=== PATIENT | male | born 1940 | race Caucasian/White ===

== ENCOUNTER 2017-05-14 09:07 | Observation (INO) | payer OTHER ==
--- NOTE | 2017-05-14 09:20 | CPEKG ---
Heart Rate: 54 RR Interval: 1111 P-R Interval: 204 QRSD Interval: 152 QT Interval: 464 QTC Interval: 440 P [place]: 21 QRS [place]: 30 T Wave [place]: -21 EKG Severity - ABNORMAL ECG - EKG Impression: SINUS RHYTHM EKG Impression: RIGHT BUNDLE BRANCH BLOCK EKG Impression: INFERIOR INFARCT, AGE INDETERMINATE Electronically Signed By: David Schulte 14-May-2017 16:11:00
[2017-05-14] MEDS ORDERED: MECLIZINE HCL 25 MG TAB PO ONE (09:34)
[2017-05-14] MEDS ORDERED: NS 500 ML IV ONE (09:34)
[2017-05-14 09:40] LABS: % IMMATURE GRANULYOCYTES 0.2 % (0.0-1.1); ABSOLUTE IMMATURE GRANULOCYTES 0.01 10^3/uL (0.00-0.10); ADD DIFF? NO; ADD MORPH? NO; ADD SCAN? NO; ATYPICAL LYMPHOCYTE FLAG 0 (0-99); FRAGMENT RBC FLAG 0 (0-99); HEMATOCRIT 42.1 % (40.0-51.0); HEMOGLOBIN 14.2 g/dL (13.7-17.5); LEFT SHIFT FLG 0 (0-99); LIPEMIA HEMOLYSIS FLAG 80 (0-99); MEAN CELL HEMOGLOBIN 31.7 pg (27.9-34.1); MEAN CELL HEMOGLOBIN CONCENTR. 33.7 g/dL (32.4-36.7); MEAN PLATELET VOLUME 9.4 fL (8.7-11.7); PLATELET CLUMPS FLAG 0 (0-99); PLATELET COUNT 206 10^3/uL (150-400); RED BLOOD CELL COUNT 4.48 10^6/uL (4.40-6.38); RED CELL DISTRIBUTION WIDTH 12.7 % (11.5-15.2)
[2017-05-14 09:47] LABS: ALANINE AMINOTRANSFERASE 27 IU/L (21-72); ALBUMIN 3.9 g/dL (3.5-5.0); ALKALINE PHOSPHATASE 59 IU/L (38-126); ANION GAP 12 mEq/L (8-16); ASPARTATE AMINOTRANSFERASE 25 IU/L (17-59); BILIRUBIN,TOTAL 0.9 mg/dL (0.1-1.4); BILIRUBIN-CONJUGATED 0.3 mg/dL (0.0-0.5); BILIRUBIN-UNCONJUGATED 0.6 mg/dL (0.0-1.1); CALCIUM 9.5 mg/dL (8.5-10.4); CARBON DIOXIDE 22 mEq/l (22-31); CHLORIDE 106 mEq/L (97-110); CREATININE 1.2 mg/dL (0.7-1.3); GLOMERULAR FILTRATION RATE 58; GLUCOSE 101 mg/dL (70-100); POTASSIUM 4.7 mEq/L (3.5-5.2); SODIUM 140 mEq/L (134-144); TOTAL PROTEIN 7.5 g/dL (6.3-8.2)
[2017-05-14 09:51] LABS: INR 1.13 (0.83-1.16); PROTIME(PATIENT) 14.4 SEC (12.0-15.0)
[2017-05-14 09:52] LABS: APTT 29.4 SEC (23.0-38.0)
[2017-05-14 09:58] LABS: TROPONIN I < 0.012 ng/mL (0.000-0.034)
--- NOTE | 2017-05-14 10:33 | EDPHY ---
H & P Stated Complaint: Dizzines since waking up this morning. Source: Patient, Family Exam Limitations: No limitations - Personal History Current Tetanus Diphtheria and Acellular Pertussis (TDAP): No - Medical/Surgical History Hx Asthma: No Hx Chronic Respiratory Disease: No Hx Diabetes: No Hx Cardiac Disease: Yes Hx Renal Disease: No Hx Cirrhosis: No Hx Alcoholism: No Hx HIV/AIDS: No Hx Splenectomy or Spleen Trauma: No Other PMH: Heart bypass - 2006. HTN. High cholestrol. - Social History Smoking Status: Never smoked HPI/ROS: CHIEF COMPLAINT: Dizziness, lightheaded HISTORY OF PRESENT ILLNESS: Patient complains of dizziness. This started last night and has been constant. There is spinning associated with. He also feels his heart rate dropping and feel symptomatic with this. No chest pain. No shortness of breath. No recent illness. No unilateral complaints. No slurred speech or facial droop per spouse. No headache. No other associated complaints or modifying factors. REVIEW OF SYSTEMS: Ten systems reviewed and are negative unless otherwise noted in the HPI PAST MEDICAL HISTORY: Reviewed with patient and family SOCIAL HISTORY: Nonsmoker. Lives independently with his spouse FAMILY HISTORY: Noncontributory EXAMINATION General Appearance: Alert, no distress Head: normocephalic, atraumatic Eyes: Pupils equal and round, no conjunctival pallor or injection. Horizontal nystagmus. No vertical nystagmus. EOMs intact. ENT, Mouth: Mucous membranes moist Neck: Normal inspection, supple, non-tender Respiratory: Lungs are clear to auscultation. No wheeze, rhonchi or crackles Cardiovascular: Bradycardic rate. Regular rhythm. No murmur. Gastrointestinal: Abdomen is soft and nontender Back: non-tender, no bony abnormalities Neurological: GCS 15. A&O, nonfocal, no pronator drift. Strength is symmetric in all 4 limbs. No dysmetria. NIH stroke scale 0. Skin: Warm and dry, no rash Extremities: Nontender, no pedal edema Psychiatric: Mood and affect normal DIFFERENTIAL DIAGNOSES: Including but not limited to bradycardia, near-syncope, syncope, vertigo, vertebrobasilar syndrome, CVA MDM: 9:35 p.m. Lightheadedness and dizziness consistent with vertigo. No chest pain. No syncope but he does describe a near syncopal episode. Vital signs are stable. Laboratory studies, meclizine and IV fluid have been ordered. Also will obtain orthostatic vital signs. He is in no acute distress. 10:00 a.m. I have re-evaluated the patient. He is in no acute distress. Vital signs stable. CT scan pending. Laboratory studies pending. 10:05 a.m. Contacted by radiologist Dr. De La Rosa. CT scan of the head reveals no acute findings. Chronic changes as noted. 10:50 a.m. I have re-evaluated the patient. He is resting comfortably in no acute distress. Dizziness has minimally improved. Laboratory studies are unremarkable. Chest x-ray reveals borderline CHF. No other acute findings. 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 The lowest rate I witnessed was 49 beats per minute. He does feel more symptomatic with this. Thus I will admit him to the hospital and obtain Cardiology consult he is awake and alert. His pressure has been normotensive. No encephalopathy. No instability. 11:17 a.m. I discussed the case with hospitalist Valerie Mcbride. Patient will be admitted to Dr. Darby. He is admitted in stable condition. No cardiology consult requested at this time. SUPERVISION: Patient was evaluated in conjunction with the supervising physician. Please see their note for details. (Richie De Los Santos) Constitutional: Initial Vital Signs Temperature (C) 36.5 C 05/14/17 09:16 Heart Rate 62 05/14/17 09:16 Respiratory Rate 19 05/14/17 09:16 Blood Pressure 152/95 H 05/14/17 09:16 O2 Sat (%) 92 05/14/17 09:16 O2 Delivery Mode Room Air Allergies/Adverse Reactions: NKDA Allergy (Uncoded 09/25/09 01:12) Home Medications: Medication Instructions Recorded Aspirin [Aspirin 81mg (*)] 162 mg PO DAILY 09/24/09 Atorvastatin Calcium [Lipitor 40 40 mg PO HS 09/24/09 mg (*)] Glucosamine/Chondroitin 1 each PO DAILY 09/24/09 [Glucosamine/Chondroitin (*)] Omeprazole [Prilosec 20 mg] 20 mg PO Q2D 09/24/09 Travoprost Z 0.004% [Travatan Z 1 drops EACHEYE HS 09/24/09 0.004% (*)] Ferrous Sulfate [Ferrous Sulf 325 325 mg PO DAILY 05/14/17 MG (*)] Multivitamins [Multivitamin (*)] 1 each PO DAILY 05/14/17 amLODIPine BESYLATE [Norvasc 5 mg 5 mg PO DAILY 05/14/17 (*)] Medical Decision Making ED Course/Re-evaluation: I did not see this patient while he was in the emergency department. However his care was discussed with the PA while the patient was in the department. I agree with treatment plan and management (David Schulte) - Data Points Laboratory Results: Laboratory Results 05/14/17 09:04 05/14/17 09:04 Medications Given: Atorvastatin Calcium (Lipitor) 40 mg PO [facility] Stop: 11/10/17 20:59 Last Admin: 05/14/17 20:44 Dose: 40 mg Travoprost (Travatan Z 0.004%) 1 drops EACHEYE [facility] Stop: 11/10/17 20:59 Last Admin: 05/14/17 20:44 Dose: 1 drop Discontinued Medications Sodium Chloride (Ns) 500 mls @ 0 mls/hr IV EDNOW ONE; Wide Open PRN Reason: Protocol Stop: 05/14/17 09:35 Last Admin: 05/14/17 09:47 Dose: 500 mls Meclizine HCl (Meclizine Hcl) 25 mg PO EDNOW ONE Stop: 05/14/17 09:35 Last Admin: 05/14/17 09:48 Dose: 25 mg Departure - Departure Disposition: [facility] Inpatient Acute Clinical Impression: Symptomatic bradycardia, Dizziness, Near syncope Condition: Good
[2017-05-14] MEDS ORDERED: ONDANSETRON DISINTEGRATING 4 MG TAB PO PRN (13:57)
[2017-05-14] MEDS ORDERED: oxyCODONE IR 5 MG TAB PO PRN (13:57)
[2017-05-14] MEDS ORDERED: ONDANSETRON 4 MG/2 ML VIAL IVP PRN (13:57)
[2017-05-14] MEDS ORDERED: ACETAMINOPHEN 325 MG TAB PO PRN (13:57)
[2017-05-14] MEDS ORDERED: MECLIZINE HCL 25 MG TAB PO PRN (14:22)
--- NOTE | 2017-05-14 14:25 | PDGENHP ---
History and Physical - Chief Complaint dizzyness - History of Present Illness 77 yo M with PMH of CAD, systolic CHF presenting with dizziness and lightheadedness since last night. He notes it is often triggered by turning his head or changing position. He has had issues with spinning sensation as well associated with this. He has not had any chest pain, sob, or actual syncope. He has not felt sick recently and particularly no sinus or URI sxs. He has never had similar sxs in the past. He noted while in the ER that his HR was ranging from as low as 49 to his usual rate in the 70s and noted that when his HR was lower he felt more lightheaded. History Information - Allergies/Home Medication List Allergies/Adverse Reactions: NKDA Allergy (Uncoded 09/25/09 01:12) Home Medications: Aspirin [Aspirin 81mg (*)] 162 mg PO DAILY 09/24/09 [Last Taken 05/14/17 650mg] Atorvastatin Calcium [Lipitor 40 mg (*)] 40 mg PO HS 09/24/09 [Last Taken ] Glucosamine/Chondroitin [Glucosamine/Chondroitin (*)] 1 each PO DAILY 09/24/09 [ Last Taken 05/13/17] Omeprazole [Prilosec 20 mg] 20 mg PO Q2D 09/24/09 [Last Taken 05/12/17] Travoprost Z 0.004% [Travatan Z 0.004% (*)] 1 drops EACHEYE HS 09/24/09 [Last Taken 05/13/17] Ferrous Sulfate [Ferrous Sulf 325 MG (*)] 325 mg PO DAILY 05/14/17 [Last Taken 05/13/17] Multivitamins [Multivitamin (*)] 1 each PO DAILY 05/14/17 [Last Taken 05/13/17] amLODIPine BESYLATE [Norvasc 5 mg (*)] 5 mg PO DAILY 05/14/17 [Last Taken ] I have personally reviewed and updated: family history, medical history, social history, surgical history - Past Medical History arthritis, coronary artery disease, CHF, GERD, glaucoma, hypertension, hyperlipidemia - Surgical History Reports: coronary bypass surgery, coronary stent Additional surgical history: knee arthroscopy - Family History Positive for: non-pertinent - Social History Smoking Status: Former smoker (quit approximatly 12 years ago) Alcohol Use: Occasionally Drug Use: None Additional social history: , lives independently, 2 sons Review of Systems ROS: 10pt was reviewed & negative except for what was stated in HPI & below Physical Exam Temp Pulse Resp BP Pulse Ox 36.4 C 65 20 143/72 H 93 05/14/17 13:50 05/14/17 13:50 05/14/17 13:50 05/14/17 13:50 05/14/17 13:50 Constitutional: no apparent distress, appears nourished Eyes: PERRL, anicteric sclera, EOMI Ears, Nose, Mouth, Throat: moist mucous membranes, hearing normal Cardiovascular: regular rate and rhythym, no murmur, rub, or gallop, No edema Respiratory: no respiratory distress, no rales or rhonchi, clear to auscultation Gastrointestinal: normoactive bowel sounds, soft, non-tender abdomen Genitourinary: no bladder tenderness Skin: warm, normal color Musculoskeletal: full muscle strength, no muscle tenderness, No asymmetric calves Neurologic: AAOx3, No weakness, No numbness Psychiatric: interacting appropriately, not anxious, not encephalopathic Lab Data & Imaging Review 05/14/17 09:04 05/14/17 09:04 WBC 5.93 10^3/uL (3.80-9.50) 05/14/17 09:04 RBC 4.48 10^6/uL (4.40-6.38) 05/14/17 09:04 Hgb 14.2 g/dL (13.7-17.5) 05/14/17 09:04 Hct 42.1 % (40.0-51.0) 05/14/17 09:04 MCV 94.0 fL (81.5-99.8) 05/14/17 09:04 MCH 31.7 pg (27.9-34.1) 05/14/17 09:04 MCHC 33.7 g/dL (32.4-36.7) 05/14/17 09:04 RDW 12.7 % (11.5-15.2) 05/14/17 09:04 Plt Count 206 10^3/uL (150-400) 05/14/17 09:04 MPV 9.4 fL (8.7-11.7) 05/14/17 09:04 Neut % (Auto) 47.1 % (39.3-74.2) 05/14/17 09:04 Lymph % (Auto) 35.2 % (15.0-45.0) 05/14/17 09:04 [place] % (Auto) 13.3 % (4.5-13.0) H 05/14/17 09:04 Eos % (Auto) 3.0 % (0.6-7.6) 05/14/17 09:04 Baso % (Auto) 1.2 % (0.3-1.7) 05/14/17 09:04 Nucleat RBC Rel Count 0.0 % (0.0-0.2) 05/14/17 09:04 Absolute Neuts (auto) 2.79 10^3/uL (1.70-6.50) 05/14/17 09:04 Absolute Lymphs (auto) 2.09 10^3/uL (1.00-3.00) 05/14/17 09:04 Absolute Monos (auto) 0.79 10^3/uL (0.30-0.80) 05/14/17 09:04 Absolute Eos (auto) 0.18 10^3/uL (0.03-0.40) 05/14/17 09:04 Absolute Basos (auto) 0.07 10^3/uL (0.02-0.10) 05/14/17 09:04 Absolute Nucleated RBC 0.00 10^3/uL (0-0.01) 05/14/17 09:04 Immature Gran % 0.2 % (0.0-1.1) 05/14/17 09:04 Immature Gran # 0.01 10^3/uL (0.00-0.10) 05/14/17 09:04 PT 14.4 SEC (12.0-15.0) 05/14/17 09:04 INR 1.13 (0.83-1.16) 05/14/17 09:04 APTT 29.4 SEC (23.0-38.0) 05/14/17 09:04 Sodium 140 mEq/L (134-144) 05/14/17 09:04 Potassium 4.7 mEq/L (3.5-5.2) 05/14/17 09:04 Chloride 106 mEq/L (97-110) 05/14/17 09:04 Carbon Dioxide 22 mEq/l (22-31) 05/14/17 09:04 Anion Gap 12 mEq/L (8-16) 05/14/17 09:04 BUN 19 mg/dL (7-23) 05/14/17 09:04 Creatinine 1.2 mg/dL (0.7-1.3) 05/14/17 09:04 Estimated GFR 58 05/14/17 09:04 Glucose 101 mg/dL (70-100) H 05/14/17 09:04 Calcium 9.5 mg/dL (8.5-10.4) 05/14/17 09:04 Total Bilirubin 0.9 mg/dL (0.1-1.4) 05/14/17 09:04 Conjugated Bilirubin 0.3 mg/dL (0.0-0.5) 05/14/17 09:04 Unconjugated Bilirubin 0.6 mg/dL (0.0-1.1) 05/14/17 09:04 AST 25 IU/L (17-59) 05/14/17 09:04 ALT 27 IU/L (21-72) 05/14/17 09:04 Alkaline Phosphatase 59 IU/L (38-126) 05/14/17 09:04 Troponin I < 0.012 ng/mL (0.000-0.034) 05/14/17 09:04 NT-Pro-B Natriuret Pep 501 pg/mL (0-450) H 05/14/17 09:04 Total Protein 7.5 g/dL (6.3-8.2) 05/14/17 09:04 Albumin 3.9 g/dL (3.5-5.0) 05/14/17 09:04 Lipase 156 IU/L (23-300) 05/14/17 09:04 Visualized and Interpreted Chest x-ray results: Yes Chest X-Ray results: other (e/o CHF with pulm vasc congestion/e/o cabg) Visualized and Interpreted imaging results: Yes Interpretation: head CT normal Visualized and Interpreted EKG results: Yes EKG Interpretation: Positive for: normal sinsus rhythm, other (no old to compare ), right bundle branch block Assessment & Plan Assessment: 77 yo M with PMH of CAD, systolic heart failure presenting with vertigo and bradycardia # vertigo: with differential including BPV especially given positional component versus symptomatic bradycardia. Will ask PT/OT to evaluate and if possible perform Antonio Maneuver. Continue prn meclizine. Monitoring on tele as next. # symptomatic bradycardia: patient noted in ER to be bradycardic to the 40s and having worsening lightheadness during that period. Cardiology consulted, monitoring on tele, serial troponin, echocardiogram, serial ECGs. Does have RBBB and no prior ECG found thus far for comparison. # chronic systolic heart failure: presumably ischemic, has had EF as low as 33% but typically has been 50%. Will repeat echo given above. # CAD: continue op medications including asa, statin. No BB on board for unclear reasons but given bradycardia as above will not begin now. # HTN: continue amlodipine # HLD: continue atorvastatin # GERD: continue ppi # dispo: observation status, will likely need < 48 hours stay for eval/mgmt of above. Patient new to my care. Old records reviewed and summarized as above. Care plan reviewed with ER doctor including plans for cardiology consult.
--- NOTE | 2017-05-14 15:48 | ECHO ---
[id number] + + [address] : : [place] [address] : : [phone] + + Adult Echocardiographic Report + -------+ :Name: LUISITO ORDONEZ CStudy Date: 05/14/2017 02:57 PM BP: 143/72 mmH g : : Hospital Admission Number: [id number] Locati on: 371: :: 1940 Gender: Male Height: 68 in : :Age: 77 yrs Race: WH Weight: 190 lb : :Reason For Study: near syncope : : BSA: 2.0 meter s2 : :History: cabg, mi , stent, cad : + -------+ MMode/2D Measurements \T\ Calculations IVSd: 1.1 cm LVIDd: 5.1 cm FS: 19.7 % Ao root diam: 3.5 cm LVPWd: 1.0 cm LVIDs: 4.1 cm EDV(Teich): 125.2 ml ESV(Teich): 74.8 ml EF(Teich): 40.3 % Normal Measurement Values: + + :LVIDd (3.5-5.7cm) IVSd (0.6-1.1cm) LVPWd (0.6-1.1cm) Aortic Root (2.0-3.7cm)Left Atrium (1.5-4.0cm): :LV Vol(d) (76-115ml) LV Vol(s) (29-48ml) Ejec Fraction (50-65%)PV Nikita (0.6- 1.2m/s) TV Nikita (0.4-1.0m/s) : :MV E Nikita (0.8-1.0m/s)MV A Nikita (0.3-1.0m/s)LVOT Nikita (0.7-1.2m/s) Asc Ao Nikita ( 0.9-1.8m/s) : + + Doppler Measurements \T\ Calculations MV E max nikita: Ao V2 max: LV V1 max: PA V2 max: 63.7 cm/sec 135.7 cm/sec 74.5 cm/sec 136.7 cm/sec MV A max nikita: Ao max PG: LV V1 max PG: PA max P.7 cm/sec 7.4 mmHg 2.2 mmHg 7.5 mmHg MV E/A: 0.64 MV dec time: 0.18 sec TR max nikita: 266.0 cm/sec TR max P.3 mmHg RAP systole: 5.0 mmHg RVSP(TR): 33.3 mmHg Left Ventricle The left ventricle is normal in size. There is mild concentric left ventricular hypertrophy. Left ventricular systolic function is low normal. Ejection Fraction = 45-50%. Basal inferior and basal inferolateral hypokinesis. Right Ventricle The right ventricle is normal in size and function. Atria The left atrium is moderately dilated. The Left Atrial Volume is 45 ml/m2. The right atrium is moderately dilated. Mitral Valve The mitral valve leaflets appear thickened, but open well. There is mild mitral annular calcification. There is no mitral valve stenosis. There is mild to moderate mitral regurgitation. Tricuspid Valve The tricuspid valve is normal in structure and function. There is no tricuspid stenosis. There is mild to moderate tricuspid regurgitation. Right ventricular systolic pressure is 33mmHg. Aortic Valve The aortic valve is trileaflet. There is no aortic stenosis. Mild aortic regurgitation. Pulmonic Valve The pulmonic valve is not well visualized. Great Vessels The aortic root is normal size. Pericardium/Pleural There is no pericardial effusion. Conclusion A two-dimensional transthoracic echocardiogram with M-mode and Doppler was performed. The study was technically difficult. There is mild concentric left ventricular hypertrophy. Left ventricular systolic function is low normal. Ejection Fraction = 45-50%. Basal inferior and basal inferolateral hypokinesis. The left atrium is moderately dilated. The right atrium is moderately dilated. Mild aortic regurgitation. There is mild to moderate mitral regurgitation. There is mild to moderate tricuspid regurgitation. Right ventricular systolic pressure is 33mmHg. Final Reading Physician: Mitch Martines signed on 05/14/2017 03:46 PM Ordering Physician: Jayce Darby Performed By: Stephanie Wolf
[2017-05-14 16:33] LABS: COLOR YELLOW; LEUKOCYTE ESTERASE,URINE NEGATIVE (NEGATIVE); NITRITE,URINE NEGATIVE (NEGATIVE)
[2017-05-14] MEDS ORDERED: ATORVASTATIN CALCIUM 40 MG TAB PO SCH (21:00)
[2017-05-14] MEDS ORDERED: TRAVOPROST Z 0.004% 2.5 ML OPHT.BTL EACHEYE SCH ×2 (21:00)
[2017-05-15] MEDS ORDERED: FERROUS SULFATE 325 MG TAB PO SCH (09:00)
[2017-05-15] MEDS ORDERED: ASPIRIN 81 MG CHEWABLE TAB PO SCH (09:00)
[2017-05-15] MEDS ORDERED: GLUCOSAMINE/CHONDROITIN CAP PO SCH (09:00)
[2017-05-15] MEDS ORDERED: ENOXAPARIN 40 MG/0.4 ML SYR SC SCH (09:00)
[2017-05-15] MEDS ORDERED: amLODIPine BESYLATE 5 MG TAB PO SCH (09:00)
[2017-05-15] MEDS ORDERED: MULTIVITAMINS 1 EACH TAB PO SCH (09:00)
[2017-05-15 12:48] VITALS: PULSE 60; RESP 18; TEMP 97.5; O2SAT 94
[2017-05-15 14:17] VITALS: BP 140/78
--- NOTE | 2017-05-15 15:27 | HOSPPROG ---
Hospitalist Progress Note Assessment/Plan: 77 yo M w john home today see dc summary Subjective: no event tele. case d/w dr hoover Objective: Vital Signs Temp Pulse Resp BP Pulse Ox 36.4 C 60 18 130/77 H 94 05/15/17 12:00 05/15/17 12:00 05/15/17 12:00 05/15/17 12:00 05/15/17 12:00 05/14/17 05/15/17 05/16/17 05:59 05:59 05:59 Intake Total 900 Output Total 400 Balance 500 PT 14.4 SEC (12.0-15.0) 05/14/17 09:04 INR 1.13 (0.83-1.16) 05/14/17 09:04 - Physical Exam Constitutional: no apparent distress, appears nourished Eyes: PERRL, anicteric sclera Ears, Nose, Mouth, Throat: moist mucous membranes, hearing normal Cardiovascular: regular rate and rhythym, no murmur, rub, or gallop Respiratory: no respiratory distress, no rales or rhonchi Gastrointestinal: normoactive bowel sounds, soft, non-tender abdomen, no palpable masses Genitourinary: no bladder fullness Skin: warm Musculoskeletal: full muscle strength, no muscle tenderness Neurologic: AAOx3 ICD10 Worksheet Patient Problems: Problems Problem Status Onset Dizziness Acute Near syncope Acute Symptomatic bradycardia Acute
--- NOTE | 2017-05-15 15:28 | GCON ---
[f rep st] CONSULTATION CARDIOLOGY CONSULT DATE OF CONSULTATION: 05/15/2017 PRIMARY SOCCER REFEREE: Dr. Jose Berry. CHIEF COMPLAINT: Presyncope. HISTORY OF PRESENT ILLNESS: We were asked by Dr. Darby to visit with the patient. The patient is a pleasant 77-year-old male with a history of myocardial infarction, followed by 4-vessel CABG in 2002. He has an ischemic cardiomyopathy with an ejection fraction of 45% to 50%, hypertension, and known right bundle branch block. He was in his usual state of good health until yesterday morning. He rolled over in bed and felt li ke he was spinning and he was going to fall out of bed. He fell back asleep but then woke up and st ill felt vertiginous. He tried to sit up and felt like he was spinning. He did not have syncope. He has not had problems with angina, dyspnea, or palpitations. He checks his blood pressure and pul se regularly, and they have been within normal limits. He has not had symptoms suggestive of heart failure. 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 His was concerned and called 911. In the ER, he had initially stable vital signs, but by repor t did have some heart rates that dipped into the high 40s. I do not have the strips of these. He w as not orthostatic by blood pressure this morning. He was admitted for observation. Today he reports that he feels much better. He has not had any recurrent vertigo. He was also, as a separate symptom, having a little bit of lightheadedness when he sat up, but he states that this i s resolved. Again, no chest pain. REVIEW OF SYSTEMS: He has had a chronic globus sensation and irritation of his larynx, for which Dr Aster Urbina stopped the losartan and started amlodipine. This change has helped his throat symptoms slightly. He has not had any recent viral symptoms. No fever. He was a little bit nauseated with the vertigo, but no vomiting. No diarrhea. He has been eating normally. Otherwise, a full 10-poin t review of systems is performed and is negative, except that which is outlined in History of Presen t Illness. ALLERGIES: No known drug allergies. PAST MEDICAL HISTORY: 1. Coronary artery disease with history of 4-vessel bypass in 2002. POSADAS to the LAD, SVG to the RC A, first diagonal, and first obtuse marginal. 2. Ischemic cardiomyopathy with an ejection fraction of 45% to 50%. 3. Hypertension. 4. Dyslipidemia. 5. Right bundle branch block. 6. Valvular heart disease with mild to moderate mitral and tricuspid regurgitation. 7. History of knee arthroscopy. 8. GERD. OUTPATIENT MEDICATIONS: Norvasc 5 mg daily, aspirin 81 mg daily, Prilosec 20 mg daily, atorvastatin 40 mg daily, iron, glucosamine, multivitamin, and travoprost eye drops. SOCIAL HISTORY: The patient is , and his is at bedside. He does not smoke cigarettes. He drinks 1-2 beers nightly and denies marijuana. FAMILY HISTORY: Not applicable to the current case. PHYSICAL EXAM: VITAL SIGNS: Blood pressure 130/70, heart rate 60, oxygen saturation 94% on room ai r. He is afebrile. Respiratory rate is 18. Telemetry: Normal sinus rhythm, with occasional PVCs. GENERAL: Well-appearing older male, in no distress. HEENT: Sclerae are clear and free of jaundi ce. Mucous members are moist. Normocephalic, atraumatic. CARDIOVASCULAR: JVP is less than 10. C arotids equal and 2+, without bruit. Regular rate and rhythm, with a 2/6 holosystolic murmur at the left lower sternal border. No rub or gallop. LUNGS: Clear to auscultation bilaterally, without w heezes, rhonchi, or rales. ABDOMEN: Soft, nontender, nondistended, without bruits, masses, or hepa tosplenomegaly. EXTREMITIES: Warm and well perfused, without cyanosis, clubbing, or edema. NEURO: Alert and oriented x3, without gross focal neurologic deficits. EKG reviewed by me and compared to an EKG from 2009. Right bundle branch block. Borderline KS inte rval. Old inferior AL. Echocardiogram reviewed by me shows LV systolic function is mildly decreased at 45% to 50% with infe rior and inferolateral hypokinesis. Tfon-pl-[id number] mitral regurgitation and vnkq-ma-idthvoyu tric uspid regurgitation with normal estimated pulmonary pressure. Chest x-ray, reviewed by me: Sternotomy wires are seen. Reticular abnormality bibasilarly. Head C T: No acute intracranial abnormality. LABORATORY DATA: CBC is essentially normal. INR 1.13. Comprehensive metabolic panel is normal, ex cept for a glucose of 101, troponin negative x3. BNP 501. Urinalysis shows trace ketones. Last coronary angiogram was in 2009, that showed patent bypass grafts. Last nuclear stress test at [facility] was in 2012, showing his known inferior myocardial infarct ion without ischemia. Ejection fraction 54%. ASSESSMENT AND PLAN: A 77-year-old male with known coronary disease, mild cardiomyopathy, mild valv ular heart disease and hypertension. He has a baseline right bundle branch block. He is admitted w ith symptoms most consistent with a benign positional vertigo. Symptoms have essentially resolved. He has not had angina. He does not appear to be in heart failure. 1. Vertigo with some lightheadedness as well. As mentioned, this seems to be primarily vertigo. I have ordered a carotid ultrasounds to assess carotid and vertebral flow in this patient with known vascular disease. He does have a right bundle branch block and by report had some heart rate in the high 40s in the ER. His telemetry here has not demonstrated any significant bradyarrhythmia or magali ses. No indication for pacemaker at this time. I would like him to have a Holter monitor in the ou tpatient setting and then follow up with Dr. Berry. He may use meclizine p.r.n. 2. Coronary disease: This appears stable. No evidence of ischemia. 3. Cardiomyopathy: He is euvolemic. He is currently off losartan, which seems to have improved hi s throat symptoms a little bit. This could be readdressed in the outpatient setting, as an MORALES inhi bitor or angiotensin receptor paulette are good medications for cardio protection, especially in the setting of a mildly reduced ejection fraction. He is also not on a beta-paulette, but I would hold t hat for now given the question of bradycardia and his conduction system disease at baseline. Again, this should be readdressed in the outpatient setting. 4. Hypertension: Currently well controlled. 5. Dyslipidemia: He is on atorvastatin. 6. Valvular heart disease: This is mild and could be followed with serial echoes. Thank you for allowing us to participate in the patient's care. If his carotid ultrasound is normal , he may be discharged later today. /[id number]
--- NOTE | 2017-05-15 16:33 | GDS ---
[f rep st] DISCHARGE SUMMARY DISCHARGE DIAGNOSES: 1. Vertigo. 2. Bradycardia, transient. HOSPITAL COURSE: Please see admission history and physical by Dr. Jayce Darby. The patient pre sented with vertiginous symptoms such as the room spinning, difficulty with ambulation, and generali zed weakness. He had some bradycardia that resolved. He had no events on telemetry overnight. He was seen by Cardiology who felt outpatient Holter monitor was possibly indicated but did not feel th at this was a cardiac process. He had a carotid Doppler, which showed mild vascular disease and no flow-limiting stenosis. He had negative troponins. He is not in clinical heart failure. He is discharged home with p.r.nAster locklipaulino. He was seen by PT/OT and cleared. /[id number]/MODL
[2017-05-16] MEDS ORDERED: PANTOPRAZOLE SODIUM 40 MG TAB PO SCH (09:00)
[2017-05-16] MEDS ORDERED: NON-FORMULARY NEW DRUG (Omeprazole [Prilosec 20 Mg] 20 MG) PO SCH (09:00)
== END 2017-05-15 16:04 | disposition home or self-care (01) ==
LOC: EDUNIT# → INTOOBSV 11:16 → F3E 13:28
PROVIDERS: ADMIT Internal Medicine; ATTEND Internal Medicine
DX: R42 Dizziness and giddiness (principal); R00.1 Bradycardia, unspecified; I25.5 Ischemic cardiomyopathy; I10 Essential (primary) hypertension; E78.5 Hyperlipidemia, unspecified; I25.10 Atherosclerotic heart disease of native coronary artery without angina pectoris; I25.2 Old myocardial infarction; K21.9 Gastro-esophageal reflux disease without esophagitis; Z95.1 Presence of aortocoronary bypass graft; Z95.5 Presence of coronary angioplasty implant and graft
CPT/HCPCS: 70450; 71010; 93005; 93306; 93880; 96360; 97161; 97166; 99285; G0378; G8978; G8979; G8980; G8987; G8988; J1650

== ENCOUNTER 2017-05-27 11:25 | Emergency (ER) | payer OTHER ==
[2017-05-27 11:43] VITALS: TEMP 97.5
--- NOTE | 2017-05-27 11:58 | EDPHY ---
H & P Stated Complaint: RECTAL LUMP/BLACK STOOL/BLOOD Time Seen by Provider: 05/27/17 11:55 - Personal History Current Tetanus/Diphtheria Vaccine: No - Medical/Surgical History Hx Asthma: No Hx Chronic Respiratory Disease: No Hx Diabetes: No Hx Cardiac Disease: Yes Hx Renal Disease: No Hx Cirrhosis: No Hx Alcoholism: No Hx HIV/AIDS: No Hx Splenectomy or Spleen Trauma: No Other PMH: Heart bypass - 2006. HTN. High cholestrol. - Social History Smoking Status: Never smoked Constitutional: Initial Vital Signs Temperature (C) 36.4 C 05/27/17 11:40 Heart Rate 62 05/27/17 11:40 Respiratory Rate 20 05/27/17 11:40 Blood Pressure 143/94 H 05/27/17 11:40 O2 Sat (%) 94 05/27/17 11:40 O2 Delivery Mode Room Air Allergies/Adverse Reactions: NKDA Allergy (Uncoded 05/27/17 11:39) Home Medications: Medication Instructions Recorded Aspirin [Aspirin 81mg (*)] 162 mg PO DAILY 09/24/09 Atorvastatin Calcium [Lipitor 40 40 mg PO HS 09/24/09 mg (*)] Glucosamine/Chondroitin 1 each PO DAILY 09/24/09 [Glucosamine/Chondroitin (*)] Omeprazole [Prilosec 20 mg] 20 mg PO Q2D 09/24/09 Travoprost Z 0.004% [Travatan Z 1 drops EACHEYE HS 09/24/09 0.004% (*)] Ferrous Sulfate [Ferrous Sulf 325 325 mg PO DAILY 05/14/17 MG (*)] Multivitamins [Multivitamin (*)] 1 each PO DAILY 05/14/17 amLODIPine BESYLATE [Norvasc 5 mg 5 mg PO DAILY 05/14/17 (*)] Meclizine HCl [Meclizine HCl 25 mg 25 mg PO BID PRN #10 tab 05/15/17 (RX,OTC)] Medical Decision Making ED Course/Re-evaluation: CHIEF COMPLAINT: HISTORY OF PRESENT ILLNESS: must have 4 elements: Location, Quality, Severity , Duration, Timing, Context, Modifying Factors, Associated Signs and Symptoms REVIEW OF SYSTEMS: A 10 point review of systems was performed and is negative with the exception of the elements mentioned in the history of present illness. PHYSICAL EXAM: HR, BP, O2 Sat, RR. Temp noted General Appearance: Alert, well hydrated, appropriate, and non-toxic appearing. Head: Atraumatic without scalp tenderness or obvious injury Eyes: Pupils equal, round, reactive to light and accommodation, EOMI, no trauma , no injection. Ears: Clear bilaterally, no perforation, normal landmarks Nose: Atraumatic, no rhinorrhea, clear. Throat: There is no erythema or exudates, no lesions, normal tonsils, mucus membranes moist. Neck: Supple, 2+ carotid upstroke, nontender, no lymphadenopathy. Respiratory: No retractions, no distress, no wheezes, and no accessory muscle use. Lungs are clear to auscultation bilaterally. Cardiovascular: Regular rate and rhythm, no murmurs, rubs, or gallops. Bilateral carotid, radial, dorsalis pedis, and posterior tibial pulses intact. Good capillary refill all extremities. Gastrointestinal: Abdomen is soft, nontender, non-distended, no masses, no rebound, no guarding, no peritoneal signs. Musculoskeletal: Normal active ROM of all extremities, atraumatic. Neurological: Alert, appropriate, and interactive. The patient has normal DTRs and non-focal cranial nerves, motor, sensory, and cerebellar exam. Skin: No rashes, good turgor, no nodules on palpation. Past medical history: Past surgical history: Family history: Social history: DIAGNOSTICS/PROCEDURES/CRITICAL CARE TIME: DIFFERENTIAL DIAGNOSIS: MEDICAL DECISION MAKING: Departure - Departure Referrals: Chon Urbina MD [Primary Care Provider] - As per Instructions
--- NOTE | 2017-05-27 12:11 | EDPHY ---
H & P Stated Complaint: RECTAL LUMP/BLACK STOOL/BLOOD Time Seen by Provider: 05/27/17 11:55 - Personal History Current Tetanus/Diphtheria Vaccine: No - Medical/Surgical History Hx Asthma: No Hx Chronic Respiratory Disease: No Hx Diabetes: No Hx Cardiac Disease: Yes Hx Renal Disease: No Hx Cirrhosis: No Hx Alcoholism: No Hx HIV/AIDS: No Hx Splenectomy or Spleen Trauma: No Other PMH: Heart bypass - 2006. HTN. High cholestrol. - Social History Smoking Status: Never smoked Constitutional: Initial Vital Signs Temperature (C) 36.4 C 05/27/17 11:40 Heart Rate 62 05/27/17 11:40 Respiratory Rate 20 05/27/17 11:40 Blood Pressure 143/94 H 05/27/17 11:40 O2 Sat (%) 94 05/27/17 11:40 O2 Delivery Mode Room Air Allergies/Adverse Reactions: NKDA Allergy (Uncoded 05/27/17 11:39) Home Medications: Medication Instructions Recorded Aspirin [Aspirin 81mg (*)] 162 mg PO DAILY 09/24/09 Atorvastatin Calcium [Lipitor 40 40 mg PO HS 09/24/09 mg (*)] Glucosamine/Chondroitin 1 each PO DAILY 09/24/09 [Glucosamine/Chondroitin (*)] Omeprazole [Prilosec 20 mg] 20 mg PO Q2D 09/24/09 Travoprost Z 0.004% [Travatan Z 1 drops EACHEYE HS 09/24/09 0.004% (*)] Ferrous Sulfate [Ferrous Sulf 325 325 mg PO DAILY 05/14/17 MG (*)] Multivitamins [Multivitamin (*)] 1 each PO DAILY 05/14/17 amLODIPine BESYLATE [Norvasc 5 mg 5 mg PO DAILY 05/14/17 (*)] Meclizine HCl [Meclizine HCl 25 mg 25 mg PO BID PRN #10 tab 05/15/17 (RX,OTC)] Medical Decision Making ED Course/Re-evaluation: CHIEF COMPLAINT: Black stools. Rectal pain. HISTORY OF PRESENT ILLNESS: The patient is a 77 y/o male complaining of left- sided rectal pain and black stools with blood in his stool for the past few weeks. He first noticed that his stool became discolored when he began a course of iron supplements a few weeks ago. Shortly after, he noticed a lump on the side of his anus that he describes as pea sized, but has recently become larger. He noticed blood in his stool when he wiped his anus this morning. He is currently experiencing mild left sided rectal pain. Outside of color he says stool consistency has varied between formed stool and diarrhea. He denies lightheadedness, syncope, weakness, chest pain, shortness of breath. Takes a daily aspirin but not anticoagulants. REVIEW OF SYSTEMS: A 10 point review of systems was performed and is negative with the exception of the elements mentioned in the history of present illness. PHYSICAL EXAM: General Appearance: Alert, well hydrated, appropriate, and non-toxic appearing. Head: Atraumatic without scalp tenderness or obvious injury Eyes: Pupils equal, round, reactive to light and accommodation, EOMI, no trauma , no injection. Nose: Atraumatic, no rhinorrhea, clear. Throat: Mucus membranes moist. Neck: Supple, non-tender. Respiratory: No retractions, no distress, no wheezes, and no accessory muscle use. Cardiovascular: Regular rate and rhythm, no murmurs, rubs, or gallops. Good capillary refill all extremities. Gastrointestinal: Abdomen is soft, non-tender, non-distended, no masses, no rebound, no guarding, no peritoneal signs. Rectal: Small sebaceous cyst with some purulence expressed. Evidence of hemorrhoidal tissue. No lidia blood. Musculoskeletal: Normal active ROM of all extremities, atraumatic. Neurological: Alert, appropriate, and interactive. Nonfocal neuro exam. Skin: No rashes, good turgor, no nodules on palpation. PAST MEDICAL HISTORY: Coronary disease with bypass surgery and stents, vertigo, chronic systolic heart failure, GERD, osteoarthritis, glaucoma, knee arthroscopy. PAST SURGICAL HISTORY: Bypass surgery and stents. SOCIAL HISTORY: at bedside. PCP: Dr. Urbina. Lives in [place]. Former smoker, quit approximately 12 years ago. FAMILY HISTORY: CAD and heart attacks. Prior medical records reviewed including admission on 05/14/17 for dizziness. DIFFERENTIAL DIAGNOSIS: The differential diagnosis for the patient's lower GI bleeding included but was not limited to diverticulosis, tumor, AVM, hemorrhoid, and upper GI Bleed. MEDICAL DECISION MAKING: This is a 77 y/o male presenting with left-sided rectal pain and black stools for the past few weeks. He began taking iron supplements a few weeks ago when he noticed his stools became black. His rectal exam shows a small sebaceous cyst with purulence expressed and hemorrhoidal tissue, but no black stool or lidia blood. Abdominal exam is benign. Plan for IV, labs, and stool sample. Labs show no occult blood in stool sample. Reassessed patient and discussed negative findings. Discussed hemorrhoid treatment with patient and discharge instructions. He understands and accepts this plan. - Data Points Laboratory Results: Laboratory Results 05/27/17 12:25 05/27/17 12:25 05/27/17 05/27/17 05/27/17 12:25 12:25 12:25 WBC 7.12 10^3/uL 10^3/uL (3.80-9.50) RBC 4.32 10^6/uL L 10^6/uL (4.40-6.38) Hgb 13.8 g/dL g/dL (13.7-17.5) Hct 40.3 % % (40.0-51.0) MCV 93.3 fL fL (81.5-99.8) MCH 31.9 pg pg (27.9-34.1) MCHC 34.2 g/dL g/dL (32.4-36.7) RDW 12.6 % % (11.5-15.2) Plt Count 203 10^3/uL 10^3/uL (150-400) MPV 9.1 fL fL (8.7-11.7) Neut % (Auto) 57.4 % % (39.3-74.2) Lymph % (Auto) 25.3 % % (15.0-45.0) [place] % (Auto) 14.2 % H % (4.5-13.0) Eos % (Auto) 2.0 % % (0.6-7.6) Baso % (Auto) 1.0 % % (0.3-1.7) Nucleat RBC Rel Count 0.0 % % (0.0-0.2) Absolute Neuts (auto) 4.09 10^3/uL 10^3/uL (1.70-6.50) Absolute Lymphs (auto) 1.80 10^3/uL 10^3/uL (1.00-3.00) Absolute Monos (auto) 1.01 10^3/uL H 10^3/uL (0.30-0.80) Absolute Eos (auto) 0.14 10^3/uL 10^3/uL (0.03-0.40) Absolute Basos (auto) 0.07 10^3/uL 10^3/uL (0.02-0.10) Absolute Nucleated RBC 0.00 10^3/uL 10^3/uL (0-0.01) Immature Gran % 0.1 % % (0.0-1.1) Immature Gran # 0.01 10^3/uL 10^3/uL (0.00-0.10) PT 14.1 SEC SEC (12.0-15.0) INR 1.10 (0.83-1.16) APTT 27.8 SEC SEC (23.0-38.0) Sodium 141 mEq/L mEq/L (134-144) Potassium 4.4 mEq/L mEq/L (3.5-5.2) Chloride 106 mEq/L mEq/L (97-110) Carbon Dioxide 23 mEq/l mEq/l (22-31) Anion Gap 12 mEq/L mEq/L (8-16) BUN 19 mg/dL mg/dL (7-23) Creatinine 1.4 mg/dL H mg/dL (0.7-1.3) Estimated GFR 49 Glucose 75 mg/dL mg/dL (70-100) Calcium 9.2 mg/dL mg/dL (8.5-10.4) Stool Occult Bld Scrn 05/27/17 12:05 WBC RBC Hgb Hct MCV MCH MCHC RDW Plt Count MPV Neut % (Auto) Lymph % (Auto) [place] % (Auto) Eos % (Auto) Baso % (Auto) Nucleat RBC Rel Count Absolute Neuts (auto) Absolute Lymphs (auto) Absolute Monos (auto) Absolute Eos (auto) Absolute Basos (auto) Absolute Nucleated RBC Immature Gran % Immature Gran # PT INR APTT Sodium Potassium Chloride Carbon Dioxide Anion Gap BUN Creatinine Estimated GFR Glucose Calcium Stool Occult Bld Scrn NEGATIVE (NEGATIVE) Departure - Departure Disposition: Home, Routine, Self-Care Clinical Impression: Hemorrhoid Qualifiers: Hemorrhoid type: unspecified Qualified Code(s): K64.9 - Unspecified hemorrhoids Condition: Good Instructions: Constipation (ED), Hemorrhoids (ED) Additional Instructions: 1. Sit in a warm shallow bath with Epsom salts and allow water to flow around genital areas for 10-20 minutes at a time. Repeat a few time daily as needed for hemorrhoid relief. 2. Apply steroid cream to hemorrhoid for the next few days. 3. Follow up with Dr. Zamora, gastroenterology, in the next week for unimproved symptoms. 4. Increase fluid and fiber intake over the next few days to relieve constipation. 5. Return to the emergency department for any uncontrolled bleeding, weakness, fainting, uncontrollable vomiting, fever, incontinence, or other worsening of symptoms. Referrals: Chon Urbina MD [Primary Care Provider] - As per Instructions Kendra Zamora MD [Medical Doctor] - As per Instructions Report Scribed for: Carlitos Tello Report Scribed by: Sofia Miller Date of Report: 05/27/17 Time of Report: 13:26
[2017-05-27 12:35] LABS: % IMMATURE GRANULYOCYTES 0.1 % (0.0-1.1); ABSOLUTE IMMATURE GRANULOCYTES 0.01 10^3/uL (0.00-0.10); ADD DIFF? NO; ADD MORPH? NO; ADD SCAN? NO; ATYPICAL LYMPHOCYTE FLAG 20 (0-99); FRAGMENT RBC FLAG 0 (0-99); HEMATOCRIT 40.3 % (40.0-51.0); HEMOGLOBIN 13.8 g/dL (13.7-17.5); LEFT SHIFT FLG 0 (0-99); LIPEMIA HEMOLYSIS FLAG 90 (0-99); MEAN CELL HEMOGLOBIN 31.9 pg (27.9-34.1); MEAN CELL HEMOGLOBIN CONCENTR. 34.2 g/dL (32.4-36.7); MEAN CELL VOLUME 93.3 fL (81.5-99.8); MEAN PLATELET VOLUME 9.1 fL (8.7-11.7); PLATELET CLUMPS FLAG 10 (0-99); PLATELET COUNT 203 10^3/uL (150-400); RED BLOOD CELL COUNT 4.32 10^6/uL (4.40-6.38); RED CELL DISTRIBUTION WIDTH 12.6 % (11.5-15.2)
[2017-05-27 12:45] LABS: INR 1.1 (0.83-1.16); PROTIME(PATIENT) 14.1 SEC (12.0-15.0)
[2017-05-27 12:46] LABS: APTT 27.8 SEC (23.0-38.0)
[2017-05-27 12:51] LABS: ANION GAP 12 mEq/L (8-16); CALCIUM 9.2 mg/dL (8.5-10.4); CARBON DIOXIDE 23 mEq/l (22-31); CHLORIDE 106 mEq/L (97-110); CREATININE 1.4 mg/dL (0.7-1.3); GLOMERULAR FILTRATION RATE 49; GLUCOSE 75 mg/dL (70-100); POTASSIUM 4.4 mEq/L (3.5-5.2); SODIUM 141 mEq/L (134-144)
[2017-05-27 13:29] VITALS: BP 138/84; PULSE 65; RESP 16; O2SAT 97
== END 2017-05-27 13:26 | disposition home or self-care (01) ==
DX: K64.9 Unspecified hemorrhoids (principal); I10 Essential (primary) hypertension; I25.810 Atherosclerosis of coronary artery bypass graft(s) without angina pectoris; Z79.82 Long term (current) use of aspirin; Z87.891 Personal history of nicotine dependence; Z95.5 Presence of coronary angioplasty implant and graft

== ENCOUNTER 2017-08-12 14:48 | Inpatient (IN) | payer OTHER ==
--- NOTE | 2017-08-12 15:04 | CPEKG ---
Heart Rate: 122 RR Interval: 492 QRSD Interval: 136 QT Interval: 368 QTC Interval: 525 QRS [place]: 72 T Wave [place]: -22 EKG Severity - ABNORMAL ECG - EKG Impression: ATRIAL FIBRILLATION EKG Impression: RBBB AND LPFB Electronically Signed By: Siddhartha Harper 12-Aug-2017 15:36:10
[2017-08-12] MEDS ORDERED: NS 1,000 ML IV ONE (15:12)
[2017-08-12 15:22] LABS: % IMMATURE GRANULYOCYTES 0.3 % (0.0-1.1); ABSOLUTE IMMATURE GRANULOCYTES 0.03 10^3/uL (0.00-0.10); ADD DIFF? NO; ADD MORPH? NO; ADD SCAN? NO; ATYPICAL LYMPHOCYTE FLAG 0 (0-99); FRAGMENT RBC FLAG 0 (0-99); HEMATOCRIT 37.5 % (40.0-51.0); HEMOGLOBIN 12.8 g/dL (13.7-17.5); LEFT SHIFT FLG 0 (0-99); LIPEMIA HEMOLYSIS FLAG 90 (0-99); MEAN CELL HEMOGLOBIN 32.2 pg (27.9-34.1); MEAN CELL HEMOGLOBIN CONCENTR. 34.1 g/dL (32.4-36.7); MEAN CELL VOLUME 94.5 fL (81.5-99.8); PLATELET CLUMPS FLAG 0 (0-99); PLATELET COUNT 212 10^3/uL (150-400); RED BLOOD CELL COUNT 3.97 10^6/uL (4.40-6.38); RED CELL DISTRIBUTION WIDTH 13.4 % (11.5-15.2)
--- NOTE | 2017-08-12 15:28 | EDPHY ---
H & P Stated Complaint: cough/?pna per pcp/irregular he Time Seen by Provider: 08/12/17 15:07 HPI/ROS: CHIEF COMPLAINT: Cough, questionable arrhythmia noted at primary care provider' s office HISTORY OF PRESENT ILLNESS: The patient is referred to the emergency department from his primary care provider's office. He has had a cough since Friday. The patient does report some fatigue and congestion. He denies fever. The patient did not receive a flu shot this year. The patient reportedly had an EKG at his PCPs office which demonstrated atrial fibrillation. The patient denies pleuritic chest pain. The patient denies asymmetric calf pain or swelling. The patient denies prior history of PE/DVT. The patient does have a history of CABG. He did have some atrial fibrillation in the immediate postoperative. following his CABG in 2002. Patient does have a history of ischemic cardiomyopathy. He was hospitalized in April of this year with presyncope. REVIEW OF SYSTEMS: A comprehensive 10 point review of systems is otherwise negative aside from elements mentioned in the history of present illness. Source: Patient, EMS - Personal History Current Tetanus/Diphtheria Vaccine: No - Medical/Surgical History Hx Asthma: No Hx Chronic Respiratory Disease: No Hx Diabetes: No Hx Cardiac Disease: Yes Hx Renal Disease: No Hx Cirrhosis: No Hx Alcoholism: No Hx HIV/AIDS: No Hx Splenectomy or Spleen Trauma: No Other PMH: Heart bypass - 2006. HTN. High cholestrol. - Social History Smoking Status: Never smoked - Physical Exam Exam: General Appearance: Alert, no distress Eyes: Pupils equal and round no pallor or injection ENT, Mouth: Mucous membranes moist Respiratory: Scant expiratory wheezing, good air movement Cardiovascular: Irregular rate, 2/6 systolic ejection murmur Gastrointestinal: Abdomen is soft and nontender, no masses, bowel sounds normal Neurological: A&O, normal motor function, normal sensory exam, normal cranial nerves Skin: Warm and dry, no rashes Musculoskeletal: Neck is supple nontender Extremities: symmetrical, full range of motion Constitutional: Initial Vital Signs Temperature (C) 36.4 C 08/12/17 14:55 Heart Rate 112 H 08/12/17 14:55 Respiratory Rate 20 08/12/17 14:55 Blood Pressure 154/91 H 08/12/17 14:55 O2 Sat (%) 90 L 08/12/17 14:55 O2 Delivery Mode Room Air Allergies/Adverse Reactions: NKDA Allergy (Uncoded 08/12/17 14:54) Home Medications: Medication Instructions Recorded Aspirin [Aspirin 81mg (*)] 162 mg PO DAILY 09/24/09 Atorvastatin Calcium [Lipitor 40 40 mg PO HS 09/24/09 mg (*)] Glucosamine/Chondroitin 1 each PO DAILY 09/24/09 [Glucosamine/Chondroitin (*)] Omeprazole [Prilosec 20 mg] 20 mg PO Q2D 09/24/09 Travoprost Z 0.004% [Travatan Z 1 drops EACHEYE HS 09/24/09 0.004% (*)] Ferrous Sulfate [Ferrous Sulf 325 325 mg PO DAILY 05/14/17 MG (*)] Multivitamins [Multivitamin (*)] 1 each PO DAILY 05/14/17 amLODIPine BESYLATE [Norvasc 5 mg 5 mg PO DAILY 05/14/17 (*)] Meclizine HCl [Meclizine HCl 25 mg 25 mg PO BID PRN #10 tab 05/15/17 (RX,OTC)] Medical Decision Making - Diagnostics EKG Interpretation: EKG: Complete interpretation has been separately recorded in the [facility] archive. Summary impression: Atrial fibrillation, right bundle branch block, left posterior fascicular block, nonspecific ST T wave changes Imaging Results: Imaging Impressions Chest X-Ray 08/12/17 15:12 Impression: [id number] CHF. ED Course/Re-evaluation: The patient presents to the emergency department with a several day history of cough, fatigue and shortness of breath. The patient is noted to have new onset atrial fibrillation. The patient's chest x-ray does demonstrate changes consistent congestive heart failure. The patient is noted to be mildly hypoxemic. He does have rales on exam. The patient received 40 mg of IV Lasix. He is currently rate controlled with a right bundle branch block and underlying atrial fibrillation rhythm. Given the patient's history of ischemic cardiomyopathy, hypoxemia, new onset AFib with congestive heart failure I feel he should be admitted to the hospital. Consultation was made with Dr. Angeles from the hospitalist service at 6:30 p.m.. The patient underwent serial examinations by myself. He continues to be hemodynamically stable without significant hypertension. Differential Diagnosis: Differential diagnosis considered includes congestive heart failure, arrhythmia , pneumonia, anemia, metabolic abnormality, myocardial infarction - Data Points Laboratory Results: Laboratory Results 08/12/17 15:08 08/12/17 15:08 08/12/17 08/12/17 08/12/17 16:22 15:08 15:08 WBC RBC Hgb Hct MCV MCH MCHC RDW Plt Count MPV Neut % (Auto) Lymph % (Auto) [place] % (Auto) Eos % (Auto) Baso % (Auto) Nucleat RBC Rel Count Absolute Neuts (auto) Absolute Lymphs (auto) Absolute Monos (auto) Absolute Eos (auto) Absolute Basos (auto) Absolute Nucleated RBC Immature Gran % Immature Gran # PT 16.2 SEC H SEC (12.0-15.0) INR 1.30 H (0.83-1.16) Sodium Potassium Chloride Carbon Dioxide Anion Gap BUN Creatinine Estimated GFR Glucose Calcium Troponin I Cancelled NT-Pro-B Natriuret Pep 1320 pg/mL H pg/mL (0-450) Nasal Influenza A PCR NEGATIVE FOR FLU A (NEGATIVE) Nasal Influenza B PCR NEGATIVE FOR FLU B (NEGATIVE) 08/12/17 08/12/17 15:08 15:08 WBC 9.47 10^3/uL 10^3/uL (3.80-9.50) RBC 3.97 10^6/uL L 10^6/uL (4.40-6.38) Hgb 12.8 g/dL L g/dL (13.7-17.5) Hct 37.5 % L % (40.0-51.0) MCV 94.5 fL fL (81.5-99.8) MCH 32.2 pg pg (27.9-34.1) MCHC 34.1 g/dL g/dL (32.4-36.7) RDW 13.4 % % (11.5-15.2) Plt Count 212 10^3/uL 10^3/uL (150-400) MPV 9.0 fL fL (8.7-11.7) Neut % (Auto) 66.2 % % (39.3-74.2) Lymph % (Auto) 16.6 % % (15.0-45.0) [place] % (Auto) 14.4 % H % (4.5-13.0) Eos % (Auto) 1.9 % % (0.6-7.6) Baso % (Auto) 0.6 % % (0.3-1.7) Nucleat RBC Rel Count 0.0 % % (0.0-0.2) Absolute Neuts (auto) 6.27 10^3/uL 10^3/uL (1.70-6.50) Absolute Lymphs (auto) 1.57 10^3/uL 10^3/uL (1.00-3.00) Absolute Monos (auto) 1.36 10^3/uL H 10^3/uL (0.30-0.80) Absolute Eos (auto) 0.18 10^3/uL 10^3/uL (0.03-0.40) Absolute Basos (auto) 0.06 10^3/uL 10^3/uL (0.02-0.10) Absolute Nucleated RBC 0.00 10^3/uL 10^3/uL (0-0.01) Immature Gran % 0.3 % % (0.0-1.1) Immature Gran # 0.03 10^3/uL 10^3/uL (0.00-0.10) PT INR Sodium 143 mEq/L mEq/L (134-144) Potassium 3.9 mEq/L mEq/L (3.5-5.2) Chloride 106 mEq/L mEq/L (97-110) Carbon Dioxide 24 mEq/l mEq/l (22-31) Anion Gap 13 mEq/L mEq/L (8-16) BUN 18 mg/dL mg/dL (7-23) Creatinine 1.1 mg/dL mg/dL (0.7-1.3) Estimated GFR > 60 Glucose 94 mg/dL mg/dL (70-100) Calcium 8.9 mg/dL mg/dL (8.5-10.4) Troponin I < 0.012 ng/mL ng/mL (0.000-0.034) NT-Pro-B Natriuret Pep Nasal Influenza A PCR Nasal Influenza B PCR Medications Given: Discontinued Medications Furosemide (Lasix Injection) 40 mg IVP EDNOW ONE Stop: 08/12/17 16:36 Last Admin: 08/12/17 17:19 Dose: 40 mg Sodium Chloride (Ns) 1,000 mls @ 0 mls/hr IV EDNOW ONE; Wide Open PRN Reason: Protocol Stop: 08/12/17 15:13 Last Admin: 08/12/17 16:22 Dose: 1,000 mls Departure - Departure Disposition: [place] Inpatient Acute Clinical Impression: Atrial fibrillation, Ischemic cardiomyopathy, Congestive heart failure, Hypoxemia Condition: Fair Referrals: Chon Urbina MD [Primary Care Provider] - As per Instructions
[2017-08-12 15:30] LABS: ANION GAP 13 mEq/L (8-16); CALCIUM 8.9 mg/dL (8.5-10.4); CARBON DIOXIDE 24 mEq/l (22-31); CHLORIDE 106 mEq/L (97-110); CREATININE 1.1 mg/dL (0.7-1.3); GLOMERULAR FILTRATION RATE > 60; GLUCOSE 94 mg/dL (70-100); POTASSIUM 3.9 mEq/L (3.5-5.2); SODIUM 143 mEq/L (134-144)
[2017-08-12 15:42] LABS: TROPONIN I < 0.012 ng/mL (0.000-0.034)
[2017-08-12] MEDS ORDERED: FUROSEMIDE 40 MG/4 ML VIAL IVP ONE (16:35)
[2017-08-12 16:51] LABS: INR 1.3 (0.83-1.16); PROTIME(PATIENT) 16.2 SEC (12.0-15.0)
[2017-08-12] MEDS ORDERED: PROTOCOL MAGNESIUM 1 DOSE IV PRN (22:38)
[2017-08-12] MEDS ORDERED: PROTOCOL POTASSIUM 1 DOSE MISC PRN (22:38)
[2017-08-12] MEDS ORDERED: ONDANSETRON 4 MG/2 ML VIAL IVP PRN (22:41)
[2017-08-12] MEDS ORDERED: ACETAMINOPHEN 325 MG TAB PO PRN (22:41)
[2017-08-12] MEDS ORDERED: ONDANSETRON DISINTEGRATING 4 MG TAB PO PRN (22:41)
--- NOTE | 2017-08-12 22:50 | PDGENHP ---
History and Physical History and Physical: CC: Shortness of breath and fatigue HISTORY: This patient who has a known history of some heart disease comes into the hospital today from Dr. Urbina's office. He has been having noted ankle swelling, abdominal bloating, and exertional dyspnea gradually increasing over what sounds like probably 2 weeks or thereabouts. He denies any kind of angina- like symptoms, palpitations, fevers, pleuritic pain in the chest or pain in the legs. There has been no fever. Notably there was a change in medication around 3 months ago because of a cough. I cannot tell what medication was stopped as the patient does not recall but was a medicine that he says was for blood pressure and or heart issues. I am unable to get into the outpatient clinic records tonight to determine what it was. There were no other changes in his medicines in any recent time. He does not weigh himself so it is unclear if he has been gaining weight but he certainly sounds like from what he described above. The patient does have a history of myocardial infarction with stent placed followed by bypass surgery a few years ago. He was seen here at this hospital 3 months ago and had an echocardiogram at that point which showed ejection fraction 45-50% and vfnc-io-bqgkxbfk mitral regurgitation with biatrial enlargement, as well as inferior basilar hypokinesis. Also the patient had briefly some AFib during his hospitalization for his bypass surgery but has had no known atrial fibrillation since then and no symptoms to suggest that. Also notable is that he was here a little over year ago with an episode for which the differential diagnosis included TIA. ROS: A comprehensive 10 system review revealed no other significant findings PAST MEDICAL HISTORY: Coronary artery disease with myocardial infarction, stent, coronary bypass surgery Hvia-zg-uiopnyuz mitral regurgitation, biatrial enlargement by echocardiogram Possible TIA Hypertension Osteoarthritis Glaucoma FAMILY MEDICAL HISTORY: No heart disease SOCIAL HISTORY: lives with his . 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 I have reviewed the list and ordered appropriate medicines. PHYSICAL EXAMINATION: Vital Signs: Pulse is been running in the 115 range, mild systolic HTN vitals otherwise stable without fever Tailer Out: Atrial fibrillation with mildly elevated heart rate Examination: My examination is done after he has had a fairly good diuresis from his 1st dose of Lasix given in the ER General: alert, oriented, good mentation, relaxed Skin: warm, dry, good color, no rash HEENT: normal Neck: Minimal jvd is noted Resps: relaxed Lungs: Bibasilar rales are still present Heart: irregular, a soft systolic murmur is noted at the apex Abdomen: soft, mildly distended, nontender, +BS, no mass Upper Extremities: normal Lower Extremities: Pitting edema still present at both ankles No Bleeding or bruising Neurologic: normal speech/language, 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, no focal weakness IV site: looks normal LABORATORY DATA: BNP is elevated but troponin is normal and chemistry and CBC otherwise unremarkable RADIOLOGY STUDIES: Chest x-ray with obvious engorgement of pulmonary vessels some interstitial edema at, no effusions or infiltrates 12 LEAD EKG: Atrial fibrillation with mildly elevated heart rate, left posterior fascicular block and right bundle branch block present, nothing that looks overtly ischemic Reviewed echocardiogram report from his visit here in April of this year, ejection fraction was read as 45-50%, ukbf-qm-qztgwhwu mitral regurgitation with biatrial enlargement and some inferior basilar hypokinesis ASSESSMENT: -acute systolic congestive heart failure -responding well to diuresis and will continue that -1 we can get into his clinic records hopefully in the morning, we should look at what medicine was discontinued around 3 months ago; I suspect this was an Ilir inhibitor or ARB and at this point per particularly since he still has some cough it would be indicated to resume that medicine due to his cardiomyopathy and acute heart failure -at this time my suspicion for ischemic disease is quite low though he does have a history of bypass surgery so should watch for any changes or other indication to investigate that any further -new onset of atrial fibrillation in this patient his only previous episode was postop during his hospital stay for bypass surgery -his rate is mildly elevated, we can start with some oral rate control medicine at this time unless speeds up -he has no symptoms of palpitations so it is entirely unclear when his atrial fibrillation started but presumably a couple weeks ago -given his age, history of hypertension, and valvular heart disease, as well as a possible TIA, anticoagulation is clearly indicated; have reviewed this in detail with the patient including the risk benefit and have recommended anticoagulation which he is agreeing to -TSH will be checked -decisions about consideration of cardioversion can be made over the next couple of days or in the future depending on his progress here. Fact that he has been with heart failure and probably in AFib for a couple of weeks or more would suggest the possibility of thrombus and since he is diuresing quite easily and already feeling better we can probably treat him with rate control anticoagulation for the time being and consider possible confirm cardioversion after he has been on anticoagulation for a bit I will request Cardiology to consult in the morning I have reviewed the patient's case in detail with Dr. Siddhartha Harper I have reviewed the patient's past medical records as part of this assessment, including previous hospital admission records and outpatient laboratory data
[2017-08-12] MEDS: METOPROLOL TARTRATE 25 MG TAB PO SCH (23:03)
[2017-08-12] MEDS: APIXABAN 5 MG TAB PO SCH (23:03)
[2017-08-13 06:03] LABS: ANION GAP 12 mEq/L (8-16); CALCIUM 8.6 mg/dL (8.5-10.4); CARBON DIOXIDE 25 mEq/l (22-31); CHLORIDE 107 mEq/L (97-110); CREATININE 1.3 mg/dL (0.7-1.3); GLOMERULAR FILTRATION RATE 53; GLUCOSE 76 mg/dL (70-100); MAGNESIUM 1.8 mg/dL (1.6-2.3); POTASSIUM 4.2 mEq/L (3.5-5.2); SODIUM 144 mEq/L (134-144)
[2017-08-13] MEDS: METOPROLOL TARTRATE 25 MG TAB PO SCH ×2 (07:41→20:44)
[2017-08-13] MEDS: APIXABAN 5 MG TAB PO SCH ×2 (07:42→20:44)
[2017-08-13] MEDS: ASPIRIN 81 MG CHEWABLE TAB PO SCH (07:42)
[2017-08-13] MEDS: GLUCOSAMINE/CHONDROITIN CAP PO SCH (07:43)
[2017-08-13] MEDS: amLODIPine BESYLATE 5 MG TAB PO SCH (07:43)
[2017-08-13] MEDS: FERROUS SULFATE 325 MG TAB PO SCH (07:44)
[2017-08-13] MEDS: MULTIVITAMINS 1 EACH TAB PO SCH (07:47)
[2017-08-13] MEDS ORDERED: MAGNESIUM SULF 1 GM/DEXTROSE 100 ML IV ONE (07:48)
[2017-08-13] MEDS ORDERED: FLU VACC QS 2017-18 (3YR+)/PF 0.5 ML SYR (FLUARIX QUAD) IM ONE ×2 (08:15→10:30)
--- NOTE | 2017-08-13 08:36 | HOSPPROG ---
Hospitalist Progress Note Assessment/Plan: #Acutely decompensated systolic HF/cardiomyopathy: query if triggered by PE after road trip? Check dimer, cannot do CTA with BERNADETTE. -pulm edema on CXR (personally reviewed) -last TTE showed EF 45-50%. IV Lasix. TTE today showed akinesis inferior posterior-lateral bee. Lexiscan pending. Cath and cardioversion tomorrow -Cozaar stopped February due to cough #BERNADETTE: baseline Cr 1.1, up to 1.3. Will have to decrease Lasix dose #Rapid a fib: currently on Metoprolol 25mg BID, started Eliquis with CHADSvasc 4. TSH normal #CAD: s/p CABG-4v: ASA, statin #HLD: statin #HTN: Norvasc, BB. Previously on ARB that was stopped due to cough #Diet: NPO at [facility] #Disp: warrants inpt admission with concern for ischemia Subjective: He reports symptoms started after a roadtrip to [place]. No CP, dizziness or lightheadedness Objective: Vital Signs Temp Pulse Resp BP Pulse Ox 36.5 C 112 H 24 H 137/82 H 91 L 08/13/17 07:50 08/13/17 07:50 08/13/17 07:50 08/13/17 07:50 08/13/17 07:50 Laboratory Results 08/13/17 04:14 08/12/17 08/13/17 08/14/17 05:59 05:59 05:59 Intake Total 850 Output Total 700 Balance 150 PT 16.2 SEC (12.0-15.0) H 08/12/17 15:08 INR 1.30 (0.83-1.16) H 08/12/17 15:08 - Physical Exam Constitutional: no apparent distress Eyes: PERRL Ears, Nose, Mouth, Throat: moist mucous membranes Cardiovascular: irregularly irregular, JVD (elevated to ear), tachycardia, edema (+2 leg edema to knees) Respiratory: other (crackles at bases) Gastrointestinal: normoactive bowel sounds Skin: warm Musculoskeletal: full muscle strength Neurologic: AAOx3, CN II-XII Intact Psychiatric: interacting appropriately ICD10 Worksheet Patient Problems: Problems Problem Status Onset Atrial fibrillation Acute Congestive heart failure Acute Hypoxemia Acute Ischemic cardiomyopathy Acute Dizziness Acute Near syncope Acute Symptomatic bradycardia Acute
--- NOTE | 2017-08-13 08:57 | CPEKG ---
Heart Rate: 95 RR Interval: 632 QRSD Interval: 144 QT Interval: 396 QTC Interval: 498 QRS [place]: 49 T Wave [place]: -23 EKG Severity - ABNORMAL ECG - EKG Impression: ATRIAL FIBRILLATION EKG Impression: VENTRICULAR PREMATURE COMPLEX EKG Impression: RIGHT BUNDLE BRANCH BLOCK EKG Impression: INFERIOR INFARCT, AGE INDETERMINATE Electronically Signed By: Kike Palma 14-Aug-2017 18:35:21
[2017-08-13] MEDS ORDERED: FUROSEMIDE 40 MG/4 ML VIAL IVP SCH (09:00)
[2017-08-13] MEDS ORDERED: PANTOPRAZOLE SODIUM 40 MG TAB PO SCH (09:00)
--- NOTE | 2017-08-13 10:30 | ECHO ---
[email or web address] [address] [address] Main: [phone] Fax: Transthoracic Echocardiogram Name: LUISITO ORDONEZ MR#: [id number] Study Date: 08/13/2017 Study Time: 08:23 AM Date of : 1940 Age: 77 year(s) Height: 172.7 cm (68 in.) Weight: 90.27 kg (199 lb.) BSA: 2.04 m2 Gender: Male Examination: Echo Indication: New onset A-fib, Hx of CABG Image Quality: Contrast: Requested by: Carlos Angeles BP: 137 mmHg/82 mmHg Heart Rate: Rhythm: Atrial fibrillation Indication: New onset A-fib, Hx of CABG Procedure Staff Coiled Tubing Supervisor: Haroon Enciso Reading Physician: Medhat Luo Requesting Provider: Conclusions: Normal size left ventricle. Low normal left ventricular systolic function. EF is 52 %. Akinesis of the basal and mid inferior and posterior lateral bee. The left atrium is mildly dilated. The right atrium is mildly dilated. Mild mitral valve leaflet calcification is present. Mild mitral valve regurgitation is present. Trivial aortic valve regurgitation. Moderate tricuspid regurgitation is present. Measurements: Chambers Valvular Assessment AV/MV Valvular Assessment TV/PV Normal Normal Normal Name Value Range Name Value Range Name Value Range Ao Debby (MM): 3.6 cm (2.2 cm-3.7 AV Vmax: 1.30 m/s (1 m/s-1.7 TR Vmax: 2.39 mm/s ( - ) cm) m/s) TR PGmax: 23 mmHg ( - ) IVSd (2D): 0.9 cm (0.6 cm-1.1 AV maxP mmHg ( - ) syst. PAP: 28 mmHg ( - ) cm) LVOT Vmax: 0.89 m/s (0.7 m/s-1.1 PV Vmax: 0.91 m/s (0.6 m/s-0.9 LVDd (2D): 5.1 cm (4.2 cm-5.9 m/s) m/s) cm) MV E Vmax: 1.12 m/s ( - ) PV PGmax: 3 mmHg ( - ) LVDs (2D): 3.8 cm (2.1 cm-4 cm) LVPWd (2D): 1.0 cm (0.6 cm-1 cm) LVEF (2D): 52 (>=54 %) Continued Measurements: Chambers Valvular Assessment AV/MV Valvular Assessment TV/PV Patient: LUISITO ORDONEZ Study Date: 08/13/2017 Page 1 of 2 08:23 AM Name Value Name Value Name Value LADs Lon.3 cm MV E/E' Septal: 24.50 CVP (est.): 5 mmHg LA Area: 21.6 cm2 MV E/E' Lateral: 11.00 Findings: Left Ventricle: Normal size left ventricle. Low normal left ventricular systolic function. EF is 52 %. Regional wall motion abnormality noted. Akinesis of the basal and mid inferior and posterior lateral bee. Right Ventricle: Normal size right ventricle. Normal RV function. Left Atrium: The left atrium is mildly dilated. Right Atrium: The right atrium is mildly dilated. Mitral Valve: Mild mitral valve leaflet calcification is present. Mild mitral valve regurgitation is present. Aortic Valve: The aortic valve is tri-leaflet. Minimal aortic cusp calcification is noted. Trivial aortic valve regurgitation. Tricuspid Valve: The tricuspid valve appears normal. The pulmonary artery pressure is normal. Moderate tricuspid regurgitation is present. Pulmonic Valve: The pulmonic valve is normal in appearance and function. Aorta: The aorta is normal. Pericardium: No pericardial effusion. (No Signature Object) Patient: LUISITO ORDONEZ Study Date: 08/13/2017 Page 2 of 2 08:23 AM [id number]
[2017-08-13] MEDS: FUROSEMIDE 20 MG/2 ML VIAL IVP SCH (14:59)
--- NOTE | 2017-08-13 15:57 | GCON ---
[f rep st] CONSULTATION CARDIOLOGY CONSULTATION DATE OF CONSULTATION: 08/13/2017 REASON FOR CONSULTATION: We were asked by Dr. Sandra Weaver of [facility] to evaluate this p atient for his new-onset atrial fibrillation and symptoms of CHF. HISTORY OF PRESENT ILLNESS: The patient is a 77-year-old male with a history of CAD. He had bypass surgery in 2002. He also had an antecedent heart catheterization with percutaneous intervention in a pproximately 2000. This was in the setting of an inferior AK. In 2002, he noted lightheadedness and dizziness and proceeded to cardiac catheterization and ultimately had bypass surgery. He has known dyslipidemia that is treated and hypertension that is treated and known to have valvular heart diseas e with hauq-oo-kjvtvpce MR and TR. He went on a road trip with his to [place]. They left on and returned August 07. He reports long stretches of driving up to 12 hours. He felt well throughout the whole trip. On , which is the day they returned, he had awakened in his usual state of health, they had eaten breakfast, and then set off on the road. When they stopped fo r lunch he felt short of breath and felt abdominal distention. He noted poor p.o. intake with that m eal. He drove home, and over the next few days he noted belching, feeling short of breath, and abdom inal distention. He also noted mostly dyspnea on exertion, but prior to a visit with his PCP was act ually starting to feel short of breath at rest. He denies any PND or orthopnea. He sleeps on 2 pill ows, which is chronic for him. He has not been noting any chest pains. He does not feel he has had any recent illness. He describes a cough that is intermittent and productive, and this is unchanged for years. He did have a recent hospital stay for vertigo, which spontaneously resolved without recu rrence. He has not been noting any presyncope, syncope, lightheadedness, or palpitations. REVIEW OF SYSTEMS: As per HPI. A complete 10-point review of systems was obtained and is negative e xcept for what is dictated in HPI. PAST MEDICAL/SURGICAL HISTORY: 1. CAD with previous stenting and A 2-vessel bypass. 2. Previous inferior AK. 3. Cgki-ib-guwgqoyu MR and TR. 4. Possible TIA a few years back. 5. Hypertension. 6. Osteoarthritis with right knee replacement. 7. Glaucoma. 8. Ischemic cardiomyopathy with EF as low as 30% in the past, with more recent echo showing EF low n ormal at 50%. FAMILY HISTORY: No heart disease listed. SOCIAL HISTORY: He is and his is present in the room. He reports he is retired but is active with his ADLs. He is a previous smoker, having quit several years ago. He reports occasional alcohol intake. MEDICATIONS: Home medications are listed as calcium carbonate, aspirin, glucosamine/chondroitin, annie poppy sulfate, atorvastatin, amlodipine, Travatan, Prilosec, multivitamin. ALLERGIES: No known drug allergies. PHYSICAL EXAMINATION: VITAL SIGNS: BP of 137/82, heart rate of 112, respirations 24, O2 saturation 91% on 2 L/minute, temp of 97.7 degrees Fahrenheit. GENERAL: He is a very pleasant male in no appare nt distress. HEENT: Head is normocephalic, atraumatic. Eyes are without scleral icterus. Hearing is normal. Mucous membranes are moist. HEART: Irregularly irregular with no rubs, gallops, or murm urs. LUNGS: Clear on the left. Right side with minimal basilar crackles. ABDOMEN: Soft with norm oactive bowel sounds. Mildly obese. He has klhh-lkzhqab-zslc-right leg edema with trace to 1+ pitti ng edema. PSYCH: Normal mood and affect. NEURO: No focal deficits detected. DATABASE: CBC with WBC 9.47, hemoglobin 12.8, hematocrit 37.5, platelet count of 212. INR 1.3. BMP with sodium 144, potassium 4.2, chloride 107, CO2 25, BUN 21, creatinine 1.3, glucose of 76. NT pro BNP of 1320. TSH of 2.54. Nasal influenza A and B are both negative. Last MPI is listed as 2012 th inferior infarct and no ischemia. EF was 54. Left heart catheterization in 2009 showed patent gr afts. On 08/13/2017, a 12-lead EKG personally interpreted demonstrates atrial fibrillation with a V- rate of 95 beats per minute; right bundle branch block and inferior Q-waves are present. Telemetry r eviewed shows AFib with occasional PVCs. Echocardiogram from this admission shows low normal LV systolic function at 52%, akinesis of the basa l and mid inferior and posterolateral bee. Left atrium is mildly dilated. Right atrium is mildly dilated. There is mild mitral valve regurgitation. There is trivial aortic valve regurgitation and moderate tricuspid regurgitation. I spoke with Dr. Sandra Weaver. ASSESSMENT AND PLAN: The patient is a 77-year-old male, admitted with worsening dyspnea, abdominal d istention, and elevated NT proBNP. Chest x-ray shows pulmonary opacities, peribronchial thickening, lobar septal thickening, and njen-vi-ufnpxfdo congestive heart failure. 1. Acute systolic congestive heart failure. This is in the setting of atrial fibrillation with some what elevated heart rates. He has been started on metoprolol. Heart rate is acceptably controlled a t this point. Options were reviewed, and patient is advised to consider ISABELLA-guided cardioversion. W ill also plan a nuclear stress test to rule out ischemia as etiology of his congestive heart failure. 2. Tsby-vzdynyq-gnpo-right leg edema. D-dimer has been sent and is not resulted at this time. Give n his recent travel, would be reasonable to have a workup to rule out thromboembolic event. 3. Coronary artery disease with previous myocardial infarction and coronary artery bypass graft. Ec ho looks stable. His troponin has been negative. He is appropriately medically managed with atorvas tatin and aspirin. He apparently had a bloated sensation with losartan, which was changed to amlodip ine. In his previous admission, beta-paulette was avoided as he had some bradycardia. Once he has co nverted to sinus rhythm, will have to evaluate if his heart rate would tolerate continuing metoprolol . /[id number]/MODL
--- NOTE | 2017-08-13 16:06 | ASMTCMCOM ---
CM Note CM Note Notes: 08/13/2017 Case Management Note Reviewed chart. There are no PT or OT evals ordered. No case management d/c needs identified at this time d/t pt age, marital status and activity levels prior to admission. Case Management d/c poc: anticipating independent d/c when medically stable with follow up as directed. Case management available if needs change. Date Signed: 08/13/2017 04:05 PM Electronically Signed By:Sandee Cabrera RN
--- NOTE | 2017-08-13 16:19 | PDMN ---
Medical Necessity Medical necessity: M190 heart failure- acute decompensated systolic HF/ cardiomyopathy, with pulm edema, with concerns for ischemia, BERNADETTE rising Cr. , Rapid afib, Leg edema, dyspnea, abd. distention, and elevated NT proBNP- HX CABG,WI, further eval and tx needed > 2 midnights
[2017-08-13 20:27] LABS: POTASSIUM 3.7 mEq/L (3.5-5.2)
[2017-08-13] MEDS ORDERED: POTASSIUM CL 10 MEQ TAB PO ONE (20:35)
[2017-08-13] MEDS ORDERED: ATORVASTATIN CALCIUM 40 MG TAB PO SCH (21:00)
[2017-08-13] MEDS ORDERED: TRAVOPROST Z 0.004% 2.5 ML OPHT.BTL EACHEYE SCH (21:00)
[2017-08-14 05:31] LABS: HEMATOCRIT 34.2 % (40.0-51.0); HEMOGLOBIN 11.4 g/dL (13.7-17.5); MEAN CELL HEMOGLOBIN 31.8 pg (27.9-34.1); MEAN CELL HEMOGLOBIN CONCENTR. 33.3 g/dL (32.4-36.7); MEAN CELL VOLUME 95.5 fL (81.5-99.8); RED BLOOD CELL COUNT 3.58 10^6/uL (4.40-6.38); RED CELL DISTRIBUTION WIDTH 13.2 % (11.5-15.2)
[2017-08-14 05:46] LABS: ANION GAP 12 mEq/L (8-16); CALCIUM 8.7 mg/dL (8.5-10.4); CARBON DIOXIDE 26 mEq/l (22-31); CHLORIDE 105 mEq/L (97-110); CREATININE 1.3 mg/dL (0.7-1.3); GLOMERULAR FILTRATION RATE 53; GLUCOSE 87 mg/dL (70-100); POTASSIUM 3.9 mEq/L (3.5-5.2); SODIUM 143 mEq/L (134-144)
[2017-08-14 05:47] LABS: APTT 34.9 SEC (23.0-38.0); INR 1.68 (0.83-1.16); PROTIME(PATIENT) 19.8 SEC (12.0-15.0)
[2017-08-14] MEDS ORDERED: ATROPINE SULFATE 1 MG/10 ML SYR IVP ONE (06:00)
[2017-08-14] MEDS ORDERED: NS 1,000 ML IV ONE (06:00)
[2017-08-14] MEDS: METOPROLOL TARTRATE 25 MG TAB PO SCH (08:15)
[2017-08-14] MEDS: APIXABAN 5 MG TAB PO SCH (08:15)
[2017-08-14] MEDS ORDERED: POTASSIUM CL 10 MEQ TAB PO ONE ×2 (08:33→11:45)
[2017-08-14] MEDS ORDERED: ATROPINE SULFATE 1 MG/10 ML SYR ONE (08:34)
[2017-08-14] MEDS ORDERED: PROPOFOL 200 MG/20 ML VIAL ONE ×2 (08:41→08:42)
[2017-08-14] MEDS ORDERED: LIDOCAINE 1% 5 ML SDV ONE (08:42)
--- NOTE | 2017-08-14 08:46 | PDHPUP ---
History & Physical Update H&P update statement: This history and physical update is based on an assessment of the patient which was completed after admission or registration (within 24 hours), but prior to the surgery/procedure. H&P update: H&P reviewed & patient examined, no change in patient's condition since H&P completed
--- NOTE | 2017-08-14 08:50 | PDANEPAE ---
ANE History of Present Illness Aifib for ISABELLA/CV ANE Past Medical History - Pulmonary History Hx Oxygen in Use at Home: No Hx Sleep Apnea: No - Endocrine History Hx Diabetes: No - Chronic Pain History Chronic Pain: No ANE Review of Systems Review of Systems: - Systems Cardiac: Reports: irregular heart rate (History of CAD with stent and CABG) ANE Patient History - Allergies Allergies/Adverse Reactions: NKDA Allergy (Uncoded 08/12/17 14:54) - Home Medications Home Medications: Atorvastatin Calcium [Lipitor 40 mg (*)] 40 mg PO HS 09/24/09 [Last Taken ] Glucosamine/Chondroitin [Glucosamine/Chondroitin (*)] 1 each PO DAILY 09/24/09 [ Last Taken 08/12/17] Omeprazole [Prilosec 20 mg] 20 mg PO Q2D 09/24/09 [Last Taken 08/11/17] Travoprost Z 0.004% [Travatan Z 0.004% (*)] 1 drops EACHEYE HS 09/24/09 [Last Taken 05/13/17] Ferrous Sulfate [Ferrous Sulf 325 MG (*)] 325 mg PO DAILY 05/14/17 [Last Taken 05/13/17] Multivitamins [Multivitamin (*)] 1 each PO DAILY 05/14/17 [Last Taken 08/12/17] amLODIPine BESYLATE [Norvasc 5 mg (*)] 5 mg PO DAILY 05/14/17 [Last Taken ] Aspirin [Aspirin 81mg (*)] 162 mg PO DAILY 08/12/17 [Last Taken 08/12/17] Calcium Carbonate [Tums 500MG (*)] 1,000 mg PO Q2D 08/12/17 [Last Taken 08/12/17 ] Herbals/Supplements -Info Only 1 ea PO DAILY 08/12/17 [Last Taken 08/12/17] - Anes Hx Anes Hx: no prior problems - Smoking Hx Smoking Status: Never smoked ANE Labs/Vital Signs - Labs Result Diagrams: 08/14/17 04:30 08/14/17 04:30 - Vital Signs Blood Pressure: 122/76 Heart Rate: 110 Respiratory Rate: 17 O2 Sat (%): 96 Height: 173.99 cm Weight: 88 kg ANE Physical Exam - Airway Neck exam: FROM Mallampati Score: Class 2 - Pulmonary Pulmonary: no respiratory distress - Cardiovascular Cardiovascular: irregularly irregular - ASA Status ASA Status: II ANE Anesthesia Plan Anesthesia Plan: MAC
[2017-08-14] MEDS ORDERED: CALCIUM CARBONATE 500 MG CHEWABLE TAB PO SCH (09:00)
--- NOTE | 2017-08-14 09:08 | PDTEE1 ---
ISABELLA Cardioversion Procedure Procedure: electrical cardioversion Indications: atrial fibrillation Consent: signed and in chart Anticoagulation: eliquis Procedural Details: Pads were placed in anterior-posterior position. ISABELLA probe was advanced and standard images obtained. There is no evidence of left atrial or left atrial appendage thrombus. Synchronized cardioversion attempt #1: 200J Results: normal sinus rhythm Conclusions: successful ISABELLA cardioversion Patient Problems: Problems Problem Status Onset Atrial fibrillation Acute Congestive heart failure Acute Hypoxemia Acute Ischemic cardiomyopathy Acute Dizziness Acute Near syncope Acute Symptomatic bradycardia Acute
--- NOTE | 2017-08-14 09:17 | CPEKG ---
Heart Rate: 75 RR Interval: 800 P-R Interval: 212 QRSD Interval: 144 QT Interval: 444 QTC Interval: 496 P [place]: 33 QRS [place]: 35 T Wave [place]: -18 EKG Severity - ABNORMAL ECG - EKG Impression: SINUS RHYTHM EKG Impression: RIGHT BUNDLE BRANCH BLOCK EKG Impression: INFERIOR INFARCT, AGE INDETERMINATE EKG Impression: VENTRICULAR PREMATURE COMPLEXES Electronically Signed By: Kike Palma 14-Aug-2017 18:35:07
[2017-08-14] MEDS ORDERED: METOPROLOL TARTRATE 25 MG TAB PO SCH (09:18)
--- NOTE | 2017-08-14 09:18 | SOAPPROG ---
BLADE Progress Note Assessment/Plan: Assessment: 77-year-old male with known coronary artery disease, previous inferior infarct and ultimately multivessel bypass surgery performed about 10 years ago. Admitted with new onset atrial fibrillation, effort intolerance and dyspnea on exertion. Evidence of mild congestive heart failure by laboratory assessment and physical examination. Now status post ISABELLA cardioversion with scientology of sinus rhythm. By exam today he appears to be well compensated and euvolemic. There has been no indication of an acute coronary syndrome. Plan: 1. At this point I think he can be discharged home. 2. I would like him to remain on systemic anticoagulation with Eliquis. 3. We will plan to up titrate his beta-paulette prior to discharge. 4. He can follow up with me in the outpatient setting. 5. Would like him to have an outpatient stress myocardial perfusion imaging study before seeing me in follow-up. 08/14/17 09:16 Subjective: The patient underwent a ISABELLA/cardioversion today with scientology of sinus rhythm. He is currently anticoagulated with apixaban. Overall he appears to be doing well today. His ISABELLA indicated moderate mitral regurgitation with a low normal ejection fraction. He has not been experiencing any chest discomfort. Objective: Vital Signs Temp Pulse Resp BP Pulse Ox 36.6 C 110 H 17 122/76 H 96 08/14/17 07:16 08/14/17 08:50 08/14/17 08:50 08/14/17 08:50 08/14/17 08:50 Laboratory Results 08/14/17 04:30 08/14/17 04:30 08/13/17 08/14/17 08/15/17 05:59 05:59 05:59 Intake Total 300 Output Total 600 Balance -300 PT 19.8 SEC (12.0-15.0) H 08/14/17 04:30 INR 1.68 (0.83-1.16) H 08/14/17 04:30 Physical Exam - Physical Exam General Appearance: WD/WN, no apparent distress Neck: non-tender Respiratory: normal breath sounds, crackles (Noted in the anterior examination) Cardiac/Chest: irregularly irregular, No edema, No gallop, No JVD Peripheral Pulses: 2+: carotid (R), carotid (L) Abdomen: non-tender, soft Male Genitalia: deferred Rectal: deferred ICD10 Worksheet Patient Problems: Problems Problem Status Onset Atrial fibrillation Acute Congestive heart failure Acute Hypoxemia Acute Ischemic cardiomyopathy Acute Dizziness Acute Near syncope Acute Symptomatic bradycardia Acute
--- NOTE | 2017-08-14 09:20 | POSTANESTH ---
Post Anesthetic Evaluation Cardiovascular Status: Similar to Pre-Op Cond Respiratory Status: Similar to Pre-op Cond. Level of Consciousness/Mental Status: Alert and Oriented Pain Control: Adequate, Prn Tx Ordered Nausea/Vomiting Control: Adequate, Prn Tx Ordered Complications Possibly Related to Anesthesia: None Noted
[2017-08-14] MEDS ORDERED: METOPROLOL TARTRATE 25 MG TAB PO ONE (09:30)
[2017-08-14] MEDS: GLUCOSAMINE/CHONDROITIN CAP PO SCH (10:41)
[2017-08-14] MEDS: amLODIPine BESYLATE 5 MG TAB PO SCH (10:41)
[2017-08-14] MEDS: FERROUS SULFATE 325 MG TAB PO SCH (10:41)
[2017-08-14] MEDS: ASPIRIN 81 MG CHEWABLE TAB PO SCH (10:41)
[2017-08-14] MEDS: MULTIVITAMINS 1 EACH TAB PO SCH (10:42)
[2017-08-14] MEDS: FUROSEMIDE 20 MG/2 ML VIAL IVP SCH (11:03)
[2017-08-14 11:40] VITALS: BP 128/78; PULSE 78; RESP 13; TEMP 98.1
[2017-08-14 12:14] VITALS: O2SAT 83
--- NOTE | 2017-08-14 12:33 | PDHOMEO2F ---
Home Oxygen Face to Face Home Orders: I certify that a physician or a nurse practitioner or physician's learning support assistant has had a [id number] encounter with this patient on the date of this order due to the diagnosis listed, which relates to the primary reason the patient requires home oxygen. Alternative treatments have been tried, or considered, and deemed ineffective. It is anticipated that supplemental oxygen will result in improvement with treatment. Home oxygen qualifying diagnosis: Acutely decompensated heart failure Home oxygen secondary diagnosis: hypoxia SpO2 on room air (%): 83 Frequency of home oxygen needed: continuous Home oxygen liters per minute: 2 Home oxygen delivery device: nasal cannula Concentrator: Yes E-tanks for mobility and back up: Yes If ordering portable O2, is the patient mobile in the home?: Yes I certify that, based on these findings, the home oxygen is medically necessary for this patient for the following length of time. Length of time home oxygen needed: 1 month
[2017-08-14] MEDS ORDERED: FUROSEMIDE 20 MG TAB PO ONE (15:12)
--- NOTE | 2017-08-14 19:29 | GDS ---
[f rep st] DISCHARGE SUMMARY DISCHARGE DIAGNOSES: 1. Atrial fibrillation with rapid ventricular response. 2. Known coronary disease with multivessel bypass surgery 10 years ago. 3. Acutely decompensated systolic heart failure. 4. Acute kidney injury. 5. Hyperlipidemia. 6. Hypertension. HISTORY OF PRESENT ILLNESS: A pleasant 77-year-old male with a history of coronary artery disease st atus post 4-vessel CABG, hypertension, and hyperlipidemia who was sent to the hospital today from Dr. Urbina's office with ankle swelling, abdominal bloating, and exertional dyspnea over the past 2 we eks. He had just finished a road trip to [place] right before these symptoms occurred. Denying any chest pain, palpitation, fevers, or pleuritic pain. No cough. He had previously been on Cozaar, but this was stopped by his primary care doctor due to cough. HOSPITAL COURSE BY PROBLEM: 1. Acute atrial fibrillation: The patient was admitted and placed in the PCU on a diltiazem drip. He underwent cardioversion without issue. He was started on metoprolol 50 mg twice daily, as well as Eliquis. He will follow up with Dr. Luo as an outpatient. He is currently in normal sinus rhythm . 2. Mildly decompensated systolic heart failure: Likely secondary to rapid atrial fibrillation. He was diuresed here and will discharge on Lasix 20 mg daily. Continue beta paulette. 3. Hypertension: Resume home medications. 4. Hyperlipidemia: Statin. 5. Acute hypoxic respiratory failure: Secondary to mild volume overload as evidenced on edema, on c hest x-ray, and exam. D-dimer was minimally elevated and lower extremity Dopplers were negative. He will be discharged on oxygen. DISPOSITION: The patient is stable for discharge home with his . He will be discharged on 2 L o f oxygen. FOLLOWUP: 1. Dr. Luo, cardiology. 2. Primary care physician. NEW MEDICATIONS: 1. Metoprolol 50 mg twice daily. 2. Lasix 20 mg daily. 3. Eliquis 50 mg daily. PHYSICAL EXAMINATION: VITAL SIGNS: Today, temperature 36.7, blood pressure 128/78, heart rate 90, n ormal sinus rhythm. +2 lower extremity edema. LUNGS: No crackles or wheezing. ABDOMEN: Soft, non tender, nondistended. Positive bowel sounds. : No Choi. MUSCULOSKELETAL: 5/5 upper and lower extremity strength. NEUROLOGIC: Cranial nerves 2 through 12 intact. PSYCH: Alert and oriented x3. /[id number]/MODL
[2017-08-14] MEDS ORDERED: METOPROLOL TARTRATE 50 MG TAB PO SCH (21:00)
--- NOTE | 2017-08-15 09:54 | ASDISCHSUM ---
Discharge Information Plan Status:Home with No Needs Medically Cleared to Leave:08/13/2017 Discharge Date:08/14/2017 05:07 PM CM D/C Disposition:Home, Routine, Self-Care ADT D/C Disposition:Home, Routine, Self-Care Projected Discharge Date:08/14/2017 12:00 AM Transportation at D/C:Family Discharge Delay Reason: Follow-Up Date:08/14/2017 12:00 AM Discharge Slot: Final Diagnosis: Placement Information Patient Contact Information Contact Name:DALE Relationship: Address:[address] City:[facility] Phone: [facility]/Zip Code:[place] [address] Email: Financial Information Financial Class:Medicare Advantage Plans Primary Plan Desc:[facility] Primary Plan Number:[id number] Secondary Plan Desc: Secondary Plan Number: Assessment Information [facility] CM Progress Note CM Note CM Note Notes: 08/13/2017 Case Management Note Reviewed chart. There are no PT or OT evals ordered. No case management d/c needs identified at this time d/t pt age, marital status and activity levels prior to admission. Case Management d/c poc: anticipating independent d/c when medically stable with follow up as directed. Case management available if needs change. Date Signed: 08/13/2017 04:05 PM Electronically Signed By:Sandee Cabrera RN Intervention Information Intervention Type:*GRULLON-Signed Date of Service:08/13/2017 09:38 AM Patient Type:Observation Staff Member:Tawnya Doyle Hours: Discipline: Severity: Comment:
== END 2017-08-14 17:07 | disposition home or self-care (01) | DRG 308 ==
LOC: F2W 19:39 → OBSVTOIN 08-13 15:10
PROVIDERS: ADMIT Internal Medicine; ATTEND Internal Medicine
DX: I48.91 Unspecified atrial fibrillation (principal); I50.21 Acute systolic (congestive) heart failure; N17.9 Acute kidney failure, unspecified; I25.2 Old myocardial infarction; I25.10 Atherosclerotic heart disease of native coronary artery without angina pectoris; I11.0 Hypertensive heart disease with heart failure; E78.5 Hyperlipidemia, unspecified; I25.5 Ischemic cardiomyopathy; Z95.1 Presence of aortocoronary bypass graft; Z95.5 Presence of coronary angioplasty implant and graft; Z96.651 Presence of right artificial knee joint; Z23 Encounter for immunization
CPT/HCPCS: 96374; G0008; G0378; J0461; J1940; J2704; J3475

== ENCOUNTER → 2017-09-16 | Outpatient (CLI) | payer OTHER | LOC: FIMAGING 11:01 | PROVIDERS: ATTEND Internal Medicine Cardiovascular Disease | DX: I48.91 Unspecified atrial fibrillation (principal); R06.00 Dyspnea, unspecified; Z86.79 Personal history of other diseases of the circulatory system ==

== ENCOUNTER → 2017-09-26 | Outpatient (CLI) | payer OTHER | LOC: FIMAGING 14:54 | PROVIDERS: ATTEND Internal Medicine Cardiovascular Disease | DX: R91.8 Other nonspecific abnormal finding of lung field (principal); K44.9 Diaphragmatic hernia without obstruction or gangrene; I70.0 Atherosclerosis of aorta; K76.89 Other specified diseases of liver; I25.10 Atherosclerotic heart disease of native coronary artery without angina pectoris; F17.200 Nicotine dependence, unspecified, uncomplicated ==

== ENCOUNTER → 2017-10-31 | Outpatient (CLI) | payer OTHER | LOC: FIMAGING 15:20 | PROVIDERS: ATTEND Internal Medicine Cardiovascular Disease | DX: I51.7 Cardiomegaly (principal); J84.10 Pulmonary fibrosis, unspecified ==

== ENCOUNTER 2017-11-16 17:56 | Inpatient (IN) | payer OTHER ==
--- NOTE | 2017-11-16 18:11 | EDPHY ---
H & P Stated Complaint: pt in afib/sob cardioversion is sscheduled for friday/ Time Seen by Provider: 11/16/17 18:11 - Personal History Current Tetanus/Diphtheria Vaccine: Yes - Medical/Surgical History Hx Asthma: No Hx Chronic Respiratory Disease: No Hx Diabetes: No Hx Cardiac Disease: Yes Hx Renal Disease: No Hx Cirrhosis: No Hx Alcoholism: No Hx HIV/AIDS: No Hx Splenectomy or Spleen Trauma: No Other PMH: Heart bypass - 2006. HTN. High cholestrol.glaucoma, reflux, skin cancer, cataract surg, right knee replacement - Social History Smoking Status: Former smoker Constitutional: Initial Vital Signs Temperature (C) 36.7 C 11/16/17 18:04 Heart Rate 98 11/16/17 18:04 Respiratory Rate 26 H 11/16/17 18:04 Blood Pressure 127/68 H 11/16/17 18:04 O2 Sat (%) 77 L 11/16/17 18:04 O2 Delivery Mode Nasal Cannula O2 (L/minute) 6 Allergies/Adverse Reactions: NKDA Allergy (Uncoded 11/16/17 18:03) Home Medications: Medication Instructions Recorded Atorvastatin Calcium [Lipitor 40 40 mg PO HS 09/24/09 mg (*)] Glucosamine/Chondroitin 1 each PO DAILY 09/24/09 [Glucosamine/Chondroitin (*)] Omeprazole [Prilosec 20 mg] 20 mg PO Q2D 09/24/09 Travoprost Z 0.004% [Travatan Z 1 drops EACHEYE HS 09/24/09 0.004% (*)] Ferrous Sulfate [Ferrous Sulf 325 325 mg PO DAILY 05/14/17 MG (*)] Multivitamins [Multivitamin (*)] 1 each PO DAILY 05/14/17 amLODIPine BESYLATE [Norvasc 5 mg 5 mg PO DAILY 05/14/17 (*)] Aspirin [Aspirin 81mg (*)] 162 mg PO DAILY 08/12/17 Calcium Carbonate [Tums 500MG (*)] 1,000 mg PO Q2D 08/12/17 Herbals/Supplements -Info Only 1 ea PO DAILY 08/12/17 Apixaban [Eliquis] 5 mg PO BID #60 tab 08/14/17 Metoprolol Tartrate [Lopressor 50 50 mg PO BID #60 tab 08/14/17 mg (*)] Amiodarone HCl [Pacerone (*)] 200 mg PO BID 11/16/17 Furosemide [Lasix 20 MG (*)] 40 mg PO DAILY 11/16/17 Medical Decision Making - Diagnostics Imaging: I viewed and interpreted images myself ED Course/Re-evaluation: CHIEF COMPLAINT: Shortness of breath HISTORY OF PRESENT ILLNESS: The patient is a 77 y/o male with a history of atrial fibrillation requiring a cardioversion and a CABG, complaining of shortness of breath for several days. On Friday, 4 days ago, he saw his electronic equipment installer who scheduled a chest CT for Friday, 3 days fro now. However, his dyspnea worsened an he developed chills. Today he started coughing up blood. He is scheduled for a cardioversion in 3 days. No fever, chest pain, abdominal pain, urinary or bowel complaints, numbness, paresthesias. Followed by Dr.Dan Luo, beverage host. REVIEW OF SYSTEMS: A 10 point review of systems was performed and is negative with the exception of the elements mentioned in the history of present illness. PHYSICAL EXAM: HR, BP, O2 Sat, RR. Temp noted General Appearance: Pale and cyanotic looking prior to room oxygen. Alert, well hydrated, appropriate, and non-toxic appearing. Head: Atraumatic without scalp tenderness or obvious injury Eyes: Pupils equal, round, reactive to light and accommodation, EOMI, no trauma , no injection. Ears: Clear bilaterally, no perforation, normal landmarks Nose: Atraumatic, no rhinorrhea, clear. Throat: Mucus membranes moist. Neck: Supple, nontender, no lymphadenopathy. Respiratory: No retractions, no distress, no wheezes, and no accessory muscle use. Lungs are clear to auscultation bilaterally. Cardiovascular: Regular rate and rhythm, no murmurs, rubs, or gallops. Bilateral carotid, radial, dorsalis pedis, and posterior tibial pulses intact. Good capillary refill all extremities. Gastrointestinal: Abdomen is soft, nontender, non-distended, no masses, no rebound, no guarding, no peritoneal signs. Musculoskeletal: Normal active ROM of all extremities, atraumatic. Neurological: Alert, appropriate, and interactive. Non-focal neuro. Skin: No rashes, good turgor, no nodules on palpation. Past medical history: Atrial fibrillation, hypertension, hypercholesteremia, glaucoma, skin cancer Past surgical history: CABG (2006), cataract surgery, right knee replacement Family history: Denies Social history: at bedside DIAGNOSTICS/PROCEDURES/CRITICAL CARE TIME: The 12 lead EKG was interpreted by myself as atrial fibrillation with a rate of 94. See hard copy and/or "tracemaster" electronic copy for interpretation. Chest CT: Results pending as patient was transferred to the floor. Dr. Lemus will receive patient's CT results. DIFFERENTIAL DIAGNOSIS: The differential diagnosis for the patient's shortness of breath and hypoxemia included but was not limited to pneumonia, myocardial infarction, acute mountain sickness, high altitude pulmonary edema, congestive heart failure, and pulmonary embolus. MEDICAL DECISION MAKING: The patient is a 77 y/o male with a history of atrial fibrillation requiring a cardioversion and a CABG, presenting with dyspnea and hypoxia for several days. At triage his O2Sats were in the 70's. Upon arriving to his room, the patient was pale and cyanotic. However, once room air was administered, the patient became less pale and cyanotic. On exam he has coarse rhonchi and a prolonged expiratory phase. Labs, EKG, and chest CT ordered. DuoNeb administered. 1814: Patient's EKG reveals atrial fibrillation with a rate of 94. 1830: Patient's elevated lactate (2.8) is due to his hypoxemia and hypoperfusion. This patient does not meet sepsis criteria, he is in chronic slow atrial fibrillation which is not tachycardia. He also does not have a fever. 185: Consulted with hospitalist service, Dr. Lemus accepts admission of this patient. She will receive the report from the chest CT. The patient is currently having O2Sats in the 90's while on room air. - Data Points Laboratory Results: Laboratory Results 11/16/17 18:15 11/16/17 18:15 18 18 11/16/17 18:43 18:15 18:15 WBC 10.76 10^3/uL H 10^3/uL (3.80-9.50) RBC 4.20 10^6/uL L 10^6/uL (4.40-6.38) Hgb 12.8 g/dL L g/dL (13.7-17.5) Hct 39.4 % L % (40.0-51.0) MCV 93.8 fL fL (81.5-99.8) MCH 30.5 pg pg (27.9-34.1) MCHC 32.5 g/dL g/dL (32.4-36.7) RDW 13.4 % % (11.5-15.2) Plt Count 234 10^3/uL 10^3/uL (150-400) MPV 8.7 fL fL (8.7-11.7) Neut % (Auto) 69.4 % % (39.3-74.2) Lymph % (Auto) 13.0 % L % (15.0-45.0) [place] % (Auto) 14.3 % H % (4.5-13.0) Eos % (Auto) 2.1 % % (0.6-7.6) Baso % (Auto) 0.8 % % (0.3-1.7) Nucleat RBC Rel Count 0.0 % % (0.0-0.2) Absolute Neuts (auto) 7.46 10^3/uL H 10^3/uL (1.70-6.50) Absolute Lymphs (auto) 1.40 10^3/uL 10^3/uL (1.00-3.00) Absolute Monos (auto) 1.54 10^3/uL H 10^3/uL (0.30-0.80) Absolute Eos (auto) 0.23 10^3/uL 10^3/uL (0.03-0.40) Absolute Basos (auto) 0.09 10^3/uL 10^3/uL (0.02-0.10) Absolute Nucleated RBC 0.00 10^3/uL 10^3/uL (0-0.01) Immature Gran % 0.4 % % (0.0-1.1) Immature Gran # 0.04 10^3/uL 10^3/uL (0.00-0.10) PT 20.2 SEC H SEC (12.0-15.0) INR 1.71 H (0.83-1.16) APTT 32.0 SEC SEC (23.0-38.0) VBG Lactic Acid Sodium Potassium Chloride Carbon Dioxide Anion Gap BUN Creatinine Estimated GFR Glucose Calcium Total Bilirubin Troponin I NT-Pro-B Natriuret Pep Nasal Influenza A PCR NEGATIVE FOR FLU A (NEGATIVE) Nasal Influenza B PCR NEGATIVE FOR FLU B (NEGATIVE) 11/16/17 02 18:15 18:15 WBC RBC Hgb Hct MCV MCH MCHC RDW Plt Count MPV Neut % (Auto) Lymph % (Auto) [place] % (Auto) Eos % (Auto) Baso % (Auto) Nucleat RBC Rel Count Absolute Neuts (auto) Absolute Lymphs (auto) Absolute Monos (auto) Absolute Eos (auto) Absolute Basos (auto) Absolute Nucleated RBC Immature Gran % Immature Gran # PT INR APTT VBG Lactic Acid 2.8 mmol/L H mmol/L (0.7-2.1) Sodium 139 mEq/L mEq/L (135-145) Potassium 4.0 mEq/L mEq/L (3.5-5.2) Chloride 103 mEq/L mEq/L (97-110) Carbon Dioxide 21 mEq/l L mEq/l (22-31) Anion Gap 15 mEq/L mEq/L (8-16) BUN 22 mg/dL mg/dL (7-23) Creatinine 1.4 mg/dL H mg/dL (0.7-1.3) Estimated GFR 49 Glucose 128 mg/dL H mg/dL (70-100) Calcium 9.1 mg/dL mg/dL (8.5-10.4) Total Bilirubin 1.3 mg/dL mg/dL (0.1-1.4) Troponin I < 0.012 ng/mL ng/mL (0.000-0.034) NT-Pro-B Natriuret Pep 2600 pg/mL H pg/mL (0-450) Nasal Influenza A PCR Nasal Influenza B PCR Medications Given: Discontinued Medications Albuterol/Ipratropium (Duoneb) 3 ml IH EDNOW ONE Stop: 11/16/17 18:19 Last Admin: 11/16/17 18:25 Dose: 3 ml Departure - Departure Disposition: [facility] Inpatient Acute Clinical Impression: Hypoxemia Atrial fibrillation Qualifiers: Atrial fibrillation type: chronic Qualified Code(s): I48.2 - Chronic atrial fibrillation CHF (congestive heart failure) Qualifiers: Heart failure type: unspecified Heart failure chronicity: unspecified Qualified Code(s): I50.9 - Heart failure, unspecified Condition: Fair Referrals: Chon Urbina MD [Primary Care Provider] - As per Instructions Report Scribed for: Carlitos Tello Report Scribed by: Tamika Miles Date of Report: 11/16/17 Time of Report: 18:12
--- NOTE | 2017-11-16 18:16 | CPEKG ---
Heart Rate: 94 RR Interval: 638 QRSD Interval: 154 QT Interval: 396 QTC Interval: 496 QRS Stanley: 62 T Wave Stanley: -31 EKG Severity - ABNORMAL ECG - EKG Impression: ATRIAL FIBRILLATION EKG Impression: RBBB AND LPFB EKG Impression: INFERIOR INFARCT, AGE INDETERMINATE Electronically Signed By: Carlitos Tello 16-Nov-2017 20:31:59
[2017-11-16] MEDS ORDERED: IPRATROPIUM/ALBUTEROL 3 ML DEYVIAL IH ONE (18:18)
[2017-11-16 18:29] LABS: PLATELET COUNT 234 10^3/uL (150-400)
[2017-11-16 18:40] LABS: INR 1.71 (0.83-1.16); PROTIME(PATIENT) 20.2 SEC (12.0-15.0)
[2017-11-16] MEDS ORDERED: IOPAMIDOL (ISOVUE 370) 100 ML BTL IV ONE (18:44)
[2017-11-16] MEDS ORDERED: ONDANSETRON 4 MG/2 ML VIAL IVP PRN (20:23)
[2017-11-16] MEDS ORDERED: ONDANSETRON DISINTEGRATING 4 MG TAB PO PRN (20:23)
[2017-11-16] MEDS ORDERED: ALBUTEROL 3 ML DEYVIAL IH PRN (20:23)
[2017-11-16] MEDS ORDERED: ACETAMINOPHEN 325 MG TAB PO PRN (20:23)
[2017-11-16] MEDS ORDERED: cefTRIAXone 1 GM in STERILE WATER INJ 10 ML IV SCH (20:30)
[2017-11-16] MEDS ORDERED: AZITHROMYCIN IV 500 MG in NS 250 ML IV SCH (20:30)
[2017-11-16] MEDS: IPRATROPIUM/ALBUTEROL 3 ML DEYVIAL IH SCH (20:56)
[2017-11-16] MEDS: FLUTICASONE/SALMETER 250/50MCG DISKUS IH SCH (21:10)
--- NOTE | 2017-11-16 21:28 | GHP ---
[f rep st] HISTORY AND PHYSICAL DATE OF ADMISSION: 11/16/2017 CHIEF COMPLAINT: Shortness of breath. HISTORY OF PRESENT ILLNESS: The patient is a 77-year-old male with a history of atrial fibrillation, coronary artery disease with prior CABG, chronic systolic heart failure, hypertension, hyperlipidemia, as well as possible COPD, who presents to the emergency department with shortness of breath. He was admitted to the hospital in July 2017 with new onset atrial fibrillation with rapid ventricular rate and associated heart failure. He was started on metoprolol for rate control, as well as Eliquis and Lasix at discharge. He was initially using oxygen 24 hours a day, though more recently has just been using it at night. He states over the past 3 days he has had increased cough and shortness of breath. He began having episodes of hemoptysis associated with a productive cough for the past 2 days. He denies fevers, though endorses chills. He occasionally feels some burning or fullness in his chest, but he otherwise denies chest pain or pressure. He also denies orthopnea, paroxysmal nocturnal dyspnea, or peripheral edema, or weight gain. His weight is actually down to 2.5 kg from hospital discharge. He was seen for outpatient evaluation by Pulmonology just this week and an PAXTON, rheumatoid factor, and ANCA panel were sent. His prior CT scan with suspicious for underlying COPD. In addition , he has a 60+ pack-year tobacco history. He was started on Advair and ProAir and some consideration was given to bronchoscopy, given a recent CT scan suggestive of nonspecific interstitial pneumonia. He is also planning for an outpatient swallow study to evaluate for GERD as a contributory factor to his pulmonary symptoms and abnormal imaging. Upon presentation to the emergency department, his oxygen saturations were in the 70s on room air. He was given a DuoNeb. Laboratory workup revealed an elevated BNP. He is admitted to the hospital with concern for possible heart failure exacerbation. PAST MEDICAL HISTORY: 1. Coronary artery disease status post CABG 10 years ago. He had a recent stable nuclear stress test. 2. Atrial fibrillation. 3. Chronic anticoagulation on Eliquis. 4. Chronic systolic heart failure with an ejection fraction of 52% on a July 2017 echo. 5. Hypertension. 6. Hyperlipidemia. 7. Chronic kidney disease with a baseline creatinine of 1.2-1.4. 8. Possible COPD with abnormal pulmonary imaging studies. 9. Osteoarthritis. 10. Glaucoma. MEDICATIONS: Please see [facility] for completed outpatient medication list. ALLERGIES: No known drug allergies. FAMILY HISTORY: Reviewed and not pertinent. SOCIAL HISTORY: The patient is . He lives with his independently and she is at the bedside. He is retired. He reports a 10-20 year tobacco history, during which time he smoked 2-3 packs of tobacco a day. He drinks 1-2 beers of low alcohol content per day. REVIEW OF SYSTEMS: A 10-point review of systems was performed and was negative , except as per HPI. OBJECTIVE: CURRENT VITAL SIGNS: Temperature is 37.2, blood pressure 127/77, heart rate 101, respiratory rate 20, he is 90% on 3 L. GENERAL: The patient is awake, alert, oriented, in no acute distress. HEENT: Head is atraumatic, normocephalic. Pupils equal, round, reactive to light. Extraocular movements intact. Oropharynx clear. Mucous members are moist. NECK: Supple. There is no new JVD. HEART: Regular rate and rhythm without murmur. LUNGS: Reveal faint crackles throughout the right lung field with minimal expiratory wheezes. ABDOMEN: Soft, nondistended, nontender with normoactive bowel sounds. EXTREMITIES: Without cyanosis, clubbing, or edema. NEUROLOGIC: Grossly nonfocal. LABORATORY DATA: CBC reveals a white blood cell count of 10.7, hemoglobin 12.8 , platelets are 234. INR is 1.71. Lactic acid 2.8. Basic metabolic panel is remarkable for a creatinine of 1.4. Electrolytes are normal, although his CO2 is slightly low at 21. Glucose is 128. Troponin is negative. NT proBNP is 2600 (up from 1590). Procalcitonin is pending. Influenza A, influenza B PCR are negative. CT pulmonary angiogram is personally reviewed with radiologist. There is no evidence of pulmonary embolism. There is diffuse airspace consolidation throughout the right lung field suspicious for pneumonia, as well as moderate mediastinal lymphadenopathy and a hiatal hernia. EKG shows atrial fibrillation with a right bundle branch block. He is rate controlled in the 90s and this appears relatively unchanged from his prior EKG. ASSESSMENT AND PLAN: The patient is a 77-year-old male with history of coronary artery disease, heart failure, atrial fibrillation, and possible chronic obstructive pulmonary disease, who presents to the emergency department with shortness of breath. He was found to be hypoxemic. # Acute on chronic hypoxemic respiratory failure with progressive interstitial process on CT and probable underlying COPD. On 2 L nocturnal O2 at home. He is requiring 6 L of oxygen in the ED. CTA neg for PE, but concerning for an infectious process. Prior CT suggestive of possible non-specific interstitial pneumonia. Blood cultures were drawn and will treat with ceftriaxone, azithromycin for now. PCT ordered, if negative could consider discontinuing antibiotics. Also send a respiratory viral pathogen panel, as well as a sputum culture. I reviewed the recent outpatient Pulmonary notes which reveal suspicion for chronic obstructive pulmonary disease, though his pulmonary function tests were equivocal. He has not yet started his Advair, as he is waiting for insurance approval. 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 I will hold his amiodarone and start prednisone. Pulmonary is consulted and will see tomorrow for consideration of bronchoscopy. An PAXTON, RF, and ANCA panel are pending (sent by pulm as outpt) to evaluate for underlying vasculitis or autoimmune disorders. I do not think this is acute heart failure. # Chronic systolic heart failure. He has an ejection fraction of 52% by his July 2017 echo. He overall appears compensated / euvolemic. His weight is actually down 2 kg from hospital discharge in July. I will continue his outpatient Lasix dose. # Coronary artery disease status post coronary artery bypass graft 10 years ago. He recently had an outpatient nuclear medicine stress test which was stable. We will continue his beta paulette and statin. I will hold his aspirin in the setting of hemoptysis. # Atrial fibrillation. He is rate controlled on the metoprolol. I will continue Eliquis for stroke prevention, though if his hemoptysis worsens or he drops his hemoglobin, I would hold this as well. He is scheduled for elective cardioversion on Friday. We probably need to sort out his acute pulmonary issues first, as he is currently stable and rate controlled in atrial fibrillation. # Hypertension. He is normotensive. Continue his amlodipine and metoprolol. # Hyperlipidemia. Continue statin. # Elevated lactate. I suspect this is related to hypoperfusion in the setting of hypoxemia on presentation. He does not appear septic. Repeat lactate ordered, pending. CODE STATUS: Patient is full code. DISPOSITION: Patient admitted to inpatient status. I anticipate greater than 48 hours hospitalization for ongoing management of the hypoxemia and underlying lung disease. /[id number]/MODL MTDD
[2017-11-16] MEDS: ATORVASTATIN CALCIUM 40 MG TAB PO SCH (21:37)
[2017-11-16] MEDS: APIXABAN 5 MG TAB PO SCH (21:37)
[2017-11-16] MEDS: METOPROLOL TARTRATE 50 MG TAB PO SCH (21:37)
[2017-11-16] MEDS: PANTOPRAZOLE SODIUM 40 MG TAB PO SCH (21:45)
[2017-11-16] MEDS: predniSONE 20 MG TAB PO SCH (21:45)
[2017-11-16] MEDS: TRAVOPROST Z 0.004% 2.5 ML OPHT.BTL EACHEYE SCH (21:58)
[2017-11-17 03:58] LABS: PLATELET COUNT 191 10^3/uL (150-400)
[2017-11-17] MEDS: IPRATROPIUM/ALBUTEROL 3 ML DEYVIAL IH SCH ×4 (05:32→20:06)
[2017-11-17] MEDS ORDERED: AZITHROMYCIN IV 500 MG in D5W 250 ML IV SCH (09:00)
[2017-11-17] MEDS ORDERED: ASPIRIN 81 MG CHEWABLE TAB PO SCH (09:00)
[2017-11-17] MEDS: METOPROLOL TARTRATE 50 MG TAB PO SCH ×2 (09:21→20:55)
[2017-11-17] MEDS: FUROSEMIDE 20 MG TAB PO SCH (09:22)
[2017-11-17] MEDS: predniSONE 20 MG TAB PO SCH (09:22)
[2017-11-17] MEDS: amLODIPine BESYLATE 5 MG TAB PO SCH (09:22)
[2017-11-17] MEDS: APIXABAN 5 MG TAB PO SCH ×2 (09:22→20:55)
[2017-11-17] MEDS: FERROUS SULFATE 325 MG TAB PO SCH (09:22)
[2017-11-17] MEDS: PANTOPRAZOLE SODIUM 40 MG TAB PO SCH (09:22)
--- NOTE | 2017-11-17 09:37 | ASMTCMCOM ---
CM Note CM Note Notes: Patient admitted for hypoxemic respiratory failure, likely d/t underlying COPD. He is being treated with antibiotics for a possible infectious procress. Patient lives with and is normally independent. No therapies have been ordered, so I do not anticipate any discharge needs. Case Management available if any arise. Date Signed: 11/17/2017 09:36 AM Electronically Signed By:Amy Doss RN
--- NOTE | 2017-11-17 10:25 | PDMN ---
Medical Necessity Medical necessity: Patient meets inpatient criteria per physician note and [facility] [place] (acute on chronic hypoxemic respiratory failure with progressive interstitial process on CT: presents with shortness of breath/sat 77 % on RA, tachypneic to 26; leukocytosis/WBC > 10,000; baseline 2 LPM O2, now requiring 6 LPM; lactic acidosis/lactate 2.8; history of atrial fib, CAD with prior CABG, chronic systolic heart failure, HTN, poss COPD; anticipated LOS > 2 midnights for IV antibiotics, steroids, management of hypoxemia and underlying lung disease.)
[2017-11-17] MEDS: FLUTICASONE/SALMETER 250/50MCG DISKUS IH SCH ×2 (10:40→20:06)
[2017-11-17] MEDS ORDERED: guaiFENesin/CODEINE PHOS 10 ML UDCUP PO PRN (11:09)
[2017-11-17] MEDS ORDERED: BENZONATATE 100 MG CAP PO PRN (11:10)
[2017-11-17] MEDS: guaiFENesin 600 MG TAB.ER PO SCH ×2 (12:42→20:55)
--- NOTE | 2017-11-17 14:57 | GCON ---
[f rep st] CONSULTATION PULMONARY CONSULTATION DATE OF CONSULTATION: 11/17/2017 HISTORY OF PRESENT ILLNESS: This patient is a 77-year-old male whom I met on 11/12/2017 when he was referred to me for evaluation of COPD by Cardiology. He was diagnosed with new onset atrial fibrilla tion around July 2017, requiring hospitalization at [facility] 08/13/2017 through 10/14/2016 when he was found to be in rapid ventricular response. He was treated with diltiazem, Lasi x, and cardioversion and had a CT scan as part of his workup. The CT scan was done after his hospita lization on 09/26/2017, which showed bibasilar honeycombing, mild traction bronchiectasis, and patchy ground-glass opacities consistent with NSIP or reflux disease. Pulmonary function testing on 2017 showed a mild restrictive process with a low diffusion capacity that corrected to normal with al veolar volume. He was seen in Cardiology Clinic on 10/28/2017 and was found to be back in atrial fib rillation. Amiodarone was started at that time, and an additional cardioversion was planned for the very near future. In terms of COPD, he does have a smoking history, but had no benefit from albuterol several years adwoa or. He denied any swallowing issues, arthritis, or previous amiodarone, but did complain of a cough with mucus production since the atrial fibrillation diagnosis, which is primarily yellow, but had no hemoptysis at that time. My plan from clinic was a trial of Advair, retesting of his pulmonary physi ology, and to recheck a CT scan. In addition, we were going to look at a barium swallow for silent a spiration, look at an PAXTON screen, rheumatoid factor, and ANCA panel, and see how he did with the repe at CT. However, though he did feel fine at the time of my visit, 2 days later he started feeling poo r, had an increase in his cough, and noticed small flecks of blood interspersed. He went to the hosp ital and was found to have an oxygen saturation of 70% on room air. This improved to 90% on 3 L. He did report some chills at the time. He also told me today that he had numerous family members who h ad recent upper respiratory infections. He was treated with ceftriaxone and Zithromax on arrival and also given prednisone 40 a day and had a new CT scan of his chest done now. That CT reveals distinc tly new and fairly severe infiltrates on the right greater than left, and his lactate was 2.8 on admi ssion, dropped to 1.6 with some fluid. Of note, his procalcitonin was 0.04. Today, he feels that he has improved somewhat, but was frightened by the hemoptysis. His oxygen satu ration and vital signs have remained stable. REVIEW OF SYSTEMS: Otherwise negative. PAST MEDICAL HISTORY: Includes atrial fibrillation, coronary artery disease, hiatal hernia, hyperten [place], hyperlipidemia, pneumonia at least in 2013 and maybe more before that, and remote history of [facility]. PAST SURGICAL HISTORY: Includes coronary artery bypass grafting as well as cardiac stents. FAMILY HISTORY: Includes coronary disease, cholesterol, hypertension, and stroke. SOCIAL HISTORY: He is a former smoker of about 60 pack years, though he did quit in about 1997. Dri nks some alcohol but no alcohol-related illnesses. MEDICATIONS: Currently include Tylenol, DuoNeb q.i.d., Norvasc, Eliquis, Lipitor, azithromycin, ceft riaxone, iron, Lasix 40 daily, metoprolol, Zofran, Protonix, prednisone 40 a day, Advair, and travopr ost. PHYSICAL EXAMINATION: VITAL SIGNS: He was afebrile throughout his admission. His blood pressure is 110/68, heart rate of 86, in atrial fibrillation, respiratory rate 18, oxygen saturation 92% on 5 L nasal cannula. GENERAL: He is awake and alert, in no apparent distress, and able to speak in full s entences without using accessory muscles for breathing. HEENT: Pupils equally round and reactive to light. Nonicteric and noninjected. Mucous membranes are moist without erythema or exudate. NECK: Supple without adenopathy or jugular vein distention. Breath sounds reveal diffuse crackles, worse on the right than the left, and some wheezing bilaterally. HEART: Appears to be irregular without o bvious murmur. ABDOMEN: Soft, nontender, nondistended, without hepatosplenomegaly. EXTREMITIES: N o clubbing, cyanosis, or edema. NEUROLOGIC: Nonfocal, including cranial nerves, deep tendon reflexe s. SKIN: Warm and dry without evidence of rash. OBJECTIVE DATA: Includes his CT scan as described above with fairly significant infiltrates througho ut the right lung with some mediastinal adenopathy and a hiatal hernia that was known. His white cou nt on admission was 10.7; it is now 9.14. Hematocrit 34.6, platelets of 191. INR was 1.7 when he ar rived. Basic metabolic panel was fairly unremarkable including a normal creatinine. Troponin was ne gative. BNP was 2600. Procalcitonin 0.04. Nasal swab for influenza A and B were both negative, but sputum cultures did show enterovirus. ASSESSMENT AND PLAN: 1. Acute on chronic respiratory failure with hypoxemia. I think the changes on his CT scan represen t an acute illness, probably from the enterovirus since he did have recent sick contacts and a fairly sudden change that would be atypical for an interstitial lung disease. I do not think he has eviden ce to support a bacterial pneumonia with the low procalcitonin, and I do not think that bronchoalveol ar lavage would be particularly useful at this time. He may eventually need that, but I suspect that will be 6-[address] Another likely contributor here is underlying chronic obstructive pulmonary disease. His pulmonary function tests to date have been a little bit equivocal, but the Ad vair that I prescribed had only just been started since he got in the hospital, as well as the system ic steroids for exacerbation purposes, so I would continue those medications. I think with the low p rocalcitonin that we could safely stop his antibiotics and observe. We should certainly continue to titrate his oxygen. 2. Abnormal CT scan. In terms of the CT findings prior to this acute exacerbation, I am concerned a bout silent aspiration as well as possible connective tissue disease, so I think that a barium swallo w as well as serologies would be quite useful at this time. Assuming he recovers quickly from this c urrent illness, I would probably repeat a CT scan in about 3 months, as well as repeating his pulmona ry function tests at that time. 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 /[id number]/MODL
--- NOTE | 2017-11-17 16:52 | HOSPPROG ---
Hospitalist Progress Note Assessment/Plan: Assessment: 77-year-old male presents with acute on chronic hypoxic respiratory failure in the setting of interstitial lung disease, enterovirus Plan: 1. Acute on chronic hypoxic respiratory failure. Evidenced by SpO2 in the 70s percent with objective tachypnea, requiring 4 L nasal cannula oxygen, symptomatic shortness of breath with speaking and any level of exertion, most likely secondary to enterovirus -reviewed outside records including 09/26/[address] Dr[address] 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 Urban, he reports he has consulted with the patient, review of his note indicates that it is less likely to be a bacterial process, more likely to be viral precipitant, will discontinue antibiotics at this time, monitor 2. Enterovirus viral syndrome. Recent sick contacts, positive respiratory viral panel, most likely resulting in viral induced pneumonitis, as present on chest CT, personally interpreted -supportive care with antitussives, mucolytic 3. COPD. Currently receiving prednisone, duo nebdarren, will defer to Dr. Urban when these can be weaned and/or discontinued -pulmonary function tests have recently been equivocal -patient to resume outpatient Advair once appropriate 4. Persistent atrial fibrillation. Patient with plan for DC cardioversion this Friday, I discussed with Dr. Medhat Luo, he reports to me that this will be handled and most likely postponed given his acute illness -continue systemic anticoagulation, simon blocking agent -will discuss with Dr. Urban whether he recommends we initiating amiodarone, if there is a low risk that this is amiodarone toxicity 5. Chronic kidney disease stage 3. Baseline creatinine 1.2-1.4, currently at upper range of normal, continue to monitor closely 6. Chronic systolic congestive heart failure. No evidence of acute exacerbation , most recent ejection fraction 52% -continue home dosage of oral Lasix 7. Coronary artery disease. Chronic, continue home medications, EKG demonstrating old infarct 8. Metabolic acidosis. Acute, secondary to lactic acid, with 2.8 on presentation, no evidence of sepsis, resolved Diet. Cardiac Prophylaxis. High risk patient, currently on Eliquis Code. Full Disposition. Anticipated discharge uncertain this time, remains clinically on resolved High risk patient for worsening morbidity and mortality, high-level of medical complexity, secondary to the issues as outlined above. Subjective: ongoing blood tinged cough Objective: Vital Signs Temp Pulse Resp BP Pulse Ox 36.7 C 98 20 102/61 94 11/17/17 15:43 11/17/17 15:43 11/17/17 15:43 11/17/17 15:43 11/17/17 15:43 Microbiology 11/17/17 10:43 Respiratory Panel (PCR) - Final Nasal, Sinus - Swab Human Rhinovirus/Enterovirus 11/16/17 22:43 - Final Sputum, Expectorated Laboratory Results 11/17/17 10:15 11/17/17 10:15 11/16/17 11/17/17 11/18/17 05:59 05:59 05:59 Intake Total 380 175 Output Total 500 200 Balance -120 -25 PT 20.2 SEC (12.0-15.0) H 11/16/17 18:15 INR 1.71 (0.83-1.16) H 11/16/17 18:15 - Physical Exam Constitutional: no apparent distress, not in pain, chronically ill appearing, uncomfortable Cardiovascular: systolic murmur (I/ at sternum), irregularly irregular, No tachycardia, No edema Respiratory: reduced air movement (R base), rhonchi (bilat, R>L), No expiratory wheeze, No bronchial breath sounds Gastrointestinal: normoactive bowel sounds, soft, non-tender abdomen, no palpable masses, No distension Neurologic: AAOx3, sensation intact bilaterally, No weakness Psychiatric: interacting appropriately, not anxious, not encephalopathic, thought process linear ICD10 Worksheet Patient Problems: Problems Problem Status Onset Symptomatic bradycardia Acute Dizziness Acute Near syncope Acute Atrial fibrillation Acute Ischemic cardiomyopathy Acute Congestive heart failure Acute Hypoxemia Acute
[2017-11-17] MEDS: ATORVASTATIN CALCIUM 40 MG TAB PO SCH (20:55)
[2017-11-17] MEDS: TRAVOPROST Z 0.004% 2.5 ML OPHT.BTL EACHEYE SCH (21:00)
[2017-11-17] MEDS ORDERED: CANN-EASE 2 GM TUBE TP PRN (22:00)
[2017-11-18] MEDS: IPRATROPIUM/ALBUTEROL 3 ML DEYVIAL IH SCH ×4 (05:02→23:03)
[2017-11-18] MEDS ORDERED: AZITHROMYCIN IV 500 MG in NS 250 ML IV SCH (09:00)
[2017-11-18] MEDS: amLODIPine BESYLATE 5 MG TAB PO SCH (09:28)
[2017-11-18] MEDS: FLUTICASONE/SALMETER 250/50MCG DISKUS IH SCH ×2 (09:35→21:11)
[2017-11-18] MEDS: guaiFENesin 600 MG TAB.ER PO SCH ×2 (09:37→20:44)
[2017-11-18] MEDS: FUROSEMIDE 20 MG TAB PO SCH (09:37)
[2017-11-18] MEDS: predniSONE 20 MG TAB PO SCH (09:37)
[2017-11-18] MEDS: CALCIUM CARBONATE 500 MG CHEWABLE TAB PO SCH (09:37)
[2017-11-18] MEDS: PANTOPRAZOLE SODIUM 40 MG TAB PO SCH (09:38)
[2017-11-18] MEDS: APIXABAN 5 MG TAB PO SCH ×2 (09:38→20:44)
[2017-11-18] MEDS: FERROUS SULFATE 325 MG TAB PO SCH (09:38)
[2017-11-18] MEDS: METOPROLOL TARTRATE 50 MG TAB PO SCH ×2 (09:38→20:44)
[2017-11-18] MEDS ORDERED: AMIODARONE HCL 200 MG TAB PO SCH (11:30)
--- NOTE | 2017-11-18 11:34 | PDINTPN ---
Audio Video Technician Progress Note Assessment/Plan: Assessment/plan: 77 M admitted with acute on chronic hypoxemia after meeting me in clinic . He had new onset afib around 07/2017 treated with diltiazem, lasix and cardioversion. A CT 09/26/17 showed patchy ground glass infiltrates, but basilar honeycombing and mild traction bronchiectasis suggestive of NSIP. He also has a smoking history and PFTs that were not clearly COPD but was to start Advair after our clinic visit. 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 A repeat CT showed right>> left new significant infiltrates, and cultures grew enterovirus with a low procalcitonin. * Acute hypoxic respiratory failure- I suspect his infiltrates represent an acute process such as viral PNA rather than a sudden acceleration of the chronic process (uncommon) and treatment is largely supportive. Dont think a BAL would be helpful just yet, but perhaps in future. Today's increase in O2 requirement may be mucous plugs so attempting mucomyst/albuterol nebs. Hemoptysis is waning based on color change and has been scant from the beginning , consistent with bronchitis. * Chronic ILD- I am suspicious for silent aspiration given moderate hiatal hernia on CT and possible fleeting infiltrates. MBS ordered for today as well as CTD serologies. Doubt pulmonary renal syndrome but will check UA. He has not been exposed to amiodarone in the past, so very unlikely to be acute toxicity. He i, however, at increased risk for pulmonary toxicity given his underlying lung disease. Would avoid amiodarone unless no better alternative exists (eg Multaq?) * COPD- just started Advair, albuterol and mucomyst as above. Eventual repeat PFTs * Subjective: c/o difficulty clearing secretions, which now consist of old blood/mucous. Objective: Vital Signs Temp Pulse Resp BP Pulse Ox 36.7 C 104 H 20 108/71 92 11/18/17 08:00 11/18/17 09:46 11/18/17 09:46 11/18/17 08:00 11/18/17 11:13 Microbiology 11/16/17 22:43 - Final Sputum, Expectorated 02/19/18 10:43 Respiratory Panel (PCR) - Final Nasal, Sinus - Swab Human Rhinovirus/Enterovirus Laboratory Results 11/17/17 10:15 11/17/17 10:15 11/17/17 11/18/17 11/19/17 05:59 05:59 05:59 Intake Total 380 1440 270 Output Total 500 1550 600 Balance -120 -110 -330 PT 20.2 SEC (12.0-15.0) H 11/16/17 18:15 INR 1.71 (0.83-1.16) H 11/16/17 18:15 Physical Exam - Physical Exam General Appearance: WD/WN, alert, no apparent distress, other (some purse lip respiration (not new)) EENT: PERRL/EOMI Neck: supple Respiratory: crackles, rales, No respiratory distress, No accessory muscle use, No wheezing Cardiac/Chest: regular rate, rhythm, No edema Abdomen: non-tender, soft, No distended Skin: normal color, warm/dry, No cyanosis Lymphatic: no adenopathy Extremities: No pedal edema Neuro/Psych: alert, normal mood/affect, oriented x 3 ICD10 Worksheet Patient Problems: Problems Problem Status Onset Atrial fibrillation Acute Congestive heart failure Acute Hypoxemia Acute Dizziness Acute Ischemic cardiomyopathy Acute Near syncope Acute Symptomatic bradycardia Acute
[2017-11-18] MEDS: ACETYLCYSTEINE 10% IH/PO 4 ML VIAL IH SCH ×3 (12:17→23:03)
[2017-11-18] MEDS ORDERED: FUROSEMIDE 40 MG/4 ML VIAL IVP ONE (13:00)
--- NOTE | 2017-11-18 14:12 | ASMTCMCOM ---
CM Note CM Note Notes: 11/18/2017 Case Management Note Met pt during rounds today. Pt is to [facility] [phone]. PT and OT evals have been ordered. Pt has increased O2 needs today. Case Management d/c poc: to be determined. Case Management to follow. Date Signed: 11/18/2017 02:11 PM Electronically Signed By:Sandee aCbrera RN
[2017-11-18] MEDS ORDERED: cefTRIAXone 1 GM in STERILE WATER INJ 10 ML IV SCH (16:30)
--- NOTE | 2017-11-18 16:30 | HOSPPROG ---
Hospitalist Progress Note Assessment/Plan: Assessment: 77-year-old male presents with acute on chronic hypoxic respiratory failure in the setting of interstitial lung disease, enterovirus Plan: 1. Acute on chronic hypoxic respiratory failure. Worsening today, requiring up to 10LPM to maintain sats > 90%, visibly tachypneic w/ minimal exertion, ongoing cough, most likely secondary to enterovirus in setting of NSIP -CXR w/ worsening interstitial prominence/air space disease R (personally interpreted) -d/w Dr. Urban, given patient's worsening, we agreed to restart Abx empirically , diurese, start acetylcystine, gauge effect 2. Enterovirus viral syndrome. Recent sick contacts, positive respiratory viral panel, most likely resulting in viral induced pneumonitis, as present on chest CT, personally interpreted -supportive care with antitussives, mucolytic, pulm hygiene 3. COPD. Currently receiving prednisone, duo nebs, will defer to Dr. Urban when these can be weaned and/or discontinued -pulmonary function tests have recently been equivocal -patient to resume outpatient Advair once appropriate 4. Persistent atrial fibrillation. Patient with plan for DC cardioversion this Friday, although amio is not the likely cause of his acute pulm issues, we do not recommend that he continue it for his Afib -d/w Cards, asked if other anti-arrhythmics available for patient -cont bblocker and amio in interim to prevent CHF from rate 5. Chronic kidney disease stage 3. Baseline creatinine 1.2-1.4, currently at upper range of normal, continue to monitor closely 6. Chronic systolic congestive heart failure. No evidence of acute exacerbation , most recent ejection fraction 52% -increase to IV lasix today and gauge effect -monitor lytes 7. Coronary artery disease. Chronic, continue home medications, EKG demonstrating old infarct 8. Metabolic acidosis. Acute, secondary to lactic acid, with 2.8 on presentation, no evidence of sepsis, resolved Diet. Cardiac Prophylaxis. High risk patient, currently on Eliquis Code. Full Disposition. Anticipated discharge uncertain this time, remains clinically on resolved High risk patient for worsening morbidity and mortality, high-level of medical complexity, secondary to the issues as outlined above. Subjective: worsening SOB this AM, ongoing cough, black blood in cough Objective: Vital Signs Temp Pulse Resp BP Pulse Ox 36.8 C 94 18 121/72 H 90 L 11/18/17 12:51 11/18/17 12:51 11/18/17 12:51 11/18/17 12:51 11/18/17 12:51 Microbiology 11/16/17 22:43 - Final Sputum, Expectorated Sputum Culture - Final 11/17/17 10:43 Respiratory Panel (PCR) - Final Nasal, Sinus - Swab Human Rhinovirus/Enterovirus Laboratory Results 11/17/17 10:15 11/17/17 10:15 11/17/17 11/18/17 11/19/17 05:59 05:59 05:59 Intake Total 380 1440 270 Output Total 500 1550 600 Balance -120 -110 -330 PT 20.2 SEC (12.0-15.0) H 11/16/17 18:15 INR 1.71 (0.83-1.16) H 11/16/17 18:15 - Physical Exam Constitutional: no apparent distress, not in pain, chronically ill appearing, uncomfortable Cardiovascular: irregularly irregular, tachycardia, No systolic murmur, No edema Respiratory: reduced air movement (cough trigger w/ deep insp), respiratory distress (visible tachypnea on 6LPM), rhonchi (on insp R and left base), No expiratory wheeze, No bronchial breath sounds Gastrointestinal: normoactive bowel sounds, soft, non-tender abdomen, no palpable masses, No distension Neurologic: AAOx3 Psychiatric: interacting appropriately, not anxious, not encephalopathic, thought process linear ICD10 Worksheet Patient Problems: Problems Problem Status Onset Symptomatic bradycardia Acute Dizziness Acute Near syncope Acute Atrial fibrillation Acute Ischemic cardiomyopathy Acute Congestive heart failure Acute Hypoxemia Acute
[2017-11-18] MEDS: AZITHROMYCIN IV 500 MG in NS 250 ML IV SCH (17:52)
[2017-11-18] MEDS: DILTIAZEM CD 120 MG CAP PO SCH (18:12)
--- NOTE | 2017-11-18 18:51 | GCON ---
[f rep st] CONSULTATION CARDIOLOGY CONSULTATION CHIEF COMPLAINT: Shortness of breath, atrial fibrillation. HISTORY OF PRESENT ILLNESS: This is a 77-year-old male with history of atrial fibrillation, coronary disease, prior CABG, hypertension, hyperlipidemia, COPD, who presented to the emergency room with sh ortness of breath. The patient has been treated for COPD exacerbation/possible enterovirus infection . The patient has had atrial fibrillation over the last 3 months, and was being planned as an outpat ient for possible cardioversion. Currently, the patient is still somewhat tachypneic though he has i mproved over the last 24 hours with breathing treatments and antibiotic therapy. His heart rate is 1 10 with AFib, with no acute ST changes. Blood pressure is currently stable. He denies any chest naldo n, although he does indicate having moderate dyspnea with minimal exertion. PAST MEDICAL HISTORY: Significant for coronary artery disease status post CABG, atrial fibrillation, hypertension, hyperlipidemia, COPD, chronic renal insufficiency. HOME MEDICATIONS: Please see patient's home medication list. ALLERGIES: No known drug allergies. SOCIAL HISTORY: The patient is . Was a former smoker. Occasional alcohol use. FAMILY HISTORY: Noncontributory. REVIEW OF SYSTEMS: Patient denies any vision changes. No headache. No palpitations. No chest pain . No abdominal pain. Does indicate having moderate dyspnea with minimal exertion. No lower extremi ty pain. No lower extremity edema. No neurologic deficits. PHYSICAL EXAM: VITAL SIGNS: The patient is currently afebrile at 96, blood pressure is currently 13 0/70 with a heart rate of 110, respirations 12, sat 94% on 3 L nasal cannula. HEENT: Pupils equal, round, reactive to light and accommodation. CARDIOVASCULAR: Irregularly irregular, S1, S2. LUNGS: Slight wheezes with distant breath sounds at the bases. ABDOMEN: Soft, nontender. No guarding. E XTREMITIES: No clubbing, no cyanosis, no edema. NEUROLOGIC: The patient is alert and oriented x3. LABORATORY VALUES: Currently show white cells 9.1, hemoglobin 11.4, platelet count of 191. Creatini ne of 1.3, BUN 20. ASSESSMENT/PLAN: Shortness of breath/atrial fibrillation. At this time, we will continue the patien t's Eliquis as well as his metoprolol. We will stop his Norvasc and place him on Cardizem CD 120 mg p.o. daily. He is on amiodarone currently. Given his compromised respiratory status and hemodynamic stability, I am hesitant to have the patient undergo a transesophageal echocardiogram/cardioversion at this time. Rather, we will continue with rate control until the patient's respiratory status impr oves. We can then move forward with an elective cardioversion if needed at that time. Thank you for the consultation. /[id number]/MODL
[2017-11-18] MEDS: ATORVASTATIN CALCIUM 40 MG TAB PO SCH (20:44)
[2017-11-18] MEDS: TRAVOPROST Z 0.004% 2.5 ML OPHT.BTL EACHEYE SCH (20:50)
[2017-11-19] MEDS: ACETYLCYSTEINE 10% IH/PO 4 ML VIAL IH SCH ×4 (05:36→22:44)
[2017-11-19] MEDS: IPRATROPIUM/ALBUTEROL 3 ML DEYVIAL IH SCH ×5 (05:36→22:44)
[2017-11-19] MEDS: DILTIAZEM CD 120 MG CAP PO SCH (05:54)
[2017-11-19] MEDS: FUROSEMIDE 20 MG TAB PO SCH (05:55)
--- NOTE | 2017-11-19 07:03 | PDCARPN ---
Cardiology Progress Note Chief Complaint: SOB Assessment/Plan: Assessment: AF SOB URI Plan: 11/19/17 06:59 Patient had SOB early this AM--better at this time HR still AF, 100s--continue cardizem and lopressor Given tenuous respiratory status, would be hesitant to perform ISABELLA/ cardioversion at this time Continue with rate control and AC tx Can increase Cardizem if needed Renal function improving Subjective: SOB overnight Reviewed/Discussed With: multidisciplinary team Time Spent With Patient: 25 min Objective: Vital Signs (8 Hrs) Temp Pulse Resp BP Pulse Ox 11/19/17 06:15 45 H 11/19/17 05:54 114 H 104/68 11/19/17 05:36 120 H 13 90 L 11/19/17 05:25 135 H 40 H 87 L 11/19/17 04:00 36.4 C 117 H 19 104/68 91 L 11/19/17 01:30 125 H 40 H 84 L 11/18/17 23:37 37.0 C 98 19 108/75 93 11/18/17 23:04 92 18 91 L Intake/Output (24 Hrs) 11/18/17 11/19/17 11/20/17 05:59 05:59 05:59 Intake Total 1440 1620 Output Total 1550 1350 Balance -110 270 Intake: Oral (ml) 1115 1620 IV Intake (ml) 0 IV Infused (ml) 325 Azithromycin IV 500 mg In 275 D5w 250 ml @ 255 mls/hr IV DAILY JAYDEN Rx#: [id number] cefTRIAXone 1 GM/DEXTROSE 50 50 ml @ 100 mls/hr IV DAILY JAYDEN Rx#:[id number] Output: Urine (ml) 1550 1350 Urinal 1550 1350 Other: Number of Voids Urinal 2 Result Diagrams: 11/17/17 10:15 11/19/17 03:43 Cardiac Labs: Cardiac Lab Results (72 Hrs) 11/16/17 23:58 Troponin I < 0.012 - Physical Exam Constitutional: no apparent distress Eyes: PERRL Ears, Nose, Mouth, Throat: moist mucous membranes Cardiovascular: irregularly irregular Peripheral Pulses: 1+: femoral (R), femoral (L) Gastrointestinal: normoactive bowel sounds Genitourinary: no suprapubic tenderness Skin: no edema Musculoskeletal: no muscular tenderness Neurologic: AAOx3 Psychiatric: cooperative ICD10 Worksheet Patient Problems: Problems Problem Status Onset Atrial fibrillation Acute Congestive heart failure Acute Hypoxemia Acute Dizziness Acute Ischemic cardiomyopathy Acute Near syncope Acute Symptomatic bradycardia Acute
[2017-11-19] MEDS ORDERED: LACTULOSE 20 GM/30 ML UDCUP PO PRN (08:40)
[2017-11-19] MEDS ORDERED: MAGNESIUM HYDROXIDE 30 ML UDCUP PO PRN (08:40)
[2017-11-19] MEDS ORDERED: BISACODYL 10 MG SUPP PR PRN (08:40)
[2017-11-19] MEDS ORDERED: POLYETHYLENE GLYCOL 3350 17 GM PKT PO PRN (08:40)
[2017-11-19] MEDS: APIXABAN 5 MG TAB PO SCH ×2 (10:04→21:10)
[2017-11-19] MEDS: SENNOSIDES/DOCUSATE SODIUM TAB PO SCH ×2 (10:04→21:11)
[2017-11-19] MEDS: predniSONE 20 MG TAB PO SCH (10:04)
[2017-11-19] MEDS: FERROUS SULFATE 325 MG TAB PO SCH (10:05)
[2017-11-19] MEDS: PANTOPRAZOLE SODIUM 40 MG TAB PO SCH (10:05)
[2017-11-19] MEDS: guaiFENesin 600 MG TAB.ER PO SCH ×2 (10:05→21:10)
[2017-11-19] MEDS: METOPROLOL TARTRATE 50 MG TAB PO SCH ×2 (10:05→21:11)
[2017-11-19] MEDS: PIPERACILLIN/TAZO 4.5 GM/DEX 100 ML IV SCH ×3 (10:06→17:33)
[2017-11-19] MEDS: AZITHROMYCIN IV 500 MG in NS 250 ML IV SCH (10:11)
[2017-11-19 10:28] LABS: PLATELET COUNT 216 10^3/uL (150-400)
[2017-11-19] MEDS: FLUTICASONE/SALMETER 250/50MCG DISKUS IH SCH ×2 (10:41→21:10)
[2017-11-19] MEDS ORDERED: FUROSEMIDE 40 MG/4 ML VIAL IVP ONE (11:25)
--- NOTE | 2017-11-19 15:31 | ECHO ---
[email or web address] [address] [address] Main: [phone] Fax: Transthoracic Echocardiogram Name: LUISITO ORDONEZ MR#: [id number] Study Date: 11/19/2017 Study Time: 01:53 PM Date of : 1940 Age: 77 year(s) Height: 175.3 cm (69 in.) Weight: 87.09 kg (192 lb.) BSA: 2.03 m2 Gender: Male Examination: Echo Indication: Hypoxia/infiltrates, Atrial fib, CAD/CABG Image Quality: Contrast: Requested by: Siddhartha Urban BP: 110 mmHg/79 mmHg Heart Rate: Rhythm: Atrial fibrillation Indication: Hypoxia/infiltrates, Atrial fib, CAD/CABG Procedure Staff Batch Heat Treat Operator: Jeane Baird [facility] Reading Physician: Gracia Cotto Requesting Provider: Conclusions: Normal size left ventricle. Low normal left ventricular systolic function. The ejection fraction is estimated to be 50-55 %. LV base/nan inferior/inferolateral bee are hypokinetic . Normal size right ventricle. RV function is not clearly visualized.. The left atrium is mildly dilated. The right atrium is mildly to moderately dilated. Mild mitral valve regurgitation is present. Moderate to severe tricuspid valve regurgitation. The pulmonary artery pressure is normal. Technically difficult study. Compared with 07/2017 degree of TR is slightly worse. Other findings are similar. Measurements: Chambers Valvular Assessment AV/MV Valvular Assessment TV/PV Normal Normal Normal Name Value Range Name Value Range Name Value Range Ao Debby (2D): 3.7 cm (1.4 cm-2.6 AV meanP mmHg ( - ) TR Vmax: 2.32 mm/s ( - ) cm) MV E Vmax: 1.32 m/s ( - ) TR PGmax: 22 mmHg ( - ) IVSd (2D): 1.1 cm (0.6 cm-1.1 syst. PAP: 27 mmHg ( - ) cm) LVDd (2D): 5.2 cm (4.2 cm-5.9 cm) LVDs (2D): 3.6 cm (2.1 cm-4 cm) LVPWd (2D): 0.7 cm (0.6 cm-1 cm) LVEF (2D): 57 (>=54 %) EF Range: 50-55 % Patient: LUISITO ORDONEZ Study Date: 11/19/2017 Page 1 of 2 01:53 PM Continued Measurements: Chambers Valvular Assessment AV/MV Valvular Assessment TV/PV Name Value Name Value Name Value LADs: 5.0 cm MV E/E' Septal: 23.00 CVP (est.): 5 mmHg LADs Lon.0 cm MV E/E' Lateral: 18.50 LA Area: 23.7 cm2 Findings: Left Ventricle: Normal size left ventricle. Low normal left ventricular systolic function. The ejection fraction is estimated to be 50-55 %. Diastolic dysfunction is present. . LV base/nan inferior/inferolateral bee are hypokinetic . Right Ventricle: Normal size right ventricle. RV function is not clearly visualized.. Left Atrium: The left atrium is mildly dilated. Right Atrium: The right atrium is mildly to moderately dilated. Mitral Valve: Mild mitral annular calcification. Mild mitral valve regurgitation is present. Aortic Valve: The aortic valve is normal in appearance and function. Tricuspid Valve: The tricuspid valve is normal in appearance and function. Moderate to severe tricuspid valve regurgitation. The pulmonary artery pressure is normal. Pulmonic Valve: Pulmonary valve not well visualized. Aorta: The aorta is normal. Pericardium: No pericardial effusion. Exam Comments: Technically difficult study - No breathholding to improve image quality - too SOB.. (No Signature Object) Patient: LUISITO ORDONEZ Study Date: 11/19/2017 Page 2 of 2 01:53 PM [id number]
--- NOTE | 2017-11-19 16:48 | PDINTPN ---
Coremaking Machine Operator Progress Note Assessment/Plan: Assessment/plan: 77 M admitted with acute on chronic hypoxemia after meeting me in clinic . He had new onset afib around 07/2017 treated with diltiazem, lasix and cardioversion. A CT 09/26/17 showed patchy ground glass infiltrates, but basilar honeycombing and mild traction bronchiectasis suggestive of NSIP. He also has a smoking history and PFTs that were not clearly COPD but was to start Advair after our clinic visit. 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 A repeat CT showed right>> left new significant infiltrates, and cultures grew enterovirus with a low procalcitonin. * Acute hypoxic respiratory failure- I suspect his infiltrates represent an acute process such as viral PNA rather than a sudden acceleration of the chronic process (uncommon) and treatment is largely supportive. Dont think a BAL would be helpful just yet, but perhaps in future. Increasing O2 and worse CXR infiltrates, now boilateral. Trial of lasix, increase steroids, and re- cjheck echo. Check troponin * Chronic ILD- I am suspicious for silent aspiration given moderate hiatal hernia on CT and possible fleeting infiltrates. MBS does not show lidia aspiration, but antegrade reflux especially supine. May benefit from CURRICULUM DEVELOPMENT SPECIALIST eval. Doubt pulmonary renal syndrome but will check UA. He has not been exposed to amiodarone in the past, so very unlikely to be acute toxicity. He is, however, at increased risk for pulmonary toxicity given his underlying lung disease. Would avoid amiodarone unless no better alternative exists (eg Multaq?) * COPD- just started Advair, albuterol and mucomyst as above. Eventual repeat PFTs * 11/19/17 16:46 Subjective: increasing O2 requirements this AM with sob. Ongoing hemoptysis (on AC) Objective: Vital Signs Temp Pulse Resp BP Pulse Ox 37.0 C 114 H 21 H 126/75 H 91 L 11/19/17 16:00 11/19/17 16:00 11/19/17 16:00 11/19/17 16:00 11/19/17 16:00 Microbiology 11/16/17 22:43 - Final Sputum, Expectorated Sputum Culture - Final Laboratory Results 11/19/17 09:41 11/19/17 03:43 11/18/17 11/19/17 11/20/17 05:59 05:59 05:59 Intake Total 1440 1620 Output Total 1550 1350 Balance -110 270 PT 20.2 SEC (12.0-15.0) H 11/16/17 18:15 INR 1.71 (0.83-1.16) H 11/16/17 18:15 Physical Exam - Physical Exam General Appearance: alert, mild distress EENT: PERRL/EOMI Neck: supple Respiratory: crackles, No respiratory distress, No accessory muscle use, No stridor, No wheezing Cardiac/Chest: regular rate, rhythm, No edema Abdomen: non-tender, soft, No distended Skin: normal color, warm/dry, No cyanosis Lymphatic: no adenopathy Extremities: No pedal edema Neuro/Psych: alert, normal mood/affect, oriented x 3 ICD10 Worksheet Patient Problems: Problems Problem Status Onset Atrial fibrillation Acute Congestive heart failure Acute Hypoxemia Acute Dizziness Acute Ischemic cardiomyopathy Acute Near syncope Acute Symptomatic bradycardia Acute
[2017-11-19] MEDS: methylPREDNISolone SOD SUCC 125 MG/2 ML VIAL IVP SCH (17:34)
--- NOTE | 2017-11-19 18:38 | HOSPPROG ---
Hospitalist Progress Note Assessment/Plan: Assessment: 77-year-old male presents with acute on chronic hypoxic respiratory failure worsening today, in the setting of interstitial lung disease , enterovirus Plan: 1. Acute on chronic hypoxic respiratory failure. Worsening today s/p neb tx this AM w/ resultant coughing and hypoxia, requiring up to 15LPM NRB, most likely secondary to enterovirus in setting of NSIP -CXR w/ worsening interstitial prominence/air space disease R -d/w Dr. Urban, we both agreed that patient's status warranted transfer to SDU -upon arrival to SDU, patient's resp status worsened, and requiring intubation by Dr. Urban, possibly developing ARDs -given patient's esophagram indicating low/mid thoracic reflux, and worsening resp status, cover aspiration organisms/HCAP w/ Zosyn, as well as possible atypicals for diffuse radiographic appearance w/ Azithro, and get uStrep/uLeg/ mycoplasm -get ID consult tomorrow to assist w/ abx vs. supportive care -repeat CXR in AM -35 minutes of critical care time spent addressing this issue, coordinating his care, remains high risk of mortality on vent 2. Enterovirus viral syndrome. Recent sick contacts, positive respiratory viral panel, most likely resulting in viral induced pneumonitis, -supportive care with antitussives, mucolytic, pulm hygiene -interstitial worsening and on vent 3. COPD. Did not have e/o acute exacerbation this AM, but w/ worsening resp status on PO pred/duonebs, start IV steroids, gauge effect -pulmonary function tests have recently been equivocal -patient to resume outpatient Advair once appropriate 4. Persistent atrial fibrillation. Acute RVR last night, added PO dilt + home metoprolol, stopped amio given long-term risk of worsening NSIP -cont dilt/metop via OG -lovenox, hold if BAL 5. Chronic kidney disease stage 3. Baseline creatinine 1.2-1.4 6. Chronic systolic congestive heart failure. No evidence of acute exacerbation , most recent ejection fraction 52% -repeat echo w/o changes -trop marginally elevated, likely 2/2 resp failure and heart strain, cont to cycle -adjust to IV lasix given worsening resp failure 7. Coronary artery disease. Chronic, continue home medications, EKG demonstrating old infarct 8. Metabolic acidosis. Acute, secondary to lactic acid, with 2.8 on presentation, no evidence of sepsis, resolved Diet. Cardiac Prophylaxis. High risk patient, currently on lovenox Code. Full Disposition. Anticipated discharge uncertain this time, remains clinically on resolved Subjective: tachypnea w/ any movement this AM, no chest pain Objective: Vital Signs Temp Pulse Resp BP Pulse Ox 37.0 C 104 H 26 H 126/75 H 93 11/19/17 16:00 11/19/17 17:46 11/19/17 17:46 11/19/17 16:00 11/19/17 17:46 Microbiology 11/16/17 22:43 - Final Sputum, Expectorated Sputum Culture - Final Laboratory Results 11/19/17 09:41 11/19/17 03:43 11/18/17 11/19/17 11/20/17 05:59 05:59 05:59 Intake Total 1440 1620 Output Total 1550 1350 Balance -110 270 PT 20.2 SEC (12.0-15.0) H 11/16/17 18:15 INR 1.71 (0.83-1.16) H 11/16/17 18:15 - Physical Exam Constitutional: uncomfortable, No no apparent distress (moderate resp distress) Cardiovascular: irregularly irregular, tachycardia, No systolic murmur, No edema Respiratory: reduced air movement (bilat bases), respiratory distress (visible tachypnea), rhonchi (on insp bilat), No expiratory wheeze, No bronchial breath sounds Gastrointestinal: normoactive bowel sounds, soft, non-tender abdomen, no palpable masses Neurologic: AAOx3 Psychiatric: not encephalopathic, thought process linear ICD10 Worksheet Patient Problems: Problems Problem Status Onset Symptomatic bradycardia Acute Dizziness Acute Near syncope Acute Atrial fibrillation Acute Ischemic cardiomyopathy Acute Congestive heart failure Acute Hypoxemia Acute
[2017-11-19] MEDS: ATORVASTATIN CALCIUM 40 MG TAB PO SCH (21:10)
[2017-11-19] MEDS: TRAVOPROST Z 0.004% 2.5 ML OPHT.BTL EACHEYE SCH (21:11)
[2017-11-19] MEDS ORDERED: ALBUTEROL 3 ML DEYVIAL IH ONE (23:09)
[2017-11-20] MEDS: PIPERACILLIN/TAZO 4.5 GM/DEX 100 ML IV SCH ×2 (00:17→05:15)
[2017-11-20] MEDS: methylPREDNISolone SOD SUCC 125 MG/2 ML VIAL IVP SCH ×5 (00:17→23:27)
[2017-11-20] MEDS ORDERED: LORazepam 2 MG/ML INJ IVP ONE (00:52)
--- NOTE | 2017-11-20 02:58 | HOSPPROG ---
Hospitalist Progress Note Assessment/Plan: XC: Patient with very high O2 needs throughout the night. Exam notable for diffuse wheezing and poor air movement so tried continues nebulization for 1 hour. This helped modestly but work of breathing remained very high. Patient tolerated BIPAP for 2 hours but has difficulty with this due to claustrophobia. He is hypoxic while on high-flow so will have ED intubated. Discussed plan with patient and he is ok with this. Objective: Vital Signs Temp Pulse Resp BP Pulse Ox 36.7 C 110 H 26 H 113/71 98 11/19/17 19:00 11/20/17 02:00 11/20/17 02:00 11/20/17 02:00 11/20/17 02:00 Laboratory Results 11/19/17 09:41 11/19/17 03:43 11/18/17 11/19/17 11/20/17 05:59 05:59 05:59 Intake Total 1440 1620 550 Output Total 1550 1350 435 Balance -110 270 115 PT 20.2 SEC (12.0-15.0) H 11/16/17 18:15 INR 1.71 (0.83-1.16) H 11/16/17 18:15 ICD10 Worksheet Patient Problems: Problems Problem Status Onset Atrial fibrillation Acute Congestive heart failure Acute Hypoxemia Acute Dizziness Acute Ischemic cardiomyopathy Acute Near syncope Acute Symptomatic bradycardia Acute
[2017-11-20] MEDS ORDERED: fentanYL/NACL/100 ML BAG IV ONE (03:01)
[2017-11-20] MEDS ORDERED: PROPOFOL/EMULSION 1,000 MG/100 ML BOTTLE IV ONE (03:01)
[2017-11-20 03:19] LABS: PLATELET COUNT 218 10^3/uL (150-400)
[2017-11-20] MEDS ORDERED: KETAMINE 200 MG/20 ML VIAL IV ONE ×2 (03:45)
[2017-11-20] MEDS ORDERED: ROCURONIUM 100 MG/10 ML VIAL IV ONE ×2 (03:45)
--- NOTE | 2017-11-20 04:20 | EDPHY ---
Inpatient Procedure Narrative: I was called by the hospitalist Dr. Alaniz to evaluate the patient for intubation. The patient is currently hypoxic with sats in the 80s on BiPAP and high-flow nasal cannula. There is concern that he is tiring out. He has a history of interstitial lung disease and rhino virus. I evaluated the patient at the bedside. He is able to speak 1-2 word sentences while wearing high-flow nasal cannula and non-rebreather. Sats are 91%, he is quite tachypneic with retractions present. I discussed the procedure with the patient who would like to proceed. INTUBATION Procedure: Rapid sequence intubation. Indication for the procedure was respiratory failure with hypoxia. The patient was preoxygenated with 100% oxygen by face mask and high-flow nasal cannula. The patient was given the following IV medications: Ketamine and rocuronium. The patient was orally endotracheally intubated using the glide scope with a 8.0 ETT. Tracheal intubation was confirmed with misting on the tube; breath sounds were auscultated equally bilaterally; appropriate color change with [place] Tidal CO2 detector. Chest X-ray shows ETT in good position. The procedure was performed by myself.
[2017-11-20] MEDS ORDERED: PETROLAT,WHT/MIN OIL/SOD CHL 3.5 GM OPHT.OINT EACHEYE PRN (04:30)
[2017-11-20] MEDS: fentaNYL/NACL 100 ML IV SCH ×2 (05:16→17:41)
[2017-11-20] MEDS: PROPOFOL/EMULSION 100 ML IV SCH ×3 (05:16→19:37)
[2017-11-20] MEDS: IPRATROPIUM/ALBUTEROL 3 ML DEYVIAL IH SCH (05:53)
[2017-11-20] MEDS: ACETYLCYSTEINE 10% IH/PO 4 ML VIAL IH SCH (05:53)
[2017-11-20] MEDS ORDERED: KETAMINE 200 MG/20 ML VIAL ONE (06:09)
[2017-11-20] MEDS ORDERED: ROCURONIUM 100 MG/10 ML VIAL ONE (06:09)
--- NOTE | 2017-11-20 07:20 | PDCARPN ---
Cardiology Progress Note Chief Complaint: SOB Assessment/Plan: Assessment: AF SOB URI Plan: 11/19/17 06:59 Patient had SOB early this AM--better at this time HR still AF, 100s--continue cardizem and lopressor Given tenuous respiratory status, would be hesitant to perform ISABELLA/ cardioversion at this time Continue with rate control and AC tx Can increase Cardizem if needed Renal function improving 11/20/17 07:18 Patient intubated overnight for worsening respiratory status Echo- NL EF Trop elevating--most likely from demand ischemia given underlying resp issues Can utilize cardizem gtt if rate control needed Continue AC tx--if eliquis cannot be given via OG, can switch to heparin gtt Reviewed/Discussed With: multidisciplinary team Time Spent With Patient: 25 min Objective: Vital Signs (8 Hrs) Temp Pulse Resp BP Pulse Ox 11/20/17 06:00 36.7 C 105 H 22 H 136/61 H 94 11/20/17 05:54 106 H 22 H 93 11/20/17 05:00 36.8 C 110 H 22 H 115/67 93 11/20/17 04:40 109 H 22 H 93 11/20/17 04:00 108 H 16 131/75 H 97 11/20/17 03:30 119 H 16 162/78 H 93 11/20/17 03:23 105 H 16 98 11/20/17 02:00 110 H 26 H 113/71 98 11/20/17 00:55 105 H 28 H 95 11/20/17 00:00 106 H 31 H 118/67 95 11/19/17 23:45 103 H 26 H 94 Intake/Output (24 Hrs) 11/19/17 11/20/17 11/21/17 05:59 05:59 05:59 Intake Total 1620 1317.4 Output Total 1350 1235 Balance 270 82.4 Intake: Oral (ml) 1620 850 IV Intake (ml) 430 IV Infused (ml) 37.4 Propofol/Emulsion 100 ml 26.4 @ Per Protocol IV CONT JAYDEN Rx#:[id number] fentaNYL/NACL 100 ml @ 11 Per Protocol IV CONT JAYDEN Rx#:[id number] Output: Urine (ml) 1350 1235 Catheter 300 Urinal 1350 935 OG Tube Output (ml) 0 Large Bore (>12 Urdu) 0 16 Urdu Other: Weight 87.5 kg Result Diagrams: 11/20/17 03:00 11/20/17 03:00 Cardiac Labs: Cardiac Lab Results (72 Hrs) 11/20/17 11/19/17 11/19/17 03:00 19:30 14:50 Troponin I 0.174 H 0.100 H 0.052 H - Physical Exam Constitutional: no apparent distress Ears, Nose, Mouth, Throat: moist mucous membranes Cardiovascular: irregularly irregular Peripheral Pulses: 1+: femoral (R), femoral (L) Respiratory: other (reduced BS bilaterally) Gastrointestinal: normoactive bowel sounds Genitourinary: no suprapubic tenderness Skin: no rashes Musculoskeletal: no muscular tenderness Neurologic: other (sedated) Psychiatric: other (sedated) ICD10 Worksheet Patient Problems: Problems Problem Status Onset Atrial fibrillation Acute Congestive heart failure Acute Hypoxemia Acute Dizziness Acute Ischemic cardiomyopathy Acute Near syncope Acute Symptomatic bradycardia Acute
[2017-11-20] MEDS: FLUTICASONE/SALMETER 250/50MCG DISKUS IH SCH (08:34)
[2017-11-20] MEDS: CHLORHEXIDINE GLUCONATE 15 ML UDL PO SCH ×2 (09:00→19:37)
[2017-11-20] MEDS ORDERED: FAMOTIDINE 20 MG/NACL 50 ML IV SCH (09:00)
[2017-11-20] MEDS ORDERED: LACTULOSE 20 GM/30 ML UDCUP TUBE PRN (09:00)
--- NOTE | 2017-11-20 09:35 | HOSPPROG ---
Hospitalist Progress Note Assessment/Plan: # acute on chronic (2-3L)hypoxic resp failure requiring intubation - either d/t acute pneumonia (bacterial vs viral) or underlying ILD - continue mechanical ventilation - bronch today # enterovirus/rhinovirus - supportive care # possible pneumonia - cont zosyn, azith, steroids # possible underlying interstitial lung disease - possible NSIP per Dr Urban's note # underlying COPD - inhalers # persistent a-fib - cont eliquis, metop per tube - rate ok now, consider dilt gtt if difficult to control # CKD - stable, baseline 1.2-1.3 # CAD - mild trop elevation, recheck tomorrow am; likely d/t strain; WMAs on echo # chronic sCHF - EF 50% - cont lasix 40 mins of floor CC time; critically ill d/t severe resp failure Subjective: intubated overnight d/t worsening resp status Objective: Vital Signs Temp Pulse Resp BP Pulse Ox 37 C 103 H 33 H 101/63 98 11/20/17 08:00 11/20/17 08:20 11/20/17 08:20 11/20/17 08:00 11/20/17 08:20 Laboratory Results 11/20/17 03:00 11/20/17 03:00 11/19/17 11/20/17 11/21/17 05:59 05:59 05:59 Intake Total 1620 1317.4 Output Total 1350 1235 Balance 270 82.4 PT 20.2 SEC (12.0-15.0) H 11/16/17 18:15 INR 1.71 (0.83-1.16) H 11/16/17 18:15 - Physical Exam Constitutional: other (intubated, sedated) Cardiovascular: no murmur, rub, or gallop, irregularly irregular Respiratory: other (ET tube, coarse BS bilat) Gastrointestinal: soft, non-tender abdomen, no palpable masses ICD10 Worksheet Patient Problems: Problems Problem Status Onset Symptomatic bradycardia Acute Dizziness Acute Near syncope Acute Atrial fibrillation Acute Ischemic cardiomyopathy Acute Congestive heart failure Acute Hypoxemia Acute
[2017-11-20] MEDS: AZITHROMYCIN IV 500 MG in NS 250 ML IV SCH (10:00)
[2017-11-20] MEDS ORDERED: PROTOCOL POTASSIUM 1 DOSE MISC PRN (10:17)
[2017-11-20] MEDS: FUROSEMIDE 40 MG/4 ML VIAL IVP SCH ×2 (10:27→16:27)
[2017-11-20] MEDS ORDERED: LIDOCAINE 1% 300 MG/30 ML SDV MISC ONE (10:49)
[2017-11-20] MEDS ORDERED: LIDOCAINE 1% 300 MG/30 ML SDV ONE (10:51)
--- NOTE | 2017-11-20 11:31 | PDINTPN ---
Quality Control Head Progress Note Assessment/Plan: Assessment/plan: 77 M admitted with acute on chronic hypoxemia after meeting me in clinic . He had new onset afib around 07/2017 treated with diltiazem, lasix and cardioversion. A CT 09/26/17 showed patchy ground glass infiltrates, but basilar honeycombing and mild traction bronchiectasis suggestive of NSIP. He also has a smoking history and PFTs that were not clearly COPD but was to start Advair after our clinic visit. 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 A repeat CT showed right>> left new significant infiltrates, and cultures grew enterovirus with a low procalcitonin. * Acute hypoxic respiratory failure- I suspect his infiltrates represent an acute process such as viral PNA rather than a sudden acceleration of the chronic process (uncommon) and treatment is largely supportive. Given his recently placed ETT, bronchoscopy was performed (dictated separately) and revealed mild-moderate thick, sticky and clear secretions throughout the lungs without hemoptysis * Chronic ILD- I am suspicious for silent aspiration given moderate hiatal hernia on CT and possible fleeting infiltrates. MBS does not show lidia aspiration, but antegrade reflux especially supine. May benefit from BOARD SETTER eval. Doubt pulmonary renal syndrome but will check UA. He has not been exposed to amiodarone in the past, so very unlikely to be acute toxicity. He is, however, at increased risk for pulmonary toxicity given his underlying lung disease. Would avoid amiodarone unless no better alternative exists (eg Multaq?) * COPD- just started Advair, albuterol and mucomyst as above. Eventual repeat PFTs * 11/19/17 16:46 11/20/17 11:18 Subjective: INtubated overnight Objective: Vital Signs Temp Pulse Resp BP Pulse Ox 37.5 C 105 H 28 H 109/58 L 96 11/20/17 11:00 11/20/17 11:00 11/20/17 11:00 11/20/17 11:00 11/20/17 11:00 Laboratory Results 11/20/17 03:00 11/20/17 03:00 11/19/17 11/20/17 11/21/17 05:59 05:59 05:59 Intake Total 1620 1317.4 Output Total 1350 1235 Balance 270 82.4 PT 20.2 SEC (12.0-15.0) H 11/16/17 18:15 INR 1.71 (0.83-1.16) H 18 18:15 Physical Exam - Physical Exam General Appearance: no apparent distress, other (sedated) EENT: PERRL/EOMI Neck: supple Respiratory: decreased breath sounds, crackles, No respiratory distress, No accessory muscle use Cardiac/Chest: irregularly irregular, No edema Abdomen: non-tender, soft, No distended Skin: normal color, warm/dry, No cyanosis Lymphatic: no adenopathy Extremities: No pedal edema Neuro/Psych: cognition abnormalities, other (on vent) ICD10 Worksheet Patient Problems: Problems Problem Status Onset Atrial fibrillation Acute Congestive heart failure Acute Hypoxemia Acute Dizziness Acute Ischemic cardiomyopathy Acute Near syncope Acute Symptomatic bradycardia Acute
[2017-11-20] MEDS: PIPERACILLIN/TAZO 3.375 GM/DEX 50 ML IV SCH ×3 (11:38→23:27)
[2017-11-20] MEDS: ALBUTEROL 60 PUFFS/8 GM MDI IH SCH ×3 (11:40→20:33)
[2017-11-20] MEDS: PANTOPRAZOLE SODIUM 40 MG VIAL IVP SCH (11:46)
[2017-11-20] MEDS: METOPROLOL TARTRATE 50 MG TAB TUBE SCH ×2 (11:46→20:14)
[2017-11-20] MEDS: APIXABAN 5 MG TAB TUBE SCH ×2 (11:46→20:13)
[2017-11-20] MEDS: DILTIAZEM 30 MG TAB TUBE SCH ×3 (12:08→20:13)
--- NOTE | 2017-11-20 12:09 | GPN ---
[f rep st] PROCEDURE NOTE DATE OF PROCEDURE: 11/20/2017 PROCEDURE: Bronchoscopy with bronchial washings. INDICATION: Pneumonia and respiratory failure. CONSENT: Informed consent was obtained from the patient's prior to the administration of anesth esia. The risks and benefits of the procedure and conscious sedation were described in detail. All agreed to proceed. DESCRIPTION OF PROCEDURE: Sedation was achieved with an existing propofol and fentanyl drip, though a 25 mcg bolus of fentanyl was given and the drip was increased from 20 to 30. The patient tolerated these well without complication. Next, bronchoscope was introduced through the existing endotrachea l tube into what appeared to be a normal-appearing trachea. The main yfn was sharp without eviden ce of adenopathy. There were modest to mild thick, clear, tenacious mucus scattered throughout the a irways that were relatively easily suctioned. There were no major mucosal abnormalities. There were no endobronchial lesions. There was no evidence of significant hemorrhage, though there were areas of small amounts of blood scattered throughout. Full inspection of the right middle lobe, right lowe r lobe and right upper lobe bronchi were performed, as well as left upper lobe lingula and lower lobe segments. A bronchoalveolar lavage was attempted in the left upper lobe, 3 aliquots of 40 cc of damari ine were instilled, but there was no return on suction using a syringe. A significant amount of flui d, however, was retained via suctioning through the bronchoscope. Overall, the patient tolerated the procedure well. There were no complications. /[id number]/MODL
[2017-11-20] MEDS ORDERED: POTASSIUM Cl (KCl) 100 ML IV SCH (12:30)
[2017-11-20] MEDS: POTASSIUM Cl (KCl) 10 MEQ in NS 100 ML IV SCH ×2 (13:00→14:13)
--- NOTE | 2017-11-20 14:25 | GCON ---
[f rep st] CONSULTATION INFECTIOUS DISEASE CONSULTATION DATE OF CONSULTATION: 11/20/2017 REFERRING PHYSICIAN: Kike Llanos MD REASON FOR CONSULTATION: Respiratory failure/pneumonia. HISTORY OF PRESENT ILLNESS: 77-year-old male with a history of atrial fibrillation, coronary artery disease, prior CABG, CHF, and chronic lung disease, likely COPD, who presents to the emergency room w ith acute on chronic shortness of breath. Patient has had progressive shortness of breath over the p ast 6 months, which has limited his activities. He presented to the emergency room with increased co ugh and shortness of breath with episodes of hemoptysis. No fevers, but chills. The patient was adm itted to the hospital and found to have a positive PCR for enterovirus and initially started on ceftr iaxone and azithromycin. CT scan was performed which showed no embolic disease. It did show diffuse airspace consolidation of the right lung suspicious for pneumonia. Procalcitonin was 0.04. Despite empiric antibiotic therapy and supportive care, patient's shortness of breath progressed and subseque ntly patient was intubated today early in the morning. A subsequent chest x-ray showed diffuse multi focal consolidation and interstitial infiltrates. The patient's antibiotics were broadened to Zosyn and azithromycin was continued. ID is asked to comment on antibiotic management. The patient underw ent bronchoscopy today with no endobronchial lesions or purulence noted. PAST MEDICAL HISTORY: 1. Coronary artery disease status post CABG 10 years ago. 2. Atrial fibrillation with chronic anticoagulation on Eliquis. 3. Chronic CHF with an ejection fraction of 52% in 07/2017. 4. Hypertension. 5. Hyperlipidemia. 6. Chronic renal insufficiency with a max creatinine 1.4. 7. COPD. 8. Osteoarthritis. 9. Glaucoma. MEDICATIONS: Zosyn 4.5 g IV q.6, azithromycin 500 mg daily started 11/16/2017, he is on propofol for sedation, Lopressor 50 mg twice daily. Solu-Medrol 60 mg IV q.6 started 11/19, lactulose, Robitussi n, Mucinex, Lasix, fentanyl, Peridex, Lipitor, Eliquis. ALLERGIES: NKDA. SOCIAL HISTORY: The patient is . He is originally from [place] but has been in [place] for o richard 40 years. 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 He smoked 2 to 3 packs a day. No international travel for over a year. Last travel wa s in [place] in July. He does not use hot tubs or steam rooms. They do not have any pets. They do not live near livestock. REVIEW OF SYSTEMS: Discussed with family. No pertinent review of systems other than what is mention ed in the HPI. FAMILY HISTORY: Positive for heart disease, high cholesterol, hypertension, and stroke. PHYSICAL EXAMINATION: VITAL SIGNS: BP 104/58, heart rate 105, respiratory rate 27, saturation 99% o n a ventilator. FiO2 of 80%. A temperature is 37. T-max is 37.5. GENERAL: In general, this is a se dated male lying in the ICU in no acute distress. ET tube and NG tube in place. CARDIOVASCULAR: Tachy cardic with a regular rhythm. CHEST: Coarse breath sounds bilaterally. ABDOMEN: Soft, nontender. G ENITOURINARY: Choi was in place. Mild scrotal edema. EXTREMITIES: Mild to trace lower extremity ed jasiel. SKIN: No rashes. NEUROLOGICAL: The patient was sedated, so was not able to be assessed. LABORATORY: Creatinine 1.2. AST 45, ALT 45, alkaline phosphatase 108, total bilirubin 1.8. Troponi n is slightly elevated at 0.74. White count 18, hematocrit 33, platelets of 218, 91% neutrophils. Chest x-ray as per HPI. Echocardiogram was also performed during this hospitalization that showed an ejection fraction of 50% to 55% with diastolic dysfunction. Mild mitral valve regurgitation and annular calcification, eula l aortic and tricuspid valve, severe regurgitation. Blood cultures 11/16/2017 are no growth to date. Sputum culture was negative. Respiratory panel PCR was positive for enterovirus and BAL performed today 11/20/2017 showed 4+ PMNs, no organisms. ASSESSMENT AND PLAN: This is a 77-year-old male with underlying lung disease as well as coronary art wayne disease who presents with acute on chronic respiratory failure and subsequently requires intubati on with diffuse infiltrates on chest x-ray consistent with acute respiratory distress syndrome. One potential pathogen has been identified, i.e., enterovirus. Opportunistic infections are less likely as patient is not on chronic steroids nor has he received antibiotics in the recent past. Nonetheles s, patient is critically ill and reasonable to continue empiric antibiotics for bacterial pneumonia. The patient does not have significant risk factors for Pseudomonas, but does have risk factors for a spiration pneumonia. Therefore, Zosyn is a reasonable choice but would reduce the dose to 3.375 g IV q.8. Continue azithromycin for now as Legionella antigen is still pending. Respiratory panel showe d negative mycoplasma, chlamydia, as well as pertussis testing. Thank you for this consultation. We will continue to follow on a daily basis. /[id number]/MODL
--- NOTE | 2017-11-20 17:38 | ASMTCMCOM ---
CM Note CM Note Notes: Met with patient's and son today in a family meeting. (see family meeting in "notes") The family is grateful for the emotional support they have gotten while patient has been in the ICU. Reviewed possible d/c plans and will meet with the family when it is clear what the next level of care will be for the patient. CM will follow. Date Signed: 11/20/2017 05:37 PM Electronically Signed By:Angle Roland LCSW
[2017-11-20] MEDS: ATORVASTATIN CALCIUM 40 MG TAB TUBE SCH (20:13)
[2017-11-20] MEDS: TRAVOPROST Z 0.004% 2.5 ML OPHT.BTL EACHEYE SCH (20:14)
[2017-11-21] MEDS: ALBUTEROL 60 PUFFS/8 GM MDI IH SCH ×6 (00:10→20:00)
[2017-11-21] MEDS: PROPOFOL/EMULSION 100 ML IV SCH ×3 (04:11→19:29)
[2017-11-21 04:26] LABS: PLATELET COUNT 192 10^3/uL (150-400)
[2017-11-21] MEDS: PIPERACILLIN/TAZO 3.375 GM/DEX 50 ML IV SCH ×4 (05:09→23:09)
[2017-11-21] MEDS: DILTIAZEM 30 MG TAB TUBE SCH ×4 (05:09→19:55)
[2017-11-21] MEDS: methylPREDNISolone SOD SUCC 125 MG/2 ML VIAL IVP SCH (05:09)
--- NOTE | 2017-11-21 07:00 | PDCARPN ---
Cardiology Progress Note Chief Complaint: SOB Assessment/Plan: Assessment: AF SOB URI Plan: 11/19/17 06:59 Patient had SOB early this AM--better at this time HR still AF, 100s--continue cardizem and lopressor Given tenuous respiratory status, would be hesitant to perform ISABELLA/ cardioversion at this time Continue with rate control and AC tx Can increase Cardizem if needed Renal function improving 11/20/17 07:18 Patient intubated overnight for worsening respiratory status Echo- NL EF Trop elevating--most likely from demand ischemia given underlying resp issues Can utilize cardizem gtt if rate control needed Continue AC tx--if eliquis cannot be given via OG, can switch to heparin gtt 11/21/17 06:57 Vent CAF Elevated Cr today--may have to back off lasix CXR--bilateral infiltrates, ?ARDS Can add IV cardizem if needed for rate control, but pt appears well controlled currently Trop mildly elevated from yesterday, but ECG/tele stable. Appears to be result of demand ischemia from underlying pulmonic process Subjective: sedated Reviewed/Discussed With: multidisciplinary team Time Spent With Patient: 25 min Objective: Vital Signs (8 Hrs) Temp Pulse Resp BP Pulse Ox 11/21/17 06:00 36.6 C 91 29 H 96/50 L 100 11/21/17 04:30 89 28 H 96 11/21/17 04:00 36.8 C 89 28 H 97/57 L 99 11/21/17 02:00 36.9 C 92 28 H 99/59 L 99 11/21/17 00:10 94 28 H 98 11/21/17 00:00 37.0 C 93 28 H 97/56 L 98 11/20/17 23:00 82 28 H 88/48 L 99 Intake/Output (24 Hrs) 11/20/17 11/21/17 11/22/17 05:59 05:59 05:59 Intake Total 1317.4 1465.6 Output Total 1235 1235 Balance 82.4 230.6 Intake: Oral (ml) 850 IV Intake (ml) 430 1096 IV Infused (ml) 37.4 369.6 Propofol/Emulsion 100 ml 26.4 246 @ Per Protocol IV CONT JAYDEN Rx#:[id number] fentaNYL/NACL 100 ml @ 11 123.6 Per Protocol IV CONT JAYDEN Rx#:[id number] Output: Urine (ml) 1235 1235 Catheter 300 1235 Urinal 935 OG Tube Output (ml) 0 Large Bore (>12 Latvian) 0 16 Latvian Other: Weight 87.5 kg 86.1 kg Number of Stools Catheter 0 Result Diagrams: 11/21/17 04:15 11/21/17 04:15 Cardiac Labs: Cardiac Lab Results (72 Hrs) 11/21/17 11/20/17 11/19/17 04:15 03:00 19:30 Troponin I 0.202 H 0.174 H 0.100 H 11/19/17 14:50 Troponin I 0.052 H - Physical Exam Constitutional: no apparent distress Eyes: PERRL Ears, Nose, Mouth, Throat: dry mucous membranes Cardiovascular: irregularly irregular Peripheral Pulses: 1+: femoral (R), femoral (L) Respiratory: inspiratory crackles, other Gastrointestinal: no tenderness Genitourinary: no suprapubic tenderness Skin: no rashes Musculoskeletal: no muscular tenderness Neurologic: other (sedated) Psychiatric: other (sedated) ICD10 Worksheet Patient Problems: Problems Problem Status Onset Atrial fibrillation Acute Congestive heart failure Acute Hypoxemia Acute Dizziness Acute Ischemic cardiomyopathy Acute Near syncope Acute Symptomatic bradycardia Acute
[2017-11-21] MEDS ORDERED: ONDANSETRON DISINTEGRATING 4 MG TAB TUBE PRN (08:00)
[2017-11-21] MEDS: CHLORHEXIDINE GLUCONATE 15 ML UDL PO SCH ×2 (09:25→19:41)
[2017-11-21] MEDS: AZITHROMYCIN IV 500 MG in NS 250 ML IV SCH (09:26)
[2017-11-21] MEDS: APIXABAN 5 MG TAB TUBE SCH ×2 (09:26→19:56)
[2017-11-21] MEDS: METOPROLOL TARTRATE 50 MG TAB TUBE SCH ×2 (09:26→19:55)
[2017-11-21] MEDS: PANTOPRAZOLE SODIUM 40 MG VIAL IVP SCH (09:26)
--- NOTE | 2017-11-21 09:28 | PDINTPN ---
Aircraft Motor Mechanic Progress Note Assessment/Plan: Assessment/plan: 77 M admitted with acute on chronic hypoxemia after meeting me in clinic . He had new onset afib around 07/2017 treated with diltiazem, lasix and cardioversion. A CT 09/26/17 showed patchy ground glass infiltrates, but basilar honeycombing and mild traction bronchiectasis suggestive of NSIP. He also has a smoking history and PFTs that were not clearly COPD but was to start Advair after our clinic visit. 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 A repeat CT showed right>> left new significant infiltrates, and cultures grew enterovirus with a low procalcitonin. * Acute hypoxic respiratory failure- I suspect his infiltrates represent an acute process such as viral PNA rather than a sudden acceleration of the chronic process (uncommon) and treatment is largely supportive. Bronchoscopy revealed mild-moderate thick, sticky and clear secretions throughout the lungs without hemoptysis. Dropped FiO2 from 80% today; once 40 will decrease peep from 10. At time of decompensation, solumedrol was increased to 60 q6, but CTD serologies are negative, so will reduce back to daily. Echo showed no significant change from 07/2017. check am CXR. Acute infection? PCT was low, but kept zosyn/zithro given progressive failure. Consider dc abx particularly if PCT remains low * Chronic ILD- I am suspicious for silent aspiration given moderate hiatal hernia on CT and possible fleeting infiltrates. MBS does not show lidia aspiration, but antegrade reflux especially supine. May benefit from FIBERGLASS QUALITY TECHNICIAN eval once extubated. Doubt pulmonary renal syndrome but will check UA. He has not been exposed to amiodarone in the past, so very unlikely to be acute toxicity. He is, however, at increased risk for pulmonary toxicity given his underlying lung disease. Would avoid amiodarone unless no better alternative exists (eg Multaq?) * COPD- Now on advair (started this admission), azithromycin, and albuterol as well as steroids. Eventual repeat PFTs * Afib- currently controlled on diltiazem and tolerating well. * * critical care time 45 minutes 11/21/17 09:29 Subjective: Stable overnight, s/p bronch 11/20/17. Objective: Vital Signs Temp Pulse Resp BP Pulse Ox 36.3 C 97 28 H 115/68 94 11/21/17 08:00 11/21/17 08:43 11/21/17 08:43 11/21/17 08:00 11/21/17 08:43 Microbiology 11/20/17 11:16 Gram Stain - Final Lung Left Upper Lobe - Bronchial Washings Laboratory Results 11/21/17 04:15 11/21/17 04:15 11/20/17 11/21/17 11/22/17 05:59 05:59 05:59 Intake Total 1317.4 1465.6 Output Total 1235 1235 Balance 82.4 230.6 PT 20.2 SEC (12.0-15.0) H 11/16/17 18:15 INR 1.71 (0.83-1.16) H 11/16/17 18:15 Physical Exam - Physical Exam General Appearance: no apparent distress, other (sedated on vent) EENT: PERRL/EOMI, ET tube Neck: supple Respiratory: decreased breath sounds, No respiratory distress, No accessory muscle use, No rhonchi, No stridor, No wheezing Cardiac/Chest: regular rate, rhythm, No edema Abdomen: non-tender, soft, No distended Skin: normal color, warm/dry, No cyanosis Lymphatic: no adenopathy Extremities: No pedal edema Neuro/Psych: cognition abnormalities, other (sedation) ICD10 Worksheet Patient Problems: Problems Problem Status Onset Atrial fibrillation Acute Congestive heart failure Acute Hypoxemia Acute Dizziness Acute Ischemic cardiomyopathy Acute Near syncope Acute Symptomatic bradycardia Acute
[2017-11-21] MEDS ORDERED: NS 500 ML IV ONE (10:35)
--- NOTE | 2017-11-21 10:36 | HOSPPROG ---
Hospitalist Progress Note Assessment/Plan: # CKD - worse today, baseline 1.2-1.3 - hold lasix, avoid hypotension (small NS bolus, decrease dilt) # acute on chronic (2-3L)hypoxic resp failure requiring intubation - either d/t acute pneumonia (bacterial vs viral) or underlying ILD - continue mechanical ventilation - s/p bronch yesterday # enterovirus/rhinovirus - supportive care # possible pneumonia - cont zosyn, azith, steroids - checking pct today # possible underlying interstitial lung disease - possible NSIP # underlying COPD - inhalers # persistent a-fib - cont eliquis, metop and dilt (decreased) per tube # CAD - mild trop elevation, recheck tomorrow am; likely d/t strain; old WMAs on echo # chronic sCHF - EF 50% - hold lasix today 40 mins of floor CC time; critically ill d/t severe resp failure Subjective: FiO2 down today; awakes to voice Objective: Vital Signs Temp Pulse Resp BP Pulse Ox 36.3 C 98 28 H 107/66 94 11/21/17 08:00 11/21/17 09:26 11/21/17 08:43 11/21/17 09:26 11/21/17 08:43 Microbiology 11/20/17 11:16 Gram Stain - Final Lung Left Upper Lobe - Bronchial Washings Laboratory Results 11/21/17 04:15 11/21/17 04:15 11/20/17 11/21/17 11/22/17 05:59 05:59 05:59 Intake Total 1317.4 1465.6 Output Total 1235 1235 Balance 82.4 230.6 PT 20.2 SEC (12.0-15.0) H 11/16/17 18:15 INR 1.71 (0.83-1.16) H 11/16/17 18:15 - Physical Exam Constitutional: no apparent distress Cardiovascular: regular rate and rhythym, no murmur, rub, or gallop Respiratory: other (ET tubs; coarse BS) Gastrointestinal: soft, non-tender abdomen, no palpable masses, other (OG tube) Genitourinary: leslie in urethra ICD10 Worksheet Patient Problems: Problems Problem Status Onset Symptomatic bradycardia Acute Dizziness Acute Near syncope Acute Atrial fibrillation Acute Ischemic cardiomyopathy Acute Congestive heart failure Acute Hypoxemia Acute
--- NOTE | 2017-11-21 10:37 | PCMIDPN ---
Assessment/Plan: Assessment: pneumonia - bilateral. Procalcitonin levels normal. Legionella Ag negative. Will d/c azithromycin at this point. Probably could discontinue all antibiotics shortly in favor of classifying the diagnosis as a CHF exacerbation or aspiration pneumonitis. Plan: 1. Discontinue IV azithromycin. 2. Follow clinical course. Subjective: Patient remains intubated and sedated. No significant overnight events. Remains on empiric zosyn and azithromycin. Objective: Zosyn # 1 azithromycin # 2 Vital Signs Temp Pulse Resp BP Pulse Ox 36.3 C 98 28 H 107/66 94 11/21/17 08:00 11/21/17 09:26 11/21/17 08:43 11/21/17 09:26 11/21/17 08:43 Microbiology 11/20/17 11:16 Gram Stain - Final Lung Left Upper Lobe - Bronchial Washings Laboratory Results 11/21/17 04:15 11/21/17 04:15 11/20/17 11/21/17 11/22/17 05:59 05:59 05:59 Intake Total 1317.4 1465.6 Output Total 1235 1235 Balance 82.4 230.6 ESR 43 MM/HR (0-20) H 11/17/17 10:15 C-Reactive Protein 68.8 mg/L (<10.0) H 11/17/17 10:15 - Physical Exam General Appearance: WD/WN, no apparent distress, other (intubated and sedated ) Respiratory: coarse breath sounds, No lungs clear, No respiratory distress Cardiac/Chest: regular rate, rhythm, No tachycardia Extremities: normal inspection Skin: normal color, warm/dry, No rash ICD10 Worksheet Patient Problems: Problems Problem Status Onset Atrial fibrillation Acute Congestive heart failure Acute Hypoxemia Acute Dizziness Acute Ischemic cardiomyopathy Acute Near syncope Acute Symptomatic bradycardia Acute
--- NOTE | 2017-11-21 12:21 | ASMTCMCOM ---
CM Note CM Note Notes: Spoke with Chaplain Lemuel regarding the family meeting held yesterday. Patient's has been emotionally vulnerable due to several hospitalizations happening since April. Lemuel will touch base with patient's today for emotional support. Swapna is more comfortable when one of her sons is at the hospital with her. BRIAN will follow. Date Signed: 11/21/2017 12:20 PM Electronically Signed By:Angle Roland LCSW
[2017-11-21] MEDS: fentaNYL/NACL 100 ML IV SCH (12:43)
[2017-11-21] MEDS: TRAVOPROST Z 0.004% 2.5 ML OPHT.BTL EACHEYE SCH (19:56)
[2017-11-21] MEDS: ATORVASTATIN CALCIUM 40 MG TAB TUBE SCH (19:56)
[2017-11-22] MEDS: ALBUTEROL 60 PUFFS/8 GM MDI IH SCH ×7 (03:56→23:17)
[2017-11-22] MEDS: PROPOFOL/EMULSION 100 ML IV SCH ×3 (04:49→20:25)
[2017-11-22] MEDS: fentaNYL/NACL 100 ML IV SCH (04:49)
[2017-11-22 05:00] LABS: PLATELET COUNT 206 10^3/uL (150-400)
[2017-11-22] MEDS: PIPERACILLIN/TAZO 3.375 GM/DEX 50 ML IV SCH ×4 (05:24→23:21)
[2017-11-22] MEDS: DILTIAZEM 30 MG TAB TUBE SCH ×4 (05:24→20:23)
[2017-11-22] MEDS ORDERED: methylPREDNISolone SOD SUCC 125 MG/2 ML VIAL IVP SCH (09:00)
[2017-11-22] MEDS: CHLORHEXIDINE GLUCONATE 15 ML UDL PO SCH ×2 (09:12→20:25)
[2017-11-22] MEDS: METOPROLOL TARTRATE 50 MG TAB TUBE SCH ×2 (09:12→20:27)
[2017-11-22] MEDS: APIXABAN 5 MG TAB TUBE SCH ×2 (09:13→20:22)
[2017-11-22] MEDS: LANSOPRAZOLE SUSP 30MG/10ML UDSYR (Adult) TUBE SCH (09:13)
[2017-11-22] MEDS: methylPREDNISolone SOD SUCC 40 MG/ML VIAL IVP SCH (09:13)
--- NOTE | 2017-11-22 09:31 | SOAPPROG ---
SOAP Progress Note Assessment/Plan: Assessment/Plan: This is a 77 yr old male with respiratory failure with bilat infiltrates , likely ARDS. Had minimally increased troponin and increased BNP. Currently intubated. Needs 60% oxygen AF with RVR: rate controlled with cardizem and metoprolol. continue with AC. No role for CV in this acute situation since he will not maintain SR till hypoxia/ pneumonia resolved troponin elevation: strain related May continue to hold Lasix 11/22/17 09:28 Subjective: pt sedated intubated ventilated Objective: Vital Signs Temp Pulse Resp BP Pulse Ox 36.4 C 96 28 H 104/68 97 11/22/17 07:40 11/22/17 09:12 11/22/17 08:09 11/22/17 09:12 11/22/17 08:09 Microbiology 11/20/17 11:15 Mycobacterial Smear (GRECIA) - Final Lung - Bronchial Washings 11/20/17 11:16 Gram Stain - Final Lung Left Upper Lobe - Bronchial Washings Laboratory Results 11/22/17 04:30 11/22/17 04:30 11/21/17 11/22/17 11/23/17 05:59 05:59 05:59 Intake Total 1465.6 2376 Output Total 1235 1350 125 Balance 230.6 1026 -125 PT 20.2 SEC (12.0-15.0) H 11/16/17 18:15 INR 1.71 (0.83-1.16) H 11/16/17 18:15 Physical Exam - Physical Exam General Appearance: other Neck: non-tender, full range of motion Respiratory: decreased breath sounds, crackles, rales Cardiac/Chest: tachycardia, irregularly irregular Abdomen: non-tender, soft, No organomegaly ICD10 Worksheet Patient Problems: Problems Problem Status Onset Atrial fibrillation Acute Congestive heart failure Acute Hypoxemia Acute Dizziness Acute Ischemic cardiomyopathy Acute Near syncope Acute Symptomatic bradycardia Acute
--- NOTE | 2017-11-22 09:37 | PDINTPN ---
Energy Engineer Progress Note Assessment/Plan: Assessment: 77 M admitted with acute on chronic hypoxemia after meeting me in clinic . He had new onset afib around 07/2017 treated with diltiazem, lasix and cardioversion. A CT 09/26/17 showed patchy ground glass infiltrates, but basilar honeycombing and mild traction bronchiectasis suggestive of NSIP. He also has a smoking history and PFTs that were not clearly COPD but was to start Advair after our clinic visit. 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 A repeat CT showed right>> left new significant infiltrates, and cultures grew enterovirus with a low procalcitonin. * Acute hypoxic respiratory failure- I suspect his infiltrates represent an acute process such as viral PNA rather than a sudden acceleration of the chronic process (uncommon) and treatment is largely supportive. Bronchoscopy revealed mild-moderate thick, sticky and clear secretions throughout the lungs without hemoptysis. FiO2 60%, PEEP 5 cmh2O this AM, sats 96%. At time of decompensation, solumedrol was increased to 60 q6, but CTD serologies are negative, so was reduced back to daily. Echo showed no significant change from 07/2017. check am CXR. Acute infection? PCT was low, but kept zosyn/zithro given progressive failure. Consider dc abx particularly if PCT remains low * Chronic ILD- Suspicious for silent aspiration given moderate hiatal hernia on CT and possible fleeting infiltrates. MBS does not show lidia aspiration, but antegrade reflux especially supine. May benefit from SULKY DRIVER eval once extubated. Doubt pulmonary renal syndrome but will check UA. He has not been exposed to amiodarone in the past, so very unlikely to be acute toxicity. He is, however, at increased risk for pulmonary toxicity given his underlying lung disease. Would avoid amiodarone unless no better alternative exists (eg Multaq?) * COPD- Now on advair (started this admission), azithromycin, and albuterol as well as steroids. Eventual repeat PFTs * Afib- currently controlled on diltiazem and tolerating well. * Anemia: Mild, unchanged. Plan: Increase PEEP. Check NICOM, give Lasix if not fluid responsive. Decrease sedation as tolerated. Continue TFs, aim to be at goal today. Follow lytes. Continue steroids, Zosyn. 11/22/17 09:57 11/22/17 09:57 Subjective: Intubated, sedated Objective: Vital Signs Temp Pulse Resp BP Pulse Ox 36.4 C 96 28 H 104/68 97 11/22/17 07:40 11/22/17 09:12 11/22/17 08:09 11/22/17 09:12 11/22/17 08:09 Microbiology 11/20/17 11:15 Mycobacterial Smear (GRECIA) - Final Lung - Bronchial Washings 11/20/17 11:16 Gram Stain - Final Lung Left Upper Lobe - Bronchial Washings Laboratory Results 11/22/17 04:30 11/22/17 04:30 11/21/17 11/22/17 11/23/17 05:59 05:59 05:59 Intake Total 1465.6 2376 Output Total 1235 1350 125 Balance 230.6 1026 -125 PT 20.2 SEC (12.0-15.0) H 11/16/17 18:15 INR 1.71 (0.83-1.16) H 11/16/17 18:15 Slight improvement in bilateral infiltrates. Images reviewed by me. Physical Exam - Physical Exam General Appearance: No alert EENT: normal ENT inspection, ET tube Neck: normal inspection Respiratory: chest non-tender, crackles (bilateral) Cardiac/Chest: regular rate, rhythm, No edema Abdomen: normal bowel sounds, non-tender, soft Skin: normal color, warm/dry Extremities: normal inspection Neuro/Psych: No alert, No normal mood/affect, No oriented x 3, No motor weakness ICD10 Worksheet Patient Problems: Problems Problem Status Onset Atrial fibrillation Acute Congestive heart failure Acute Hypoxemia Acute Dizziness Acute Ischemic cardiomyopathy Acute Near syncope Acute Symptomatic bradycardia Acute
--- NOTE | 2017-11-22 10:39 | HOSPPROG ---
Hospitalist Progress Note Assessment/Plan: # BERNADETTE on CKD - improved, stil up from baseline 1.2-1.3 - would favor continuing to hold lasix today # acute on chronic (2-3L)hypoxic resp failure requiring intubation - either d/t acute pneumonia (most likely acute viral) or underlying ILD (less likely) - continue mechanical ventilation - s/p bronch yesterday - yeast but no bacteria # enterovirus/rhinovirus - supportive care as above # pneumonia - pct low - favor stopping abx soon if bronch cx negative # possible underlying interstitial lung disease - possible NSIP, pulm involved # underlying COPD - inhalers # persistent a-fib - cont eliquis, metop and dilt (decreased) per tube # CAD - mild trop elevation; likely d/t strain; old WMAs on echo; cards involved # chronic sCHF - EF 50% - hold lasix today 35 mins of floor CC time; critically ill d/t severe resp failure Subjective: remains intubated; nothing acute overnight Objective: Vital Signs Temp Pulse Resp BP Pulse Ox 36.4 C 89 28 H 106/67 97 11/22/17 07:40 11/22/17 10:00 11/22/17 10:00 11/22/17 10:00 11/22/17 10:00 Microbiology 11/20/17 11:15 Mycobacterial Smear (GRECIA) - Final Lung - Bronchial Washings 11/20/17 11:16 Gram Stain - Final Lung Left Upper Lobe - Bronchial Washings Laboratory Results 11/22/17 04:30 11/22/17 04:30 11/21/17 11/22/17 11/23/17 05:59 05:59 05:59 Intake Total 1465.6 2376 Output Total 1235 1350 250 Balance 230.6 1026 -250 PT 20.2 SEC (12.0-15.0) H 11/16/17 18:15 INR 1.71 (0.83-1.16) H 11/16/17 18:15 - Physical Exam Constitutional: other (ntubated, sedated) Cardiovascular: regular rate and rhythym, no murmur, rub, or gallop Respiratory: no respiratory distress, no rales or rhonchi Gastrointestinal: soft, non-tender abdomen, no palpable masses ICD10 Worksheet Patient Problems: Problems Problem Status Onset Symptomatic bradycardia Acute Dizziness Acute Near syncope Acute Atrial fibrillation Acute Ischemic cardiomyopathy Acute Congestive heart failure Acute Hypoxemia Acute
[2017-11-22] MEDS ORDERED: BISACODYL 10 MG SUPP PR PRN (15:16)
[2017-11-22] MEDS ORDERED: POLYETHYLENE GLYCOL 3350 17 GM PKT PO PRN (15:16)
[2017-11-22] MEDS ORDERED: MAGNESIUM HYDROXIDE 30 ML UDCUP PO PRN (15:16)
[2017-11-22] MEDS: TRAVOPROST Z 0.004% 2.5 ML OPHT.BTL EACHEYE SCH (19:34)
[2017-11-22] MEDS: ATORVASTATIN CALCIUM 40 MG TAB TUBE SCH (20:21)
[2017-11-22] MEDS: SENNOSIDES 17.6 MG/10 ML UDL PO SCH (20:24)
[2017-11-23 03:53] LABS: PLATELET COUNT 210 10^3/uL (150-400)
[2017-11-23] MEDS: ALBUTEROL 60 PUFFS/8 GM MDI IH SCH ×6 (04:09→23:19)
[2017-11-23] MEDS: DILTIAZEM 30 MG TAB TUBE SCH ×3 (05:48→22:18)
[2017-11-23] MEDS: PIPERACILLIN/TAZO 3.375 GM/DEX 50 ML IV SCH (05:48)
[2017-11-23] MEDS: PROPOFOL/EMULSION 100 ML IV SCH ×2 (05:48→15:42)
--- NOTE | 2017-11-23 09:05 | HOSPPROG ---
Hospitalist Progress Note Assessment/Plan: # BERNADETTE on CKD - improved, at baseline (1.2-1.3) # acute on chronic (2-3L) hypoxic resp failure requiring intubation - d/t acute pneumonia (most likely acute viral), aspiration ARDS or underlying ILD (less likely) - continue mechanical ventilation - s/p bronch - yeast but no bacteria - cont steroids at moderate dose - will dc abx today # volume status - up about 1-2L since admission - may need lasix again today or tomorrow # FEN - slight hyperNa today, increase free H2O bolus; cont TF # enterovirus/rhinovirus - supportive care as above # pneumonia - doubt at this point; pct low - stop abx today # possible underlying interstitial lung disease - possible NSIP, pulm involved # underlying COPD - inhalers # persistent a-fib - cont eliquis, metop and dilt (decreased) per tube # CAD - mild trop elevation; likely d/t strain; old WMAs on echo; cards involved # chronic sCHF - EF 50% 35 mins of floor CC time; critically ill d/t severe resp failure requiring mechanical ventilation Subjective: intubated, sedated; coughing, appears uncomfortable Objective: Vital Signs Temp Pulse Resp BP Pulse Ox 36.9 C 96 31 H 122/67 H 92 11/23/17 06:00 11/23/17 07:45 11/23/17 07:45 11/23/17 06:00 11/23/17 07:45 Microbiology 11/20/17 11:16 Gram Stain - Final Lung Left Upper Lobe - Bronchial Washings Bronchial Washings Culture - Final Brandy Albicans Laboratory Results 11/23/17 03:45 11/23/17 03:45 11/22/17 11/23/17 11/24/17 05:59 05:59 05:59 Intake Total 2376 2201 Output Total 1350 1265 Balance 1026 936 PT 20.2 SEC (12.0-15.0) H 11/16/17 18:15 INR 1.71 (0.83-1.16) H 11/16/17 18:15 - Physical Exam Constitutional: uncomfortable (coughing) Cardiovascular: no murmur, rub, or gallop, irregularly irregular Respiratory: other (ET tube, bilat basilar rales), No expiratory wheeze Gastrointestinal: normoactive bowel sounds, soft, non-tender abdomen ICD10 Worksheet Patient Problems: Problems Problem Status Onset Symptomatic bradycardia Acute Dizziness Acute Near syncope Acute Atrial fibrillation Acute Ischemic cardiomyopathy Acute Congestive heart failure Acute Hypoxemia Acute
--- NOTE | 2017-11-23 09:16 | PDINTPN ---
Information Strategist Progress Note Assessment/Plan: Assessment: 77 M admitted with acute on chronic hypoxemia after meeting me in clinic . He had new onset afib around 07/2017 treated with diltiazem, lasix and cardioversion. A CT 09/26/17 showed patchy ground glass infiltrates, but basilar honeycombing and mild traction bronchiectasis suggestive of NSIP. He also has a smoking history and PFTs that were not clearly COPD but was to start Advair after our clinic visit. 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 A repeat CT showed right>> left new significant infiltrates, and cultures grew enterovirus with a low procalcitonin. * Acute hypoxic respiratory failure- I suspect his infiltrates represent an acute process such as viral PNA rather than a sudden acceleration of the chronic process (uncommon) and treatment is largely supportive. Bronchoscopy revealed mild-moderate thick, sticky and clear secretions throughout the lungs without hemoptysis. FiO2 60%, PEEP 5 cmh2O this AM, sats 96%. At time of decompensation, solumedrol was increased to 60 q6, but CTD serologies are negative, so was reduced back to daily. Echo showed no significant change from 07/2017. Acute infection? PCT was low, but kept zosyn/zithro given progressive failure, now off antibiotics after completing courses. Consider dc abx particularly if PCT remains low * Chronic ILD- Suspicious for silent aspiration given moderate hiatal hernia on CT and possible fleeting infiltrates. MBS does not show lidia aspiration, but antegrade reflux especially supine. RURAL CARRIER eval once extubated. He has not been exposed to amiodarone in the past, so very unlikely to be acute toxicity. He is , however, at increased risk for pulmonary toxicity given his underlying lung disease. Would avoid amiodarone unless no better alternative exists (eg Multaq?) * COPD- On Advair (started this admission, currently held), albuterol as well as steroids. Eventual repeat PFTs * Afib- currently controlled on diltiazem and tolerating well. * Anemia: Mild, unchanged. Plan: Wean FiO2 as tolerated. Repeat Lasix. Decrease sedation as tolerated. Continue TFs, aim to be at goal today. Follow lytes. Continue steroids. 11/23/17 09:19 Subjective: Sedated, intubated. Objective: Vital Signs Temp Pulse Resp BP Pulse Ox 36.9 C 96 31 H 122/67 H 92 11/23/17 06:00 11/23/17 07:45 11/23/17 07:45 11/23/17 06:00 11/23/17 07:45 Microbiology 11/20/17 11:16 Gram Stain - Final Lung Left Upper Lobe - Bronchial Washings Bronchial Washings Culture - Final Brandy Albicans Laboratory Results 11/23/17 03:45 11/23/17 03:45 11/22/17 11/23/17 11/24/17 05:59 05:59 05:59 Intake Total 2376 2201 Output Total 1350 1265 Balance 1026 936 PT 20.2 SEC (12.0-15.0) H 11/16/17 18:15 INR 1.71 (0.83-1.16) H 11/16/17 18:15 Laboratory Tests 11/23/17 05:37 POC pH 7.47 H POC pCO2 48 H POC pO2 78 H POC HCO3 35 H POC FiO2 50 Physical Exam - Physical Exam General Appearance: No alert EENT: normal ENT inspection Neck: normal inspection Respiratory: lungs clear Cardiac/Chest: regular rate, rhythm, edema (trace) Abdomen: normal bowel sounds, non-tender Skin: normal color, warm/dry Extremities: normal inspection Neuro/Psych: motor weakness, No alert, No normal mood/affect ICD10 Worksheet Patient Problems: Problems Problem Status Onset Atrial fibrillation Acute Congestive heart failure Acute Hypoxemia Acute Dizziness Acute Ischemic cardiomyopathy Acute Near syncope Acute Symptomatic bradycardia Acute
[2017-11-23] MEDS ORDERED: FUROSEMIDE 40 MG/4 ML VIAL IVP ONE (09:21)
--- NOTE | 2017-11-23 09:52 | SOAPPROG ---
SOAP Progress Note Assessment/Plan: Assessment/Plan: This is a 77 yr old male with respiratory failure with bilat infiltrates . Had minimally increased troponin and increased BNP. Currently intubated. Needs 60% oxygen AF with RVR: rate controlled with cardizem and metoprolol. continue with AC. No role for CV in this acute situation since he will not maintain SR till hypoxia/ pneumonia resolved troponin elevation: strain related Improvement in Creatinine. Another dose of lasix today. 11/23/17 09:50 Subjective: Pt is intubated ventilated sedated Objective: Vital Signs Temp Pulse Resp BP Pulse Ox 37.2 C 102 H 28 H 122/77 H 95 11/23/17 08:00 11/23/17 08:00 11/23/17 08:00 11/23/17 08:00 11/23/17 08:00 Microbiology 11/20/17 11:16 Gram Stain - Final Lung Left Upper Lobe - Bronchial Washings Bronchial Washings Culture - Final Brandy Albicans Laboratory Results 11/23/17 03:45 11/23/17 03:45 11/22/17 11/23/17 11/24/17 05:59 05:59 05:59 Intake Total 2376 2201 Output Total 1350 1265 Balance 1026 936 PT 20.2 SEC (12.0-15.0) H 11/16/17 18:15 INR 1.71 (0.83-1.16) H 11/16/17 18:15 Physical Exam - Physical Exam General Appearance: No alert EENT: pharynx normal, No scleral icterus (R), No scleral icterus (L) Neck: supple, normal inspection Respiratory: crackles, No decreased breath sounds Cardiac/Chest: irregularly irregular, No JVD Abdomen: non-tender, soft Extremities: No pedal edema ICD10 Worksheet Patient Problems: Problems Problem Status Onset Atrial fibrillation Acute Congestive heart failure Acute Hypoxemia Acute Dizziness Acute Ischemic cardiomyopathy Acute Near syncope Acute Symptomatic bradycardia Acute
[2017-11-23] MEDS: CHLORHEXIDINE GLUCONATE 15 ML UDL PO SCH ×2 (11:22→20:41)
[2017-11-23] MEDS: methylPREDNISolone SOD SUCC 40 MG/ML VIAL IVP SCH (11:53)
[2017-11-23] MEDS: SENNOSIDES 17.6 MG/10 ML UDL PO SCH ×2 (11:54→20:40)
[2017-11-23] MEDS: METOPROLOL TARTRATE 50 MG TAB TUBE SCH ×2 (11:54→20:40)
[2017-11-23] MEDS: APIXABAN 5 MG TAB TUBE SCH ×2 (11:55→20:40)
[2017-11-23] MEDS: fentaNYL/NACL 100 ML IV SCH (12:06)
[2017-11-23] MEDS: LANSOPRAZOLE SUSP 30MG/10ML UDSYR (Adult) TUBE SCH (12:14)
[2017-11-23] MEDS: FUROSEMIDE 20 MG/2 ML VIAL IVP SCH (15:42)
[2017-11-23] MEDS: ATORVASTATIN CALCIUM 40 MG TAB TUBE SCH (20:40)
[2017-11-23] MEDS: TRAVOPROST Z 0.004% 2.5 ML OPHT.BTL EACHEYE SCH (20:41)
[2017-11-24] MEDS: PROPOFOL/EMULSION 100 ML IV SCH ×3 (01:00→17:41)
[2017-11-24] MEDS: ALBUTEROL 60 PUFFS/8 GM MDI IH SCH ×6 (03:53→23:42)
[2017-11-24 05:23] LABS: PLATELET COUNT 203 10^3/uL (150-400)
[2017-11-24] MEDS: DILTIAZEM 30 MG TAB TUBE SCH ×2 (05:42→15:09)
[2017-11-24] MEDS ORDERED: ACETAMINOPHEN 650 MG/20.3 ML UDCUP TUBE PRN (07:59)
[2017-11-24] MEDS: FUROSEMIDE 20 MG/2 ML VIAL IVP SCH ×2 (08:47→15:09)
[2017-11-24] MEDS: CHLORHEXIDINE GLUCONATE 15 ML UDL PO SCH ×2 (08:47→22:15)
[2017-11-24] MEDS: METOPROLOL TARTRATE 50 MG TAB TUBE SCH ×2 (08:48→22:00)
[2017-11-24] MEDS: APIXABAN 5 MG TAB TUBE SCH ×2 (08:48→22:17)
[2017-11-24] MEDS: methylPREDNISolone SOD SUCC 40 MG/ML VIAL IVP SCH (08:48)
[2017-11-24] MEDS: SENNOSIDES 17.6 MG/10 ML UDL PO SCH ×2 (09:15→22:18)
--- NOTE | 2017-11-24 10:17 | SOAPPROG ---
SONARAYAN Progress Note Assessment/Plan: Assessment: 1. Atrial fibrillation with controlled ventricular rate. 2. Coronary disease status post coronary artery bypass grafting. 3. Respiratory failure in the setting of COPD 4. Hypertension 5. Hyperlipidemia Cardiac procedure: Echocardiogram 11/19/2017: Ejection fraction 50-55% with moderate tricuspid regurgitation mild to moderate mitral regurgitation. Evidence of old inferior scar. No pericardial effusion. normal right ventricular function 11/24/17 10:14 Impression: This is my 1st a seeing Mr. Hatfield. He has been previously followed by my partners Dr. Nguyen and Dr. Vasquez. Atrial fibrillation appears to be well rate controlled today with PVCs. Hemodynamics are stable. He is sedated and comfortable on the ventilator. I have no further recommendations other than continuing current rate control strategy. Subjective: Sedated, intubated Objective: Medications Generic Name Dose Route Start Last Admin Trade Name Freq PRN Reason Stop Dose Admin Apixaban 5 mg 11/20/17 09:45 11/24/17 08:48 Eliquis TUBE 05/19/18 09:44 5 mg BID [facility] Atorvastatin Calcium 40 mg 11/20/17 21:00 11/23/17 20:40 Lipitor TUBE 05/15/18 20:59 40 mg HS [facility] Diltiazem HCl 15 mg 11/22/17 14:00 11/24/17 05:42 Cardizem Immediate Release TUBE 05/21/18 13:59 15 mg Q8 [facility] Furosemide 20 mg 11/23/17 15:00 11/24/17 08:47 Lasix Injection IVP 05/22/18 14:59 20 mg BIDDIUR [facility] Metoprolol Tartrate 50 mg 11/20/17 09:00 11/24/17 08:48 Lopressor TUBE 05/15/18 20:59 50 mg BID JAY[facility] Vital Signs Temp Pulse Resp BP Pulse Ox 36.7 C 87 28 H 120/72 97 11/24/17 06:00 11/24/17 08:48 11/24/17 08:21 11/24/17 08:48 11/24/17 08:21 Microbiology 11/20/17 11:16 Gram Stain - Final Lung Left Upper Lobe - Bronchial Washings Bronchial Washings Culture - Final Brandy Albicans Laboratory Results 11/24/17 05:00 11/24/17 05:00 11/23/17 11/24/17 11/25/17 05:59 05:59 05:59 Intake Total 2201 2213 Output Total 1911 6650 Balance 936 -2087 PT 20.2 SEC (12.0-15.0) H 11/16/17 18:15 INR 1.71 (0.83-1.16) H 11/16/17 18:15 Physical Exam - Physical Exam General Appearance: unresponsive Respiratory: rhonchi Cardiac/Chest: systolic murmur, irregularly irregular Abdomen: soft Skin: warm/dry ICD10 Worksheet Patient Problems: Problems Problem Status Onset Symptomatic bradycardia Acute Dizziness Acute Near syncope Acute Atrial fibrillation Acute Ischemic cardiomyopathy Acute Congestive heart failure Acute Hypoxemia Acute
--- NOTE | 2017-11-24 16:11 | WOCRNPDOC ---
WOCRN Advanced Assessment Note - Skin Integrity Problem, Advanced Assess Scrotum Denuded Dressing Type: Open to Air Exudate Amount: None Margie Wound Tissue: Erythema Skin Integrity Problem Comment: Erythema on scrotum that per RN is spreading rapidly. Did not visualize any satellite lesions, but did note denudement in posterior scrotum and erythema spreading to groin consistent with mild to moderate IAD. websphere message broker developer Marixa does report that patient is incontinent of stool. Will try Clear Zinc Cream for scrotum and interdry for groin folds and then reassess in a couple of days. websphere message broker developer's have been trying calazime and antifungal barrier cream without much success.
--- NOTE | 2017-11-24 16:46 | ASMTCMCOM ---
CM Note CM Note Notes: Patient continues on the vent. Family invited to "Family Meeting". They report that they are doing fine and meeting not necessary today. Son and at bedside. Date Signed: 11/24/2017 04:46 PM Electronically Signed By:Aisha Mcclure LCSW
--- NOTE | 2017-11-24 16:53 | PDINTPN ---
Rehabilitation Services Manager Progress Note Assessment/Plan: Assessment: 77 M admitted with acute on chronic hypoxemia. He had new onset afib around 2016 treated with diltiazem, lasix and cardioversion. A CT 09/26/17 showed patchy ground glass infiltrates, but basilar honeycombing and mild traction bronchiectasis suggestive of NSIP. He also has a smoking history and PFTs that were not clearly COPD but was to start Advair after our clinic visit. 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 A repeat CT showed right>>left new significant infiltrates, and cultures grew enterovirus with a low procalcitonin. * Acute hypoxic respiratory failure- I suspect his infiltrates represent an acute process such as viral PNA rather than a sudden acceleration of the chronic process (uncommon) and treatment is largely supportive. Bronchoscopy revealed mild-moderate thick, sticky and clear secretions throughout the lungs without hemoptysis. FiO2 60%, PEEP 5 cmh2O this AM, sats 96%. At time of decompensation, solumedrol was increased to 60 q6, but CTD serologies are negative, so was reduced back to daily. Echo showed no significant change from 07/2017. Acute infection? PCT was low, but kept zosyn/zithro given progressive failure, now off antibiotics after completing courses. Consider dc abx particularly if PCT remains low. I also suspect there is a component of pulmonary edema/fluid overload, now responding to Lasix. * Chronic ILD- Suspicious for silent aspiration given moderate hiatal hernia on CT and possible fleeting infiltrates. MBS does not show lidia aspiration, but antegrade reflux especially supine. HANGER eval once extubated. He has not been exposed to amiodarone in the past, so very unlikely to be acute toxicity. He is , however, at increased risk for pulmonary toxicity given his underlying lung disease. Would avoid amiodarone unless no better alternative exists (eg Multaq?) * Nutrition: TF at goal. * COPD- On Advair (started this admission, currently held), albuterol as well as steroids. Eventual repeat PFTs * Afib- currently controlled on diltiazem and tolerating well. * Anemia: Mild, unchanged. Plan: Wean FiO2 as tolerated. Continue Lasix. Decrease sedation as tolerated. Continue TFs, aim to be at goal today. Follow lytes. Continue steroids. CPAP tomorrow, hopefully can extubate. 11/24/17 16:53 11/24/17 16:55 Subjective: Intubated, sedated Objective: Vital Signs Temp Pulse Resp BP Pulse Ox 37.3 C 106 H 27 H 123/77 H 92 11/24/17 16:00 11/24/17 16:00 11/24/17 16:00 11/24/17 16:00 11/24/17 16:00 Microbiology 11/20/17 11:16 Gram Stain - Final Lung Left Upper Lobe - Bronchial Washings Bronchial Washings Culture - Final Brandy Albicans Laboratory Results 11/24/17 05:00 11/24/17 05:00 11/23/17 11/24/17 11/25/17 05:59 05:59 05:59 Intake Total 2201 2213 Output Total 1265 4300 1850 Balance 936 -2087 -1850 PT 20.2 SEC (12.0-15.0) H 11/16/17 18:15 INR 1.71 (0.83-1.16) H 11/16/17 18:15 Physical Exam - Physical Exam General Appearance: alert, no apparent distress EENT: normal ENT inspection Neck: normal inspection Respiratory: lungs clear, normal breath sounds Cardiac/Chest: edema, No regular rate, rhythm Abdomen: normal bowel sounds, non-tender Skin: normal color, warm/dry Extremities: normal inspection Neuro/Psych: alert ICD10 Worksheet Patient Problems: Problems Problem Status Onset Atrial fibrillation Acute Congestive heart failure Acute Hypoxemia Acute Dizziness Acute Ischemic cardiomyopathy Acute Near syncope Acute Symptomatic bradycardia Acute
[2017-11-24] MEDS: fentaNYL/NACL 100 ML IV SCH (17:41)
--- NOTE | 2017-11-24 18:31 | HOSPPROG ---
Hospitalist Progress Note Assessment/Plan: # acute on chronic (2-3L) hypoxic resp failure requiring intubation 2/2 acute pneumonia ( viral), aspiration ARDS or underlying ILD (less likely) CXR (personally reviewed and interpreted) bilateral consolidations- oxygen saturations 92% on 40% Fio2 - continue mechanical ventilation- do not anticipate extubation today - s/p bronch - yeast but no bacteria - cont steroids at moderate dose # volume status - up about 1-2L since admission - cont lasix 20mg BID # shira - resolved creatinine 1.1 # FEN - slight hyperNa today, increase free H2O bolus; cont TF # enterovirus/rhinovirus - supportive care as above # possible underlying interstitial lung disease - possible NSIP, pulm involved # underlying COPD - inhalers # persistent a-fib - cont eliquis, metop and dilt (decreased) per tube- currently rate controlled # CAD - mild trop elevation; likely d/t strain; old WMAs on echo; cards involved # chronic sCHF - EF 50% I have discussed the case with Dr. Vásquez -cont mechanical ventilation today Subjective: no events this am Objective: Vital Signs Temp Pulse Resp BP Pulse Ox 37.3 C 106 H 27 H 123/77 H 92 11/24/17 16:00 11/24/17 16:00 11/24/17 16:00 11/24/17 16:00 11/24/17 16:00 Microbiology 11/20/17 11:16 Gram Stain - Final Lung Left Upper Lobe - Bronchial Washings Bronchial Washings Culture - Final Brandy Albicans Laboratory Results 11/24/17 05:00 11/24/17 05:00 11/23/17 11/24/17 11/25/17 05:59 05:59 05:59 Intake Total 2201 2213 991 Output Total 1265 4300 2200 Balance 936 -2087 -1209 PT 20.2 SEC (12.0-15.0) H 11/16/17 18:15 INR 1.71 (0.83-1.16) H 11/16/17 18:15 - Physical Exam Constitutional: chronically ill appearing Eyes: anicteric sclera Ears, Nose, Mouth, Throat: dry mucous membranes Cardiovascular: irregularly irregular Respiratory: rhonchi Genitourinary: no bladder fullness Skin: warm Musculoskeletal: No asymmetric calves Neurologic: No AAOx3 Psychiatric: No agitated Lymph, Heme, Immunologic: no cervical LAD ICD10 Worksheet Patient Problems: Problems Problem Status Onset Atrial fibrillation Acute Congestive heart failure Acute Hypoxemia Acute Dizziness Acute Ischemic cardiomyopathy Acute Near syncope Acute Symptomatic bradycardia Acute
[2017-11-24] MEDS: DILTIAZEM 60 MG TAB TUBE SCH (22:15)
[2017-11-24] MEDS: TRAVOPROST Z 0.004% 2.5 ML OPHT.BTL EACHEYE SCH (22:18)
[2017-11-24] MEDS: ATORVASTATIN CALCIUM 40 MG TAB TUBE SCH (22:18)
[2017-11-25] MEDS: PROPOFOL/EMULSION 100 ML IV SCH (01:51)
[2017-11-25] MEDS: ALBUTEROL 60 PUFFS/8 GM MDI IH SCH ×2 (03:19→08:34)
[2017-11-25] MEDS: DILTIAZEM 60 MG TAB TUBE SCH ×2 (05:46→17:29)
[2017-11-25 06:16] LABS: PLATELET COUNT 210 10^3/uL (150-400)
--- NOTE | 2017-11-25 09:06 | PDINTPN ---
Bill Hiker Progress Note Assessment/Plan: Assessment: 77 M admitted with acute on chronic hypoxemia. He had new onset afib around 2016 treated with diltiazem, lasix and cardioversion. A CT 09/26/17 showed patchy ground glass infiltrates, but basilar honeycombing and mild traction bronchiectasis suggestive of NSIP. He also has a smoking history and PFTs that were not clearly COPD but was to start Advair after our clinic visit. 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 A repeat CT showed right>>left new significant infiltrates, and cultures grew enterovirus with a low procalcitonin. * Acute hypoxic respiratory failure- I suspect his infiltrates represent an acute process such as viral PNA rather than a sudden acceleration of the chronic process (uncommon) and treatment is largely supportive. Bronchoscopy revealed mild-moderate thick, sticky and clear secretions throughout the lungs without hemoptysis. FiO2 60%, PEEP 5 cmh2O this AM, sats 96%. At time of decompensation, solumedrol was increased to 60 q6, but CTD serologies are negative, so was reduced back to daily. Echo showed no significant change from 07/2017. Acute infection? PCT was low, but kept zosyn/zithro given progressive failure, now off antibiotics after completing courses. Consider dc abx particularly if PCT remains low. I also suspect there is a component of pulmonary edema/fluid overload, now responding to Lasix. Has good weaning parameters today, although VE a bit high. * Chronic ILD- Suspicious for silent aspiration given moderate hiatal hernia on CT and possible fleeting infiltrates. MBS does not show lidia aspiration, but antegrade reflux especially supine. CULLET WASHER eval once extubated. He has not been exposed to amiodarone in the past, so very unlikely to be acute toxicity. He is , however, at increased risk for pulmonary toxicity given his underlying lung disease. Would avoid amiodarone unless no better alternative exists (eg Multaq?) * Nutrition: TF at goal. * COPD- On Advair (started this admission, currently held), albuterol as well as steroids. Eventual repeat PFTs * Afib- currently controlled on diltiazem and tolerating well. * Anemia: Mild, unchanged. Plan: Extubate. Discontinue scheduled Lasix, TFs. Follow lytes. ST eval once extubated. Recheck CXR 11/25/17 09:47 11/25/17 09:49 11/25/17 09:53 Subjective: Intubated, sedated Objective: Vital Signs Temp Pulse Resp BP Pulse Ox 37.3 C 97 12 111/66 97 11/25/17 08:00 11/25/17 08:45 11/25/17 08:45 11/25/17 08:00 11/25/17 08:45 Microbiology 11/20/17 11:16 Gram Stain - Final Lung Left Upper Lobe - Bronchial Washings Bronchial Washings Culture - Final Brandy Albicans Laboratory Results 11/25/17 06:00 11/25/17 06:00 11/24/17 11/25/17 11/26/17 05:59 05:59 05:59 Intake Total 2213 1984.8 25 Output Total 4300 3200 Balance -2087 -1215.2 25 PT 20.2 SEC (12.0-15.0) H 11/16/17 18:15 INR 1.71 (0.83-1.16) H 11/16/17 18:15 Physical Exam - Physical Exam General Appearance: alert, no apparent distress EENT: normal ENT inspection Neck: normal inspection Respiratory: lungs clear, No normal breath sounds Cardiac/Chest: regular rate, rhythm, No edema Abdomen: normal bowel sounds, non-tender, soft Skin: normal color, warm/dry Extremities: normal inspection Neuro/Psych: alert, normal mood/affect, No motor weakness ICD10 Worksheet Patient Problems: Problems Problem Status Onset Atrial fibrillation Acute Congestive heart failure Acute Hypoxemia Acute Dizziness Acute Ischemic cardiomyopathy Acute Near syncope Acute Symptomatic bradycardia Acute
[2017-11-25] MEDS: APIXABAN 5 MG TAB TUBE SCH (09:21)
[2017-11-25] MEDS: METOPROLOL TARTRATE 50 MG TAB TUBE SCH (09:21)
[2017-11-25] MEDS: methylPREDNISolone SOD SUCC 40 MG/ML VIAL IVP SCH (09:23)
[2017-11-25] MEDS: CHLORHEXIDINE GLUCONATE 15 ML UDL PO SCH (09:23)
[2017-11-25] MEDS: FUROSEMIDE 20 MG/2 ML VIAL IVP SCH (09:23)
[2017-11-25] MEDS: SENNOSIDES 17.6 MG/10 ML UDL PO SCH ×2 (09:34→20:58)
[2017-11-25] MEDS ORDERED: ACETAMINOPHEN 325 MG TAB PO PRN (14:42)
[2017-11-25] MEDS ORDERED: ONDANSETRON DISINTEGRATING 4 MG TAB PO PRN (15:00)
[2017-11-25] MEDS ORDERED: LACTULOSE 20 GM/30 ML UDCUP PO PRN (15:00)
--- NOTE | 2017-11-25 15:54 | HOSPPROG ---
Hospitalist Progress Note Assessment/Plan: # acute on chronic (2-3L) hypoxic resp failure requiring intubation 2/2 acute pneumonia ( viral), aspiration ARDS or underlying ILD (less likely) CXR (personally reviewed and interpreted) bilateral consolidations- oxygen saturations 92% on 40% Fio2 - successfully extubated this a.m. - cont steroids at moderate dose # volume status - up about 1-2L since admission - cont lasix 20mg BID # shira - resolved creatinine 1.1 # FEN - cleared by speech therapy will begin regular diet # enterovirus/rhinovirus - supportive care as above # possible underlying interstitial lung disease - possible NSIP, pulm involved # underlying COPD - inhalers # persistent a-fib - cont eliquis, metop and dilt (decreased) per tube- currently rate controlled # CAD - mild trop elevation; likely d/t strain; old WMAs on echo; cards involved # chronic sCHF - EF 50% I have discussed the case with Dr. Vásquez -extubation very successful will have speech therapy eval for diet Subjective: talking immediately after extub ation Objective: Vital Signs Temp Pulse Resp BP Pulse Ox 37.3 C 100 16 122/76 H 96 11/25/17 14:00 11/25/17 14:00 11/25/17 14:00 11/25/17 14:00 11/25/17 14:00 Microbiology 11/20/17 11:15 Mycobacterial Smear (GRECIA) - Final Lung - Bronchial Washings 11/20/17 11:16 Gram Stain - Final Lung Left Upper Lobe - Bronchial Washings Bronchial Washings Culture - Final Brandy Albicans Laboratory Results 11/25/17 06:00 11/25/17 06:00 11/24/17 11/25/17 11/26/17 05:59 05:59 05:59 Intake Total 2213 1984.8 633 Output Total 4300 3200 1000 Balance -2087 -1215.2 -367 PT 20.2 SEC (12.0-15.0) H 11/16/17 18:15 INR 1.71 (0.83-1.16) H 11/16/17 18:15 - Physical Exam Constitutional: no apparent distress Eyes: anicteric sclera Ears, Nose, Mouth, Throat: dry mucous membranes Cardiovascular: irregularly irregular, tachycardia Respiratory: expiratory wheeze, rhonchi Gastrointestinal: normoactive bowel sounds Genitourinary: no bladder fullness Skin: warm Musculoskeletal: No asymmetric calves Neurologic: AAOx3 Psychiatric: interacting appropriately Lymph, Heme, Immunologic: no cervical LAD ICD10 Worksheet Patient Problems: Problems Problem Status Onset Atrial fibrillation Acute Congestive heart failure Acute Hypoxemia Acute Dizziness Acute Ischemic cardiomyopathy Acute Near syncope Acute Symptomatic bradycardia Acute
[2017-11-25] MEDS: ORAL BALANCE GEL TUBE PO PRN ×2 (17:30→21:05)
[2017-11-25] MEDS: METOPROLOL TARTRATE 50 MG TAB PO SCH (20:56)
[2017-11-25] MEDS: APIXABAN 5 MG TAB PO SCH (20:56)
[2017-11-25] MEDS: ATORVASTATIN CALCIUM 40 MG TAB PO SCH (20:56)
[2017-11-25] MEDS: guaiFENesin 600 MG TAB.ER PO SCH (20:56)
[2017-11-25] MEDS: DILTIAZEM 30 MG TAB PO SCH (20:57)
[2017-11-25] MEDS: TRAVOPROST Z 0.004% 2.5 ML OPHT.BTL EACHEYE SCH (21:02)
[2017-11-25] MEDS: FLUTICASONE/SALMETER 250/50MCG DISKUS IH SCH (21:45)
[2017-11-26] MEDS: DILTIAZEM 30 MG TAB PO SCH ×3 (05:36→21:08)
[2017-11-26 05:41] LABS: PLATELET COUNT 264 10^3/uL (150-400)
[2017-11-26] MEDS: SENNOSIDES 17.6 MG/10 ML UDL PO SCH ×2 (08:45→21:13)
[2017-11-26] MEDS: METOPROLOL TARTRATE 50 MG TAB PO SCH ×2 (08:55→21:10)
[2017-11-26] MEDS: guaiFENesin 600 MG TAB.ER PO SCH ×2 (08:55→21:10)
[2017-11-26] MEDS: APIXABAN 5 MG TAB PO SCH ×2 (08:55→21:10)
[2017-11-26] MEDS: FERROUS SULFATE 325 MG TAB PO SCH (08:56)
[2017-11-26] MEDS: CALCIUM CARBONATE 500 MG CHEWABLE TAB PO SCH (08:56)
[2017-11-26] MEDS: methylPREDNISolone SOD SUCC 40 MG/ML VIAL IVP SCH (08:56)
--- NOTE | 2017-11-26 09:04 | PDINTPN ---
Environmental Protection Geologist Progress Note Assessment/Plan: Assessment: 77 M admitted with acute on chronic hypoxemia. He had new onset afib around 2016 treated with diltiazem, lasix and cardioversion. A CT 09/26/17 showed patchy ground glass infiltrates, but basilar honeycombing and mild traction bronchiectasis suggestive of NSIP. He also has a smoking history and PFTs that were not clearly COPD but was to start Advair after our clinic visit. 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 A repeat CT showed right>>left new significant infiltrates, and cultures grew enterovirus with a low procalcitonin. * Acute hypoxic respiratory failure- I suspect his infiltrates represent an acute process such as viral PNA rather than a sudden acceleration of the chronic process (uncommon) and treatment is largely supportive. Bronchoscopy revealed mild-moderate thick, sticky and clear secretions throughout the lungs without hemoptysis. At time of decompensation, solumedrol was increased to 60 q6 , but CTD serologies are negative, so was reduced back to daily. Echo showed no significant change from 07/2017. Acute infection? PCT was low, but kept zosyn/ zithro given progressive failure, now off antibiotics after completing courses. I also suspect there is a component of pulmonary edema/fluid overload, BNP up further today, as is WBC. * Chronic ILD- Suspicious for silent aspiration given moderate hiatal hernia on CT and possible fleeting infiltrates. MBS does not show lidia aspiration, but antegrade reflux especially supine. He has not been exposed to amiodarone in the past, so very unlikely to be acute toxicity. He is, however, at increased risk for pulmonary toxicity given his underlying lung disease. Would avoid amiodarone unless no better alternative exists (eg Multaq?) * Nutrition: TF at goal. * COPD- On Advair (started this admission, currently held), albuterol as well as steroids. Eventual repeat PFTs * Afib- currently controlled on diltiazem and tolerating well. * Anemia: Mild, unchanged. Plan: Resume Lasix. Follow lytes. Advance diet as tolerated by ST. Follow CXR, BNP. Check sputum Cx if not improving. 11/26/17 09:19 11/26/17 09:19 Subjective: Feels a bit better. Breathing still labored, had cough with quite a bit of blood -tinged sputum. Feels quite weak. Objective: Vital Signs Temp Pulse Resp BP Pulse Ox 37.3 C 101 H 20 110/68 94 11/26/17 08:00 11/26/17 08:00 11/26/17 08:00 11/26/17 08:00 11/26/17 08:00 Microbiology 11/20/17 11:15 Mycobacterial Smear (GRECIA) - Final Lung - Bronchial Washings Laboratory Results 11/26/17 05:25 11/26/17 05:25 11/25/17 11/26/17 11/27/17 05:59 05:59 05:59 Intake Total 1984.8 1323 Output Total 3200 2850 Balance -1215.2 -1527 PT 20.2 SEC (12.0-15.0) H 11/16/17 18:15 INR 1.71 (0.83-1.16) H 11/16/17 18:15 Laboratory Tests 11/26/17 05:25 NT-Pro-B Natriuret Pep 3890 H CXR: Improved but persistent bilateral infiltrates. Images reviewed by me. Physical Exam - Physical Exam General Appearance: alert, no apparent distress EENT: normal ENT inspection Neck: normal inspection Respiratory: crackles Cardiac/Chest: No regular rate, rhythm, No edema Abdomen: normal bowel sounds, non-tender Skin: normal color, warm/dry Extremities: normal inspection Neuro/Psych: alert, normal mood/affect, oriented x 3 ICD10 Worksheet Patient Problems: Problems Problem Status Onset Atrial fibrillation Acute Congestive heart failure Acute Hypoxemia Acute Dizziness Acute Ischemic cardiomyopathy Acute Near syncope Acute Symptomatic bradycardia Acute
[2017-11-26] MEDS ORDERED: FUROSEMIDE 20 MG/2 ML VIAL IVP ONE (10:23)
[2017-11-26] MEDS: FLUTICASONE/SALMETER 250/50MCG DISKUS IH SCH ×2 (11:24→21:41)
[2017-11-26] MEDS: FUROSEMIDE 20 MG/2 ML VIAL IVP SCH (15:16)
--- NOTE | 2017-11-26 20:00 | HOSPPROG ---
Hospitalist Progress Note Assessment/Plan: # acute on chronic (2-3L) hypoxic resp failure requiring intubation 2/2 acute pneumonia ( viral), aspiration ARDS - remains successfully extubated CXR (personally reviewed and interpreted) slightly decreased bilateral consolidations- oxygen saturations 92% on 6L - cont supportive care - cont steroids at moderate dose # volume status - volume up - cont lasix 20mg BID # shira - resolved creatinine 1.1 # FEN - cleared by speech therapy will begin regular diet # enterovirus/rhinovirus - supportive care as above # possible underlying interstitial lung disease - possible NSIP, pulm involved # underlying COPD - inhalers # persistent a-fib - cont eliquis, metop and dilt (decreased) per tube- currently rate controlled # CAD - mild trop elevation; likely d/t strain; old WMAs on echo; cards involved # chronic sCHF - EF 50% I have discussed the case with Dr. Vásquez -pt stable will continue current course Subjective: exhausted Objective: Vital Signs Temp Pulse Resp BP Pulse Ox 37 C 107 H 18 119/79 93 11/26/17 18:00 11/26/17 18:00 11/26/17 18:00 11/26/17 18:00 11/26/17 18:00 Laboratory Results 11/26/17 05:25 11/26/17 05:25 11/25/17 11/26/17 11/27/17 05:59 05:59 05:59 Intake Total 1984.8 1323 600 Output Total 3200 2850 1475 Balance -1215.2 -1527 -875 PT 20.2 SEC (12.0-15.0) H 11/16/17 18:15 INR 1.71 (0.83-1.16) H 11/16/17 18:15 - Physical Exam Constitutional: no apparent distress, chronically ill appearing Eyes: anicteric sclera Ears, Nose, Mouth, Throat: dry mucous membranes Cardiovascular: regular rate and rhythym Respiratory: no respiratory distress, rhonchi Gastrointestinal: normoactive bowel sounds Genitourinary: no bladder fullness Skin: warm Musculoskeletal: No asymmetric calves Neurologic: other (somnolent) Psychiatric: interacting appropriately Lymph, Heme, Immunologic: no cervical LAD ICD10 Worksheet Patient Problems: Problems Problem Status Onset Atrial fibrillation Acute Congestive heart failure Acute Hypoxemia Acute Dizziness Acute Ischemic cardiomyopathy Acute Near syncope Acute Symptomatic bradycardia Acute
[2017-11-26] MEDS: ATORVASTATIN CALCIUM 40 MG TAB PO SCH (21:10)
[2017-11-26] MEDS: TRAVOPROST Z 0.004% 2.5 ML OPHT.BTL EACHEYE SCH (21:12)
[2017-11-27] MEDS: DILTIAZEM 30 MG TAB PO SCH ×3 (06:14→20:50)
[2017-11-27] MEDS: FLUTICASONE/SALMETER 250/50MCG DISKUS IH SCH ×2 (09:35→20:12)
--- NOTE | 2017-11-27 09:40 | PDINTPN ---
Store Protection Specialist Progress Note Assessment/Plan: Assessment: 77 M admitted with acute on chronic hypoxemia. He had new onset afib around 2016 treated with diltiazem, lasix and cardioversion. A CT 09/26/17 showed patchy ground glass infiltrates, but basilar honeycombing and mild traction bronchiectasis suggestive of NSIP. He also has a smoking history and PFTs that were not clearly COPD but was to start Advair after our clinic visit. 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 A repeat CT showed right>>left new significant infiltrates, and cultures grew enterovirus with a low procalcitonin. * Acute hypoxic respiratory failure- I suspect his infiltrates represent an acute process such as viral PNA rather than a sudden acceleration of the chronic process (uncommon) and treatment is largely supportive. Bronchoscopy revealed mild-moderate thick, sticky and clear secretions throughout the lungs without hemoptysis. At time of decompensation, solumedrol was increased to 60 q6 , but CTD serologies are negative, so was reduced back to daily. Echo showed no significant change from 07/2017. Acute infection? PCT was low, but kept zosyn/ zithro given progressive failure, now off antibiotics after completing courses. I also suspect there is a component of pulmonary edema/fluid overload, BNP up further yesterday, WBC up a bit higher today. * Chronic ILD- Suspicious for silent aspiration given moderate hiatal hernia on CT and possible fleeting infiltrates. MBS does not show lidia aspiration, but antegrade reflux especially supine. He has not been exposed to amiodarone in the past, so very unlikely to be acute toxicity. He is, however, at increased risk for pulmonary toxicity given his underlying lung disease. Would avoid amiodarone unless no better alternative exists (eg Multaq?) * Nutrition: TF at goal. * COPD- On Advair (started this admission), albuterol as well as steroids. Eventual repeat PFTs * Afib- currently controlled on diltiazem and tolerating well. * Anemia: Mild, unchanged. * Nutrition: Taking some PO, but only about 25% Plan: Continue Lasix. Follow lytes, WBC. Follow CXR, BNP. Encourage PO. Check sputum Cx. Tx to med/surg 11/27/17 09:36 Subjective: Feels better, stronger, better spirits. Still coughing up thick sputum. Objective: Vital Signs Temp Pulse Resp BP Pulse Ox 37.3 C 107 H 24 H 99/72 L 93 11/27/17 08:00 11/27/17 08:00 11/27/17 08:00 11/27/17 08:00 11/27/17 08:00 Laboratory Results 11/27/17 04:45 11/27/17 04:45 11/26/17 11/27/17 11/28/17 05:59 05:59 05:59 Intake Total 1323 900 500 Output Total 2850 2025 Balance -1527 -1125 500 PT 20.2 SEC (12.0-15.0) H 11/16/17 18:15 INR 1.71 (0.83-1.16) H 11/16/17 18:15 Physical Exam - Physical Exam General Appearance: alert EENT: normal ENT inspection Neck: normal inspection Respiratory: normal breath sounds, respiratory distress Cardiac/Chest: regular rate, rhythm, No edema Abdomen: normal bowel sounds, non-tender, soft Skin: normal color, warm/dry Extremities: normal inspection Neuro/Psych: alert, normal mood/affect, oriented x 3 ICD10 Worksheet Patient Problems: Problems Problem Status Onset Atrial fibrillation Acute Congestive heart failure Acute Hypoxemia Acute Dizziness Acute Ischemic cardiomyopathy Acute Near syncope Acute Symptomatic bradycardia Acute
[2017-11-27] MEDS: FUROSEMIDE 20 MG/2 ML VIAL IVP SCH (10:02)
[2017-11-27] MEDS: methylPREDNISolone SOD SUCC 40 MG/ML VIAL IVP SCH (10:02)
[2017-11-27] MEDS: METOPROLOL TARTRATE 50 MG TAB PO SCH ×2 (10:03→20:51)
[2017-11-27] MEDS: guaiFENesin 600 MG TAB.ER PO SCH ×2 (10:03→20:49)
[2017-11-27] MEDS: FERROUS SULFATE 325 MG TAB PO SCH (10:04)
[2017-11-27] MEDS: APIXABAN 5 MG TAB PO SCH ×2 (10:04→20:52)
[2017-11-27] MEDS: SENNOSIDES 17.6 MG/10 ML UDL PO SCH ×2 (10:05→20:53)
--- NOTE | 2017-11-27 14:27 | ASMTCMCOM ---
CM Note CM Note Notes: OT/PT recommending inpatient rehab at this time. Will need a physician order to get evaluation done. (no order as recommendations just made)Left a message for [place] to alert her to the recommendation. CM will follow. Date Signed: 11/27/2017 02:26 PM Electronically Signed By:Angle Roland LCSW
--- NOTE | 2017-11-27 16:02 | HOSPPROG ---
Hospitalist Progress Note Assessment/Plan: # acute on chronic (2-3L) hypoxic resp failure requiring intubation 2/2 acute pneumonia ( viral), aspiration ARDS - remains successfully extubated CXR (personally reviewed and interpreted) slightly decreased bilateral consolidations- oxygen saturations 92% on 6L - cont supportive care - weaning steroids to prednisone 60mg daily # persistent a-fib - telemetry(personally reviewed and interpreted) atrial fibrillation heart rates in the 110's - cont eliquis - continue metoprolol - cont diltiazem- can increase dose - pulmonary recommended dc amiodarone # volume status - volume up - cont lasix 20mg daily # shira - resolved creatinine 1.1 # FEN - cleared by speech therapy will begin regular diet # enterovirus/rhinovirus - supportive care as above # possible underlying interstitial lung disease - possible NSIP, pulm involved # underlying COPD - inhalers # CAD - mild trop elevation; likely d/t strain; old WMAs on echo; cards involved # chronic sCHF - EF 50% I have discussed the case with Dr. Vásquez -pt stable for transfer to the floor Subjective: denies pain Objective: Vital Signs Temp Pulse Resp BP Pulse Ox 37.2 C 107 H 16 121/64 H 99 11/27/17 11:56 11/27/17 14:29 11/27/17 14:00 11/27/17 14:29 11/27/17 14:00 Microbiology 11/27/17 10:00 - Final Sputum, Expectorated Laboratory Results 11/27/17 04:45 11/27/17 04:45 11/26/17 11/27/17 11/28/17 05:59 05:59 05:59 Intake Total 1323 900 500 Output Total 2850 2025 450 Balance -1527 -1125 50 PT 20.2 SEC (12.0-15.0) H 11/16/17 18:15 INR 1.71 (0.83-1.16) H 11/16/17 18:15 - Physical Exam Constitutional: chronically ill appearing Eyes: anicteric sclera Ears, Nose, Mouth, Throat: moist mucous membranes Cardiovascular: irregularly irregular, tachycardia Respiratory: expiratory wheeze, rhonchi Gastrointestinal: normoactive bowel sounds Genitourinary: no bladder fullness Skin: warm Musculoskeletal: No asymmetric calves Neurologic: AAOx3 Psychiatric: interacting appropriately Lymph, Heme, Immunologic: no cervical LAD ICD10 Worksheet Patient Problems: Problems Problem Status Onset Atrial fibrillation Acute Congestive heart failure Acute Hypoxemia Acute Dizziness Acute Ischemic cardiomyopathy Acute Near syncope Acute Symptomatic bradycardia Acute
[2017-11-27] MEDS: ATORVASTATIN CALCIUM 40 MG TAB PO SCH (20:51)
[2017-11-27] MEDS: TRAVOPROST Z 0.004% 2.5 ML OPHT.BTL EACHEYE SCH (20:54)
[2017-11-28] MEDS: DILTIAZEM 30 MG TAB PO SCH ×3 (04:43→22:31)
[2017-11-28] MEDS: FLUTICASONE/SALMETER 250/50MCG DISKUS IH SCH ×2 (08:43→21:03)
[2017-11-28] MEDS: FUROSEMIDE 20 MG/2 ML VIAL IVP SCH (08:57)
[2017-11-28] MEDS: predniSONE 20 MG TAB PO SCH (08:58)
[2017-11-28] MEDS: APIXABAN 5 MG TAB PO SCH ×2 (08:58→20:43)
[2017-11-28] MEDS: CALCIUM CARBONATE 500 MG CHEWABLE TAB PO SCH (08:58)
[2017-11-28] MEDS: guaiFENesin 600 MG TAB.ER PO SCH ×2 (08:59→20:43)
[2017-11-28] MEDS: METOPROLOL TARTRATE 50 MG TAB PO SCH ×2 (08:59→20:44)
[2017-11-28] MEDS: FERROUS SULFATE 325 MG TAB PO SCH (08:59)
--- NOTE | 2017-11-28 11:28 | HOSPPROG ---
Hospitalist Progress Note Assessment/Plan: # Acute on chronic (2-3L) hypoxic resp failure requiring intubation 2/2 acute pneumonia ( viral), aspiration ARDS - Remains successfully extubated- reports more strength in respirations this morning CXR (personally reviewed and interpreted) slightly decreased bilateral consolidations oxygen saturations 92% on 6L - cont supportive care - weaning steroids to prednisone 60mg daily # persistent a-fib - telemetry(personally reviewed and interpreted) atrial fibrillation heart rates 90-100's (down from 110's) - cont eliquis - continue metoprolol - cont diltiazem- increased dose to 30mg Q8- may need to uptitrate with more activity - pulmonary recommended dc amiodarone # volume status - volume up from ICU - cont lasix 20mg daily - consider stopping 11/29 or 11/30 # Leukocytosis- remains high 21 - no fever repeat sputum cultures pending - no fever - completed abx - cont to monitor # BERNADETTE - resolved creatinine 1.1 # FEN - cleared by speech therapy will begin regular diet # enterovirus/rhinovirus - supportive care as above # possible underlying interstitial lung disease - possible NSIP, pulm involved # underlying COPD - continue inhalers # CAD - mild trop elevation; likely d/t strain; old WMAs on echo; cards involved # chronic sCHF - EF 50% I have discussed the case with RN - pt appears markedly improved today- work on mobilization and activity today Subjective: denies pain Objective: Vital Signs Temp Pulse Resp BP Pulse Ox 36.6 C 104 H 20 108/72 90 L 11/28/17 07:57 11/28/17 08:44 11/28/17 08:44 11/28/17 07:57 11/28/17 08:44 Microbiology 11/27/17 10:00 - Final Sputum, Expectorated Laboratory Results 11/28/17 05:00 11/28/17 05:00 11/27/17 11/28/17 11/29/17 05:59 05:59 05:59 Intake Total 900 1550 Output Total 2024 107 Balance -1125 475 PT 20.2 SEC (12.0-15.0) H 11/16/17 18:15 INR 1.71 (0.83-1.16) H 11/16/17 18:15 - Physical Exam Constitutional: no apparent distress Eyes: anicteric sclera Ears, Nose, Mouth, Throat: dry mucous membranes Cardiovascular: regular rate and rhythym Respiratory: no respiratory distress, rhonchi Gastrointestinal: normoactive bowel sounds Genitourinary: no bladder fullness Skin: warm Musculoskeletal: No asymmetric calves Neurologic: AAOx3 Psychiatric: interacting appropriately Lymph, Heme, Immunologic: no cervical LAD ICD10 Worksheet Patient Problems: Problems Problem Status Onset Atrial fibrillation Acute Congestive heart failure Acute Hypoxemia Acute Dizziness Acute Ischemic cardiomyopathy Acute Near syncope Acute Symptomatic bradycardia Acute
--- NOTE | 2017-11-28 13:30 | ASMTCMCOM ---
CM Note CM Note Notes: CM spoke w/ Dr. Curry regarding d/c POC. Therapies are recommending inpatient rehab. Order has been put in for inpatient rehab. CM met w/ pt for dispo planning.Pt reports that he is agreeable to go to inpatient rehab. Brooklyn Lerma will follow this case. Most likely admission will happen on Friday at the earliest. CM to follow. Plan: Inpatient rehab Date Signed: 11/28/2017 01:30 PM Electronically Signed By:ARIC Augustin
[2017-11-28] MEDS: SENNOSIDES 17.6 MG/10 ML UDL PO SCH ×2 (15:27→20:49)
[2017-11-28] MEDS: ATORVASTATIN CALCIUM 40 MG TAB PO SCH (20:43)
[2017-11-28] MEDS: TRAVOPROST Z 0.004% 2.5 ML OPHT.BTL EACHEYE SCH (20:45)
[2017-11-29] MEDS: DILTIAZEM 30 MG TAB PO SCH ×3 (06:32→21:25)
[2017-11-29] MEDS: predniSONE 20 MG TAB PO SCH (08:43)
[2017-11-29] MEDS: FERROUS SULFATE 325 MG TAB PO SCH (08:45)
[2017-11-29] MEDS: APIXABAN 5 MG TAB PO SCH ×2 (08:45→21:25)
[2017-11-29] MEDS: guaiFENesin 600 MG TAB.ER PO SCH ×2 (08:46→21:25)
[2017-11-29] MEDS: SENNOSIDES 17.6 MG/10 ML UDL PO SCH ×2 (08:47→20:41)
[2017-11-29] MEDS: FUROSEMIDE 20 MG/2 ML VIAL IVP SCH (08:49)
[2017-11-29] MEDS: METOPROLOL TARTRATE 50 MG TAB PO SCH ×2 (09:10→21:26)
[2017-11-29] MEDS: FLUTICASONE/SALMETER 250/50MCG DISKUS IH SCH ×2 (09:35→21:01)
--- NOTE | 2017-11-29 16:16 | HOSPPROG ---
Hospitalist Progress Note Assessment/Plan: * Acute respiratory failure s/p extubation -stable 4L * Pneumonia/infiltrates - viral vs. bacterial vs. aspiration vs ARDS vs. amiodarone vs. pulmonary edema -abx complete -wean steroids * Afib -DC amiodarone per pulmonary -metoprolol, diltiazem -Eliquis * Possible pulmonary edema -IV lasix * Leukocytosis - ? steroid effect -afebrile, monitor closely * Possible ILD - ? silent aspiration * COPD - extensive smoking history * CAD/CABG -recent outpatient stress test negative * HH/GERD Subjective: No new complaints. Objective: Vital Signs Temp Pulse Resp BP Pulse Ox 36.5 C 100 16 99/65 L 94 11/29/17 11:31 11/29/17 15:15 11/29/17 11:31 11/29/17 15:15 11/29/17 11:31 Microbiology 11/27/17 10:00 - Final Sputum, Expectorated Sputum Culture - Final Brandy Albicans Laboratory Results 11/29/17 03:15 11/28/17 05:00 11/28/17 11/29/17 11/30/17 05:59 05:59 05:59 Intake Total 1550 1585 120 Output Total 1075 1100 550 Balance 475 485 -430 PT 20.2 SEC (12.0-15.0) H 11/16/17 18:15 INR 1.71 (0.83-1.16) H 11/16/17 18:15 CXR viewed, my personal interpretation is - bilateral infiltrates barium esophagram - HH with esophageal spasm - Physical Exam Constitutional: no apparent distress, appears nourished, not in pain Cardiovascular: regular rate and rhythym, no murmur, rub, or gallop Respiratory: no respiratory distress, no rales or rhonchi, clear to auscultation Gastrointestinal: normoactive bowel sounds, soft, non-tender abdomen, no palpable masses Skin: no rashes or abrasions, no fluctuance, no induration Neurologic: AAOx3, sensation intact bilaterally Psychiatric: interacting appropriately, not anxious, not encephalopathic, thought process linear ICD10 Worksheet Patient Problems: Problems Problem Status Onset Atrial fibrillation Acute Congestive heart failure Acute Hypoxemia Acute Dizziness Acute Ischemic cardiomyopathy Acute Near syncope Acute Symptomatic bradycardia Acute
[2017-11-29] MEDS: ATORVASTATIN CALCIUM 40 MG TAB PO SCH (21:26)
[2017-11-29] MEDS: TRAVOPROST Z 0.004% 2.5 ML OPHT.BTL EACHEYE SCH (21:27)
[2017-11-30 04:33] LABS: PLATELET COUNT 257 10^3/uL (150-400)
[2017-11-30] MEDS: FLUTICASONE/SALMETER 250/50MCG DISKUS IH SCH ×2 (08:42→22:35)
[2017-11-30] MEDS: METOPROLOL TARTRATE 50 MG TAB PO SCH ×2 (08:52→20:25)
[2017-11-30] MEDS: guaiFENesin 600 MG TAB.ER PO SCH ×2 (08:52→20:24)
[2017-11-30] MEDS: FERROUS SULFATE 325 MG TAB PO SCH (08:53)
[2017-11-30] MEDS: DILTIAZEM CD 120 MG CAP PO SCH (08:53)
[2017-11-30] MEDS: predniSONE 20 MG TAB PO SCH (08:53)
[2017-11-30] MEDS: APIXABAN 5 MG TAB PO SCH ×2 (08:53→20:24)
[2017-11-30] MEDS: SENNOSIDES 17.6 MG/10 ML UDL PO SCH ×2 (09:01→20:24)
[2017-11-30] MEDS: FUROSEMIDE 20 MG/2 ML VIAL IVP SCH (10:18)
[2017-11-30] MEDS: CALCIUM CARBONATE 500 MG CHEWABLE TAB PO SCH ×2 (12:45→20:24)
--- NOTE | 2017-11-30 14:39 | PDINTPN ---
Histopathologist Progress Note Assessment/Plan: Assessment: 77 M admitted with acute on chronic hypoxemia. He had new onset afib around 2016 treated with diltiazem, lasix and cardioversion. A CT 09/26/17 showed patchy ground glass infiltrates, but basilar honeycombing and mild traction bronchiectasis suggestive of NSIP. He also has a smoking history and PFTs that were not clearly COPD but was to start Advair after our clinic visit. 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 A repeat CT showed right>>left new significant infiltrates, and cultures grew enterovirus with a low procalcitonin. * Acute hypoxic respiratory failure- I suspect his infiltrates represent an acute process such as viral PNA rather than a sudden acceleration of the chronic process (uncommon) and treatment is largely supportive. Bronchoscopy revealed mild-moderate thick, sticky and clear secretions throughout the lungs without hemoptysis. At time of decompensation, solumedrol was increased to 60 q6 , but CTD serologies are negative, so was reduced back to daily. Echo showed no significant change from 07/2017. Acute infection? PCT was low, but kept zosyn/ zithro given progressive failure, now off antibiotics after completing courses. I also suspect there is a component of pulmonary edema/fluid overload, BNP up further 11/26, down today after diuresis. * Chronic ILD- Suspicious for silent aspiration given moderate hiatal hernia on CT and possible fleeting infiltrates. MBS does not show lidia aspiration, but antegrade reflux especially supine. He has not been exposed to amiodarone in the past, so very unlikely to be acute toxicity. He is, however, at increased risk for pulmonary toxicity given his underlying lung disease. Would avoid amiodarone unless no better alternative exists (eg Multaq?) * Nutrition: TF at goal. * COPD- On Advair (started this admission), albuterol as well as steroids. Eventually repeat PFTs * Afib- currently controlled on diltiazem and tolerating well. * Anemia: Mild, unchanged. * Nutrition: Taking PO fairly well now Plan: Continue Lasix, change to PO. Follow lytes, WBC, CXR, BNP. Reduce prednisone to 40qd. Agree with plan to go to rehab 11/30/17 14:40 11/30/17 14:40 11/30/17 14:41 Subjective: Feels breathing is better today. Cough productive of clear sputum has reduced significantly today. Still dyspneic and gets hypoxemic with little activity. Objective: Vital Signs Temp Pulse Resp BP Pulse Ox 36.7 C 109 H 16 107/72 80 L 11/30/17 07:22 11/30/17 08:52 11/30/17 08:46 11/30/17 07:22 11/30/17 10:45 Microbiology 11/27/17 10:00 - Final Sputum, Expectorated Sputum Culture - Final Brandy Albicans Laboratory Results 11/30/17 03:18 11/30/17 03:18 11/29/17 11/30/17 12/01/17 05:59 05:59 05:59 Intake Total 1585 540 240 Output Total 1100 750 275 Balance 485 -210 -35 PT 20.2 SEC (12.0-15.0) H 11/16/17 18:15 INR 1.71 (0.83-1.16) H 11/16/17 18:15 Laboratory Tests 11/30/17 03:18 NT-Pro-B Natriuret Pep 1490 H CXR: Improved, but still fairly extensive, infiltrates. Images reviewed by me. Sputum: C/Albicans. Physical Exam - Physical Exam General Appearance: alert, no apparent distress EENT: normal ENT inspection Neck: normal inspection Respiratory: crackles Cardiac/Chest: regular rate, rhythm, No edema Abdomen: normal bowel sounds, non-tender Skin: normal color, warm/dry Extremities: normal inspection Neuro/Psych: alert, normal mood/affect, oriented x 3, No motor weakness ICD10 Worksheet Patient Problems: Problems Problem Status Onset Atrial fibrillation Acute Congestive heart failure Acute Hypoxemia Acute Dizziness Acute Ischemic cardiomyopathy Acute Near syncope Acute Symptomatic bradycardia Acute
--- NOTE | 2017-11-30 15:51 | HOSPPROG ---
Hospitalist Progress Note Assessment/Plan: * Acute respiratory failure s/p extubation -tenuous pulmonary status - continue attempt wean O2 * Viral PNA, possible bacterial (s/p abx) - possible ARDS -wean steroids * Afib -DC amiodarone per pulmonary -metoprolol, diltiazem -Eliquis * Possible pulmonary edema -IV lasix * Leukocytosis - ? steroid effect -afebrile, monitor closely * Chronic ILD - ? silent aspiration vs NSIP * COPD - extensive smoking history * CAD/CABG -recent outpatient stress test negative * HH/GERD Subjective: No complaints. O2 worse today - 6L with rest, 15L with exertion Objective: Vital Signs Temp Pulse Resp BP Pulse Ox 36.7 C 109 H 16 107/72 80 L 11/30/17 07:22 11/30/17 08:52 11/30/17 08:46 11/30/17 07:22 11/30/17 10:45 Microbiology 11/27/17 10:00 - Final Sputum, Expectorated Sputum Culture - Final Brandy Albicans Laboratory Results 11/30/17 03:18 11/30/17 03:18 11/29/17 11/30/17 12/01/17 05:59 05:59 05:59 Intake Total 1585 540 240 Output Total 1100 750 275 Balance 485 -210 -35 PT 20.2 SEC (12.0-15.0) H 11/16/17 18:15 INR 1.71 (0.83-1.16) H 11/16/17 18:15 case d/w Dr. Vásquez regarding high O2 requirement CXR viewed, my personal interpretation is - bilateral infiltrates - Physical Exam Constitutional: no apparent distress, appears nourished, not in pain Cardiovascular: regular rate and rhythym, no murmur, rub, or gallop Respiratory: no respiratory distress, expiratory wheeze, inspiratory crackles, rhonchi Gastrointestinal: normoactive bowel sounds, soft, non-tender abdomen, no palpable masses Skin: no rashes or abrasions, no fluctuance, no induration Neurologic: AAOx3, sensation intact bilaterally Psychiatric: interacting appropriately, not anxious, not encephalopathic, thought process linear ICD10 Worksheet Patient Problems: Problems Problem Status Onset Atrial fibrillation Acute Congestive heart failure Acute Hypoxemia Acute Dizziness Acute Ischemic cardiomyopathy Acute Near syncope Acute Symptomatic bradycardia Acute
[2017-11-30] MEDS: IPRATROPIUM/ALBUTEROL 3 ML DEYVIAL IH SCH ×2 (16:55→22:34)
[2017-11-30] MEDS: ATORVASTATIN CALCIUM 40 MG TAB PO SCH (20:24)
[2017-11-30] MEDS: TRAVOPROST Z 0.004% 2.5 ML OPHT.BTL EACHEYE SCH (20:29)
[2017-12-01 04:07] LABS: PLATELET COUNT 236 10^3/uL (150-400)
[2017-12-01] MEDS: IPRATROPIUM/ALBUTEROL 3 ML DEYVIAL IH SCH ×4 (05:44→22:12)
[2017-12-01] MEDS: FLUTICASONE/SALMETER 250/50MCG DISKUS IH SCH ×2 (08:49→22:13)
[2017-12-01] MEDS: SENNOSIDES 17.6 MG/10 ML UDL PO SCH ×2 (09:12→21:02)
[2017-12-01] MEDS: predniSONE 20 MG TAB PO SCH (09:12)
[2017-12-01] MEDS: guaiFENesin 600 MG TAB.ER PO SCH ×2 (09:12→21:01)
[2017-12-01] MEDS: FERROUS SULFATE 325 MG TAB PO SCH (09:13)
[2017-12-01] MEDS: DILTIAZEM CD 120 MG CAP PO SCH (09:13)
[2017-12-01] MEDS: APIXABAN 5 MG TAB PO SCH ×2 (09:13→21:01)
[2017-12-01] MEDS: METOPROLOL TARTRATE 50 MG TAB PO SCH ×2 (09:13→21:01)
[2017-12-01] MEDS: FUROSEMIDE 20 MG TAB PO SCH (09:13)
--- NOTE | 2017-12-01 14:54 | HOSPPROG ---
Hospitalist Progress Note Assessment/Plan: * Acute respiratory failure s/p extubation -slow improvement - wean O2 * Viral PNA, possible bacterial (s/p abx) - possible ARDS -wean steroids * Afib -DC amiodarone per pulmonary -metoprolol, diltiazem -Eliquis * Possible pulmonary edema -lasix * Leukocytosis - ? steroid effect -afebrile, monitor closely * Chronic ILD - ? 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 Yesterday was bad day Objective: Vital Signs Temp Pulse Resp BP Pulse Ox 36.5 C 100 20 96/65 L 95 12/01/17 11:25 12/01/17 11:50 12/01/17 11:50 12/01/17 11:25 12/01/17 11:50 Laboratory Results 12/01/17 03:05 11/30/17 03:18 11/30/17 12/01/17 12/02/17 05:59 05:59 05:59 Intake Total 540 660 Output Total 750 275 Balance -210 385 PT 20.2 SEC (12.0-15.0) H 11/16/17 18:15 INR 1.71 (0.83-1.16) H 11/16/17 18:15 - Physical Exam Constitutional: no apparent distress, appears nourished, not in pain Cardiovascular: regular rate and rhythym, no murmur, rub, or gallop Respiratory: no respiratory distress, no rales or rhonchi, clear to auscultation Gastrointestinal: normoactive bowel sounds, soft, non-tender abdomen, no palpable masses Skin: no rashes or abrasions, no fluctuance, no induration Neurologic: AAOx3, sensation intact bilaterally Psychiatric: interacting appropriately, not anxious, not encephalopathic, thought process linear ICD10 Worksheet Patient Problems: Problems Problem Status Onset Atrial fibrillation Acute Congestive heart failure Acute Hypoxemia Acute Dizziness Acute Ischemic cardiomyopathy Acute Near syncope Acute Symptomatic bradycardia Acute
--- NOTE | 2017-12-01 15:11 | ASMTCMCOM ---
CM Note CM Note Notes: Pt doing better today, still requiring 8L O2 but down from needing 16L yesterday. Spoke w/[place] from [facility] who feels at this time pt would have difficult time tolerating 3 hrs therapy/day. She will continue to follow though. Met w/pt to discuss rehab and also discussed w/ Swapna on phone. First choice is [facility] if he improves enough to tolerate it and if insurance approves. Choice #[address] [facility]. Referral sent to [facility]. CM will follow. Date Signed: 12/01/2017 03:10 PM Electronically Signed By:Мария Millan RN
--- NOTE | 2017-12-01 17:30 | PDCARPN ---
Cardiology Progress Note Chief Complaint: No cardiovascular complaints Assessment/Plan: Assessment: Patient is a 77 y/o male with history of atrial fibrillation with controlled ventricular response (moreso in the past, not as much today), CAD s/p CABG ( remotely), COPD, HTN, and HLP, with recent cessation of Amiodarone therapy given concerns about pulmonary effect. Today, the patient returned to atrial fibrillation with rapid ventricular response. The patient was last seen by cardiology back on 11/24/17, and since that time has done well. No cardiovascular complaints of chest pains or pressure. No PND or orthopnea. Mild dyspnea continues to be noted, and slow improvement in oxygen requirements has been appreciated. Steroid wean is ongoing (recent viral pneumonia with possible bacterial involvement). Outpatient plans, according to the patient and family, were for the patient to have ISABELLA with possible cardioversion in two days (Dr. Kimberly Luo). Plan: (1) Would plan on ISABELLA with possible cardioversion tomorrow morning - patient to order breakfast to have this ready, but not eat - if the patient is feeling poorly tomorrow (and this is not thought secondary to CV etiology, we may hold off on this procedure combination). If the patient is feeling better (the pulmonary issues have been slow to recover per patient report), we will discuss pursuit of ISABELLA/cardioversion tomorrow (2) Would continue therapy on Eliquis for CVA prophylaxis (3) Statins should continue for HLP history (4) Cardizem and lopressor should continue for both HTN and some degree of rate control assistance (5) ASA (low dose) should continue with CAD/CABG history. Subjective: No cardiovascular complaints. Reviewed/Discussed With: family, hospitalist, multidisciplinary team Objective: Vital Signs (8 Hrs) Temp Pulse Resp BP Pulse Ox 12/01/17 17:20 102 H 20 94 12/01/17 16:00 36.4 C 99 16 106/71 97 12/01/17 11:50 100 20 95 12/01/17 11:25 36.5 C 110 H 20 96/65 L 95 12/01/17 10:15 89 L Intake/Output (24 Hrs) 11/30/17 12/01/17 12/02/17 05:59 05:59 05:59 Intake Total 540 660 500 Output Total 750 275 250 Balance -210 385 250 Intake: Oral (ml) 540 660 500 IV Intake (ml) 0 Output: Urine (ml) 750 275 250 Bedpan 750 Urinal 275 250 Other: Weight 79.4 kg 79.2 kg Intake Quantity Yes Sufficient Output Comment Bedpan 1 loose &1 formed. Number of Voids Bedpan 1 Urinal 1 Number of Stools Bedpan 2 Result Diagrams: 12/01/17 03:05 11/30/17 03:18 Cardiac Labs: Cardiac Lab Results (72 Hrs) 12/01/17 03:05 Troponin I < 0.012 Telemetry: atrial fibrillation with rapid ventricular response - Physical Exam Constitutional: WDWN, healthy appearing, no apparent distress Eyes: PERRL Ears, Nose, Mouth, Throat: moist mucous membranes Cardiovascular: no murmurs, irregularly irregular (tachycardia), pulses symmetric bilat, No jugular vein distention Peripheral Pulses: 2+: dorsalis-pedis (R), dorsalis-pedis (L) Respiratory: no crackles, reduced air movement Gastrointestinal: normoactive bowel sounds Skin: no rashes Musculoskeletal: no muscular tenderness Neurologic: AAOx3, CN II-XII grossly intact Psychiatric: cooperative, interactive, following commands ICD10 Worksheet Patient Problems: Problems Problem Status Onset Atrial fibrillation Acute Congestive heart failure Acute Hypoxemia Acute Dizziness Acute Ischemic cardiomyopathy Acute Near syncope Acute Symptomatic bradycardia Acute
--- NOTE | 2017-12-01 18:56 | SOAPPROG ---
SOAP Progress Note Assessment/Plan: Assessment: 77 M admitted with acute on chronic hypoxemia. He had new onset afib around 2016 treated with diltiazem, lasix and cardioversion. A CT 09/26/17 showed patchy ground glass infiltrates, but basilar honeycombing and mild traction bronchiectasis suggestive of NSIP. He also has a smoking history and PFTs that were not clearly COPD but was to start Advair after our clinic visit. About 1-2 weeks [employer], he reported sick contacts with flu-like illness, but he had none until 11/14 when he developed increasing SOB and was found to be hypoxic (not in clinic 11/12). A repeat CT showed right>>left new significant infiltrates, and cultures grew enterovirus with a low procalcitonin. * Acute hypoxic respiratory failure- I suspect his infiltrates represent an acute process such as viral PNA rather than a sudden acceleration of the chronic process (uncommon) and treatment is largely supportive. Bronchoscopy revealed mild-moderate thick, sticky and clear secretions throughout the lungs without hemoptysis. At time of decompensation, solumedrol was increased to 60 q6 , now on 40 q.day. CTD serologies negative. Echo showed no significant change from 07/2017. Acute infection? PCT was low, but kept zosyn/zithro given progressive failure, now off antibiotics after completing courses. Probable component of pulmonary edema/fluid overload, improved with Lasix. Hypoxemia significantly better today both at rest and with exertion. * Chronic ILD- Suspicious for silent aspiration given moderate hiatal hernia on CT and possible fleeting infiltrates. MBS does not show lidia aspiration, but antegrade reflux especially supine. He has not been exposed to amiodarone in the past, so very unlikely to be acute toxicity. He is, however, at increased risk for pulmonary toxicity given his underlying lung disease. Would avoid amiodarone unless no better alternative exists (eg Multaq?) * Nutrition: TF at goal. * COPD- On Advair (started this admission), albuterol as well as steroids. Eventually repeat PFTs * Afib- currently controlled on diltiazem and tolerating well. * Anemia: Mild, unchanged. * Nutrition: Taking PO fairly well now Plan: Continue Lasix PO. Wean oxygen as tolerated. Increase activity. Continue prednisone at 40qd for now. Continue anticoagulation for atrial fibrillation. Follow laboratory, chest x-ray intermittently. Hopefully to inpatient rehabilitation in the next few days as he continues to improve. Subjective: Feels better today, less dyspneic with exertional activities, on less oxygen. Objective: Vital Signs Temp Pulse Resp BP Pulse Ox 36.4 C 102 H 20 106/71 94 12/01/17 16:00 12/01/17 17:20 12/01/17 17:20 12/01/17 16:00 12/01/17 17:20 Laboratory Results 12/01/17 03:05 11/30/17 03:18 11/30/17 12/01/17 12/02/17 05:59 05:59 05:59 Intake Total 540 660 750 Output Total 750 275 475 Balance -210 385 275 PT 20.2 SEC (12.0-15.0) H 11/16/17 18:15 INR 1.71 (0.83-1.16) H 11/16/17 18:15 CXR yesterday. Some improvement in bilateral pulmonary infiltrates. Physical Exam - Physical Exam General Appearance: alert, no apparent distress EENT: PERRL/EOMI, other (On 5 L of oxygen at rest) Neck: normal inspection (No JVD noted) Respiratory: decreased breath sounds (At bases), rales (Bilateral rales present , both posteriorly and anteriorly on the left), No rhonchi, No wheezing Cardiac/Chest: tachycardia (Irregular) Abdomen: normal bowel sounds, non-tender, soft Skin: warm/dry, pallor Extremities: No pedal edema Neuro/Psych: no motor/sensory deficits, No cognition abnormalities ICD10 Worksheet Patient Problems: Problems Problem Status Onset Atrial fibrillation Acute Congestive heart failure Acute Hypoxemia Acute Dizziness Acute Ischemic cardiomyopathy Acute Near syncope Acute Symptomatic bradycardia Acute
[2017-12-01] MEDS: ATORVASTATIN CALCIUM 40 MG TAB PO SCH (21:00)
[2017-12-01] MEDS: CALCIUM CARBONATE 500 MG CHEWABLE TAB PO SCH (21:01)
[2017-12-01] MEDS: TRAVOPROST Z 0.004% 2.5 ML OPHT.BTL EACHEYE SCH (21:08)
[2017-12-02 04:18] LABS: PLATELET COUNT 246 10^3/uL (150-400)
[2017-12-02] MEDS: IPRATROPIUM/ALBUTEROL 3 ML DEYVIAL IH SCH ×4 (05:59→23:20)
[2017-12-02] MEDS: SENNOSIDES 17.6 MG/10 ML UDL PO SCH (10:04)
[2017-12-02] MEDS: FUROSEMIDE 20 MG TAB PO SCH (10:05)
[2017-12-02] MEDS: DILTIAZEM CD 120 MG CAP PO SCH (10:06)
[2017-12-02] MEDS: METOPROLOL TARTRATE 50 MG TAB PO SCH ×2 (10:06→23:17)
[2017-12-02] MEDS: APIXABAN 5 MG TAB PO SCH ×2 (10:06→23:17)
[2017-12-02] MEDS: predniSONE 20 MG TAB PO SCH (10:07)
[2017-12-02] MEDS: guaiFENesin 600 MG TAB.ER PO SCH ×2 (10:08→23:17)
[2017-12-02] MEDS: FERROUS SULFATE 325 MG TAB PO SCH (10:08)
[2017-12-02] MEDS: FLUTICASONE/SALMETER 250/50MCG DISKUS IH SCH ×2 (10:55→21:23)
[2017-12-02] MEDS ORDERED: CEPACOL LOZENGE PO ONE (12:53)
--- NOTE | 2017-12-02 13:02 | PDCARPN ---
Cardiology Progress Note Chief Complaint: Patient was not feeling "great" today - a deviation from how the patient was feeling yesterday. Assessment/Plan: Assessment: 12-02-17 Patient up in chair today, but not feeling quite as good today as compared to yesterday. Patient with ongoing elevation in heart rates with minimal activity. Furthermore, desaturations are easily noted with movement. No complaints of chest pains or pressure. No PND or orthopnea. PT was working with the patient today. Breath sounds continue to include wheezing and diminished air movement. Ongoing atrial fibrillation with rapid ventricular response (moreso with activity, rather than with rest). Plans as of yesterday were to refrain from ISABELLA with possible cardioversion if pulmonary status continues to be less than normal for the patient. 12-01-17 Patient is a 77 y/o male with history of atrial fibrillation with controlled ventricular response (moreso in the past, not as much today), CAD s/p CABG ( remotely), COPD, HTN, and HLP, with recent cessation of Amiodarone therapy given concerns about pulmonary effect. Today, the patient returned to atrial fibrillation with rapid ventricular response. The patient was last seen by cardiology back on 11/24/17, and since that time has done well. No cardiovascular complaints of chest pains or pressure. No PND or orthopnea. Mild dyspnea continues to be noted, and slow improvement in oxygen requirements has been appreciated. Steroid wean is ongoing (recent viral pneumonia with possible bacterial involvement). Outpatient plans, according to the patient and family, were for the patient to have ISABELLA with possible cardioversion in two days (Dr. Kimberly Luo). Plan: (1) Given the ongoing pulmonary issues, would continue aggressive PULM therapy - supplemental oxygen - PT/OT activity - IS use and flutter valve (2) ISABELLA with possible cardioversion can be done when convenient, but I am not wanting to have this procedure compromise the need for improved pulmonary function (if this is possible) (3) Continue therapy on Eliquis for CVA prophylaxis (4) ASA should continue with CAD/CABG history (5) Cardizem and lopressor to continue (6) Statins to continue for history of HLP (7) We will continue to follow this patient Subjective: patient not feeling "great" today. sitting up in chair. No chest pains or pressure have been noted, but ongoing dyspnea is appreciated. Reviewed/Discussed With: family, multidisciplinary team Objective: Vital Signs (8 Hrs) Temp Pulse Pulse Pulse Pulse Resp BP 12/02/17 12:19 63 65 66 12/02/17 12:00 36.7 C 63 12 115/61 12/02/17 11:14 36.5 C 80 20 111/63 12/02/17 10:59 12/02/17 10:50 102 H 16 12/02/17 07:31 36.8 C 112 H 20 101/75 BP BP BP Pulse Ox 12/02/17 12:19 125/64 H 126/69 H 118/69 12/02/17 12:00 97 12/02/17 11:14 97 12/02/17 10:59 81 L 12/02/17 10:50 100 12/02/17 07:31 96 Intake/Output (24 Hrs) 12/01/17 12/02/17 12/03/17 05:59 05:59 05:59 Intake Total 660 750 Output Total 275 475 Balance 385 275 Intake: Oral (ml) 660 750 IV Intake (ml) 0 0 Output: Urine (ml) 275 475 Urinal 275 475 Other: Weight 79.2 kg 79.152 kg Intake Quantity Yes Sufficient Number of Voids Urinal 1 Result Diagrams: 12/02/17 03:12 11/30/17 03:18 Cardiac Labs: Cardiac Lab Results (72 Hrs) 12/01/17 03:05 Troponin I < 0.012 Telemetry: atrial fibrillation with rates of 100-120 bpm - Physical Exam Constitutional: WDWN, healthy appearing, no apparent distress Eyes: PERRL, EOMI Ears, Nose, Mouth, Throat: moist mucous membranes Cardiovascular: irregularly irregular, pulses symmetric bilat, No jugular vein distention Peripheral Pulses: 2+: dorsalis-pedis (R), dorsalis-pedis (L) Respiratory: reduced air movement, expiratory wheeze Gastrointestinal: normoactive bowel sounds Skin: no rashes, no edema Musculoskeletal: no muscular tenderness Neurologic: AAOx3, CN II-XII grossly intact Psychiatric: cooperative, interactive, following commands ICD10 Worksheet Patient Problems: Problems Problem Status Onset Atrial fibrillation Acute Congestive heart failure Acute Hypoxemia Acute Dizziness Acute Ischemic cardiomyopathy Acute Near syncope Acute Symptomatic bradycardia Acute
[2017-12-02] MEDS ORDERED: LACTULOSE 20 GM/30 ML UDCUP PO PRN (14:18)
[2017-12-02] MEDS ORDERED: BISACODYL 10 MG SUPP PR PRN (14:18)
--- NOTE | 2017-12-02 14:24 | HOSPPROG ---
Hospitalist Progress Note Assessment/Plan: * Acute respiratory failure s/p extubation -slow improvement - wean O2 -still 15L with only minimal exertion -recheck CXR in am -needs stable O2 prior to SNF discharge * Viral PNA, possible bacterial (s/p abx) - possible ARDS -wean steroids slowly * Afib -DC amiodarone per pulmonary -metoprolol, diltiazem -Eliquis -cardioversion when respiratory status improves * Possible pulmonary edema -lasix * Leukocytosis - ? steroid effect -afebrile, monitor closely * Chronic ILD - ? silent aspiration vs NSIP * COPD - extensive smoking history -schedule nebs * CAD/CABG -recent outpatient stress test negative * HH/GERD * Constipation -bowel protocol -BM may help respiratory status Subjective: Bad day. Very constipated Objective: Vital Signs Temp Pulse Resp BP Pulse Ox 36.7 C 66 12 118/69 97 12/02/17 12:00 12/02/17 12:19 12/02/17 12:00 12/02/17 12:19 12/02/17 12:00 Microbiology 11/20/17 11:15 Mycobacterial Smear (GRECIA) - Final Lung - Bronchial Washings Laboratory Results 12/02/17 03:12 11/30/17 03:18 12/01/17 12/02/17 12/03/17 05:59 05:59 05:59 Intake Total 660 750 Output Total 275 475 Balance 385 275 PT 20.2 SEC (12.0-15.0) H 11/16/17 18:15 INR 1.71 (0.83-1.16) H 11/16/17 18:15 ICD10 Worksheet Patient Problems: Problems Problem Status Onset Atrial fibrillation Acute Congestive heart failure Acute Hypoxemia Acute Dizziness Acute Ischemic cardiomyopathy Acute Near syncope Acute Symptomatic bradycardia Acute
[2017-12-02] MEDS: SENNOSIDES/DOCUSATE SODIUM TAB PO SCH (23:17)
[2017-12-02] MEDS: ATORVASTATIN CALCIUM 40 MG TAB PO SCH (23:17)
[2017-12-02] MEDS: CALCIUM CARBONATE 500 MG CHEWABLE TAB PO SCH (23:38)
[2017-12-02] MEDS: TRAVOPROST Z 0.004% 2.5 ML OPHT.BTL EACHEYE SCH (23:39)
[2017-12-03] MEDS: IPRATROPIUM/ALBUTEROL 3 ML DEYVIAL IH SCH ×4 (05:34→22:36)
[2017-12-03 05:36] LABS: PLATELET COUNT 234 10^3/uL (150-400)
[2017-12-03] MEDS: PANTOPRAZOLE SODIUM 40 MG TAB PO SCH (09:08)
[2017-12-03] MEDS: CALCIUM CARBONATE 500 MG CHEWABLE TAB PO PRN ×2 (09:08→18:25)
--- NOTE | 2017-12-03 09:27 | PDCARPN ---
Cardiology Progress Note Chief Complaint: Patient with complaints of epigastric discomfort today. Ongoing work with constipation Assessment/Plan: Assessment: 12-03-17 Overall, patient is doing well. Yesterday, there were more issues with dyspnea and limited activity. Today, there is mention of epigastric discomfort. This appears to be improving from the patients reports. Heart rates continue to be elevated (120's). No chest pains or pressure. Ongoing dyspnea and inability to feel as if a breath is full. Patient continues to use IS and flutter valve. CXR with improvements in comparison to three days prior. 12-02-17 Patient up in chair today, but not feeling quite as good today as compared to yesterday. Patient with ongoing elevation in heart rates with minimal activity. Furthermore, desaturations are easily noted with movement. No complaints of chest pains or pressure. No PND or orthopnea. PT was working with the patient today. Breath sounds continue to include wheezing and diminished air movement. Ongoing atrial fibrillation with rapid ventricular response (moreso with activity, rather than with rest). Plans as of yesterday were to refrain from ISABELLA with possible cardioversion if pulmonary status continues to be less than normal for the patient. 12-01-17 Patient is a 77 y/o male with history of atrial fibrillation with controlled ventricular response (moreso in the past, not as much today), CAD s/p CABG ( remotely), COPD, HTN, and HLP, with recent cessation of Amiodarone therapy given concerns about pulmonary effect. Today, the patient returned to atrial fibrillation with rapid ventricular response. The patient was last seen by cardiology back on 11/24/17, and since that time has done well. No cardiovascular complaints of chest pains or pressure. No PND or orthopnea. Mild dyspnea continues to be noted, and slow improvement in oxygen requirements has been appreciated. Steroid wean is ongoing (recent viral pneumonia with possible bacterial involvement). Outpatient plans, according to the patient and family, were for the patient to have ISABELLA with possible cardioversion in two days (Dr. Kimberly Luo). Plan: (1) At this point, I would recommend outpatient ISABELLA with possible cardioversion rather than attempting to couple those procedures with this admission. Ongoing pulm and GI issues are likely contributing to the elevation in heart rates that are noted. - would consider 30 day event monitor to have a better idea, in the outpatient setting, what the patient's heart rates are throughout the day (2) Continue Lopressor and Cardizem for both HTN and rate control assistance of the noted atrial fibrillation (3) ASA with history of CAD and CABG (4) Statins should continue with HLP (5) Eliquis for CVA prophylaxis with ongoing atrial fibrillation and pending ISABELLA with cardioversion - [id number] score 4 Subjective: No cardiovascular complaints today. Reviewed/Discussed With: hospitalist Objective: Vital Signs (8 Hrs) Temp Pulse Resp BP Pulse Ox 12/03/17 07:32 36.7 C 101 H 20 100/68 97 12/03/17 05:35 14 97 12/03/17 04:00 36.7 C 86 17 108/72 97 Intake/Output (24 Hrs) 12/02/17 12/03/17 12/04/17 05:59 05:59 05:59 Intake Total 750 950 Output Total 475 800 300 Balance 275 150 -300 Intake: Oral (ml) 750 950 IV Intake (ml) 0 Output: Urine (ml) 475 800 300 Incontinence 100 300 Urinal 475 700 Other: Weight 79.2 kg 79.152 kg 79.2 kg Intake Quantity Yes Yes Sufficient Number of Voids Incontinence 1 1 Urinal 1 Number of Stools Bedside Commode 1 Result Diagrams: 12/03/17 04:40 12/03/17 04:40 Cardiac Labs: Cardiac Lab Results (72 Hrs) 12/01/17 03:05 Troponin I < 0.012 Telemetry: Atrial fibrillation with rates of 110-115 bpm Echocardiogram: EF 50-55% - Physical Exam Constitutional: WDWN, healthy appearing, no apparent distress Eyes: PERRL, EOMI Ears, Nose, Mouth, Throat: moist mucous membranes Cardiovascular: irregularly irregular Peripheral Pulses: 2+: dorsalis-pedis (R), dorsalis-pedis (L) Respiratory: reduced air movement, expiratory wheeze, inspiratory crackles Gastrointestinal: normoactive bowel sounds Skin: no edema Musculoskeletal: no muscular tenderness Neurologic: AAOx3, CN II-XII grossly intact Psychiatric: cooperative, interactive, following commands ICD10 Worksheet Patient Problems: Problems Problem Status Onset Atrial fibrillation Acute Congestive heart failure Acute Hypoxemia Acute Dizziness Acute Ischemic cardiomyopathy Acute Near syncope Acute Symptomatic bradycardia Acute
[2017-12-03] MEDS: FLUTICASONE/SALMETER 250/50MCG DISKUS IH SCH ×2 (09:56→20:43)
[2017-12-03] MEDS ORDERED: FUROSEMIDE 20 MG/2 ML VIAL IVP ONE (10:19)
[2017-12-03] MEDS: predniSONE 20 MG TAB PO SCH (10:40)
[2017-12-03] MEDS: APIXABAN 5 MG TAB PO SCH ×2 (10:40→21:03)
[2017-12-03] MEDS: DILTIAZEM CD 120 MG CAP PO SCH (10:41)
[2017-12-03] MEDS: METOPROLOL TARTRATE 50 MG TAB PO SCH ×2 (10:41→21:02)
[2017-12-03] MEDS: ASPIRIN 81 MG CHEWABLE TAB PO SCH (10:42)
[2017-12-03] MEDS: FERROUS SULFATE 325 MG TAB PO SCH (10:42)
[2017-12-03] MEDS: guaiFENesin 600 MG TAB.ER PO SCH ×2 (10:43→21:03)
[2017-12-03] MEDS: SENNOSIDES/DOCUSATE SODIUM TAB PO SCH ×2 (10:43→21:02)
[2017-12-03] MEDS: FUROSEMIDE 20 MG TAB PO SCH (10:48)
--- NOTE | 2017-12-03 12:55 | HOSPPROG ---
Hospitalist Progress Note Assessment/Plan: * Acute respiratory failure s/p extubation -slow improvement - wean O2 -Will give IV lasix x 1 today -needs stable O2 prior to SNF discharge * Viral PNA, possible bacterial (s/p abx) - possible ARDS -wean steroids slowly * Afib -DC amiodarone per pulmonary -metoprolol, diltiazem -Eliquis -cardioversion when respiratory status improves * Possible pulmonary edema -lasix per above * Leukocytosis - ? steroid effect -afebrile, monitor closely * Chronic ILD - ? silent aspiration vs NSIP * COPD - extensive smoking history -schedule nebs * CAD/CABG -recent outpatient stress test negative * HH/GERD * Constipation -bowel protocol -BM may help respiratory status Plan: -Diuretics per above, CXR personally reviewed. -Cont PT/OT -Restart low dose Aspirin -Cardioversion per Cards -Steroids taper at current dose -Do not suspect infection contributing Subjective: Still with hypoxemia, VELEZ. Afebrile. Objective: Vital Signs Temp Pulse Resp BP Pulse Ox 36.8 C 96 20 115/69 92 12/03/17 11:36 12/03/17 12:04 12/03/17 12:04 12/03/17 11:36 12/03/17 12:04 Microbiology 11/20/17 11:15 Mycobacterial Smear (GRECIA) - Final Lung - Bronchial Washings Laboratory Results 12/03/17 04:40 12/03/17 04:40 12/02/17 12/03/17 12/04/17 05:59 05:59 05:59 Intake Total 750 950 Output Total 475 800 300 Balance 275 150 -300 PT 20.2 SEC (12.0-15.0) H 11/16/17 18:15 INR 1.71 (0.83-1.16) H 11/16/17 18:15 - Physical Exam Constitutional: no apparent distress Eyes: PERRL, EOMI Ears, Nose, Mouth, Throat: moist mucous membranes, hearing normal Cardiovascular: irregularly irregular, No edema Respiratory: reduced air movement, other (crackels at base, no active wheezing) Gastrointestinal: normoactive bowel sounds, soft, non-tender abdomen, No distension Skin: warm Musculoskeletal: generalized weakness Neurologic: AAOx3 Psychiatric: interacting appropriately, not anxious, not encephalopathic, thought process linear Lymph, Heme, Immunologic: No petechiae ICD10 Worksheet Patient Problems: Problems Problem Status Onset Atrial fibrillation Acute Congestive heart failure Acute Hypoxemia Acute Dizziness Acute Ischemic cardiomyopathy Acute Near syncope Acute Symptomatic bradycardia Acute
--- NOTE | 2017-12-03 13:52 | ASMTCMCOM ---
CM Note CM Note Notes: Pts case discussed in morning rounds. Updates sent to [facility]. [facility] will most likely be the d/c plan. [place] Lerma from inpatient rehab is continuing to follow case. CM to follow. Plan: SNF vs inpatient rehab Date Signed: 12/03/2017 01:51 PM Electronically Signed By:ARIC Augustin
[2017-12-03] MEDS: POLYETHYLENE GLYCOL 3350 17 GM PKT PO PRN (15:28)
--- NOTE | 2017-12-03 17:41 | SOAPPROG ---
SOAP Progress Note Assessment/Plan: Assessment: 77 M admitted with acute on chronic hypoxemia. He had new onset afib around 2016 treated with diltiazem, lasix and cardioversion. A CT 09/26/17 showed patchy ground glass infiltrates, but basilar honeycombing and mild traction bronchiectasis suggested NSIP. He also has a smoking history and PFTs that were not clearly. Developed increasing SOB 11/14 and was found to be hypoxic, new for him during the day. A repeat CT showed right>>left new significant infiltrates, and cultures grew enterovirus with a low procalcitonin. * Acute hypoxic respiratory failure- pulmonary infiltrates on admission likely represented a viral PNA rather than a sudden acceleration of the chronic process (uncommon) and treatment is largely supportive. Bronchoscopy revealed mild-moderate thick, sticky and clear secretions throughout the lungs without hemoptysis. At time of decompensation, solumedrol was increased to 60 q6. Has continued on steroids, now with prednisone at 40 mg per day. CTD serologies negative. Echo showed no significant change from 07/2017. Completed a course of impair treatment with with zosyn/zithro. Probable component of pulmonary edema/fluid overload, improved with Lasix. Hypoxemia significantly better: Now on 5 L. * Chronic ILD- Suspicious for silent aspiration given moderate hiatal hernia on CT and possible fleeting infiltrates. MBS does not show lidia aspiration, but antegrade reflux especially supine. He was on amiodarone briefly but now stopped secondary to possibility of pulmonary toxicity. * COPD- On Advair (started this admission), albuterol as well as steroids. Eventually repeat PFTs as an outpatient. * Afib- rate controlled on diltiazem and metoprolol. On Eliquis. Cardiology recommending outpatient cardioversion and ISABELLA. * Anemia: Mild, unchanged. Plan: Continue Lasix orally. Wean oxygen as tolerated. Increase activity/ mobilization. Continue prednisone at 40qd for now, bronchodilator therapies. Continue anticoagulation for atrial fibrillation. Follow laboratory, chest x- ray intermittently. Hopefully to inpatient rehabilitation verses [facility] in the next day or 2 as he continues to improve. Subjective: Feels better. Still dyspneic with exertional activities. Coughing up some clear mucus occasionally. Objective: Vital Signs Temp Pulse Resp BP Pulse Ox 36.7 C 113 H 18 113/73 95 12/03/17 16:58 12/03/17 16:58 12/03/17 16:58 12/03/17 16:58 12/03/17 16:58 Laboratory Results 12/03/17 04:40 12/03/17 04:40 12/02/17 12/03/17 12/04/17 05:59 05:59 05:59 Intake Total 750 950 Output Total 475 800 300 Balance 275 150 -300 PT 20.2 SEC (12.0-15.0) H 11/16/17 18:15 INR 1.71 (0.83-1.16) H 11/16/17 18:15 Physical Exam - Physical Exam General Appearance: alert, no apparent distress, other (Up in chair) EENT: PERRL/EOMI, other (Oxygen in place at 5 L) Neck: normal inspection (No JVD) Respiratory: decreased breath sounds (Bilaterally), rales (Present bilaterally, more pronounced at the bases, extending about 1/[address]), No rhonchi, No wheezing Cardiac/Chest: tachycardia, irregularly irregular Abdomen: normal bowel sounds, non-tender, soft Skin: normal color, warm/dry Extremities: No pedal edema Neuro/Psych: no motor/sensory deficits, No cognition abnormalities ICD10 Worksheet Patient Problems: Problems Problem Status Onset Symptomatic bradycardia Acute Dizziness Acute Near syncope Acute Atrial fibrillation Acute Ischemic cardiomyopathy Acute Congestive heart failure Acute Hypoxemia Acute
[2017-12-03] MEDS: ATORVASTATIN CALCIUM 40 MG TAB PO SCH (21:02)
[2017-12-03] MEDS: CALCIUM CARBONATE 500 MG CHEWABLE TAB PO SCH (21:02)
[2017-12-03] MEDS: TRAVOPROST Z 0.004% 2.5 ML OPHT.BTL EACHEYE SCH (21:04)
[2017-12-04 04:16] LABS: PLATELET COUNT 230 10^3/uL (150-400)
[2017-12-04] MEDS: IPRATROPIUM/ALBUTEROL 3 ML DEYVIAL IH SCH ×4 (05:42→22:40)
[2017-12-04] MEDS ORDERED: FUROSEMIDE 20 MG/2 ML VIAL IVP ONE (08:53)
[2017-12-04] MEDS: PANTOPRAZOLE SODIUM 40 MG TAB PO SCH (10:06)
[2017-12-04] MEDS: CALCIUM CARBONATE 500 MG CHEWABLE TAB PO PRN (10:08)
[2017-12-04] MEDS: FERROUS SULFATE 325 MG TAB PO SCH (10:09)
[2017-12-04] MEDS: METOPROLOL TARTRATE 50 MG TAB PO SCH ×2 (10:09→19:58)
[2017-12-04] MEDS: ASPIRIN 81 MG CHEWABLE TAB PO SCH (10:09)
[2017-12-04] MEDS: APIXABAN 5 MG TAB PO SCH ×2 (10:09→19:58)
[2017-12-04] MEDS: SENNOSIDES/DOCUSATE SODIUM TAB PO SCH ×2 (10:09→19:57)
[2017-12-04] MEDS: DILTIAZEM CD 120 MG CAP PO SCH (10:10)
[2017-12-04] MEDS: predniSONE 20 MG TAB PO SCH (10:10)
[2017-12-04] MEDS: guaiFENesin 600 MG TAB.ER PO SCH ×2 (10:10→19:58)
[2017-12-04] MEDS: FLUTICASONE/SALMETER 250/50MCG DISKUS IH SCH ×2 (10:12→22:40)
[2017-12-04] MEDS: POLYETHYLENE GLYCOL 3350 17 GM PKT PO PRN (10:23)
--- NOTE | 2017-12-04 11:59 | HOSPPROG ---
Hospitalist Progress Note Assessment/Plan: * Acute respiratory failure s/p extubation -slow improvement - wean O2 -Will give additional IV lasix x 1 today. Significantly improved after dose yesterday -needs stable O2 prior to SNF discharge * Viral PNA, possible bacterial (s/p abx) - possible ARDS -wean steroids slowly * Afib -DC amiodarone per pulmonary -metoprolol, diltiazem -Eliquis -cardioversion when respiratory status improves * Possible pulmonary edema -lasix per above * Leukocytosis - ? steroid effect -afebrile, monitor closely * Chronic ILD - ? silent aspiration vs NSIP * COPD - extensive smoking history -schedule nebs * CAD/CABG -recent outpatient stress test negative * HH/GERD * Constipation -bowel protocol -BM may help respiratory status Plan: -Diuretics per above, IV x 1 -Cont PT/OT -Restart low dose Aspirin -Cardioversion per Cards -Steroids taper at current dose -Do not suspect infection contributing Subjective: Feels better after IV Lasix yesterday. Objective: Vital Signs Temp Pulse Resp BP Pulse Ox 36.5 C 103 H 18 102/71 96 12/04/17 07:24 12/04/17 07:24 12/04/17 07:24 12/04/17 07:24 12/04/17 07:24 Laboratory Results 12/04/17 03:16 12/04/17 03:16 12/03/17 12/04/17 12/05/17 05:59 05:59 05:59 Intake Total 950 1140 Output Total 800 1470 Balance 150 -330 PT 20.2 SEC (12.0-15.0) H 11/16/17 18:15 INR 1.71 (0.83-1.16) H 11/16/17 18:15 - Physical Exam Constitutional: no apparent distress Eyes: PERRL Ears, Nose, Mouth, Throat: moist mucous membranes, hearing normal Cardiovascular: regular rate and rhythym, No edema Respiratory: reduced air movement, other (crackles at base) Gastrointestinal: normoactive bowel sounds, soft, non-tender abdomen Genitourinary: no bladder fullness Skin: warm Neurologic: AAOx3, CN II-XII Intact Psychiatric: interacting appropriately, not anxious, not encephalopathic Lymph, Heme, Immunologic: No petechiae ICD10 Worksheet Patient Problems: Problems Problem Status Onset Atrial fibrillation Acute Congestive heart failure Acute Hypoxemia Acute Dizziness Acute Ischemic cardiomyopathy Acute Near syncope Acute Symptomatic bradycardia Acute
--- NOTE | 2017-12-04 12:33 | PDCARPN ---
Cardiology Progress Note Chief Complaint: Patient doing very well. No cardiovascular complaints. Great night of sleep per his report Assessment/Plan: Assessment: 12-04-17 No cardiovascular complaints. Breathing feeling much better for the patient today. Ongoing atrial fibrillation is noted with rates that are semi controlled. No complaints of chest pains or pressure. PO intake has been good. Sleep was great last night. 12-03-17 Overall, patient is doing well. Yesterday, there were more issues with dyspnea and limited activity. Today, there is mention of epigastric discomfort. This appears to be improving from the patients reports. Heart rates continue to be elevated (120's). No chest pains or pressure. Ongoing dyspnea and inability to feel as if a breath is full. Patient continues to use IS and flutter valve. CXR with improvements in comparison to three days prior. 12-02-17 Patient up in chair today, but not feeling quite as good today as compared to yesterday. Patient with ongoing elevation in heart rates with minimal activity. Furthermore, desaturations are easily noted with movement. No complaints of chest pains or pressure. No PND or orthopnea. PT was working with the patient today. Breath sounds continue to include wheezing and diminished air movement. Ongoing atrial fibrillation with rapid ventricular response (moreso with activity, rather than with rest). Plans as of yesterday were to refrain from ISABELLA with possible cardioversion if pulmonary status continues to be less than normal for the patient. 12-01-17 Patient is a 77 y/o male with history of atrial fibrillation with controlled ventricular response (moreso in the past, not as much today), CAD s/p CABG ( remotely), COPD, HTN, and HLP, with recent cessation of Amiodarone therapy given concerns about pulmonary effect. Today, the patient returned to atrial fibrillation with rapid ventricular response. The patient was last seen by cardiology back on 11/24/17, and since that time has done well. No cardiovascular complaints of chest pains or pressure. No PND or orthopnea. Mild dyspnea continues to be noted, and slow improvement in oxygen requirements has been appreciated. Steroid wean is ongoing (recent viral pneumonia with possible bacterial involvement). Outpatient plans, according to the patient and family, were for the patient to have ISABELLA with possible cardioversion in two days (Dr. Kimberly Luo). Plan: (1) One week post discharge with [facility] for discussion about scheduling of ISABELLA with possible cardioversion (2) Continue Eliquis for CVA prophylaxis (3) Cardizem and Lopressor to continue for rate control assistance as well as HTN control (4) ASA should continue with CAD/CABG history (5) Statins for HLP to continue Subjective: No cardiovascular complaints. Reviewed/Discussed With: multidisciplinary team Objective: Vital Signs (8 Hrs) Temp Pulse Resp BP Pulse Ox 12/04/17 10:00 80 L 12/04/17 07:24 36.5 C 103 H 18 102/71 96 12/04/17 05:43 14 96 Intake/Output (24 Hrs) 12/03/17 12/04/17 12/05/17 05:59 05:59 05:59 Intake Total 950 1140 Output Total 800 1470 Balance 150 -330 Intake: Oral (ml) 950 1140 Output: Urine (ml) 800 1470 Bedside Commode 720 Incontinence 100 300 Urinal 700 450 Other: Weight 79.152 kg 79.2 kg 78.2 kg Intake Quantity Yes Yes Sufficient Number of Voids Bedside Commode 4 Incontinence 1 1 Urinal 1 1 Number of Stools Bedside Commode 1 Result Diagrams: 12/04/17 03:16 12/04/17 03:16 Telemetry: atrial fibrillation - Physical Exam Constitutional: WDWN, healthy appearing, no apparent distress Eyes: PERRL, EOMI Ears, Nose, Mouth, Throat: moist mucous membranes Cardiovascular: no murmurs, no rubs, no gallops, irregularly irregular Peripheral Pulses: 2+: dorsalis-pedis (R), dorsalis-pedis (L) Respiratory: no crackles, reduced air movement, expiratory wheeze Gastrointestinal: normoactive bowel sounds Skin: no rashes, no edema Musculoskeletal: no muscular tenderness Neurologic: AAOx3, CN II-XII grossly intact Psychiatric: cooperative, interactive, following commands ICD10 Worksheet Patient Problems: Problems Problem Status Onset Atrial fibrillation Acute Congestive heart failure Acute Hypoxemia Acute Dizziness Acute Ischemic cardiomyopathy Acute Near syncope Acute Symptomatic bradycardia Acute
--- NOTE | 2017-12-04 15:57 | ASMTCMCOM ---
CM Note CM Note Notes: Pts case discussed in morning rounds. CM received a call from Brooklyn Lerma. Brooklyn does not think pt will be appropriate for inpatient rehab at this point. CM met w/ pt and for dispo planning. CM communicated what [place] said to pt and . Pt and is still agreeable to going to [facility]. Updates sent to [facility]. CM left a msg w/ Brandi at [facility]. CM to follow. Plan: [facility] Date Signed: 12/04/2017 03:56 PM Electronically Signed By:ARIC Augustin
[2017-12-04] MEDS: ATORVASTATIN CALCIUM 40 MG TAB PO SCH (19:57)
[2017-12-04] MEDS: MAGNESIUM HYDROXIDE 30 ML UDCUP PO PRN (19:57)
[2017-12-04] MEDS: TRAVOPROST Z 0.004% 2.5 ML OPHT.BTL EACHEYE SCH (20:03)
[2017-12-04] MEDS ORDERED: SODIUM CL NASAL 45 ML BTL EACHNARE PRN (22:05)
[2017-12-04] MEDS: CALCIUM CARBONATE 500 MG CHEWABLE TAB PO SCH (22:32)
[2017-12-05 04:04] LABS: PLATELET COUNT 226 10^3/uL (150-400)
[2017-12-05] MEDS: IPRATROPIUM/ALBUTEROL 3 ML DEYVIAL IH SCH ×4 (05:56→22:20)
[2017-12-05] MEDS ORDERED: PANTOPRAZOLE SODIUM 40 MG TAB PO SCH (07:30)
[2017-12-05] MEDS: METOPROLOL TARTRATE 50 MG TAB PO SCH ×2 (08:06→21:37)
[2017-12-05] MEDS: predniSONE 20 MG TAB PO SCH (08:10)
[2017-12-05] MEDS: ASPIRIN 81 MG CHEWABLE TAB PO SCH ×2 (08:10→10:22)
[2017-12-05] MEDS: guaiFENesin 600 MG TAB.ER PO SCH ×2 (08:12→21:38)
[2017-12-05] MEDS: APIXABAN 5 MG TAB PO SCH ×2 (08:12→21:37)
[2017-12-05] MEDS: FERROUS SULFATE 325 MG TAB PO SCH (08:13)
[2017-12-05] MEDS: MAGNESIUM HYDROXIDE 30 ML UDCUP PO PRN (08:17)
[2017-12-05] MEDS: SENNOSIDES/DOCUSATE SODIUM TAB PO SCH ×3 (08:17→21:37)
[2017-12-05] MEDS: CALCIUM CARBONATE 500 MG CHEWABLE TAB PO PRN (09:36)
[2017-12-05] MEDS ORDERED: FUROSEMIDE 20 MG/2 ML VIAL IVP ONE (09:43)
[2017-12-05] MEDS: FLUTICASONE/SALMETER 250/50MCG DISKUS IH SCH ×2 (10:21→21:45)
--- NOTE | 2017-12-05 10:24 | HOSPPROG ---
Hospitalist Progress Note Assessment/Plan: * Acute respiratory failure s/p extubation -slow improvement - wean O2 -Will give additional IV lasix x 1 today. -needs stable O2 prior to SNF discharge * Viral PNA, possible bacterial (s/p abx) - possible ARDS -wean steroids slowly * Afib-persistent -DC amiodarone per pulmonary -metoprolol, diltiazem -Eliquis -cardioversion when respiratory status improves * Possible pulmonary edema -lasix per above * Leukocytosis - ? steroid effect -afebrile, monitor closely * Chronic ILD - ? silent aspiration vs NSIP * COPD - extensive smoking history -schedule nebs * CAD/CABG -recent outpatient stress test negative * HH/GERD * Constipation -bowel protocol -BM may help respiratory status Plan: -check CXR and BNP in a.m., can likely transition back to PO Lasix tomorrow -Cont PT/OT -Cardioversion per Cards -Steroids taper at current dose -Do not suspect infection contributing -D/W nursing team, CM, and Pharmacy during bedside rounds Subjective: Still with some SOB, but improved to 4 L yesterday. Now back to 5 L today. Objective: Vital Signs Temp Pulse Resp BP Pulse Ox 36.9 C 101 H 14 106/74 94 12/05/17 04:00 12/05/17 08:06 12/05/17 05:57 12/05/17 08:06 12/05/17 05:57 Laboratory Results 12/05/17 03:16 12/05/17 03:16 12/04/17 12/05/17 12/06/17 05:59 05:59 05:59 Intake Total 1140 2320 Output Total 1470 1080 Balance -330 1240 PT 20.2 SEC (12.0-15.0) H 11/16/17 18:15 INR 1.71 (0.83-1.16) H 11/16/17 18:15 - Physical Exam Constitutional: no apparent distress Eyes: PERRL Ears, Nose, Mouth, Throat: moist mucous membranes Cardiovascular: regular rate and rhythym Respiratory: no respiratory distress, reduced air movement Gastrointestinal: normoactive bowel sounds, soft, non-tender abdomen Genitourinary: no bladder fullness Skin: warm Neurologic: AAOx3 Psychiatric: interacting appropriately, not anxious, not encephalopathic Lymph, Heme, Immunologic: No petechiae ICD10 Worksheet Patient Problems: Problems Problem Status Onset Atrial fibrillation Acute Congestive heart failure Acute Hypoxemia Acute Dizziness Acute Ischemic cardiomyopathy Acute Near syncope Acute Symptomatic bradycardia Acute
--- NOTE | 2017-12-05 12:06 | ASMTCMCOM ---
CM Note CM Note Notes: Pts case discussed in morning rounds. At rest pt is at 5-8L of o2. While pt is walking pt is up to 16L of o2. The plan remains the same. Pt will d/c to [facility] when medically stable. CM to follow. Plan: [facility] Date Signed: 12/05/2017 12:06 PM Electronically Signed By:ARIC Augustin
[2017-12-05] MEDS: DILTIAZEM CD 120 MG CAP PO SCH (13:01)
--- NOTE | 2017-12-05 18:00 | SOAPPROG ---
SOAP Progress Note Assessment/Plan: Assessment: 77 M admitted with acute on chronic hypoxemia. He had new onset afib around 2016 treated with diltiazem, lasix and cardioversion. A CT 09/26/17 showed patchy ground glass infiltrates, but basilar honeycombing and mild traction bronchiectasis suggested NSIP. He also has a smoking history and PFTs that were not clearly. Developed increasing SOB 11/14 and was found to be hypoxic, new for him during the day. A repeat CT showed right>>left new significant infiltrates, and cultures grew enterovirus with a low procalcitonin. * Acute hypoxic respiratory failure- pulmonary infiltrates on admission likely represented a viral PNA rather than a sudden acceleration of the chronic process (uncommon) and treatment is largely supportive. Bronchoscopy revealed mild-moderate thick, sticky and clear secretions throughout the lungs without hemoptysis. At time of decompensation, solumedrol was increased to 60 q6. Has continued on steroids, now with prednisone at 40 mg per day. CTD serologies negative. Echo showed no significant change from 07/2017. Completed a course of impair treatment with with zosyn/zithro. Probable component of pulmonary edema/fluid overload, improved with Lasix. Hypoxemia significantly better: Now on 5-6 L. * Chronic ILD- Suspicious for silent aspiration given moderate hiatal hernia on CT and possible fleeting infiltrates. MBS does not show lidia aspiration, but antegrade reflux especially supine. He was on amiodarone briefly but now stopped secondary to possibility of pulmonary toxicity. * COPD- On Advair (started this admission), albuterol as well as steroids. Eventually repeat PFTs as an outpatient. * Afib- rate controlled on diltiazem and metoprolol. On Eliquis. Cardiology recommending outpatient cardioversion and ISABELLA. * Anemia: Mild, unchanged. Plan: Continue Lasix. Wean oxygen as tolerated. Increase activity/ mobilization. Continue prednisone at 40qd for now, bronchodilator therapies. Continue anticoagulation for atrial fibrillation. Follow laboratory, chest x- ray intermittently. Hopefully to inpatient rehabilitation verses [facility] in the next day or 2 . Subjective: Feels stronger. Some cough with sánchez sputum. No chest pain. Remains on 6 L Objective: Vital Signs Temp Pulse Resp BP Pulse Ox 36.7 C 129 H 21 H 102/78 91 L 12/05/17 17:20 12/05/17 17:20 12/05/17 17:20 12/05/17 17:20 12/05/17 17:20 Laboratory Results 12/05/17 03:16 12/05/17 03:16 12/04/17 12/05/17 12/06/17 05:59 05:59 05:59 Intake Total 1140 2320 600 Output Total 1470 1080 350 Balance -330 1240 250 PT 20.2 SEC (12.0-15.0) H 11/16/17 18:15 INR 1.71 (0.83-1.16) H 11/16/17 18:15 Physical Exam - Physical Exam General Appearance: alert, no apparent distress EENT: other (Nasal cannula at 6 L) Neck: normal inspection (No JVD) Respiratory: decreased breath sounds (Bilaterally), rales (Rales at bases bilaterally, improving. Less than 1/[address] currently), wheezing, No rhonchi (Mild central congestion with cough) Cardiac/Chest: tachycardia, irregularly irregular Abdomen: normal bowel sounds, non-tender, soft Skin: normal color, warm/dry Extremities: No pedal edema Neuro/Psych: no motor/sensory deficits, No cognition abnormalities ICD10 Worksheet Patient Problems: Problems Problem Status Onset Symptomatic bradycardia Acute Dizziness Acute Near syncope Acute Atrial fibrillation Acute Ischemic cardiomyopathy Acute Congestive heart failure Acute Hypoxemia Acute
[2017-12-05] MEDS: CALCIUM CARBONATE 500 MG CHEWABLE TAB PO SCH (21:37)
[2017-12-05] MEDS: ATORVASTATIN CALCIUM 40 MG TAB PO SCH (21:37)
[2017-12-05] MEDS: TRAVOPROST Z 0.004% 2.5 ML OPHT.BTL EACHEYE SCH (21:38)
[2017-12-06] MEDS: IPRATROPIUM/ALBUTEROL 3 ML DEYVIAL IH SCH ×3 (05:41→18:25)
[2017-12-06] MEDS: PANTOPRAZOLE SODIUM 40 MG TAB PO SCH (05:45)
[2017-12-06 06:08] LABS: PLATELET COUNT 204 10^3/uL (150-400)
[2017-12-06] MEDS: POLYETHYLENE GLYCOL 3350 17 GM PKT PO PRN (08:47)
[2017-12-06] MEDS: SENNOSIDES/DOCUSATE SODIUM TAB PO SCH ×2 (08:47→20:37)
[2017-12-06] MEDS: APIXABAN 5 MG TAB PO SCH ×2 (08:48→20:37)
[2017-12-06] MEDS: predniSONE 20 MG TAB PO SCH (08:48)
[2017-12-06] MEDS: FLUTICASONE/SALMETER 250/50MCG DISKUS IH SCH ×2 (08:48→18:27)
[2017-12-06] MEDS: guaiFENesin 600 MG TAB.ER PO SCH ×2 (08:48→20:37)
[2017-12-06] MEDS: ASPIRIN 81 MG CHEWABLE TAB PO SCH (08:48)
[2017-12-06] MEDS: FERROUS SULFATE 325 MG TAB PO SCH (08:48)
[2017-12-06] MEDS: CALCIUM CARBONATE 500 MG CHEWABLE TAB PO PRN (09:01)
--- NOTE | 2017-12-06 10:15 | HOSPPROG ---
Hospitalist Progress Note Assessment/Plan: * Acute respiratory failure s/p extubation -slow improvement - wean O2 -would like to give more lasix but limited by blood pressure -needs stable O2 prior to SNF discharge * Viral PNA, possible bacterial (s/p abx) - possible ARDS -wean steroids slowly * Afib-persistent -DC amiodarone per pulmonary -metoprolol, diltiazem but blood pressure is low - d/w cardiology, ?dig or cardioversion? -Eliquis -cardioversion when respiratory status improves * Possible pulmonary edema -lasix if blood pressure tolerates * Leukocytosis - ? steroid effect -afebrile, monitor closely * Chronic ILD - ? silent aspiration vs NSIP * COPD - extensive smoking history -schedule nebs qid - prednisone * CAD/CABG -recent outpatient stress test negative * HH/GERD * Constipation -bowel protocol -BM may help respiratory status Subjective: feels better today than any day in the hospital so far. feels less winded with exertion Objective: Vital Signs Temp Pulse Resp BP Pulse Ox 37.1 C 108 H 20 95/66 L 92 12/06/17 08:00 12/06/17 08:00 12/06/17 08:00 12/06/17 08:00 12/06/17 08:00 Laboratory Results 12/06/17 05:30 12/06/17 05:30 12/05/17 12/06/17 12/07/17 05:59 05:59 06:59 Intake Total 2320 950 Output Total 1080 650 Balance 1240 300 PT 20.2 SEC (12.0-15.0) H 11/16/17 18:15 INR 1.71 (0.83-1.16) H 11/16/17 18:15 - Physical Exam Constitutional: no apparent distress, appears nourished, not in pain Eyes: anicteric sclera, EOMI Ears, Nose, Mouth, Throat: moist mucous membranes, hearing normal Cardiovascular: irregularly irregular, tachycardia, edema (trace) Respiratory: no respiratory distress, rhonchi (christine right) Skin: warm Neurologic: AAOx3 Psychiatric: interacting appropriately, not anxious, not encephalopathic, thought process linear ICD10 Worksheet Patient Problems: Problems Problem Status Onset Atrial fibrillation Acute Congestive heart failure Acute Hypoxemia Acute Dizziness Acute Ischemic cardiomyopathy Acute Near syncope Acute Symptomatic bradycardia Acute
--- NOTE | 2017-12-06 11:36 | PDCARPN ---
Cardiology Progress Note Chief Complaint: Atrial fibrillation with rapid ventricular response Assessment/Plan: Assessment: 1. CAD status post CABG 2. COPD, query interstitial lung disease, query pneumonia 3. Atrial fibrillation with rapid ventricular response Plan: Asked to see patient again by Dr. Jammie Kim. Difficulty in controlling ventricular rates since amiodarone has been discontinued because of interstitial lung disease. -blood pressures are in the 90s, reduce metoprolol to 25 mg twice daily -start digoxin 0.25 mg daily -not a candidate for cardioversion for 2 reasons - high risk for sedation an adverse outcome related to sedation because of pulmonary status, also because of pulmonary status likely to have recurrent atrial fibrillation. Once lung disease is stable, cardioversion can be considered. 12/06/17 11:34 Subjective: Shortness of breath Reviewed/Discussed With: multidisciplinary team Time Spent With Patient: 15 min Objective: Vital Signs (8 Hrs) Temp Pulse Resp BP Pulse Ox 12/06/17 11:15 36.9 C 100 12 94/68 L 96 12/06/17 08:00 37.1 C 108 H 20 95/66 L 92 12/06/17 05:41 104 H 23 H 90 L 12/06/17 04:00 36.5 C 91 19 96/69 L 91 L Intake/Output (24 Hrs) 12/04/17 12/05/17 12/06/17 11:59 11:59 11:59 Intake Total 1140 2920 350 Output Total 1170 1080 650 Balance -30 1840 -300 Intake: Oral (ml) 1140 2920 350 Output: Urine (ml) 1170 1080 650 Bedside Commode 720 600 Urinal 450 480 650 Other: Weight 78.2 kg 78.426 kg Intake Quantity Yes Yes Yes Sufficient Number of Voids Bedside Commode 4 3 Urinal 1 1 Result Diagrams: 12/06/17 05:30 12/06/17 05:30 Telemetry: Atrial fibrillation with heart rate between 110-120 beats per minute at rest ICD10 Worksheet Patient Problems: Problems Problem Status Onset Symptomatic bradycardia Acute Dizziness Acute Near syncope Acute Atrial fibrillation Acute Ischemic cardiomyopathy Acute Congestive heart failure Acute Hypoxemia Acute
[2017-12-06] MEDS: DILTIAZEM CD 120 MG CAP PO SCH (12:28)
[2017-12-06] MEDS: METOPROLOL TARTRATE 50 MG TAB PO SCH (12:30)
--- NOTE | 2017-12-06 16:02 | SOAPPROG ---
SOAP Progress Note Assessment/Plan: Assessment: 77 M admitted with acute on chronic hypoxemia. He had new onset afib around 2016 treated with diltiazem, lasix and cardioversion. A CT 09/26/17 showed patchy ground glass infiltrates, but basilar honeycombing and mild traction bronchiectasis suggested NSIP. He also has a smoking history and PFTs that were not clearly. Developed increasing SOB 11/14 and was found to be hypoxic, new for him during the day. A repeat CT showed right>>left new significant infiltrates, and cultures grew enterovirus with a low procalcitonin. * Acute hypoxic respiratory failure- pulmonary infiltrates on admission likely represented a viral PNA rather than a sudden acceleration of the chronic process (uncommon) and treatment is largely supportive. Bronchoscopy revealed mild-moderate thick, sticky and clear secretions throughout the lungs without hemoptysis. At time of decompensation, solumedrol was increased to 60 q6. Has continued on steroids, now with prednisone at 40 mg per day. CTD serologies negative. Echo showed no significant change from 07/2017. Completed a course of empiric treatment with with zosyn/zithro. Probable component of pulmonary edema/fluid overload, improved with Lasix. Hypoxemia significantly better: Now on 6 L,stable over a number of days.. * Chronic ILD- Suspicious for silent aspiration given moderate hiatal hernia on CT and possible fleeting infiltrates. MBS does not show lidia aspiration, but antegrade reflux especially supine. He was on amiodarone briefly but now stopped secondary to possibility of pulmonary toxicity. * COPD- On Advair (started this admission), albuterol as well as steroids. Eventually repeat PFTs as an outpatient. * Afib- rate controlled on diltiazem and metoprolol, digoxin added. On Eliquis. Cardiology has put cardioversion on hold pending improvement in pulmonary status. * Anemia: Mild, unchanged. Plan: Resume Lasix 20 p.o. Q.day. Continue oxygen as needed. Okay as far as I am concerned for sats to be 87 or 88% with exertion. Increase activity/ mobilization. Continue prednisone at 40qd for now, bronchodilator therapies. Continue anticoagulation for atrial fibrillation. Follow laboratory, chest x- ray intermittently. Possibly could go home with home care from my perspective. He is stable from a pulmonary standpoint and hypoxemia is going to improve slowly. If this is not felt to be possible then to inpatient rehabilitation verses [facility] in the near future. Discussed with the patient and his , discharge planning. Subjective: Feels stronger. Less cough, no significant mucus today. Still on oxygen at approximately 6 L. Increased with exertion. No chest pain. Objective: Vital Signs Temp Pulse Resp BP Pulse Ox 36.5 C 110 H 22 H 106/78 91 L 12/06/17 12:00 12/06/17 12:30 12/06/17 12:30 12/06/17 12:28 12/06/17 12:30 Laboratory Results 12/06/17 05:30 12/06/17 05:30 12/05/17 12/06/17 12/07/17 05:59 05:59 06:59 Intake Total 2320 950 Output Total 1080 650 300 Balance 1240 300 -300 PT 20.2 SEC (12.0-15.0) H 11/16/17 18:15 INR 1.71 (0.83-1.16) H 11/16/17 18:15 CXR: No significant change since his previous chest x-ray 3 days prior regarding diffuse interstitial changes. Improved compared with earlier studies Physical Exam - Physical Exam General Appearance: alert, no apparent distress, other (In chair) EENT: PERRL/EOMI, other (Oxygen in place at 3 L) Neck: normal inspection (No JVD) Respiratory: decreased breath sounds, rales (Bilaterally at the bases, less than 1/3 up) Cardiac/Chest: irregularly irregular Abdomen: normal bowel sounds, non-tender, soft Skin: normal color, warm/dry Extremities: No pedal edema Neuro/Psych: no motor/sensory deficits, No cognition abnormalities ICD10 Worksheet Patient Problems: Problems Problem Status Onset Symptomatic bradycardia Acute Dizziness Acute Near syncope Acute Atrial fibrillation Acute Ischemic cardiomyopathy Acute Congestive heart failure Acute Hypoxemia Acute
[2017-12-06] MEDS: ATORVASTATIN CALCIUM 40 MG TAB PO SCH (20:37)
[2017-12-06] MEDS: CALCIUM CARBONATE 500 MG CHEWABLE TAB PO SCH (20:37)
[2017-12-06] MEDS: METOPROLOL TARTRATE 25 MG TAB PO SCH (20:38)
[2017-12-06] MEDS: TRAVOPROST Z 0.004% 2.5 ML OPHT.BTL EACHEYE SCH (20:41)
[2017-12-07] MEDS: IPRATROPIUM/ALBUTEROL 3 ML DEYVIAL IH SCH ×4 (00:32→16:28)
[2017-12-07] MEDS: PANTOPRAZOLE SODIUM 40 MG TAB PO SCH (05:32)
--- NOTE | 2017-12-07 09:02 | HOSPPROG ---
Hospitalist Progress Note Assessment/Plan: * Acute respiratory failure s/p extubation -slow improvement - O2 requirement is improving -could probably go to SNF or home tomorrow * Viral PNA, possible bacterial (s/p abx) - possible ARDS -wean steroids slowly * Afib-persistent -DC amiodarone per pulmonary -metoprolol, diltiazem but blood pressure is low - d/w cardiology, dioxin added and metoprolol decreased to help BP -Eliquis -cardioversion when respiratory status improves * Possible pulmonary edema -lasix restarted * Leukocytosis - ? steroid effect -afebrile, monitor closely * Chronic ILD - ? silent aspiration vs NSIP * COPD - extensive smoking history -schedule nebs qid - prednisone * CAD/CABG -recent outpatient stress test negative * HH/GERD * Constipation -bowel protocol -BM may help respiratory status * Disposition * SNF vs home with home health tomorrow most likely. He has good support at home. Will see what PT says today Subjective: conts to improve Objective: Vital Signs Temp Pulse Resp BP Pulse Ox 36.8 C 80 22 H 110/74 95 12/07/17 08:00 12/07/17 08:45 12/07/17 08:45 12/07/17 08:00 12/07/17 08:45 Laboratory Results 12/06/17 05:30 12/06/17 05:30 12/06/17 12/07/17 12/08/17 04:59 05:59 05:59 Intake Total Output Total Balance PT 20.2 SEC (12.0-15.0) H 11/16/17 18:15 INR 1.71 (0.83-1.16) H 11/16/17 18:15 - Physical Exam Constitutional: no apparent distress, appears nourished, not in pain Eyes: anicteric sclera, EOMI Ears, Nose, Mouth, Throat: moist mucous membranes, hearing normal Cardiovascular: irregularly irregular, edema (trace) Respiratory: no respiratory distress, rhonchi (right side, pretty good air movement) Gastrointestinal: normoactive bowel sounds, soft, non-tender abdomen, no palpable masses Skin: warm Neurologic: AAOx3 Psychiatric: interacting appropriately, not anxious, not encephalopathic, thought process linear ICD10 Worksheet Patient Problems: Problems Problem Status Onset Atrial fibrillation Acute Congestive heart failure Acute Hypoxemia Acute Dizziness Acute Ischemic cardiomyopathy Acute Near syncope Acute Symptomatic bradycardia Acute
[2017-12-07] MEDS: POLYETHYLENE GLYCOL 3350 17 GM PKT PO PRN (09:06)
[2017-12-07] MEDS: SENNOSIDES/DOCUSATE SODIUM TAB PO SCH ×2 (09:07→20:11)
[2017-12-07] MEDS: ASPIRIN 81 MG CHEWABLE TAB PO SCH (09:07)
[2017-12-07] MEDS: METOPROLOL TARTRATE 25 MG TAB PO SCH ×2 (09:07→20:12)
[2017-12-07] MEDS: APIXABAN 5 MG TAB PO SCH ×2 (09:07→20:12)
[2017-12-07] MEDS: FERROUS SULFATE 325 MG TAB PO SCH (09:07)
[2017-12-07] MEDS: guaiFENesin 600 MG TAB.ER PO SCH ×2 (09:07→20:12)
[2017-12-07] MEDS: FUROSEMIDE 20 MG TAB PO SCH (09:07)
[2017-12-07] MEDS: predniSONE 20 MG TAB PO SCH (09:08)
[2017-12-07] MEDS: CALCIUM CARBONATE 500 MG CHEWABLE TAB PO PRN (09:18)
[2017-12-07] MEDS: DIGOXIN 250 MCG TAB PO SCH (12:26)
[2017-12-07] MEDS: DILTIAZEM CD 120 MG CAP PO SCH (12:26)
[2017-12-07] MEDS: FLUTICASONE/SALMETER 250/50MCG DISKUS IH SCH ×2 (12:29→21:36)
--- NOTE | 2017-12-07 16:52 | PDINTPN ---
[employer] Progress Note Assessment/Plan: Assessment: 77 M admitted with acute on chronic hypoxemia. He had new onset afib around 2016 treated with diltiazem, lasix and cardioversion. A CT 09/26/17 showed patchy ground glass infiltrates, but basilar honeycombing and mild traction bronchiectasis suggested NSIP. He also has a smoking history and PFTs that were not clearly. Developed increasing SOB 11/14 and was found to be hypoxic, new for him during the day. A repeat CT showed right>>left new significant infiltrates, and cultures grew enterovirus with a low procalcitonin. * Acute hypoxic respiratory failure- pulmonary infiltrates on admission likely represented a viral PNA rather than a sudden acceleration of the chronic process (uncommon) and treatment is largely supportive. Bronchoscopy revealed mild-moderate thick, sticky and clear secretions throughout the lungs without hemoptysis. At time of decompensation, solumedrol was increased to 60 q6. Has continued on steroids, now with prednisone at 40 mg per day. CTD serologies negative. Echo showed no significant change from 07/2017. Completed a course of empiric treatment with with zosyn/zithro. Probable component of pulmonary edema/fluid overload, improved with Lasix. Hypoxemia significantly better: Now on 6 L at rest, stable over a number of days. Chest x-ray also appears stable but diffuse infiltrates persist. Current difficulties likely represent underlying interstitial disease worsened by viral pneumonia with a possible post inflammatory fibrosis now and or a component of ARDS. * Chronic ILD- Suspicious for silent aspiration given moderate hiatal hernia on CT and possible fleeting infiltrates. MBS does not show lidia aspiration, but antegrade reflux especially supine. He was on amiodarone briefly but stopped secondary to possibility of pulmonary toxicity. * COPD- On Advair (started this admission), albuterol as well as steroids. Eventually repeat PFTs as an outpatient. * Afib- rate controlled on diltiazem and metoprolol, digoxin added. On Eliquis. Cardiology following, has put cardioversion on hold pending improvement in pulmonary status. * Anemia: Mild, last hematocrit 33, unchanged. Plan: Continue Lasix 20 p.o. Q.day for now. Continue oxygen. Okay as far as I am concerned for sats to be 86 to 88% with exertion, but not 83%. Increase activity/mobilization. Continue prednisone at 40qd for now, bronchodilator therapies. Continue anticoagulation for atrial fibrillation. Follow laboratory , chest x-ray intermittently. Possibly could go home with home care from my perspective. He is stable from a pulmonary standpoint and hypoxemia is going to improve slowly. If this is not felt to be possible then to [facility] in the near future. Apparently not a candidate for [facility] inpatient rehab. Discussed with the patient and his and son. Addendum: Patient ambulated up and down the perez on 6 L initially. Saturations to start were 95%. With ambulating on 6 L, midway up the perez, he had to stop a couple of times secondary to dyspnea. Saturations dropped to 83% . Put on 10 L and continued ambulation. He did much better with this but still had to stop once on return down the long hallway. Obviously was dyspneic but this was only mild to moderate compared to his baseline. Saturations on 10 L at the lowest at the end of the walk were 83%. He recovered fairly quickly on 6 L. Pulse increased to approximately 120. Subjective: Feels he is doing better, is stronger. However oxygen needs and shortness of breath/dyspnea with exertion about the same Objective: Vital Signs Temp Pulse Resp BP Pulse Ox 36.8 C 86 20 94/68 L 96 12/07/17 12:00 12/07/17 16:28 12/07/17 16:28 12/07/17 12:00 12/07/17 16:28 Laboratory Results 12/06/17 05:30 12/06/17 05:30 12/06/17 12/07/17 12/08/17 04:59 05:59 05:59 Intake Total Output Total Balance PT 20.2 SEC (12.0-15.0) H 11/16/17 18:15 INR 1.71 (0.83-1.16) H 11/16/17 18:15 Laboratory Tests 12/06/17 05:30 NT-Pro-B Natriuret Pep 1160 H Physical Exam - Physical Exam General Appearance: alert, no apparent distress, other (Up in chair eating) EENT: PERRL/EOMI, other (On oxygen at 6 L) Neck: normal inspection Respiratory: decreased breath sounds (At bases), rales (Bibasilar rales approximately 1/3 up, no significant change), No rhonchi, No wheezing Cardiac/Chest: regular rate, rhythm Abdomen: normal bowel sounds, non-tender, soft Skin: normal color, warm/dry Extremities: No pedal edema Neuro/Psych: no motor/sensory deficits, No cognition abnormalities ICD10 Worksheet Patient Problems: Problems Problem Status Onset Symptomatic bradycardia Acute Dizziness Acute Near syncope Acute Atrial fibrillation Acute Ischemic cardiomyopathy Acute Congestive heart failure Acute Hypoxemia Acute
--- NOTE | 2017-12-07 16:58 | PDCARPN ---
Cardiology Progress Note Chief Complaint: Patient doing well today - reportedly the "best day" he's had since admission to the hospital Assessment/Plan: Assessment: 12-07-17 Hypotension was appreciated yesterday, and beta blockers were reduced. Digoxin was added and calcium channel blockers continued. Heart rates are better controlled today. Patient feeling well and with ongoing respiratory treatment at present. 12-04-17 No cardiovascular complaints. Breathing feeling much better for the patient today. Ongoing atrial fibrillation is noted with rates that are semi controlled. No complaints of chest pains or pressure. PO intake has been good. Sleep was great last night. 12-03-17 Overall, patient is doing well. Yesterday, there were more issues with dyspnea and limited activity. Today, there is mention of epigastric discomfort. This appears to be improving from the patients reports. Heart rates continue to be elevated (120's). No chest pains or pressure. Ongoing dyspnea and inability to feel as if a breath is full. Patient continues to use IS and flutter valve. CXR with improvements in comparison to three days prior. 12-02-17 Patient up in chair today, but not feeling quite as good today as compared to yesterday. Patient with ongoing elevation in heart rates with minimal activity. Furthermore, desaturations are easily noted with movement. No complaints of chest pains or pressure. No PND or orthopnea. PT was working with the patient today. Breath sounds continue to include wheezing and diminished air movement. Ongoing atrial fibrillation with rapid ventricular response (moreso with activity, rather than with rest). Plans as of yesterday were to refrain from ISABELLA with possible cardioversion if pulmonary status continues to be less than normal for the patient. 12-01-17 Patient is a 77 y/o male with history of atrial fibrillation with controlled ventricular response (moreso in the past, not as much today), CAD s/p CABG ( remotely), COPD, HTN, and HLP, with recent cessation of Amiodarone therapy given concerns about pulmonary effect. Today, the patient returned to atrial fibrillation with rapid ventricular response. The patient was last seen by cardiology back on 11/24/17, and since that time has done well. No cardiovascular complaints of chest pains or pressure. No PND or orthopnea. Mild dyspnea continues to be noted, and slow improvement in oxygen requirements has been appreciated. Steroid wean is ongoing (recent viral pneumonia with possible bacterial involvement). Outpatient plans, according to the patient and family, were for the patient to have ISABELLA with possible cardioversion in two days (Dr. Kimberly Luo). Plan: (1) One week post discharge with [facility] for discussion about scheduling of ISABELLA with possible cardioversion (2) Continue Eliquis for CVA prophylaxis (3) Cardizem and Lopressor (lower dose) and newly added digoxin to continue for rate control assistance as well as HTN control (4) ASA should continue with CAD/CABG history (5) Statins for HLP to continue Subjective: Overall, patient is feeling well. Reviewed/Discussed With: multidisciplinary team Objective: Vital Signs (8 Hrs) Temp Pulse Resp BP Pulse Ox 12/07/17 12:00 36.8 C 107 H 20 94/68 L 83 L 12/07/17 11:12 115 H 89 L 12/07/17 09:12 92 Intake/Output (24 Hrs) 12/06/17 12/07/17 12/08/17 04:59 05:59 05:59 Intake Total Output Total Balance Intake: Oral (ml) Output: Urine (ml) Toilet Urinal Other: Weight Intake Quantity Sufficient Number of Stools Toilet Result Diagrams: 12/06/17 05:30 12/06/17 05:30 Telemetry: atrial fibrillation with rates of 100-110 bpm - Physical Exam Constitutional: WDWN, healthy appearing, no apparent distress Eyes: PERRL, EOMI Ears, Nose, Mouth, Throat: moist mucous membranes Cardiovascular: systolic murmur, irregularly irregular, pulses symmetric bilat, No jugular vein distention Peripheral Pulses: 2+: dorsalis-pedis (R), dorsalis-pedis (L) Respiratory: clear to auscultate bilat, reduced air movement, expiratory wheeze Gastrointestinal: normoactive bowel sounds Skin: no rashes Musculoskeletal: no muscular tenderness Neurologic: AAOx3, CN II-XII grossly intact Psychiatric: cooperative, interactive, following commands ICD10 Worksheet Patient Problems: Problems Problem Status Onset Atrial fibrillation Acute Congestive heart failure Acute Hypoxemia Acute Dizziness Acute Ischemic cardiomyopathy Acute Near syncope Acute Symptomatic bradycardia Acute
[2017-12-07] MEDS: CALCIUM CARBONATE 500 MG CHEWABLE TAB PO SCH ×2 (18:43→20:12)
[2017-12-07] MEDS: ATORVASTATIN CALCIUM 40 MG TAB PO SCH (20:12)
[2017-12-07] MEDS: TRAVOPROST Z 0.004% 2.5 ML OPHT.BTL EACHEYE SCH (20:15)
[2017-12-07] MEDS: MAGNESIUM HYDROXIDE 30 ML UDCUP PO PRN (20:20)
[2017-12-08] MEDS: IPRATROPIUM/ALBUTEROL 3 ML DEYVIAL IH SCH ×5 (00:11→22:53)
[2017-12-08 04:34] LABS: PLATELET COUNT 157 10^3/uL (150-400)
[2017-12-08] MEDS: PANTOPRAZOLE SODIUM 40 MG TAB PO SCH (06:07)
[2017-12-08] MEDS: FLUTICASONE/SALMETER 250/50MCG DISKUS IH SCH ×2 (08:14→20:02)
[2017-12-08] MEDS: FUROSEMIDE 20 MG TAB PO SCH (08:16)
[2017-12-08] MEDS: DIGOXIN 250 MCG TAB PO SCH (08:16)
[2017-12-08] MEDS: POLYETHYLENE GLYCOL 3350 17 GM PKT PO PRN (08:17)
[2017-12-08] MEDS: ASPIRIN 81 MG CHEWABLE TAB PO SCH (08:17)
[2017-12-08] MEDS: METOPROLOL TARTRATE 25 MG TAB PO SCH ×2 (08:17→20:00)
[2017-12-08] MEDS: FERROUS SULFATE 325 MG TAB PO SCH (08:17)
[2017-12-08] MEDS: APIXABAN 5 MG TAB PO SCH ×2 (08:17→20:00)
[2017-12-08] MEDS: SENNOSIDES/DOCUSATE SODIUM TAB PO SCH ×2 (08:17→20:00)
[2017-12-08] MEDS: guaiFENesin 600 MG TAB.ER PO SCH ×2 (08:17→20:00)
[2017-12-08] MEDS: predniSONE 20 MG TAB PO SCH (08:17)
[2017-12-08] MEDS: DILTIAZEM CD 120 MG CAP PO SCH (13:13)
--- NOTE | 2017-12-08 14:11 | HOSPPROG ---
Hospitalist Progress Note Assessment/Plan: 77-year-old admitted with increasing shortness of breath found to have abnormal CT scan with possible ILD. Evaluation here suggests likely viral pneumonia on top of possible ILD versus silent aspiration he has improved slowly over the course of his prolonged hospitalization. He was admitted to the intensive care unit requiring ventilatory support has been extubated and has slowly improved but still continues to require high oxygen needs. # acute respiratory failure status post extubation. Slow improvement but O2 requirement still high. Will likely need skilled rehab mainly because of his high oxygen needs. Etiology likely viral pneumonia in the setting of possible ILD * Work on disposition * Continue oxygen as needed # viral pneumonia status post antibiotics for possible bacterial pneumonia * Slow wean of steroids # persistent AFib. Status post amiodarone which has been discontinued due to his pulmonary issues * Metoprolol and digoxin for rate control * Eliquis for anticoagulation * Cardioversion once respiratory status is improved # possible pulmonary edema, will continue low-dose oral Lasix. # leukocytosis likely secondary to steroids will follow # chronic interstitial lung disease versus silent aspiration versus NSIP * Pulmonary follow-up # COPD with extensive smoking history * Continue prednisone taper * Schedule nebs * Pulmonary follow-up # CAD status post CABG recent negative stress test # hiatal hernia/GERD currently on PPI * Disposition * SNF vs home with home health tomorrow most likely. He has good support at home. Will see what PT says today Subjective: Patient new to me and chart reviewed. Feels well. Still requires increased oxygen with any ambulation. No chest pain Objective: Vital Signs Temp Pulse Resp BP Pulse Ox 36.4 C 76 20 100/65 94 12/08/17 12:00 12/08/17 12:00 12/08/17 12:00 12/08/17 12:00 12/08/17 12:00 Laboratory Results 12/08/17 03:08 12/08/17 03:08 12/07/17 12/08/17 12/09/17 05:59 05:59 05:59 Intake Total 1370 1000 Output Total 970 500 Balance 400 500 PT 20.2 SEC (12.0-15.0) H 11/16/17 18:15 INR 1.71 (0.83-1.16) H 11/16/17 18:15 - Physical Exam Constitutional: no apparent distress Eyes: PERRL, anicteric sclera Ears, Nose, Mouth, Throat: moist mucous membranes Cardiovascular: irregularly irregular Respiratory: reduced air movement, inspiratory crackles, respiratory distress Gastrointestinal: normoactive bowel sounds Genitourinary: no bladder fullness Skin: warm Musculoskeletal: generalized weakness Neurologic: AAOx3 Psychiatric: interacting appropriately, not anxious ICD10 Worksheet Patient Problems: Problems Problem Status Onset Symptomatic bradycardia Acute Dizziness Acute Near syncope Acute Atrial fibrillation Acute Ischemic cardiomyopathy Acute Congestive heart failure Acute Hypoxemia Acute
--- NOTE | 2017-12-08 16:31 | ASMTCMCOM ---
CM Note CM Note Notes: Patient seen in rounds. He has a referral to [place]. Still requires high oxygen needs when ambulating. Call to [facility] at [place] to make sure they can accommodate those needs. Per [facility] can only provide up to 10 liters of oxygen. MD notified. Plan is discharge to SNF. when medically stable. CM to follow. Date Signed: 12/08/2017 04:30 PM Electronically Signed By:Marlen Lopez RN
[2017-12-08] MEDS ORDERED: CANN-EASE 2 GM TUBE TP ONE (16:37)
[2017-12-08] MEDS: CALCIUM CARBONATE 500 MG CHEWABLE TAB PO SCH (20:00)
[2017-12-08] MEDS: ATORVASTATIN CALCIUM 40 MG TAB PO SCH (20:00)
[2017-12-08] MEDS: TRAVOPROST Z 0.004% 2.5 ML OPHT.BTL EACHEYE SCH (20:02)
[2017-12-09] MEDS: IPRATROPIUM/ALBUTEROL 3 ML DEYVIAL IH SCH ×4 (05:59→22:34)
[2017-12-09] MEDS: PANTOPRAZOLE SODIUM 40 MG TAB PO SCH (06:17)
[2017-12-09] MEDS: FUROSEMIDE 20 MG TAB PO SCH (09:29)
[2017-12-09] MEDS: ASPIRIN 81 MG CHEWABLE TAB PO SCH (09:30)
[2017-12-09] MEDS: METOPROLOL TARTRATE 25 MG TAB PO SCH ×2 (09:30→20:30)
[2017-12-09] MEDS: predniSONE 20 MG TAB PO SCH (09:30)
[2017-12-09] MEDS: FERROUS SULFATE 325 MG TAB PO SCH (09:30)
[2017-12-09] MEDS: APIXABAN 5 MG TAB PO SCH ×2 (09:30→20:30)
[2017-12-09] MEDS: guaiFENesin 600 MG TAB.ER PO SCH ×2 (09:30→20:30)
[2017-12-09] MEDS ORDERED: FUROSEMIDE 20 MG/2 ML VIAL IVP ONE (10:30)
--- NOTE | 2017-12-09 10:33 | HOSPPROG ---
Hospitalist Progress Note Assessment/Plan: 77-year-old admitted with increasing shortness of breath found to have abnormal CT scan with possible ILD. Evaluation here suggests likely viral pneumonia on top of possible ILD versus silent aspiration he has improved slowly over the course of his prolonged hospitalization. He was admitted to the intensive care unit requiring ventilatory support has been extubated and has slowly improved but still continues to require high oxygen needs. Yesterday he needed over 12 L with exertion. The custodial can only take needs up to 10 L. He did gain a couple lb overnight and has increased edema today. # acute respiratory failure status post extubation. Slow improvement but O2 requirement still high. Will likely need skilled rehab mainly because of his high oxygen needs. Etiology likely viral pneumonia in the setting of possible ILD * Work on disposition * Continue oxygen as needed * Give IV Lasix x1 today. Consider increasing to 40 daily orally # viral pneumonia status post antibiotics for possible bacterial pneumonia * Slow wean of steroids # persistent AFib. Status post amiodarone which has been discontinued due to his pulmonary issues * Metoprolol and digoxin for rate control * Eliquis for anticoagulation * Cardioversion once respiratory status is improved * Recheck ditch level # possible pulmonary edema, will continue low-dose oral Lasix. * Add extra dose of Lasix today # leukocytosis likely secondary to steroids will follow # chronic interstitial lung disease versus silent aspiration versus NSIP * Pulmonary follow-up # COPD with extensive smoking history * Continue prednisone taper * Schedule nebs * Pulmonary follow-up # CAD status post CABG recent negative stress test # hiatal hernia/GERD currently on PPI * Disposition * SNF vs home with home health tomorrow most likely. He has good support at home. Will see what PT says today. Skilled can only take needs up to 10 liters /minute of oxygen Subjective: Patient feels like his feet are more swollen today he does feel better than yesterday but does note increased weight today. Objective: Vital Signs Temp Pulse Resp BP Pulse Ox 36.7 C 94 16 102/65 93 12/09/17 07:25 12/09/17 07:25 12/09/17 07:25 12/09/17 07:25 12/09/17 07:25 Microbiology 11/20/17 11:15 Mycobacterial Smear (GRECIA) - Final Lung - Bronchial Washings Laboratory Results 12/08/17 03:08 12/08/17 03:08 12/08/17 12/09/17 12/10/17 05:59 05:59 05:59 Intake Total 1370 2200 300 Output Total 970 1000 275 Balance 400 1200 25 PT 20.2 SEC (12.0-15.0) H 11/16/17 18:15 INR 1.71 (0.83-1.16) H 11/16/17 18:15 - Physical Exam Constitutional: chronically ill appearing Eyes: PERRL, anicteric sclera Ears, Nose, Mouth, Throat: moist mucous membranes Cardiovascular: regular rate and rhythym, systolic murmur Respiratory: reduced air movement, respiratory distress Gastrointestinal: soft, non-tender abdomen Genitourinary: no bladder fullness Skin: normal color Musculoskeletal: full muscle strength Neurologic: AAOx3 Psychiatric: interacting appropriately ICD10 Worksheet Patient Problems: Problems Problem Status Onset Symptomatic bradycardia Acute Dizziness Acute Near syncope Acute Atrial fibrillation Acute Ischemic cardiomyopathy Acute Congestive heart failure Acute Hypoxemia Acute
[2017-12-09] MEDS: FLUTICASONE/SALMETER 250/50MCG DISKUS IH SCH ×2 (10:35→22:34)
[2017-12-09] MEDS: SENNOSIDES/DOCUSATE SODIUM TAB PO SCH ×2 (11:47→20:31)
[2017-12-09] MEDS: DILTIAZEM CD 120 MG CAP PO SCH (11:47)
[2017-12-09] MEDS: DIGOXIN 250 MCG TAB PO SCH (13:07)
[2017-12-09] MEDS: ATORVASTATIN CALCIUM 40 MG TAB PO SCH (20:30)
[2017-12-09] MEDS: CALCIUM CARBONATE 500 MG CHEWABLE TAB PO SCH (20:30)
[2017-12-09] MEDS: TRAVOPROST Z 0.004% 2.5 ML OPHT.BTL EACHEYE SCH (20:32)
[2017-12-10] MEDS: PANTOPRAZOLE SODIUM 40 MG TAB PO SCH (04:43)
[2017-12-10] MEDS: IPRATROPIUM/ALBUTEROL 3 ML DEYVIAL IH SCH ×2 (06:22→11:00)
[2017-12-10] MEDS: ASPIRIN 81 MG CHEWABLE TAB PO SCH (10:09)
[2017-12-10] MEDS: guaiFENesin 600 MG TAB.ER PO SCH (10:09)
[2017-12-10] MEDS: FERROUS SULFATE 325 MG TAB PO SCH (10:10)
[2017-12-10] MEDS: APIXABAN 5 MG TAB PO SCH (10:10)
[2017-12-10] MEDS: FUROSEMIDE 20 MG TAB PO SCH (10:10)
[2017-12-10] MEDS: SENNOSIDES/DOCUSATE SODIUM TAB PO SCH (10:11)
[2017-12-10] MEDS: predniSONE 20 MG TAB PO SCH (10:11)
[2017-12-10] MEDS: DIGOXIN 250 MCG TAB PO SCH (10:11)
[2017-12-10] MEDS: METOPROLOL TARTRATE 25 MG TAB PO SCH (10:11)
--- NOTE | 2017-12-10 10:37 | PDIAF ---
- Diagnosis Diagnosis: Afib and Viral pna Code Status: Full Code - Medication Management Discharge Medications: Medications to Continue on Transfer Atorvastatin Calcium [Lipitor 40 mg (*)] 40 mg PO HS 09/24/09 [Last Taken ] Glucosamine/Chondroitin [Glucosamine/Chondroitin (*)] 1 each PO DAILY 09/24/09 [ Last Taken 08/12/17] Travoprost Z 0.004% [Travatan Z 0.004% (*)] 1 drops EACHEYE HS 09/24/09 [Last Taken 11/15/17] Ferrous Sulfate [Ferrous Sulf 325 MG (*)] 325 mg PO DAILY 05/14/17 [Last Taken 05/13/17] Multivitamins [Multivitamin (*)] 1 each PO DAILY 05/14/17 [Last Taken 08/12/17] Calcium Carbonate [Tums 500MG (*)] 1,000 mg PO Q2D 08/12/17 [Last Taken 08/12/17 ] Herbals/Supplements -Info Only 1 ea PO DAILY 08/12/17 [Last Taken 08/12/17] Apixaban [Eliquis] 5 mg PO BID #60 tab 08/14/17 [Last Taken 11/16/17] Metoprolol Tartrate [Lopressor 50 mg (*)] 50 mg PO BID #60 tab 08/14/17 [Last Taken 11/16/17] Acetaminophen [Tylenol 325mg (*)] 650 mg PO Q4H PRN tab 12/10/17 [Last Taken Unknown] Albuterol [Proventil Neb] 3 ml IH Q2HRS PRN deyvial 12/10/17 [Last Taken Unknown] Aspirin [Aspirin 81mg (*)] 81 mg PO DAILY tab.chew 12/10/17 [Last Taken Unknown ] Digoxin [Lanoxin 250 mcg (RX)] 250 mcg PO DAILY AT 10AM tab 12/10/17 [Last Taken Unknown] Diltiazem Cd [Cardizem ER 120 MG (*)] 120 mg PO DAILY@1200 cap 12/10/17 [Last Taken Unknown] Fluticasone/Salmeter 250/50Mcg [Advair 250/50 (*)] 1 puffs IH BID disk [Last Taken Unknown] Furosemide [Lasix 20 MG (*)] 20 mg PO DAILY tab 12/10/17 [Last Taken Unknown] Ipratropium/Albuterol [Duoneb (*)] 3 ml IH Q6 deyvial 12/10/17 [Last Taken Unknown] Pantoprazole Sodium [Protonix 40mg (*)] 40 mg PO DAILY@0600 tab 12/10/17 [Last Taken Unknown] Polyethylene Glycol 3350 [Miralax 17 gm (*)] 17 gm PO DAILY PRN pkt 12/10/17 [ Last Taken Unknown] Sennosides/Docusate Sodium [Senokot-S] 1 - 2 tab PO BID tab 12/10/17 [Last Taken Unknown] Sodium Cl Nasal [[place] (*)] 1 spray EACHNARE PRN PRN btl 12/10/17 [Last Taken Unknown] guaiFENesin [Mucinex 600 MG (*)] 600 mg PO BID tab.er 12/10/17 [Last Taken Unknown] predniSONE 40 mg PO DAILY tablet 12/10/17 [Last Taken Unknown] Discharge Medications: Refer to the Discharge Home Medication list for PRN reason. - Orders Services needed: Registered Nurse, Physical Therapy, Occupational Therapy Diet Recommendation: cardiac -low fat low salt Diet Texture: Regular Texture Diet, Thin Liquids, Meds Whole w/Liquids - Follow Up Care Current Providers and Referrals: Chon Urbina MD [Primary Care Provider] - As per Instructions Rick Hernandez MD [Medical Doctor] -
[2017-12-10 10:53] VITALS: TEMP 97.5
--- NOTE | 2017-12-10 10:57 | ASMTLACE ---
LACE Length of stay for Answers: 14 days or more current admission Acuity / Level of Answers: Yes Care: Did the patient have an inpatient admission? Comorbidities - select Answers: Chronic pulmonary disease all that apply Congestive heart failure Coronary Atery Disease # of Emergency department Answers: 3-4 visits in the last 6 months Score: 19 Date Signed: 12/10/2017 10:56 AM Electronically Signed By:Sandee Cabrera RN
[2017-12-10] MEDS: FLUTICASONE/SALMETER 250/50MCG DISKUS IH SCH (11:00)
[2017-12-10 11:13] VITALS: RESP 16
[2017-12-10] MEDS: DILTIAZEM CD 120 MG CAP PO SCH (12:21)
[2017-12-10 12:32] VITALS: BP 102/64; PULSE 125; O2SAT 91
--- NOTE | 2017-12-10 14:18 | ASDISCHSUM ---
Discharge Information Plan Status:SNF Medically Cleared to Leave:12/10/2017 Discharge Date:12/10/2017 02:05 PM D/C Disposition:Alf Facility ADT D/C Disposition:Alf Facility Projected Discharge Date:12/03/2017 11:00 AM Transportation at D/C:Wheelchair Van Discharge Delay Reason: Follow-Up Date:12/03/2017 11:00 AM Discharge Slot: Final Diagnosis: Placement Information Referral Type:*Care Home/SNF Referral ID:-[id number] Provider Name:[facility] Address 1:[address] Address 2: City:[place] Selection Factors: State:[place] Patient Contact Information Contact Name:DALE Relationship: Address:[address] City:[place] Alternate Phone: State/Zip Code:[place] [address] Email: Financial Information Financial Class:Medicare Advantage Plans Primary Plan Desc:[facility] eflow Primary Plan Number:[id number] Secondary Plan Desc: Secondary Plan Number: Assessment Information [facility] CM Progress Note CM Note CM Note Notes: Patient admitted for hypoxemic respiratory failure, likely d/t underlying COPD. He is being treated with antibiotics for a possible infectious procress. Patient lives with and is normally independent. No therapies have been ordered, so I do not anticipate any discharge needs. Case Management available if any arise. Date Signed: 11/17/2017 09:36 AM Electronically Signed By:Amy Doss RN LACE LUI Length of stay for Answers: 14 days or more current admission Acuity / Level of Answers: Yes Care: Did the patient have an inpatient admission? Comorbidities - select Answers: Chronic pulmonary disease all that apply Congestive heart failure Coronary Atery Disease # of Emergency department Answers: 3-4 visits in the last 6 months Score: 19 Date Signed: 12/10/2017 10:56 AM Electronically Signed By:Sandee Cabrera RN [facility] CM Progress Note CM Note CM Note Notes: 11/18/2017 Case Management Note Met pt during rounds today. Pt is to [facility] [phone]. PT and OT evals have been ordered. Pt has increased O2 needs today. Case Management d/c poc: to be determined. Case Management to follow. Date Signed: 11/18/2017 02:11 PM Electronically Signed By:Sandee Cabrera RN [facility] CM Progress Note CM Note CM Note Notes: Met with patient's and son today in a family meeting. (see family meeting in "notes") The family is grateful for the emotional support they have gotten while patient has been in the ICU. Reviewed possible d/c plans and will meet with the family when it is clear what the next level of care will be for the patient. CM will follow. Date Signed: 11/20/2017 05:37 PM Electronically Signed By:Angle Roland LCSW [facility] Progress Note CM Note CM Note Notes: Spoke with Chaplain Lemuel regarding the family meeting held yesterday. Patient's has been emotionally vulnerable due to several hospitalizations happening since April. Lemuel will touch base with patient's today for emotional support. Swapna is more comfortable when one of her sons is at the hospital with her. CM will follow. Date Signed: 11/21/2017 12:20 PM Electronically Signed By:Angle Roland LCSW [facility] CM Progress Note CM Note CM Note Notes: Patient continues on the vent. Family invited to "Family Meeting". They report that they are doing fine and meeting not necessary today. Son and at bedside. Date Signed: 11/24/2017 04:46 PM Electronically Signed By:Aisha Mcclure LCSW [facility] CM Progress Note CM Note CM Note Notes: OT/PT recommending inpatient rehab at this time. Will need a physician order to get evaluation done. (no order as recommendations just made)Left a message for Brooklyn to alert her to the recommendation. CM will follow. Date Signed: 11/27/2017 02:26 PM Electronically Signed By:Angle Luan, [employer] [facility] CM Progress Note CM Note CM Note Notes: CM spoke w/ Dr. Curry regarding d/c POC. Therapies are recommending inpatient rehab. Order has been put in for inpatient rehab. CM met w/ pt for dispo planning.Pt reports that he is agreeable to go to inpatient rehab. Brooklyn Lerma will follow this case. Most likely admission will happen on Friday at the earliest. CM to follow. Plan: Inpatient rehab Date Signed: 11/28/2017 01:30 PM Electronically Signed By:ARIC Augustin [facility] CM Progress Note CM Note CM Note Notes: Pt doing better today, still requiring 8L O2 but down from needing 16L yesterday. Spoke w/Brooklyn from [facility] who feels at this time pt would have difficult time tolerating 3 hrs therapy/day. She will continue to follow though. Met w/pt to discuss rehab and also discussed w/ Swapna on phone. First choice is [facility] if he improves enough to tolerate it and if insurance approves. Choice #2 would be [facility]. Referral sent to [facility]. CM will follow. Date Signed: 12/01/2017 03:10 PM Electronically Signed By:Мария Millan RN [facility] Progress Note CM Note CM Note Notes: Pts case discussed in morning rounds. Updates sent to [facility]. [facility] will most likely be the d/c plan. Brooklyn Lerma from inpatient rehab is continuing to follow case. CM to follow. Plan: SNF vs inpatient rehab Date Signed: 12/03/2017 01:51 PM Electronically Signed By:ARIC Augustin [facility] BRIAN Progress Note CM Note CM Note Notes: Pts case discussed in morning rounds. BRIAN received a call from Brooklyn Lerma. Brooklyn does not think pt will be appropriate for inpatient rehab at this point. BRIAN met w/ pt and for dispo planning. BRIAN communicated what Brooklyn said to pt and . Pt and is still agreeable to going to [facility]. Updates sent to [facility]. BRIAN left a msg w/ Brandi at [facility]. CM to follow. Plan: [facility] Date Signed: 12/04/2017 03:56 PM Electronically Signed By:ARIC Augustin [facility] BRIAN Progress Note CM Note CM Note Notes: Pts case discussed in morning rounds. At rest pt is at 5-8L of o2. While pt is walking pt is up to 16L of o2. The plan remains the same. Pt will d/c to [facility] when medically stable. CM to follow. Plan: [facility] Date Signed: 12/05/2017 12:06 PM Electronically Signed By:ARIC Augustin [facility] CM Progress Note CM Note CM Note Notes: Patient seen in rounds. He has a referral to [facility]. Still requires high oxygen needs when ambulating. Call to Brandi at [facility] to make sure they can accommodate those needs. Per Brandi [facility] can only provide up to 10 liters of oxygen. notified. Plan is discharge to SNF. when medically stable. CM to follow. Date Signed: 12/08/2017 04:30 PM Electronically Signed By:Marlen Lopez RN Case Management Discharge Plan Note Case Management Discharge Discharge Order Complete? Answers: Yes Patient to Obtain Answers: Other Notes: [facility] Medications Transportation Arranged Answers: Other Notes: transport arranged by a nd paid for by [facility] Transport will Pick (Date 12/10/2017 02:00 PM & Time) Faxed Final Orders Answers: Yes Agency/Facility Transfer Answers: Yes Report Printed & Faxed to Receiving Agency Family Notified Answers: Yes Notes: in room, provided directions to [facility] to Discharge Comments Notes: 12/10/2017 Case Management Note Notified Carey at [facility] of d/c. Carey arranged transport w/c with O2 for 1400 turkey picker. RN called report. Faxed final orders. Provided directions to to facility. Date Signed: 12/10/2017 02:17 PM Electronically Signed By:Sandee Cabrera RN Intervention Information Intervention Type:*IM-Signed Date of Service:12/10/2017 11:52 AM Patient Type:Inpatient Staff Member:Tawnya Doyle Hours: Discipline: Severity: Comment:
--- NOTE | 2017-12-10 15:36 | GDS ---
[f rep st] DISCHARGE SUMMARY DISCHARGE DIAGNOSES: Include: 1. Acute viral pneumonia. 2. Acute hypoxic respiratory failure, status post intubation. 3. Persistent atrial fibrillation. 4. Chronic interstitial lung disease. 5. Chronic obstructive pulmonary disease. 6. Coronary artery disease, status post coronary artery bypass grafting. 7. Gastroesophageal reflux disease. HISTORY OF PRESENT ILLNESS: A 77-year-old male with a history of COPD and interstitial lung disease, who presents with acute respiratory failure. For details of the patient's initial presentation, ple ase see the history and physical dated 11/16/2017. CONSULTATIVE SERVICES: Include: 1. Pulmonary/Critical Care. 2. Cardiology. 3. Infectious Disease. 4. Wound Care. PROCEDURES: On 11/20/2017, patient underwent bronchoscopy. On 11/19/2017, patient underwent transth oracic echocardiogram, which shows LV normal size and function, with inferolateral hypokinesis. On 0 11/18/2017, patient underwent esophagram that showed moderate to large hiatal hernia with some intermi ttent esophageal spasm and reflux. On 11/16/2017, patient underwent CTA of the chest, which was nega tive for pulmonary embolism. There is diffuse airspace consolidation throughout the right lung, cons istent with pneumonia. HOSPITAL COURSE: By issue: 1. Acute hypoxic respiratory failure. The patient did receive full course of IV antibiotics. Patho gen of human rhinovirus and enterovirus was identified on admission. Respiratory panel PCR. The pat ient underwent bronchoscopy on 11/20/2017. Culture washings grew out only Brandy, thought not to be a true pathogen. The patient was treated for COPD, has been treated with steroids for ILD and will continue to require ongoing snf care for likely several weeks. Oxygen saturations were 4 L at rest on the day of disposition, 8 L with exertion. He is to follow in the outpatient setting with Pulmonary Critical Care in the next 2-3 weeks for discussion related to weaning of steroids. 2. Atrial fibrillation. Patient was previously treated with amiodarone, which was discontinued in t he setting of his acute hypoxic respiratory failure. He was transitioned over to metoprolol and digo arthur for rate control. He was continued on his Eliquis for anticoagulation and [facility]. 3. COPD. The patient has been continued on a slow taper of prednisone. Will follow in the outpatie nt setting with Pulmonary Critical Care. 4. Coronary artery disease, status post CABG. The patient had a recent negative stress test. No ad ditional risk stratification was performed during this stay. The patient was continued on his cardia c medications and will follow again in the outpatient setting with [facility]. MEDICATIONS: At the time of disposition: Please reference the med rec printed on 12/10/2017. FOLLOWUP APPOINTMENTS: Include: 1. Pulmonary in the next 2-3 weeks for continued guidance related to a prednisone taper. 2. Cardiology for ongoing management of his permanent atrial fibrillation and coronary artery diseas e. Pending studies at the time of this dictation include none. Mycobacterial cultures from his bronchos copy on 11/20/2017, which are preliminary no growth to date. I spent greater than 30 minutes on the planning and coordination of this discharge. /[id number]/MODL
== END 2017-12-10 14:05 | DRG 166 ==
LOC: F2W 19:41 → F2N 11-19 11:05 → F2W 11-27 18:23
PROVIDERS: ADMIT Hospitalist; ATTEND Hospitalist
DX: J12.89 Other viral pneumonia (principal); J96.21 Acute and chronic respiratory failure with hypoxia; I48.1 Persistent atrial fibrillation; J44.9 Chronic obstructive pulmonary disease, unspecified; J84.9 Interstitial pulmonary disease, unspecified; I13.0 Hypertensive heart and chronic kidney disease with heart failure and stage 1 through stage 4 chronic kidney disease, or unspecified chronic kidney disease; I50.22 Chronic systolic (congestive) heart failure; N17.9 Acute kidney failure, unspecified; N18.3 Chronic kidney disease, stage 3 (moderate); I25.10 Atherosclerotic heart disease of native coronary artery without angina pectoris; K21.9 Gastro-esophageal reflux disease without esophagitis; D64.9 Anemia, unspecified; K59.00 Constipation, unspecified; H40.9 Unspecified glaucoma; E78.5 Hyperlipidemia, unspecified; Z79.01 Long term (current) use of anticoagulants; Z95.1 Presence of aortocoronary bypass graft; Z87.891 Personal history of nicotine dependence
CPT/HCPCS: 83516-90; 83520-90; 86738-90; 87449-90; 92610-GN; 97110-GP; 97116-GP; 97163-GP; 97167-GO; 97530-GO; 97530-GP; 97535-GO; G8987-GO-CK; G8987-GO-CL; G8988-GO-CI; G8996-GN-CH; G8997-GN-CH; G8998-GN-CH; J0456; J0696; J1940; J2060; J2405; J2543; J2704; J2920; J2930; J3010; J3480; J7512; J7613; Q9967

== ENCOUNTER 2018-01-25 11:00 | Inpatient (IN) | payer OTHER ==
--- NOTE | 2018-01-25 11:10 | CPEKG ---
Heart Rate: 94 RR Interval: 638 QRSD Interval: 140 QT Interval: 376 QTC Interval: 471 QRS [place]: 71 T Wave [place]: -28 EKG Severity - ABNORMAL ECG - EKG Impression: ATRIAL FIBRILLATION EKG Impression: RBBB AND LPFB EKG Impression: INFERIOR INFARCT, AGE INDETERMINATE Electronically Signed By: Siddhartha Harper 25-Jan-2018 11:26:02
--- NOTE | 2018-01-25 11:14 | EDPHY ---
H & P Time Seen by Provider: 01/25/18 11:12 HPI/ROS: CHIEF COMPLAINT: Acute dyspnea HISTORY OF PRESENT ILLNESS: The patient is brought to the Emergency Department by with complaints of acute dyspnea which began earlier in the week and has worsened over the past several days. The patient does have a history of chronic lung disease, heart failure and atrial fibrillation. He was hospitalized with CHF and pneumonia in October. He has not been on recent antibiotics. He is on chronic home oxygen which has been increasing in its requirement over the past several days. Patient reportedly had oxygen saturations in the low 70s at home while on supplemental oxygen. The patient was placed on positive pressure CPAP ventilation by paramedics prior to arrival. The patient denies any asymmetric calf pain or swelling. He denies chest pain. He does endorse symptoms of moderate to severe dyspnea. REVIEW OF SYSTEMS: A comprehensive 10 point review of systems is otherwise negative aside from elements mentioned in the history of present illness. Source: Patient Exam Limitations: No limitations - Medical/Surgical History Hx Asthma: No Hx Chronic Respiratory Disease: No Hx Diabetes: No Hx Cardiac Disease: Yes Hx Renal Disease: No Hx Cirrhosis: No Hx Alcoholism: No Hx HIV/AIDS: No Hx Splenectomy or Spleen Trauma: No Other PMH: Heart bypass - 2006. HTN. High cholestrol.glaucoma, reflux, skin cancer, cataract surg, right knee replacement - Social History Smoking Status: Former smoker - Physical Exam Exam: General Appearance: Elderly male, tachypnea, mild respiratory distress Eyes: Pupils equal and round no pallor or injection ENT, Mouth: Mucous membranes moist Respiratory: Tachypneic, rales bilateral lower lobes Cardiovascular: Tachycardic Gastrointestinal: Abdomen is soft and nontender, no masses, bowel sounds normal Neurological: 5/5 strength bilateral lower extremities Skin: Warm and dry, no rashes Musculoskeletal: Neck is supple nontender Extremities: No asymmetric calf pain or swelling, no peripheral edema Constitutional: Initial Vital Signs Temperature (C) 36.8 C 01/25/18 11:00 Heart Rate 84 01/25/18 11:00 Respiratory Rate 20 01/25/18 11:00 Blood Pressure 115/67 01/25/18 11:00 O2 Sat (%) 86 L 01/25/18 11:00 O2 Delivery Mode Bi-Pap Allergies/Adverse Reactions: No Known Allergies Allergy (Unverified 11/20/17 08:18) Home Medications: Medication Instructions Recorded Atorvastatin Calcium [Lipitor 40 40 mg PO HS 09/24/09 mg (*)] Travoprost Z 0.004% [Travatan Z 1 drops EACHEYE HS 09/24/09 0.004% (*)] Calcium Carbonate [Tums 500MG (*)] 1,000 mg PO Q2D 08/12/17 Apixaban [Eliquis] 5 mg PO BID #60 tab 08/14/17 Metoprolol Tartrate [Lopressor 50 50 mg PO BID #60 tab 08/14/17 mg (*)] Aspirin [Aspirin 81mg (*)] 81 mg PO DAILY tab.chew 12/10/17 Digoxin [Lanoxin 250 mcg (RX)] 250 mcg PO DAILY AT 10AM tab 12/10/17 Diltiazem Cd [Cardizem ER 120 MG 120 mg PO DAILY@1200 cap 12/10/17 (*)] Fluticasone/Salmeter 250/50Mcg 1 puffs IH BID disk 12/10/17 [Advair 250/50 (*)] Furosemide [Lasix 20 MG (*)] 20 mg PO DAILY tab 12/10/17 predniSONE 40 mg PO DAILY tablet 12/10/17 Medical Decision Making - Diagnostics EKG Interpretation: EKG: Complete interpretation has been separately recorded in the [employer] archive. Summary impression: Atrial fibrillation, rate 94, bifascicular block , nonspecific ST T wave changes noted. All of this is unchanged from his prior EKG. Imaging Results: Imaging Impressions Chest X-Ray 01/25/18 11:12 Impression: 1. Chronic interstitial lung disease once again noted without new consolidation. 2. Moderate cardiomegaly. ED Course/Re-evaluation: The patient presents the ED with acute hypoxic respiratory failure. The patient initially was on CPAP. We are able to stop this device in the emergency department. Chest x-ray does demonstrate chronic interstitial lung disease. It does appear somewhat improved from his prior admission x-ray in October of this year. The patient received IV steroids for a likely COPD exacerbation. A respiratory pathogen panel has been sent. The patient is noted to be in chronic atrial fibrillation. He does have an elevated BNP level of uncertain significance. The patient has no evidence of lidia right heart failure. He is afebrile. I feel the etiology of his respiratory failure is secondary to his underlying lung disease. The patient will require admission to the hospital. Consultation is made with the hospitalist service. The patient will be admitted to the progressive care unit by Dr. Luca Chanel. Differential Diagnosis: Differential diagnosis considered includes asthma, bronchitis, pneumonia, worsening interstitial lung disease, heart failure, arrhythmia - Data Points Laboratory Results: Laboratory Results 01/25/18 11:00 01/25/18 11:00 01/25/18 01/25/18 01/25/18 11:00 11:00 11:00 WBC 11.60 10^3/uL H 10^3/uL (3.80-9.50) RBC 3.31 10^6/uL L 10^6/uL (4.40-6.38) Hgb 10.0 g/dL L g/dL (13.7-17.5) Hct 31.4 % L % (40.0-51.0) MCV 94.9 fL fL (81.5-99.8) MCH 30.2 pg pg (27.9-34.1) MCHC 31.8 g/dL L g/dL (32.4-36.7) RDW 15.3 % H % (11.5-15.2) Plt Count 214 10^3/uL 10^3/uL (150-400) MPV 9.0 fL fL (8.7-11.7) Neut % (Auto) 66.0 % % (39.3-74.2) Lymph % (Auto) 21.3 % % (15.0-45.0) [place] % (Auto) 9.1 % % (4.5-13.0) Eos % (Auto) 2.8 % % (0.6-7.6) Baso % (Auto) 0.3 % % (0.3-1.7) Nucleat RBC Rel Count 0.0 % % (0.0-0.2) Absolute Neuts (auto) 7.65 10^3/uL H 10^3/uL (1.70-6.50) Absolute Lymphs (auto) 2.47 10^3/uL 10^3/uL (1.00-3.00) Absolute Monos (auto) 1.06 10^3/uL H 10^3/uL (0.30-0.80) Absolute Eos (auto) 0.33 10^3/uL 10^3/uL (0.03-0.40) Absolute Basos (auto) 0.03 10^3/uL 10^3/uL (0.02-0.10) Absolute Nucleated RBC 0.00 10^3/uL 10^3/uL (0-0.01) Immature Gran % 0.5 % % (0.0-1.1) Immature Gran # 0.06 10^3/uL 10^3/uL (0.00-0.10) PT 16.3 SEC H SEC (12.0-15.0) INR 1.29 H (0.83-1.16) Sodium 141 mEq/L mEq/L (135-145) Potassium 3.8 mEq/L mEq/L (3.5-5.2) Chloride 101 mEq/L mEq/L (97-110) Carbon Dioxide 32 mEq/l H mEq/l (22-31) Anion Gap 8 mEq/L mEq/L (8-16) BUN 21 mg/dL mg/dL (7-23) Creatinine 1.1 mg/dL mg/dL (0.7-1.3) Estimated GFR > 60 Glucose 78 mg/dL mg/dL (70-100) Calcium 8.4 mg/dL L mg/dL (8.5-10.4) Troponin I 0.022 ng/mL ng/mL (0.000-0.034) NT-Pro-B Natriuret Pep 2560 pg/mL H pg/mL (0-450) Departure - Departure Disposition: [facility] Inpatient Acute Clinical Impression: Chronic obstructive pulmonary disease with acute exacerbation Condition: Fair Referrals: Chon Urbina MD [Primary Care Provider] - As per Instructions
[2018-01-25 11:18] LABS: PLATELET COUNT 214 10^3/uL (150-400)
[2018-01-25 11:28] LABS: INR 1.29 (0.83-1.16); PROTIME(PATIENT) 16.3 SEC (12.0-15.0)
[2018-01-25] MEDS ORDERED: methylPREDNISolone SOD SUCC 125 MG/2 ML VIAL IVP ONE (12:03)
[2018-01-25] MEDS ORDERED: IPRATROPIUM/ALBUTEROL 3 ML DEYVIAL IH ONE (12:03)
[2018-01-25] MEDS ORDERED: ONDANSETRON 4 MG/2 ML VIAL IVP PRN (13:28)
[2018-01-25] MEDS ORDERED: ONDANSETRON DISINTEGRATING 4 MG TAB PO PRN (13:28)
[2018-01-25] MEDS ORDERED: ALBUTEROL 60 PUFFS/8 GM MDI IH PRN (13:28)
[2018-01-25] MEDS ORDERED: AZITHROMYCIN 250 MG TAB PO ONE (13:30)
[2018-01-25] MEDS ORDERED: FUROSEMIDE 40 MG/4 ML VIAL IVP ONE (14:05)
[2018-01-25] MEDS: APIXABAN 5 MG TAB PO SCH ×2 (14:45→20:21)
--- NOTE | 2018-01-25 14:53 | GHP ---
[f rep st] HISTORY AND PHYSICAL DATE OF ADMISSION: 01/25/2018 CHIEF COMPLAINT: Shortness of breath. HISTORY OF PRESENT ILLNESS: A 77-year-old man with complicated pulmonary history, presents with wors ening shortness of breath. He had a prolonged hospitalization here, discharged December 10, for respi ratory failure. He had a prolonged course of intubation on that hospitalization as well. He has CAT scans that are concerning for interstitial lung disease, question of NSIP versus UIP. Also concern for aspiration. He additionally has underlying COPD. After discharge, he went to a group home facility. He was eventually discharged home. He followed up with Dr. Urban on December 31, who noted that he was doing relatively well. He tells me that he was feeling better and better until about 4 o r 5 days ago. His oxygen requirements were down to 2 L at the best. He has begun to progressively g et worse with acutely worse dyspnea today. His oxygen levels were around 60% on 5 L nasal cannula at home. Thus, he presented to the ED. He has had a cough productive of some sputum with a small amou nt of hemoptysis. He has not had any exposures. It does not have any clinical aspiration. He recei al Solu-Medrol in the emergency department, feels slightly better after increasing his oxygen levels . PAST MEDICAL/SURGICAL HISTORY: 1. COPD. 2. 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 He had a hiatal hernia seen on a barium swallow, ra ising the question of aspiration. 3. Coronary artery disease, status post CABG, followed by Dr. Luo. 4. Atrial fibrillation. On chronic Eliquis therapy. 5. Chronic systolic CHF, with an EF of 52%. 6. Hypertension. 7. Hyperlipidemia. 8. Chronic kidney disease, baseline creatinine about 1.2. 9. Osteoarthritis. 10. Glaucoma. MEDICATIONS: Please see medication reconciliation. ALLERGIES: No known drug allergies. FAMILY HISTORY: Reviewed and noncontributory. SOCIAL HISTORY: He is , he is retired, he rarely drinks. REVIEW OF SYSTEMS: A 10-point review of systems is conducted and is negative except per HPI. PHYSICAL EXAM: VITAL SIGNS: Blood pressure 128/70, heart rate 85, respiration rate 17, saturating i nitially at 90% on 15 L Oxymizer, I turned him down to 7 L, and he held his sats. His temperature is 36.8. GENERAL: The patient is a pleasant man, who is in moderate respiratory distress. HEENT: Sh ows him to have a face mask on. He is otherwise normocephalic, atraumatic. CARDIOVASCULAR: Shows i rregularly irregular. There are no murmurs, rubs, or gallops. PULMONARY: Shows his lungs to have d iffuse dry rales from the base to about mid lung field. ABDOMINAL: Soft, nontender, nondistended. SKIN: Shows no rash. : Shows no Choi. NEUROLOGIC: Shows him to be alert and oriented x3. He is moving all extremities. He has a nonfocal neurologic exam. PSYCHIATRIC: Shows normal mood and a ffect. LABS: White count is 11, hemoglobin is 10. INR is 1.2. Bicarb is 32. BNP is 2560. DATA: 1. I discussed with Dr. Vásquez, he will consult. 2. I personally viewed and interpreted his chest x-ray, this shows diffuse pulmonary infiltrates, no t significantly changed. 3. I personally viewed and interpreted his electrocardiogram, this shows a right bundle-branch, as w ell as left posterior fascicular. He has atrial fibrillation. I compared this to his old, it has no t significantly changed. IMPRESSION AND PLAN: 1. Acute on chronic hypoxic and hypercapnic respiratory failure: Likely due to his lung disease. R espiratory panel is pending to look for an acute viral infection. He had enterovirus and rhinovirus on his last hospitalization. Procalcitonin is pending. Dr. Vásquez has been consulted. At this point , I think steroids are appropriate. Would consider CT chest to look for new ground glass indicative of an acute infection. I have started him on azithromycin for chronic obstructive pulmonary disease exacerbation. We will continue his home Lasix, as he does not look overtly volume overloaded, but co uld consider giving him some intravenous Lasix as well. He will be kept in the PCU at this point. 2. History of interstitial lung disease: Nonspecific interstitial pneumonia versus usual interstiti al pneumonia. Quite significant appearing on chest x-ray. 3. Chronic obstructive pulmonary disease: He is on prednisone, as well as inhalers. 4. Coronary artery disease, status post coronary artery bypass graft: He is on aspirin and a statin . Continue these. 5. Atrial fibrillation: He is anticoagulated on Eliquis. He is on diltiazem, as well as digoxin fo r rate control. 6. Systolic congestive heart failure, chronic: Last ejection fraction was 52%. 7. Chronic kidney disease: He is at his baseline. 8. Hypertension: Continue his metoprolol and diltiazem. 9. Code status is full. He was intubated on his last hospitalization. 10. Deep venous thrombosis prophylaxis: Eliquis. /[id number]/MODL
--- NOTE | 2018-01-25 15:44 | PDMN ---
Medical Necessity Medical necessity: C/M review: Patient meets INPT crtieria under [facility] M-100 Chronic Obstructive Pulmonary Disease, M-282 Pneumonia, community acquired: Acute on chronic hypoxic and hypercapnic respiratory likely due to lung disease , history of interstitial lung disease - nonspecific interstitial pneumonia versus interstitial pneumonia - quite significant appearing on CXR, worsening shortness of breath, initial 90% sat on 15 l/min O2 per oxymizer, WBC 11.60, requiring planned Pulmonary consult, ongoing oral Zithromax, IV Solumedrol Q 6 hrs., lcardiac monitoring, pulse oximetry, supplemental O2 15L/min. per oxymizer , comorbid COPD on inhalers and prednisone, CAD S/P CABG, atrial fibrillation on chronic anticoagulation, chronic systolic CHF, chronic kidney disease, and hypertension. MD anticipates > 2 MN LOS for ongoing med nec for eval and TX of above. Patient is Medicare Advantage which follows guidelines CMS puts forth.
--- NOTE | 2018-01-25 16:18 | PDINTPN ---
Rodeo Performer Progress Note Assessment/Plan: Assessment: Acute hypoxemic respiratory failure: Occurs in the setting of chronic hypoxemia/ dyspnea due to interstitial lung disease. Possible causes of decompensation include increased fluid/reduced cardiac function (BNP increased from last hospitalization), acute viral or bacterial bronchitis, progression of interstitial disease. PE unlikely on Eliquis. ILD: Has the appearance of IPF on CT from 11/30/17. Hemoptysis: Suspect component of bronchitis with increased risk of hemoptysis due to being on Eliquis Plan: Agree with Lasix. Repeat CT chest. ECHO Agree with paloma Douglass of steroids. 01/25/18 16:18 01/25/18 16:21 Subjective: Patient reports increased dyspnea with increased oxygen needs/hypoxemia over the last 5 days, associated with the new onset of hemoptysis. No fevers. No sick contacts. Objective: Vital Signs Temp Pulse Resp BP Pulse Ox 37.1 C 91 16 117/81 H 97 01/25/18 15:44 01/25/18 15:44 01/25/18 15:44 01/25/18 15:44 01/25/18 15:44 Microbiology 01/25/18 13:00 Respiratory Panel (PCR) - Final Nasal, Sinus - Swab No Organism Detected 01/24/18 01/25/18 01/26/18 05:59 05:59 05:59 Intake Total 10 Balance 10 PT 16.3 SEC (12.0-15.0) H 01/25/18 11:00 INR 1.29 (0.83-1.16) H 01/25/18 11:00 CXR: Stable diffuse interstitial changes compared to prior CXR. Images reviewed. Microbiology 11/27/17 10:00 Sputum, Expectorated - Final 11/27/17 10:00 Sputum, Expectorated Sputum Culture - Final Brandy Albicans Laboratory Tests 01/25/18 11:00 NT-Pro-B Natriuret Pep 2560 H Physical Exam - Physical Exam General Appearance: alert, no apparent distress EENT: normal ENT inspection Neck: normal inspection Respiratory: crackles (bilateral) Cardiac/Chest: regular rate, rhythm, No edema Abdomen: normal bowel sounds, non-tender Skin: normal color, warm/dry Extremities: normal inspection Neuro/Psych: alert, normal mood/affect, oriented x 3 ICD10 Worksheet Patient Problems: Problems Problem Status Onset Chronic obstructive pulmonary disease with acute exacerbation Acute Atrial fibrillation Acute Congestive heart failure Acute Dizziness Acute Hypoxemia Acute Ischemic cardiomyopathy Acute Near syncope Acute Symptomatic bradycardia Acute
[2018-01-25] MEDS: IPRATROPIUM/ALBUTEROL 3 ML DEYVIAL IH SCH ×2 (17:28→21:47)
[2018-01-25] MEDS: methylPREDNISolone SOD SUCC 125 MG/2 ML VIAL IVP SCH ×2 (17:43→23:12)
[2018-01-25] MEDS: METOPROLOL TARTRATE 50 MG TAB PO SCH (20:21)
[2018-01-25] MEDS: ATORVASTATIN CALCIUM 40 MG TAB PO SCH (20:21)
[2018-01-25] MEDS ORDERED: FLUTICASONE/SALMETER 250/50MCG DISKUS IH SCH (21:00)
[2018-01-25] MEDS ORDERED: TRAVOPROST Z 0.004% 2.5 ML OPHT.BTL EACHEYE SCH (21:00)
[2018-01-25] MEDS: FLUTICASONE/SALMETER 250/50MCG DISKUS IH SCH (21:49)
[2018-01-25] MEDS: TRAVOPROST Z 0.004% 2.5 ML OPHT.BTL EACHEYE SCH (21:54)
[2018-01-26 04:30] LABS: PLATELET COUNT 261 10^3/uL (150-400)
[2018-01-26] MEDS: methylPREDNISolone SOD SUCC 125 MG/2 ML VIAL IVP SCH ×3 (05:42→17:38)
[2018-01-26] MEDS: IPRATROPIUM/ALBUTEROL 3 ML DEYVIAL IH SCH ×4 (05:48→21:02)
[2018-01-26] MEDS: POTASSIUM CL 10 MEQ TAB PO SCH (08:24)
[2018-01-26] MEDS: FUROSEMIDE 20 MG TAB PO SCH (08:24)
[2018-01-26] MEDS: APIXABAN 5 MG TAB PO SCH ×2 (08:24→20:46)
[2018-01-26] MEDS: ASPIRIN 81 MG CHEWABLE TAB PO SCH (08:24)
[2018-01-26] MEDS: METOPROLOL TARTRATE 50 MG TAB PO SCH ×2 (08:24→20:46)
[2018-01-26] MEDS: AZITHROMYCIN 250 MG TAB PO SCH (08:24)
[2018-01-26] MEDS: PANTOPRAZOLE SODIUM 40 MG TAB PO SCH (08:24)
[2018-01-26] MEDS ORDERED: NON-FORMULARY NEW DRUG (Omeprazole [Omeprazole] 20 MG) PO SCH (09:00)
--- NOTE | 2018-01-26 10:16 | ECHO ---
[email or web address] [address] Main: [phone] Fax: [email or web address] Echocardiogram Name: LUISITO ORDONEZ MR#: [id number] Study Date: 01/26/2018 Study Time: 08:51 AM Date of : 1940 Age: 77 year(s) Height: 175.3 cm (69 in.) Weight: 78.93 kg (174 lb.) BSA: 1.95 m2 Gender: Male Examination: Echo Indication: Atrial fibrillation/COPD Image Quality: Technically Difficult Contrast: Requested by: Landon Vásquez BP: 121 mmHg/75 mmHg Heart Rate: Rhythm: Indication: Atrial fibrillation/COPD Procedure Staff Laborer Vineyard: Jeane Baird RDCS Reading Physician: Duong Vasquez MD Requesting Provider: Conclusions: Normal global systolic LV function. The ejection fraction is estimated to be 60-65 %. Mild mitral valve regurgitation is present. The pulmonary artery pressure is mildly increased. Moderate tricuspid regurgitation is present. Mild pulm HTN at 44 mmHg. Measurements: Chambers Valvular Assessment AV/MV Valvular Assessment TV/PV Normal Normal Normal Name Value Range Name Value Range Name Value Range Ao Debby (2D): 3.3 cm (1.4 cm-2.6 AV meanP mmHg ( - ) TR Vmax: 2.69 mm/s ( - ) cm) MV E Vmax: 1.30 m/s ( - ) TR PGmax: 29 mmHg ( - ) IVSd (2D): 0.8 cm (0.6 cm-1.1 MV A Vmax: 0.35 m/s ( - ) syst. PAP: 44 mmHg ( - ) cm) MV E/A: 3.71 ( - ) LVDd (2D): 5.3 cm (4.2 cm-5.9 cm) LVDs (2D): 3.4 cm (2.1 cm-4 cm) LVPWd (2D): 0.6 cm (0.6 cm-1 cm) LVEF (2D): 64 (>=54 %) EF Range: 60-65 % Continued Measurements: Chambers Valvular Assessment AV/MV Valvular Assessment TV/PV Name Value Name Value Name Value LADs: 5.1 cm MV E' Septal: 0.06 m/s CVP (est.): 15 mmHg LADs Lon.0 cm MV E/E' Septal: 20.50 Mean PAP: 44 mmHg Patient: LUISITO ORDONEZ Study Date: 01/26/2018 Page 1 of 2 08:51 AM LA Area: 30.5 cm2 MV E/E' Lateral: 10.70 LA Volume: 99 ml LA Volume Index: 50.8 ml/m2 Findings: Left Ventricle: Normal size left ventricle. No LV hypertrophy. Normal global systolic LV function. The ejection fraction is estimated to be 60-65 %. Normal diastolic LV function. LV basal inferior/inferoseptal wall. All remaining segments have normal segmental motion.. Right Ventricle: Normal size right ventricle. Left Atrium: The left atrium is mildly dilated. Right Atrium: The right atrium is mildly dilated. Mitral Valve: Mild mitral annular calcification. Mild mitral valve regurgitation is present. Aortic Valve: The aortic valve is normal in appearance and function. Trivial aortic valve regurgitation. Tricuspid Valve: The tricuspid valve is normal in appearance and function. The pulmonary artery pressure is mildly increased. Moderate tricuspid regurgitation is present. Mild pulm HTN at 44 mmHg. Pulmonic Valve: Pulmonary valve not well visualized. Aorta: The aorta is normal. Pericardium: No pericardial effusion. (No Signature Object) Patient: LUISITO ORDONEZ Study Date: 01/26/2018 Page 2 of 2 08:51 AM [id number]
[2018-01-26] MEDS: DIGOXIN 250 MCG TAB PO SCH (11:00)
[2018-01-26] MEDS: FLUTICASONE/SALMETER 250/50MCG DISKUS IH SCH ×2 (11:03→21:02)
[2018-01-26] MEDS: DILTIAZEM CD 120 MG CAP PO SCH (12:30)
--- NOTE | 2018-01-26 15:58 | ASMTCMCOM ---
CM Note CM Note Notes: 01/26/2018 Case Management Note Met w/pt and Swapna [phone] after rounds this morning. Pt admitted for respiratory failure and interstitial lung disease. Pt has recent d/c from [facility] on 12/10. Pt is current with [facility] PT OT RN. Faxed updates to [facility]. Discussed with RN and requested PT OT nupur. Pt expressed frustration with [employer] oxygen supply. Contacted Orion Ambrocio the [employer] Liason at [phone] for assistance for family. Case Management d/c poc: resume psychometrist PT OT. Case Management to follow. Date Signed: 01/26/2018 03:57 PM Electronically Signed By:Sandee Cabrera RN
--- NOTE | 2018-01-26 18:25 | SOAPPROG ---
SOAP Progress Note Assessment/Plan: Assessment: Acute hypoxemic respiratory failure: Occurs in the setting of chronic hypoxemia/ dyspnea due to interstitial lung disease. Possible causes of decompensation include increased fluid/reduced cardiac function (BNP increased from last hospitalization), acute viral or bacterial bronchitis, progression of interstitial disease. PE unlikely on Eliquis. ILD: Consistent with idiopathic pulmonary fibrosis, with little overall change compared to his previous CT. Increased ground-glass opacities suggest an acute component Hemoptysis: Suspect component of bronchitis with increased risk of hemoptysis due to being on Eliquis. This appears to be decreasing Plan: Continue care on PCU. Continue high-dose steroids. Continue antibiotics and bronchopulmonary therapies. Subjective: Feels that his breathing is a little better. Still quite short of breath if he gets up to go to the bathroom. Some cough, almost no mucus Objective: Vital Signs Temp Pulse Resp BP Pulse Ox 36.7 C 77 20 116/67 93 01/26/18 15:17 01/26/18 16:18 01/26/18 16:18 01/26/18 15:17 01/26/18 16:18 Microbiology 01/25/18 13:00 Respiratory Panel (PCR) - Final Nasal, Sinus - Swab No Organism Detected Laboratory Results 01/26/18 03:46 01/26/18 03:46 01/25/18 01/26/18 01/27/18 05:59 05:59 05:59 Intake Total 310 1350 Output Total 400 850 Balance -90 500 PT 16.3 SEC (12.0-15.0) H 01/25/18 11:00 INR 1.29 (0.83-1.16) H 01/25/18 11:00 CT chest: Interstitial disease is about the same. There are some increased ground-glass opacities possibly consistent with acute inflammation and/or pneumonitis/infection Cardiac echo: Normal left ventricular ejection fraction, diastolic dysfunction , mild pulmonary hypertension Physical Exam - Physical Exam General Appearance: alert, no apparent distress EENT: PERRL/EOMI, other (OxyMask in place - decreased O2 requirements to 5 L) Neck: normal inspection (No obvious JVD) Respiratory: decreased breath sounds (With decreased excursions), rales (Fine bibasilar rales present), No respiratory distress, No wheezing Cardiac/Chest: regular rate, rhythm, No gallop Abdomen: normal bowel sounds, non-tender, soft Skin: normal color, warm/dry Extremities: No pedal edema Neuro/Psych: no motor/sensory deficits, No cognition abnormalities ICD10 Worksheet Patient Problems: Problems Problem Status Onset Symptomatic bradycardia Acute Dizziness Acute Near syncope Acute Atrial fibrillation Acute Ischemic cardiomyopathy Acute Congestive heart failure Acute Hypoxemia Acute Chronic obstructive pulmonary disease with acute exacerbation Acute
--- NOTE | 2018-01-26 20:06 | HOSPPROG ---
Hospitalist Progress Note Assessment/Plan: # Acute Hypoxic Respiratory Failure - in pt with history of chronic HF from ILD acute decompensation possibly due to acute progression, underlying viral bronchitis, lesslikely PE or cardiac decompensation ECHO (reviewed ) EF estimated in the 60's CT chest (personally reviewed and interpreted) increased ground glass markings oxygen saturations 93% on 5L - cont high dose steroids - cont azithromycin PO - cont inhaled bronchodilators - cont home dose daily lasix 60mg - pulmonary following # Chronic COPD - no signifcant wheezing on exam- WBC 10 - cont pulmonary toilet and azithromycin - cont steroids # CAD - no chest pain - cont home meds # Atrila fibrillation - currently rate controlled - cont eliquis, digoxin, diltiazem, metoprolol # proph - eliquis # diet - cardiac # dsipo - > 2MN as requires ongoing IV medications and treatment I have discussed the case with RN - continue current pulmonary toilet on PCU for close monitoring Subjective: no significant improvement overnight Objective: Vital Signs Temp Pulse Resp BP Pulse Ox 36.7 C 77 20 116/67 93 01/26/18 15:17 01/26/18 16:18 01/26/18 16:18 01/26/18 15:17 01/26/18 16:18 Microbiology 01/25/18 13:00 Respiratory Panel (PCR) - Final Nasal, Sinus - Swab No Organism Detected Laboratory Results 01/26/18 03:46 01/26/18 03:46 01/25/18 01/26/18 01/27/18 05:59 05:59 05:59 Intake Total 310 1350 Output Total 400 850 Balance -90 500 PT 16.3 SEC (12.0-15.0) H 01/25/18 11:00 INR 1.29 (0.83-1.16) H 01/25/18 11:00 - Physical Exam Constitutional: appears nourished Eyes: anicteric sclera Ears, Nose, Mouth, Throat: moist mucous membranes Cardiovascular: irregularly irregular Respiratory: inspiratory crackles Gastrointestinal: normoactive bowel sounds Genitourinary: no bladder fullness Skin: warm Musculoskeletal: No asymmetric calves Neurologic: AAOx3 Psychiatric: interacting appropriately Lymph, Heme, Immunologic: no cervical LAD ICD10 Worksheet Patient Problems: Problems Problem Status Onset Chronic obstructive pulmonary disease with acute exacerbation Acute Atrial fibrillation Acute Congestive heart failure Acute Dizziness Acute Hypoxemia Acute Ischemic cardiomyopathy Acute Near syncope Acute Symptomatic bradycardia Acute
[2018-01-26] MEDS: ATORVASTATIN CALCIUM 40 MG TAB PO SCH (20:46)
[2018-01-26] MEDS: TRAVOPROST Z 0.004% 2.5 ML OPHT.BTL EACHEYE SCH (20:47)
[2018-01-26] MEDS: [UNRECOGNIZED DRUG - OTHER] TP SCH (20:50)
[2018-01-26] MEDS ORDERED: [UNRECOGNIZED DRUG - OTHER] TP SCH (21:00)
[2018-01-27] MEDS: methylPREDNISolone SOD SUCC 125 MG/2 ML VIAL IVP SCH ×5 (00:24→22:58)
[2018-01-27] MEDS: IPRATROPIUM/ALBUTEROL 3 ML DEYVIAL IH SCH ×4 (05:46→20:53)
[2018-01-27] MEDS: FLUTICASONE/SALMETER 250/50MCG DISKUS IH SCH ×2 (08:42→20:54)
[2018-01-27] MEDS: METOPROLOL TARTRATE 50 MG TAB PO SCH ×2 (09:15→21:17)
[2018-01-27] MEDS: AZITHROMYCIN 250 MG TAB PO SCH (09:15)
[2018-01-27] MEDS: ASPIRIN 81 MG CHEWABLE TAB PO SCH (09:15)
[2018-01-27] MEDS: POTASSIUM CL 10 MEQ TAB PO SCH (09:15)
[2018-01-27] MEDS: PANTOPRAZOLE SODIUM 40 MG TAB PO SCH (09:15)
[2018-01-27] MEDS: APIXABAN 5 MG TAB PO SCH ×2 (09:15→21:16)
[2018-01-27] MEDS: [UNRECOGNIZED DRUG - OTHER] TP SCH ×2 (09:16→21:22)
[2018-01-27] MEDS: DIGOXIN 250 MCG TAB PO SCH (09:16)
[2018-01-27] MEDS: FUROSEMIDE 20 MG TAB PO SCH (09:16)
[2018-01-27] MEDS: DILTIAZEM CD 120 MG CAP PO SCH (13:11)
--- NOTE | 2018-01-27 13:34 | PDINTPN ---
Comic Book Designer Progress Note Assessment/Plan: Assessment: Patient moved to intensive care unit on step-down today due to increased oxygen requirements. Chest x-ray pending. Acute hypoxemic respiratory failure: Occurring in the setting of chronic hypoxemia/dyspnea due to interstitial lung disease. Possible causes of decompensation include increased fluid/reduced cardiac function (BNP increased from last hospitalization), acute viral or bacterial bronchitis, progression of interstitial disease. PE unlikely on Eliquis. ILD: Consistent with idiopathic pulmonary fibrosis, with little overall change compared to his previous CT. Increased ground-glass opacities suggest an acute component or possibly infection. On azithromycin Hemoptysis: Suspect component of bronchitis with increased risk of hemoptysis due to cough and being on Eliquis. Hemoptysis is decreasing Plan: Continue care on SDU secondary to increasing oxygen needs. Review chest x-ray when available today. Check BNP: Diurese if increasing. Continue high- dose steroids. Continue antibiotics and bronchopulmonary therapies. Follow daily weights. Continue anticoagulation and other medications as we are doing. Subjective: Feels about the same but oxygen requirements back up again to 15 L. On 5 L yesterday. Still significantly short of breath but denies chest pain, significant mucus or obvious fluid retention, Objective: Vital Signs Temp Pulse Resp BP Pulse Ox 36.4 C 87 32 H 107/56 L 94 01/27/18 13:06 01/27/18 13:06 01/27/18 13:06 01/27/18 13:06 01/27/18 13:06 Laboratory Results 01/27/18 03:40 01/26/18 03:46 01/26/18 01/27/18 01/28/18 05:59 05:59 05:59 Intake Total 310 1750 Output Total 400 1300 350 Balance -90 450 -350 PT 16.3 SEC (12.0-15.0) H 01/25/18 11:00 INR 1.29 (0.83-1.16) H 01/25/18 11:00 CXR: Pending Physical Exam - Physical Exam General Appearance: alert, mild distress, other (Up in chair, OxyMask in place) EENT: PERRL/EOMI, other (OxyMask) Neck: other (Jugular venous distension present) Respiratory: decreased breath sounds, rales (Fine rales present at the bases), No rhonchi, No wheezing, No pleural rub Cardiac/Chest: irregularly irregular (AFib at about 90) Abdomen: normal bowel sounds, non-tender, soft Skin: normal color, warm/dry Extremities: pedal edema (Trace) Neuro/Psych: no motor/sensory deficits, No cognition abnormalities ICD10 Worksheet Patient Problems: Problems Problem Status Onset Chronic obstructive pulmonary disease with acute exacerbation Acute Atrial fibrillation Acute Congestive heart failure Acute Dizziness Acute Hypoxemia Acute Ischemic cardiomyopathy Acute Near syncope Acute Symptomatic bradycardia Acute
[2018-01-27] MEDS ORDERED: FUROSEMIDE 40 MG/4 ML VIAL IVP ONE (17:40)
--- NOTE | 2018-01-27 18:48 | HOSPPROG ---
Hospitalist Progress Note Assessment/Plan: # Acute Hypoxic Respiratory Failure - in pt with history of chronic HF from ILD acute decompensation this am with oxygen saturations dropping 85% on 15L NRB ECHO (reviewed ) EF estimated in the 60's CT chest (personally reviewed and interpreted) increased ground glass markings - transferring to SDU for possible vapotherm or BiPAP - cont high dose steroids - cont azithromycin PO - cont inhaled bronchodilators - cont home dose daily lasix 60mg - pulmonary following- pt may need intubation # Chronic COPD - no significant wheezing on exam- WBC 15 - cont pulmonary toilet and azithromycin - cont steroids # Acute leukocytosis - WBC 10->15 suspect 2/2 demargination with solumedrol - follow daily # CAD - no chest pain - cont home meds # Atrila fibrillation - currently rate controlled - cont eliquis, digoxin, diltiazem, metoprolol # proph - eliquis # diet - cardiac # dsipo - > 2MN as requires ongoing IV medications and treatment I have discussed the case with Pulmonary - will transfer patient for closer monitoring in SDU Subjective: sob Objective: Vital Signs Temp Pulse Resp BP Pulse Ox 36.5 C 70 288 H 119/53 L 94 01/27/18 16:00 01/27/18 18:00 01/27/18 18:00 01/27/18 18:00 01/27/18 18:00 Laboratory Results 01/27/18 03:40 01/26/18 03:46 01/26/18 01/27/18 01/28/18 05:59 05:59 05:59 Intake Total 310 1750 1000 Output Total 400 1300 800 Balance -90 450 200 PT 16.3 SEC (12.0-15.0) H 01/25/18 11:00 INR 1.29 (0.83-1.16) H 01/25/18 11:00 - Physical Exam Constitutional: chronically ill appearing Eyes: anicteric sclera Ears, Nose, Mouth, Throat: dry mucous membranes Cardiovascular: irregularly irregular Respiratory: inspiratory crackles, respiratory distress, No expiratory wheeze Gastrointestinal: normoactive bowel sounds Genitourinary: no bladder fullness Skin: warm Musculoskeletal: No asymmetric calves Neurologic: AAOx3 Psychiatric: interacting appropriately Lymph, Heme, Immunologic: no cervical LAD ICD10 Worksheet Patient Problems: Problems Problem Status Onset Chronic obstructive pulmonary disease with acute exacerbation Acute Atrial fibrillation Acute Congestive heart failure Acute Dizziness Acute Hypoxemia Acute Ischemic cardiomyopathy Acute Near syncope Acute Symptomatic bradycardia Acute
[2018-01-27] MEDS: ATORVASTATIN CALCIUM 40 MG TAB PO SCH (21:17)
[2018-01-27] MEDS: TRAVOPROST Z 0.004% 2.5 ML OPHT.BTL EACHEYE SCH (21:18)
[2018-01-28] MEDS: methylPREDNISolone SOD SUCC 125 MG/2 ML VIAL IVP SCH ×3 (05:26→17:03)
[2018-01-28] MEDS: IPRATROPIUM/ALBUTEROL 3 ML DEYVIAL IH SCH ×4 (06:14→20:27)
[2018-01-28] MEDS: AZITHROMYCIN 250 MG TAB PO SCH (08:30)
[2018-01-28] MEDS: DIGOXIN 250 MCG TAB PO SCH (08:30)
[2018-01-28] MEDS: METOPROLOL TARTRATE 50 MG TAB PO SCH ×2 (08:31→20:53)
[2018-01-28] MEDS: PANTOPRAZOLE SODIUM 40 MG TAB PO SCH (08:31)
[2018-01-28] MEDS: APIXABAN 5 MG TAB PO SCH ×2 (08:31→20:54)
[2018-01-28] MEDS: ASPIRIN 81 MG CHEWABLE TAB PO SCH (08:31)
[2018-01-28] MEDS: POTASSIUM CL 10 MEQ TAB PO SCH (08:31)
[2018-01-28] MEDS: FUROSEMIDE 20 MG TAB PO SCH (08:31)
[2018-01-28] MEDS: [UNRECOGNIZED DRUG - OTHER] TP SCH ×2 (08:34→20:54)
[2018-01-28] MEDS: FLUTICASONE/SALMETER 250/50MCG DISKUS IH SCH ×2 (10:03→20:27)
--- NOTE | 2018-01-28 12:19 | HOSPPROG ---
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 Hernandez - cont high dose steroids - cont azithromycin PO - cont inhaled bronchodilators - pulmonary following- pt may need intubation # Chronic COPD - no significant wheezing on exam- WBC 17 - cont pulmonary toilet and azithromycin - cont steroids # Acute leukocytosis - WBC 19->17- no fever suspect 2/2 demargination with solumedrol - follow daily # CAD - no chest pain - cont home meds # Atrila fibrillation - currently rate controlled - cont eliquis, digoxin, diltiazem, metoprolol # proph - eliquis # diet - cardiac # dsipo - > 2MN as requires ongoing IV medications and treatment I have discussed the case with Pulmonary - continue SDU and Vapotherm Subjective: breathing still difficult Objective: Vital Signs Temp Pulse Resp BP Pulse Ox 36.7 C 71 20 109/58 L 96 01/28/18 07:59 01/28/18 11:12 01/28/18 11:12 01/28/18 08:31 01/28/18 11:12 Laboratory Results 01/28/18 04:15 01/26/18 03:46 01/27/18 01/28/18 01/29/18 05:59 05:59 05:59 Intake Total 1750 1100 350 Output Total 1300 1610 Balance 450 -510 350 PT 16.3 SEC (12.0-15.0) H 01/25/18 11:00 INR 1.29 (0.83-1.16) H 01/25/18 11:00 - Physical Exam Constitutional: no apparent distress Eyes: anicteric sclera Ears, Nose, Mouth, Throat: moist mucous membranes Cardiovascular: regular rate and rhythym Respiratory: inspiratory crackles Gastrointestinal: normoactive bowel sounds Genitourinary: no bladder fullness Skin: warm Musculoskeletal: No asymmetric calves Neurologic: AAOx3 Psychiatric: interacting appropriately Lymph, Heme, Immunologic: no cervical LAD ICD10 Worksheet Patient Problems: Problems Problem Status Onset Chronic obstructive pulmonary disease with acute exacerbation Acute Atrial fibrillation Acute Congestive heart failure Acute Dizziness Acute Hypoxemia Acute Ischemic cardiomyopathy Acute Near syncope Acute Symptomatic bradycardia Acute
--- NOTE | 2018-01-28 12:52 | PDINTPN ---
Coating And Embossing Unit Operator Progress Note Assessment/Plan: Assessment: Patient moved to intensive care unit on step-down yesterday due to increased oxygen requirements. Acute hypoxemic respiratory failure: Occurring in the setting of chronic hypoxemia/dyspnea due to interstitial lung disease. Possible causes of decompensation include increased fluid/reduced cardiac function (BNP increased from last hospitalization), acute viral or bacterial bronchitis, progression of interstitial disease. PE unlikely on Eliquis. ILD: Consistent with idiopathic pulmonary fibrosis, with little overall change compared to his previous CT. Increased ground-glass opacities suggest an acute component or possibly infection. On azithromycin Hemoptysis: Suspect component of bronchitis with increased risk of hemoptysis due to cough and being on Eliquis. Hemoptysis is decreasing Plan: Continue care on SDU secondary to increasing oxygen needs. Review chest x-ray when available today. Check BNP: Diurese if increasing. Continue high- dose steroids. Continue antibiotics and bronchopulmonary therapies. Follow daily weights. Continue anticoagulation and other medications as we are doing. Objective: Vital Signs Temp Pulse Resp BP Pulse Ox 36.7 C 71 20 109/58 L 96 01/28/18 07:59 01/28/18 11:12 01/28/18 11:12 01/28/18 08:31 01/28/18 11:12 Laboratory Results 01/28/18 04:15 01/26/18 03:46 01/27/18 01/28/18 01/29/18 05:59 05:59 05:59 Intake Total 1750 1100 350 Output Total 1300 1610 Balance 450 -510 350 PT 16.3 SEC (12.0-15.0) H 01/25/18 11:00 INR 1.29 (0.83-1.16) H 01/25/18 11:00 Physical Exam - Physical Exam General Appearance: alert, mild distress, other (On oxygen by Vapotherm) ICD10 Worksheet Patient Problems: Problems Problem Status Onset Chronic obstructive pulmonary disease with acute exacerbation Acute Atrial fibrillation Acute Congestive heart failure Acute Dizziness Acute Hypoxemia Acute Ischemic cardiomyopathy Acute Near syncope Acute Symptomatic bradycardia Acute
[2018-01-28] MEDS: DILTIAZEM CD 120 MG CAP PO SCH (13:01)
[2018-01-28] MEDS ORDERED: FUROSEMIDE 40 MG/4 ML VIAL IVP ONE (16:24)
--- NOTE | 2018-01-28 16:30 | SOAPPROG ---
SOAP Progress Note Assessment/Plan: Assessment: Patient moved to intensive care unit on step-down yesterday due to increased oxygen requirements. Acute hypoxemic respiratory failure: Occurring in the setting of chronic hypoxemia/dyspnea due to interstitial lung disease. Possible causes of decompensation include increased fluid/reduced cardiac function (BNP increased) , acute viral or bacterial bronchitis, progression of interstitial disease. PE unlikely on Eliquis. On Lasix ILD: Consistent with idiopathic pulmonary fibrosis, with little overall change compared to his previous CT. Increased ground-glass opacities suggest an acute component or possibly infection. On azithromycin. On bronchodilator therapies and high-dose steroids. Atrial fibrillation Hemoptysis: Suspect component of bronchitis with increased risk of hemoptysis due to cough and being on Eliquis. Resolving Plan: Continue care in ICU. Continue Lasix diuresis, will increase. Continue high-dose steroids. Continue antibiotics and bronchopulmonary therapies. Follow daily weights. Continue anticoagulation and other medications as we are doing. Repeat chest x-ray tomorrow. Follow lab. 25 min of clinic time spent directly with the patient today. Discussed with family and patient, nursing, hospitalist, the ICU multi disciplinary team. Subjective: Remains short of breath, dry cough at times, on Vapotherm Objective: Vital Signs Temp Pulse Resp BP Pulse Ox 36.7 C 84 31 H 105/69 95 01/28/18 07:59 01/28/18 15:23 01/28/18 15:23 01/28/18 13:01 01/28/18 15:23 Laboratory Results 01/28/18 04:15 01/26/18 03:46 01/27/18 01/28/18 01/29/18 05:59 05:59 05:59 Intake Total 1750 1100 350 Output Total 1300 1610 300 Balance 450 -510 50 PT 16.3 SEC (12.0-15.0) H 01/25/18 11:00 INR 1.29 (0.83-1.16) H 01/25/18 11:00 Physical Exam - Physical Exam General Appearance: alert, no apparent distress, other (Up in chair) EENT: PERRL/EOMI, other (Vapotherm in place) Neck: normal inspection (No obvious JVD) Respiratory: decreased breath sounds (And excursions), rales (Rales, fine, at bases bilaterally), No rhonchi, No wheezing Cardiac/Chest: irregularly irregular (AFib in 70s) Abdomen: normal bowel sounds, non-tender, soft Skin: normal color, warm/dry Extremities: No pedal edema Neuro/Psych: no motor/sensory deficits, No cognition abnormalities ICD10 Worksheet Patient Problems: Problems Problem Status Onset Symptomatic bradycardia Acute Dizziness Acute Near syncope Acute Atrial fibrillation Acute Ischemic cardiomyopathy Acute Congestive heart failure Acute Hypoxemia Acute Chronic obstructive pulmonary disease with acute exacerbation Acute
[2018-01-28] MEDS: ATORVASTATIN CALCIUM 40 MG TAB PO SCH (20:53)
[2018-01-28] MEDS: TRAVOPROST Z 0.004% 2.5 ML OPHT.BTL EACHEYE SCH (20:56)
[2018-01-29] MEDS: methylPREDNISolone SOD SUCC 125 MG/2 ML VIAL IVP SCH ×4 (00:38→17:30)
[2018-01-29] MEDS: IPRATROPIUM/ALBUTEROL 3 ML DEYVIAL IH SCH ×4 (05:51→20:18)
[2018-01-29] MEDS: POTASSIUM CL 10 MEQ TAB PO SCH (09:16)
[2018-01-29] MEDS: ASPIRIN 81 MG CHEWABLE TAB PO SCH (09:16)
[2018-01-29] MEDS: DIGOXIN 250 MCG TAB PO SCH (09:16)
[2018-01-29] MEDS: METOPROLOL TARTRATE 50 MG TAB PO SCH ×2 (09:16→20:54)
[2018-01-29] MEDS: PANTOPRAZOLE SODIUM 40 MG TAB PO SCH (09:16)
[2018-01-29] MEDS: AZITHROMYCIN 250 MG TAB PO SCH (09:16)
[2018-01-29] MEDS: APIXABAN 5 MG TAB PO SCH ×2 (09:16→20:54)
[2018-01-29] MEDS: FUROSEMIDE 20 MG TAB PO SCH (09:16)
[2018-01-29] MEDS: [UNRECOGNIZED DRUG - OTHER] TP SCH ×2 (09:17→20:55)
[2018-01-29] MEDS: FLUTICASONE/SALMETER 250/50MCG DISKUS IH SCH ×2 (10:00→20:18)
--- NOTE | 2018-01-29 11:28 | PDINTPN ---
Master Sonar Technician Progress Note Assessment/Plan: Assessment: Patient moved to intensive care unit on step-down 01/27 due to increased oxygen requirements. Acute hypoxemic respiratory failure: Occurring in the setting of chronic hypoxemia/dyspnea due to interstitial lung disease. Possible causes of decompensation include increased fluid/reduced cardiac function (BNP increased) , acute viral or bacterial bronchitis, progression of interstitial disease. PE unlikely on Eliquis. On Lasix ILD: Consistent with idiopathic pulmonary fibrosis, with little overall change compared to his previous CT. Increased ground-glass opacities suggest an acute component or possibly infection. On azithromycin. On bronchodilator therapies and high-dose steroids. Atrial fibrillation. Chronic, on anticoagulation Hemoptysis: Suspect component of bronchitis with increased risk of hemoptysis due to cough and being on Eliquis. Resolving. Hiatal hernia. Large, relatively asymptomatic however I do wonder about ongoing intermittent aspiration causing pneumonitis or possibly pneumonia. Plan: Continue care in ICU. Continue Lasix diuresis, but may need to decrease dosage if BUN and CO to continue to rise. Continue high-dose steroids for now. Can discontinue azithromycin as he has had a a full course. Will check procalcitonin and consider antibiotics for ongoing and intermittent aspiration.. Follow daily weights. Continue anticoagulation and other medications as we are doing. Follow chest x-ray and laboratory intermittently. Could consider bronchoscopy with BAL looking for unlikely infections such as PCP in light of steroid therapy. Could consider open lung biopsy how he would have difficulty coming off the ventilator after such a procedure. I will sit down and discuss issues with the patient and his family later today.. 35 min of clinic time spent directly with the patient today. Discussed with nursing, hospitalist, the ICU multi disciplinary team. Subjective: Unchanged, remains short of breath and extremely dyspneic with any exertional activity, on high-flow oxygen by Vapotherm. Dry cough. Objective: Vital Signs Temp Pulse Resp BP Pulse Ox 36.9 C 83 24 H 110/54 L 95 01/29/18 08:00 01/29/18 10:02 01/29/18 10:02 01/29/18 08:00 01/29/18 10:02 Laboratory Results 01/29/18 04:15 01/29/18 04:15 01/28/18 01/29/18 01/30/18 05:59 05:59 05:59 Intake Total 1100 1980 Output Total 1610 1988 Balance -510 -295 PT 16.3 SEC (12.0-15.0) H 01/25/18 11:00 INR 1.29 (0.83-1.16) H 01/25/18 11:00 CXR: No significant change in bilateral extensive interstitial infiltrates Physical Exam - Physical Exam General Appearance: alert, no apparent distress EENT: other (On Vapotherm) Neck: normal inspection (No obvious jugular venous distension) Respiratory: decreased breath sounds, rales (Bibasilar rales present, unchanged) , No rhonchi, No wheezing Cardiac/Chest: regular rate, rhythm, systolic murmur, other (Increased P2) Abdomen: normal bowel sounds, non-tender, soft Male Genitalia: other (No Choi catheter, using urinal) Skin: normal color, warm/dry Extremities: No pedal edema Neuro/Psych: no motor/sensory deficits, No cognition abnormalities ICD10 Worksheet Patient Problems: Problems Problem Status Onset Symptomatic bradycardia Acute Dizziness Acute Near syncope Acute Atrial fibrillation Acute Ischemic cardiomyopathy Acute Congestive heart failure Acute Hypoxemia Acute Chronic obstructive pulmonary disease with acute exacerbation Acute
[2018-01-29] MEDS: DILTIAZEM CD 120 MG CAP PO SCH (12:13)
--- NOTE | 2018-01-29 15:22 | HOSPPROG ---
Hospitalist Progress Note Assessment/Plan: # Acute Hypoxic Respiratory Failure - pt with history of chronic HF from ILD Acute decompensation 01/27 with oxygen saturations dropping 85% on 15L NRB- transferred to SDU for Vapotherm Admission ECHO-EF estimated in the 60's and CT chest w/ increased ground glass markings CXR (personally reviewed and interpreted) markedly worsened bilateral infiltrates - continue Vapotherm in step-down unit - cont lasix - suspect will need lower dose as BUN up and has contraction alkalosis - cont high dose steroids - completed azithromycin PO - cont inhaled bronchodilators - procalcitonin - negative no further abx currently # Chronic COPD - no significant wheezing on exam - cont pulmonary toilet and azithromycin - cont steroids # Acute leukocytosis - WBC 19->16- no fever suspect 2/2 demargination with solumedrol - follow daily # CAD - no chest pain - cont home meds # Atrila fibrillation - currently rate controlled - cont eliquis, digoxin, diltiazem, metoprolol # proph - eliquis # diet - cardiac # dsipo - > 2MN as requires ongoing IV medications and treatment I have discussed the case with Pulmonary - checked procalcitonin to rule out underlying aspiration PNA Subjective: stable Objective: Vital Signs Temp Pulse Resp BP Pulse Ox 36.7 C 63 25 H 113/59 L 96 01/29/18 12:00 01/29/18 12:13 01/29/18 12:00 01/29/18 12:13 01/29/18 12:00 Laboratory Results 01/29/18 04:15 01/29/18 04:15 01/28/18 01/29/18 01/30/18 05:59 05:59 05:59 Intake Total 1100 1980 Output Total 1610 2275 700 Balance -510 -295 -700 PT 16.3 SEC (12.0-15.0) H 01/25/18 11:00 INR 1.29 (0.83-1.16) H 01/25/18 11:00 - Physical Exam Constitutional: no apparent distress Eyes: anicteric sclera Ears, Nose, Mouth, Throat: dry mucous membranes Cardiovascular: irregularly irregular Respiratory: no respiratory distress Gastrointestinal: normoactive bowel sounds Genitourinary: no bladder fullness Skin: normal color Musculoskeletal: No asymmetric calves Neurologic: AAOx3 Psychiatric: interacting appropriately Lymph, Heme, Immunologic: no cervical LAD ICD10 Worksheet Patient Problems: Problems Problem Status Onset Chronic obstructive pulmonary disease with acute exacerbation Acute Atrial fibrillation Acute Congestive heart failure Acute Dizziness Acute Hypoxemia Acute Ischemic cardiomyopathy Acute Near syncope Acute Symptomatic bradycardia Acute
[2018-01-29] MEDS ORDERED: PROTOCOL MAGNESIUM 1 DOSE IV PRN (20:09)
[2018-01-29] MEDS ORDERED: PROTOCOL POTASSIUM 1 DOSE MISC PRN (20:09)
[2018-01-29] MEDS: ATORVASTATIN CALCIUM 40 MG TAB PO SCH (20:54)
[2018-01-29] MEDS: DOCUSATE SODIUM 100 MG CAP PO SCH (20:54)
[2018-01-29] MEDS: TRAVOPROST Z 0.004% 2.5 ML OPHT.BTL EACHEYE SCH (20:55)
[2018-01-29] MEDS ORDERED: POTASSIUM CL 10 MEQ TAB PO ONE (21:00)
[2018-01-30] MEDS: methylPREDNISolone SOD SUCC 125 MG/2 ML VIAL IVP SCH ×4 (00:20→18:36)
[2018-01-30] MEDS: IPRATROPIUM/ALBUTEROL 3 ML DEYVIAL IH SCH ×4 (06:14→20:39)
[2018-01-30] MEDS: ASPIRIN 81 MG CHEWABLE TAB PO SCH (07:25)
[2018-01-30] MEDS: APIXABAN 5 MG TAB PO SCH ×2 (07:25→21:03)
[2018-01-30] MEDS: DOCUSATE SODIUM 100 MG CAP PO SCH ×2 (07:25→21:03)
[2018-01-30] MEDS: PANTOPRAZOLE SODIUM 40 MG TAB PO SCH (07:25)
[2018-01-30] MEDS: FUROSEMIDE 20 MG TAB PO SCH (07:26)
[2018-01-30] MEDS: [UNRECOGNIZED DRUG - OTHER] TP SCH ×2 (07:26→21:04)
[2018-01-30] MEDS: METOPROLOL TARTRATE 50 MG TAB PO SCH ×2 (07:27→21:03)
[2018-01-30] MEDS ORDERED: POTASSIUM CL 10 MEQ TAB PO ONE ×2 (07:30→19:19)
[2018-01-30] MEDS: FLUTICASONE/SALMETER 250/50MCG DISKUS IH SCH ×2 (09:30→20:40)
--- NOTE | 2018-01-30 09:57 | PDINTPN ---
Pedigree Researcher Progress Note Assessment/Plan: Assessment: Patient moved to intensive care unit on step-down 01/27 due to increased oxygen requirements. Acute hypoxemic respiratory failure: Occurring in the setting of chronic hypoxemia/dyspnea due to interstitial lung disease. Possible causes of decompensation include increased fluid/reduced cardiac function (BNP increased) , acute viral or bacterial bronchitis, progression of interstitial disease. PE unlikely on Eliquis. On Lasix, azithromycin, high-dose steroids. ILD: Consistent with idiopathic pulmonary fibrosis, with little overall change compared to his previous CT. Increased ground-glass opacities suggest an acute component or possibly infection. On azithromycin. On bronchodilator therapies and high-dose steroids. Atrial fibrillation. Chronic, on anticoagulation Hemoptysis: Suspect component of bronchitis with increased risk of hemoptysis due to cough and being on Eliquis. Resolving. Hiatal hernia. Large, relatively asymptomatic however I do wonder about ongoing intermittent aspiration causing pneumonitis or possibly pneumonia. Plan: Continue care in ICU. Continue Lasix diuresis, but decrease. Continue high-dose steroids for now. Follow daily weights. Continue anticoagulation and other medications as we are doing. Follow chest x-ray and laboratory intermittently. Could consider bronchoscopy with BAL looking for unlikely infections such as PCP in light of steroid therapy, however may be poorly tolerated. Could consider open lung biopsy how he would have difficulty coming off the ventilator after such a procedure. Will see what O2 needs by NC are today. Increase activity as tolerated. Will request a palliative care consultation. An informational hospice consultation may be of benefit at some point as well. 35 min of clinic time spent directly with the patient today and in addition and in addition I met for an additional 30 min with the patient, his , 2 sons and a daughter in law for a family conference regarding pathology, treatment and prognosis. Radiologic studies were reviewed with the family directly on the PACS system.. Discussed with nursing, hospitalist, the ICU multi disciplinary team. Subjective: Unchanged. Remains dyspneic, especially with exertional activities. Cough mostly dry, small amount of mucus only in the morning. Objective: Vital Signs Temp Pulse Resp BP Pulse Ox 36.4 C 72 18 104/60 93 01/30/18 07:28 01/30/18 07:28 01/30/18 07:28 01/30/18 07:28 01/30/18 07:28 Laboratory Results 01/30/18 04:20 01/30/18 04:20 01/29/18 01/30/18 01/31/18 05:59 05:59 05:59 Intake Total 1980 980 Output Total 1374 6130 Balance -295 -570 PT 16.3 SEC (12.0-15.0) H 01/25/18 11:00 INR 1.29 (0.83-1.16) H 01/25/18 11:00 Physical Exam - Physical Exam General Appearance: alert, no apparent distress EENT: other (On Vapotherm) Neck: normal inspection (No obvious JVD) Respiratory: decreased breath sounds, rales (Rales at bases, unchanged), No rhonchi, No wheezing Cardiac/Chest: regular rate, rhythm Abdomen: normal bowel sounds, non-tender, soft Skin: normal color, warm/dry Extremities: No pedal edema Neuro/Psych: no motor/sensory deficits, No cognition abnormalities ICD10 Worksheet Patient Problems: Problems Problem Status Onset Symptomatic bradycardia Acute Dizziness Acute Near syncope Acute Atrial fibrillation Acute Ischemic cardiomyopathy Acute Congestive heart failure Acute Hypoxemia Acute Chronic obstructive pulmonary disease with acute exacerbation Acute
[2018-01-30] MEDS: DIGOXIN 250 MCG TAB PO SCH (10:06)
[2018-01-30] MEDS: POTASSIUM CL 10 MEQ TAB PO SCH (10:06)
[2018-01-30] MEDS ORDERED: ALBUMIN 5% 500 ML IV ONE (10:11)
[2018-01-30] MEDS: DILTIAZEM CD 120 MG CAP PO SCH (11:11)
--- NOTE | 2018-01-30 12:00 | HOSPPROG ---
Hospitalist Progress Note Assessment/Plan: # Acute Hypoxic Respiratory Failure - pt with history of chronic HF from ILD- transferred to SDU 01/27 with worsening oxygen saturations NRB- transferred to Admission ECHO-EF estimated in the 60's and CT chest w/ increased ground glass markings CXR (personally reviewed and interpreted) stable bilateral infiltrates First day with some clinical improvement - oxygen saturations 94% on 60% Vapotherm (down from 80%) - continue Vapotherm in step-down unit - cont lasix - reducing dose to 40 mg p.o. Daily from 60 mg - completed azithromycin PO - procalcitonin - negative no further abx currently - cont inhaled bronchodilators - continue high-dose steroids # Chronic COPD - no significant wheezing on exam - cont pulmonary toilet and azithromycin - cont steroids # Acute leukocytosis - WBC 19->16- no fever- suspect acute jump 2/2 demargination with solumedrol - follow daily # CAD - no chest pain - cont home meds # Atrila fibrillation - currently rate controlled - cont eliquis, digoxin, diltiazem, metoprolol # proph - eliquis # diet - cardiac # dsipo - > 2MN as requires ongoing IV medications and treatment I have discussed the case with RN- patient recovery from minimal activity this morning markedly improved from yesterday Subjective: Slept solid - improved energy Objective: Vital Signs Temp Pulse Resp BP Pulse Ox 36.4 C 73 18 106/63 94 01/30/18 07:28 01/30/18 11:11 01/30/18 09:32 01/30/18 11:11 01/30/18 09:32 Laboratory Results 01/30/18 04:20 01/30/18 04:20 01/29/18 01/30/18 01/31/18 05:59 05:59 05:59 Intake Total 1980 980 Output Total 2275 1550 Balance -295 -570 PT 16.3 SEC (12.0-15.0) H 01/25/18 11:00 INR 1.29 (0.83-1.16) H 01/25/18 11:00 - Physical Exam Constitutional: chronically ill appearing Eyes: anicteric sclera Ears, Nose, Mouth, Throat: moist mucous membranes Cardiovascular: irregularly irregular Respiratory: no respiratory distress, inspiratory crackles Gastrointestinal: normoactive bowel sounds Genitourinary: no bladder fullness Skin: warm Musculoskeletal: No asymmetric calves Neurologic: AAOx3 Psychiatric: interacting appropriately Lymph, Heme, Immunologic: no cervical LAD ICD10 Worksheet Patient Problems: Problems Problem Status Onset Chronic obstructive pulmonary disease with acute exacerbation Acute Atrial fibrillation Acute Congestive heart failure Acute Dizziness Acute Hypoxemia Acute Ischemic cardiomyopathy Acute Near syncope Acute Symptomatic bradycardia Acute
--- NOTE | 2018-01-30 16:11 | ASMTCMCOM ---
CM Note CM Note Notes: Dr. Hernandez has ordered a Palliative Care consult for the family. chaplain Lemuel spoke with patient's to set up the consult for Friday. Patient himself can participate so it most likely will be held in the patient's room. Patient's will call back Friday with a time for the family members to gather. Lemuel states he will follow up with getting the meeting set up. CM to participate in the meeting. CM will follow. Date Signed: 01/30/2018 04:10 PM Electronically Signed By:Angle Roland LCSW
[2018-01-30] MEDS ORDERED: CANN-EASE 2 GM TUBE TP ONE (19:37)
[2018-01-30] MEDS: ATORVASTATIN CALCIUM 40 MG TAB PO SCH (21:03)
[2018-01-30] MEDS: TRAVOPROST Z 0.004% 2.5 ML OPHT.BTL EACHEYE SCH (21:04)
[2018-01-31] MEDS: methylPREDNISolone SOD SUCC 125 MG/2 ML VIAL IVP SCH ×5 (00:12→23:07)
[2018-01-31] MEDS: IPRATROPIUM/ALBUTEROL 3 ML DEYVIAL IH SCH ×4 (06:20→20:50)
[2018-01-31] MEDS: DOCUSATE SODIUM 100 MG CAP PO SCH ×2 (09:24→20:22)
[2018-01-31] MEDS: ASPIRIN 81 MG CHEWABLE TAB PO SCH (09:24)
[2018-01-31] MEDS: METOPROLOL TARTRATE 50 MG TAB PO SCH ×2 (09:25→20:22)
[2018-01-31] MEDS: FUROSEMIDE 20 MG TAB PO SCH (09:25)
[2018-01-31] MEDS: DIGOXIN 250 MCG TAB PO SCH (09:27)
[2018-01-31] MEDS: APIXABAN 5 MG TAB PO SCH ×2 (09:27→20:21)
[2018-01-31] MEDS: PANTOPRAZOLE SODIUM 40 MG TAB PO SCH (09:27)
[2018-01-31] MEDS: POTASSIUM CL 10 MEQ TAB PO SCH (09:27)
[2018-01-31] MEDS: FLUTICASONE/SALMETER 250/50MCG DISKUS IH SCH ×2 (09:29→20:53)
[2018-01-31] MEDS: [UNRECOGNIZED DRUG - OTHER] TP SCH ×2 (09:30→20:22)
[2018-01-31] MEDS: DILTIAZEM CD 120 MG CAP PO SCH (12:08)
--- NOTE | 2018-01-31 14:42 | HOSPPROG ---
Hospitalist Progress Note Assessment/Plan: Assessment: 77 yo M p/w acute on chronic hypoxic respiratory failure 2/2 ILD flare w/ possible acute diastolic CHF Plan: # Acute on Chronic Hypoxic Respiratory Failure. Recent acutely worsening shortness of breath w/ minimal activity, severely desat'ing, reqiring NRB and vapotherm, currently, slowly weaned to 15LPM, 2/2 ILD flare as well as possible acute diastolic CHF -counseled patient and family extensively regarding the supportive course for his situation, and we will continue these palliative conversations daily to support the patient, as his primary objective is to return home w/ w/o going to SNF first -will cont to work w/ RT to determine whether patient can receive high flow concentrator at home -d/w Dr. Hernandez on rounds, he recommends adjusting steroid dosing today # Possible acute diastolic CHF exacerbation. 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 Acute, 2/2 above -patient would prefer to hold on SSRI, counseled him regarding potential use in this situation # Chronic COPD. No significant wheezing on exam -cont pulmonary toilet, s/p 5 days Azithro -cont steroids # CAD - no chest pain - cont home meds # Atrial fibrillation - currently rate controlled -cont eliquis, digoxin, diltiazem, metoprolol # proph - eliquis # diet - cardiac # dsipo - ongoing high o2 requirements, counseled patient regarding work w/ PT/ OT to troubleshoot his home mobility to prepare for ultimate DC home w/ HHC Subjective: patient feels distressed/depressed regarding his resp situation Objective: Vital Signs Temp Pulse Resp BP Pulse Ox 36.5 C 90 26 H 108/56 L 94 01/30/18 19:48 01/31/18 12:08 01/31/18 12:00 01/31/18 12:08 01/31/18 12:00 Laboratory Results 01/30/18 04:20 01/31/18 06:00 01/30/18 01/31/18 02/01/18 05:59 05:59 05:59 Intake Total 980 850 Output Total 1550 1425 500 Balance -570 -575 -500 PT 16.3 SEC (12.0-15.0) H 01/25/18 11:00 INR 1.29 (0.83-1.16) H 01/25/18 11:00 - Time Spent With Patient Time Spent with Patient: greater than 35 minutes Time Spent with Patient: Greater than 35 minutes spent on this patients care, greater than 50% of time spent counseling, educating, and coordinating care regarding the above mentioned plan. - Physical Exam Constitutional: not in pain, chronically ill appearing, uncomfortable Cardiovascular: tachycardia, No edema Respiratory: inspiratory crackles, other (visible tachypnea), No expiratory wheeze, No bronchial breath sounds Gastrointestinal: normoactive bowel sounds, soft, non-tender abdomen, no palpable masses Neurologic: AAOx3 Psychiatric: not encephalopathic, anxious, depressed, No agitated ICD10 Worksheet Patient Problems: Problems Problem Status Onset Symptomatic bradycardia Acute Dizziness Acute Near syncope Acute Atrial fibrillation Acute Ischemic cardiomyopathy Acute Congestive heart failure Acute Hypoxemia Acute Chronic obstructive pulmonary disease with acute exacerbation Acute
--- NOTE | 2018-01-31 16:47 | PDINTPN ---
Prosecuting Attorney Progress Note Assessment/Plan: Assessment: Patient moved to intensive care unit on step-down 01/27 due to increased oxygen requirements. Acute hypoxemic respiratory failure: Occurring in the setting of chronic hypoxemia/dyspnea due to interstitial lung disease. Possible causes of decompensation include increased fluid/reduced cardiac function (BNP increased) , acute viral or bacterial bronchitis, progression of interstitial disease. PE unlikely on Eliquis. On Lasix, azithromycin, high-dose steroids. ILD: Consistent with idiopathic pulmonary fibrosis, with little overall change compared to his previous CT. Increased ground-glass opacities suggest an acute component or possibly infection. Completed a course of azithromycin. On bronchodilator therapies and high-dose steroids. Can start to decrease the latter, no evidence of benefit. Atrial fibrillation. Chronic, on anticoagulation Hemoptysis: Suspect component of bronchitis with increased risk of hemoptysis due to cough and being on Eliquis. Resolving. Hiatal hernia. Large, relatively asymptomatic however I do wonder about ongoing intermittent aspiration causing pneumonitis or possibly pneumonia. Plan: Can transfer back to a medical-surgical bed. Continue oxygen as needed to keep saturations in the 80s. Continue Lasix diuresis at 40 once a day for now. Decrease steroids. Follow daily weights. Continue anticoagulation and other medications as we are doing. Follow chest x-ray and laboratory intermittently. Could consider bronchoscopy with BAL looking for unlikely infections such as PCP in light of steroid therapy, however may be poorly tolerated. No indication for this currently. Could consider open lung biopsy how he would have difficulty coming off the ventilator after such a procedure. Increase activity as tolerated. Palliative care consultation scheduled for Friday. An informational Hospice consultation may be of benefit at some point as well. 30 min of clinic time spent directly with the patient today. Discussed with nursing, hospitalist, the ICU multi disciplinary team. Subjective: About the same, on high-flow Oxymizer. Remains short of breath with exertional activities. Little in the way of cough and mucus. Some in the a.m. Objective: Vital Signs Temp Pulse Resp BP Pulse Ox 36.5 C 84 21 H 125/43 H 83 L 01/30/18 19:48 01/31/18 16:00 01/31/18 16:00 01/31/18 16:00 01/31/18 16:00 Laboratory Results 01/30/18 04:20 01/31/18 06:00 01/30/18 01/31/18 02/01/18 05:59 05:59 05:59 Intake Total 980 850 Output Total 1550 1425 500 Balance -570 -575 -500 PT 16.3 SEC (12.0-15.0) H 01/25/18 11:00 INR 1.29 (0.83-1.16) H 01/25/18 11:00 Procalcitonin: Negative Physical Exam - Physical Exam General Appearance: alert, no apparent distress, other (In chair) EENT: PERRL/EOMI, other (Vapotherm in place) Neck: normal inspection Respiratory: decreased breath sounds, rales (Bibasilar rales without significant change), No rhonchi, No wheezing Cardiac/Chest: regular rate, rhythm, systolic murmur (Soft systolic murmur), other (Increased P2) Abdomen: normal bowel sounds, non-tender, soft Skin: normal color, warm/dry Extremities: No pedal edema Neuro/Psych: no motor/sensory deficits, No cognition abnormalities ICD10 Worksheet Patient Problems: Problems Problem Status Onset Symptomatic bradycardia Acute Dizziness Acute Near syncope Acute Atrial fibrillation Acute Ischemic cardiomyopathy Acute Congestive heart failure Acute Hypoxemia Acute Chronic obstructive pulmonary disease with acute exacerbation Acute
[2018-01-31] MEDS: ATORVASTATIN CALCIUM 40 MG TAB PO SCH (20:21)
[2018-01-31] MEDS: TRAVOPROST Z 0.004% 2.5 ML OPHT.BTL EACHEYE SCH (20:22)
[2018-02-01] MEDS: methylPREDNISolone SOD SUCC 125 MG/2 ML VIAL IVP SCH ×3 (05:26→20:53)
[2018-02-01] MEDS: IPRATROPIUM/ALBUTEROL 3 ML DEYVIAL IH SCH ×4 (05:43→20:27)
[2018-02-01] MEDS: DOCUSATE SODIUM 100 MG CAP PO SCH ×2 (08:41→20:53)
[2018-02-01] MEDS: ASPIRIN 81 MG CHEWABLE TAB PO SCH (08:41)
[2018-02-01] MEDS: POTASSIUM CL 10 MEQ TAB PO SCH (08:41)
[2018-02-01] MEDS: PANTOPRAZOLE SODIUM 40 MG TAB PO SCH (08:41)
[2018-02-01] MEDS: APIXABAN 5 MG TAB PO SCH ×2 (08:41→20:53)
[2018-02-01] MEDS: METOPROLOL TARTRATE 50 MG TAB PO SCH ×2 (08:42→20:52)
[2018-02-01] MEDS: FUROSEMIDE 20 MG TAB PO SCH (08:42)
[2018-02-01] MEDS: DIGOXIN 250 MCG TAB PO SCH (09:33)
[2018-02-01] MEDS ORDERED: LORazepam 2 MG/ML INJ IVP PRN (11:16)
[2018-02-01] MEDS: FLUTICASONE/SALMETER 250/50MCG DISKUS IH SCH ×2 (11:56→20:27)
[2018-02-01] MEDS ORDERED: morphINE SR 15 MG TAB PO ONE (14:19)
[2018-02-01] MEDS ORDERED: ZOLPIDEM TARTRATE 5 MG TAB PO PRN (14:29)
--- NOTE | 2018-02-01 14:29 | PDINTPN ---
Private Branch Exchange Operator Progress Note Assessment/Plan: Assessment: Patient moved to intensive care unit on step-down 01/27 due to increased oxygen requirements. Acute hypoxemic respiratory failure: Occurring in the setting of chronic hypoxemia/dyspnea due to interstitial lung disease. Possible causes of decompensation include increased fluid/reduced cardiac function (BNP increased) , acute viral or bacterial bronchitis, progression of interstitial disease. PE unlikely on Eliquis. On Lasix, azithromycin, high-dose steroids. I tried him on BiPAP today for short period of time. He did not tolerate it, felt it did not help, and he felt claustrophobic. ILD: Consistent with idiopathic pulmonary fibrosis, with little overall change compared to his previous CT. Increased ground-glass opacities this admission suggested a possible acute component or possibly infection. Completed a course of azithromycin and high-dose steroids. On bronchodilator therapies. Decreased IV Solu-Medrol as there is been no evidence of benefit. Atrial fibrillation. Chronic, on anticoagulation Hemoptysis: Suspect component of bronchitis with increased risk of hemoptysis due to cough and being on Eliquis. Not a significant problem. Hiatal hernia. Large, relatively asymptomatic however I do wonder about ongoing intermittent aspiration causing pneumonitis?. Plan: Continue care in the intensive care unit. Will not transfer to a medical -surgical unit. Continue oxygen as needed to keep saturations in the 80s. Continue Lasix diuresis at 40 once a day for now. Continue Solu-Medrol at 60 Q 8. Continue anticoagulation and other medications as we are doing. Follow chest x-ray and laboratory intermittently. Will try MS Contin. Could consider bronchoscopy with BAL looking for unlikely infections such as PCP in light of steroid therapy, however may be poorly tolerated. No indication for this currently. Could consider open lung biopsy how he would have difficulty coming off the ventilator after such a procedure. Increase activity as tolerated. Palliative care consultation scheduled for tomorrow. I would encourage this leading to a Hospice consultation. I think it would be reasonable to get him home on high-flow oxygen with Hospice care and support. I feel his decline is not reversible and he is not going to survive this exacerbation... He may have a week or 2? 25 min of clinic time spent directly with the patient today. I also met with his , 2 sons and [id number] this afternoon and discussed the above issues. Discussed with nursing, hospitalist, the ICU multi disciplinary team. 02/01/18 14:31 Subjective: More short of breath overnight in [place] this morning. Feels he is weaker. No other changes. Little in the way of cough or mucus, no chest pain. No edema. Objective: Vital Signs Temp Pulse Resp BP Pulse Ox 36.7 C 96 24 H 114/55 L 90 L 02/01/18 12:00 02/01/18 12:00 02/01/18 12:00 02/01/18 12:00 02/01/18 12:00 Laboratory Results 01/30/18 04:20 01/31/18 06:00 01/31/18 02/01/18 02/02/18 05:59 05:59 05:59 Intake Total 850 1100 Output Total 1425 1025 400 Balance -575 75 -400 PT 16.3 SEC (12.0-15.0) H 01/25/18 11:00 INR 1.29 (0.83-1.16) H 01/25/18 11:00 Physical Exam - Physical Exam General Appearance: mild distress, other (Up in chair. Oxymizer as well as intermittent OxyMask in place.) EENT: PERRL/EOMI, other (Oxygen as above) Neck: normal inspection Respiratory: decreased breath sounds, rales (Bibasilar rales, no change), No rhonchi, No wheezing Cardiac/Chest: regular rate, rhythm Abdomen: normal bowel sounds, non-tender, soft Skin: warm/dry, pallor Extremities: No pedal edema Neuro/Psych: no motor/sensory deficits, No cognition abnormalities ICD10 Worksheet Patient Problems: Problems Problem Status Onset Chronic obstructive pulmonary disease with acute exacerbation Acute Atrial fibrillation Acute Congestive heart failure Acute Dizziness Acute Hypoxemia Acute Ischemic cardiomyopathy Acute Near syncope Acute Symptomatic bradycardia Acute
[2018-02-01] MEDS: DILTIAZEM CD 120 MG CAP PO SCH (14:48)
[2018-02-01] MEDS: [UNRECOGNIZED DRUG - OTHER] TP SCH ×2 (14:53→22:39)
--- NOTE | 2018-02-01 16:12 | HOSPPROG ---
Hospitalist Progress Note Assessment/Plan: Assessment: 77 yo M p/w acute on chronic hypoxic respiratory failure 2/2 ILD flare w/ possible acute diastolic CHF Plan: # Acute on Chronic Hypoxic Respiratory Failure. Recent acutely worsening shortness of breath w/ minimal activity, severely desat'ing, reqiring NRB and vapotherm, currently, slowly weaned to 15LPM, 2/2 ILD flare as well as possible acute diastolic CHF -continue palliative conversations daily to support the patient, as his primary objective is to return home w/ w/o going to SNF first, and home hospice may be the most appropriate support at this juncture -d/w Dr. Hernandez, we agreed to BiPAP rest trial, but the patient did not tolerate as he is claustrophobic and felt the mask was more of hindrance -will cont to work w/ RT to determine whether patient can receive high flow concentrator at home # Possible acute diastolic CHF exacerbation. 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 Acute, 2/2 above -patient would prefer to hold on SSRI, counseled him regarding potential use in this situation, PRN ativan available # Chronic COPD. No significant wheezing on exam -cont pulmonary toilet, s/p 5 days Azithro -cont steroids at lowered IV dosage # CAD - no chest pain - cont home meds # Atrial fibrillation - currently rate controlled -cont eliquis, digoxin, diltiazem, metoprolol # proph - eliquis # diet - cardiac # dispo - ongoing high o2 requirements, counseled patient regarding work w/ PT/ OT to troubleshoot his home mobility to prepare for ultimate DC home w/ HHC +/- hospice High level of medical complexity, high risk of worsening morbidity and mortality 2/2 issues outlined above. Subjective: patient feels very uncomfortable with the BiPAP mask on Objective: Vital Signs Temp Pulse Resp BP Pulse Ox 36.7 C 83 30 H 114/55 L 91 L 02/01/18 12:00 02/01/18 15:30 02/01/18 15:30 02/01/18 14:48 02/01/18 15:30 Laboratory Results 01/30/18 04:20 01/31/18 06:00 01/31/18 02/01/18 02/02/18 05:59 05:59 05:59 Intake Total 850 1100 360 Output Total 1425 1025 1200 Balance -575 75 -840 PT 16.3 SEC (12.0-15.0) H 01/25/18 11:00 INR 1.29 (0.83-1.16) H 01/25/18 11:00 - Physical Exam Constitutional: chronically ill appearing, uncomfortable, No no apparent distress (mild), No not in pain Cardiovascular: irregularly irregular, No systolic murmur, No tachycardia, No edema Respiratory: inspiratory crackles, respiratory distress (visibly tachypneic), No reduced air movement, No expiratory wheeze, No bronchial breath sounds Gastrointestinal: normoactive bowel sounds, soft, non-tender abdomen, no palpable masses Psychiatric: not encephalopathic, thought process linear, anxious, agitated ICD10 Worksheet Patient Problems: Problems Problem Status Onset Symptomatic bradycardia Acute Dizziness Acute Near syncope Acute Atrial fibrillation Acute Ischemic cardiomyopathy Acute Congestive heart failure Acute Hypoxemia Acute Chronic obstructive pulmonary disease with acute exacerbation Acute
[2018-02-01] MEDS: morphINE SR 15 MG TAB PO SCH (20:52)
[2018-02-01] MEDS: ATORVASTATIN CALCIUM 40 MG TAB PO SCH (20:53)
[2018-02-01] MEDS: TRAVOPROST Z 0.004% 2.5 ML OPHT.BTL EACHEYE SCH (22:39)
[2018-02-02] MEDS: methylPREDNISolone SOD SUCC 125 MG/2 ML VIAL IVP SCH ×3 (05:15→20:52)
[2018-02-02] MEDS: IPRATROPIUM/ALBUTEROL 3 ML DEYVIAL IH SCH ×4 (05:36→20:18)
[2018-02-02] MEDS: POTASSIUM CL 10 MEQ TAB PO SCH (08:46)
[2018-02-02] MEDS: DIGOXIN 250 MCG TAB PO SCH (08:46)
[2018-02-02] MEDS: ASPIRIN 81 MG CHEWABLE TAB PO SCH (08:46)
[2018-02-02] MEDS: PANTOPRAZOLE SODIUM 40 MG TAB PO SCH (08:46)
[2018-02-02] MEDS: FUROSEMIDE 20 MG TAB PO SCH (08:46)
[2018-02-02] MEDS: morphINE SR 15 MG TAB PO SCH ×2 (08:47→20:51)
[2018-02-02] MEDS: METOPROLOL TARTRATE 50 MG TAB PO SCH ×2 (08:47→20:51)
[2018-02-02] MEDS: [UNRECOGNIZED DRUG - OTHER] TP SCH ×2 (08:48→21:06)
[2018-02-02] MEDS: APIXABAN 5 MG TAB PO SCH ×2 (08:48→20:52)
[2018-02-02] MEDS: FLUTICASONE/SALMETER 250/50MCG DISKUS IH SCH ×2 (08:53→20:19)
[2018-02-02] MEDS: DOCUSATE SODIUM 100 MG CAP PO SCH ×2 (08:54→20:51)
--- NOTE | 2018-02-02 08:57 | SOAPPROG ---
SOAP Progress Note Assessment/Plan: Assessment/plan: * Patient moved to intensive care unit on step-down 01/27 due to increased oxygen requirements. * Acute hypoxemic respiratory failure: Occurring in the setting of chronic hypoxemia/dyspnea due to interstitial lung disease. Possible causes of decompensation include increased fluid/reduced cardiac function (BNP increased) , acute viral or bacterial bronchitis, progression of interstitial disease. PE unlikely on Eliquis. On Lasix, azithromycin, high-dose steroids. I tried him on BiPAP today for short period of time. He did not tolerate it, felt it did not help, and he felt claustrophobic. * ILD: Consistent with idiopathic pulmonary fibrosis, with little overall change compared to his previous CT. Increased ground-glass opacities this admission suggested a possible acute component or possibly infection. Completed a course of azithromycin and high-dose steroids. On bronchodilator therapies. Decreased IV Solu-Medrol as there is been no evidence of benefit. * Atrial fibrillation. Chronic, on anticoagulation * Hemoptysis: Suspect component of bronchitis with increased risk of hemoptysis due to cough and being on Eliquis. Not a significant problem. * Hiatal hernia. Large, relatively asymptomatic however I do wonder about ongoing intermittent aspiration causing pneumonitis?. * Disposition-palliative Care to see today. Consider hospice Subjective: Sitting up in chair. Comfortable. Discussed end of life issues with patient. Objective: Vital Signs Temp Pulse Resp BP Pulse Ox 36.6 C 97 34 H 137/99 H 87 L 02/02/18 08:08 02/02/18 08:47 02/02/18 08:08 02/02/18 08:47 02/02/18 08:08 Laboratory Results 01/30/18 04:20 02/02/18 05:22 02/01/18 02/02/18 02/03/18 05:59 05:59 05:59 Intake Total 1100 1095 Output Total 1025 1625 Balance 75 -530 PT 16.3 SEC (12.0-15.0) H 01/25/18 11:00 INR 1.29 (0.83-1.16) H 01/25/18 11:00 - Time Spent With Patient Time Spent With Patient: 25 min of time spent with patient, over 1/2 involved with coordination of care or counseling. Case discussed with nursing Physical Exam - Physical Exam General Appearance: WD/WN, alert, no apparent distress EENT: PERRL/EOMI Neck: non-tender, full range of motion, supple, normal inspection Respiratory: decreased breath sounds, crackles (Bibasilar), No wheezing Cardiac/Chest: normal peripheral pulses, regular rate, rhythm Peripheral Pulses: 2+: carotid (R), carotid (L), femoral (R), femoral (L), dorsalis-pedis (R), dorsalis-pedis (L) Abdomen: normal bowel sounds, non-tender, soft Male Genitalia: deferred Rectal: deferred Back: Normal inspection Skin: normal color, warm/dry Extremities: normal range of motion, non-tender, normal inspection, normal capillary refill Neuro/Psych: no motor/sensory deficits, alert, normal mood/affect, oriented x 3 ICD10 Worksheet Patient Problems: Problems Problem Status Onset Chronic obstructive pulmonary disease with acute exacerbation Acute Atrial fibrillation Acute Congestive heart failure Acute Dizziness Acute Hypoxemia Acute Ischemic cardiomyopathy Acute Near syncope Acute Symptomatic bradycardia Acute
[2018-02-02] MEDS: DILTIAZEM CD 120 MG CAP PO SCH (12:27)
--- NOTE | 2018-02-02 14:17 | ASMTCMCOM ---
CM Note CM Note Notes: [employer] spoke to patient and family and they would like to consider Hospice care. Patient would like comfort measures at home. Met with family and they chose [facility]. [facility] to come at 2:00 to talk with family. Patient is on 30 lits of O2, Ambulance can accommodate 25 lits. [facility] to determine if patient can get the O2 he will need at home. Family also given a list of Private Duty caregivers to contact for assist at home. Referral sent to [facility]. Date Signed: 02/02/2018 02:15 PM Electronically Signed By:Aisha Mcclure LCSW
[2018-02-02] MEDS ORDERED: morphINE 10 MG/0.5 ML UDSYR PO PRN (15:52)
--- NOTE | 2018-02-02 15:57 | HOSPPROG ---
Hospitalist Progress Note Assessment/Plan: Assessment: 77 yo M p/w acute on chronic hypoxic respiratory failure 2/2 ILD flare w/ possible acute diastolic CHF Plan: # Acute on Chronic Hypoxic Respiratory Failure. Recent acutely worsening shortness of breath w/ minimal activity, severely desat'ing, required NRB and vapotherm, weaned to 15LPM+10LPM facemask (total 25LPM), 2/2 ILD + dCHF -CXR (personally interpreted) w/o appreciable change this AM -d/w Dr. Mccormack, we both agreed that patient's stated goals of care seem most c/ w hospice, so hospice consultation obtained # Possible acute diastolic CHF exacerbation. Pt with history of chronic dCHF from ILD, EF 60% and increased air space infiltrates on CXR/CT -Cr 0.8, K 4.6 -cont lasix 40mg daily -monitor I/O, net neg 500cc o/n # Depressed mood. Acute, 2/2 above -patient would prefer to hold on SSRI, counseled him regarding potential use in this situation, PRN ativan available # Chronic COPD. No significant wheezing on exam -cont pulmonary toilet, s/p 5 days Azithro -cont steroids at lowered IV dosage # CAD - no chest pain - cont home meds # Atrial fibrillation - currently rate controlled -cont eliquis, digoxin, diltiazem, metoprolol # proph - eliquis # diet - cardiac # dispo - ongoing high o2 requirements, hospice consultation today. High level of medical complexity, high risk of worsening morbidity and mortality 2/2 issues outlined above. Subjective: Patient reports ongoing shortness of breath with any activity Objective: Vital Signs Temp Pulse Resp BP Pulse Ox 36.4 C 84 16 104/65 91 L 02/02/18 11:44 02/02/18 15:15 02/02/18 15:15 02/02/18 11:44 02/02/18 15:15 Laboratory Results 01/30/18 04:20 02/02/18 05:22 02/01/18 02/02/18 02/03/18 05:59 05:59 05:59 Intake Total 1100 1095 550 Output Total 1025 1625 500 Balance 75 -530 50 PT 16.3 SEC (12.0-15.0) H 01/25/18 11:00 INR 1.29 (0.83-1.16) H 01/25/18 11:00 - Physical Exam Constitutional: not in pain, chronically ill appearing, uncomfortable, No no apparent distress (mild) Cardiovascular: irregularly irregular, tachycardia, No systolic murmur, No edema Respiratory: inspiratory crackles (bilat), respiratory distress (visibly tachypneic), No expiratory wheeze, No bronchial breath sounds Gastrointestinal: normoactive bowel sounds, soft, non-tender abdomen, no palpable masses, No distension Neurologic: AAOx3, No facial droop Psychiatric: not encephalopathic, thought process linear, anxious, No agitated ICD10 Worksheet Patient Problems: Problems Problem Status Onset Symptomatic bradycardia Acute Dizziness Acute Near syncope Acute Atrial fibrillation Acute Ischemic cardiomyopathy Acute Congestive heart failure Acute Hypoxemia Acute Chronic obstructive pulmonary disease with acute exacerbation Acute
[2018-02-02] MEDS ORDERED: CEPACOL LOZENGE PO PRN (16:45)
[2018-02-02] MEDS: TRAVOPROST Z 0.004% 2.5 ML OPHT.BTL EACHEYE SCH (21:04)
[2018-02-03] MEDS: IPRATROPIUM/ALBUTEROL 3 ML DEYVIAL IH SCH ×3 (05:46→15:42)
[2018-02-03] MEDS: methylPREDNISolone SOD SUCC 125 MG/2 ML VIAL IVP SCH ×2 (06:38→13:34)
[2018-02-03] MEDS: FUROSEMIDE 20 MG TAB PO SCH (08:50)
[2018-02-03] MEDS: morphINE SR 15 MG TAB PO SCH ×2 (08:50→20:26)
[2018-02-03] MEDS: FLUTICASONE/SALMETER 250/50MCG DISKUS IH SCH ×2 (09:22→20:29)
[2018-02-03] MEDS: METOPROLOL TARTRATE 50 MG TAB PO SCH ×2 (09:44→20:26)
[2018-02-03] MEDS: ASPIRIN 81 MG CHEWABLE TAB PO SCH (09:45)
[2018-02-03] MEDS: DOCUSATE SODIUM 100 MG CAP PO SCH (09:45)
[2018-02-03] MEDS: APIXABAN 5 MG TAB PO SCH ×2 (09:45→20:26)
[2018-02-03] MEDS: DIGOXIN 250 MCG TAB PO SCH (09:45)
[2018-02-03] MEDS: PANTOPRAZOLE SODIUM 40 MG TAB PO SCH (09:45)
[2018-02-03] MEDS: DILTIAZEM CD 120 MG CAP PO SCH (12:21)
--- NOTE | 2018-02-03 12:43 | ASMTCMCOM ---
CM Note CM Note Notes: 02/03/2018 Case Management Note Pt and family met w/[facility] vice president of news and Kartik from Palliative. Please see Palliative note. Pt plans to return home under Hospice. [facility] is arranging for liquid oxygen and other medical equipment to be delivered between 8 - 12 at pt home tomorrow Sunday 02/04. [facility] is arranging transport with [facility] for approximately [address] at [facility] on Sunday 02/04. [facility] can provide 30L of O2 for transport. [facility] RN requested that pt prescriptions for Ativan 0.5 mg - 1.0 mg every 4 hours prn, Roxynol and long acting morphine be filled here at [facility] prior to d/c so that pt arrives home with medications. Case Management will continue to follow. Date Signed: 02/03/2018 12:42 PM Electronically Signed By:Sandee Cabrera RN
--- NOTE | 2018-02-03 12:46 | SOAPPROG ---
SOAP Progress Note Assessment/Plan: Assessment/plan: * Patient moved to intensive care unit on step-down 01/27 due to increased oxygen requirements. * Acute hypoxemic respiratory failure: Occurring in the setting of chronic hypoxemia/dyspnea due to interstitial lung disease. Possible causes of decompensation include increased fluid/reduced cardiac function (BNP increased) , acute viral or bacterial bronchitis, progression of interstitial disease. PE unlikely on Eliquis. On Lasix, azithromycin, high-dose steroids. I tried him on BiPAP today for short period of time. He did not tolerate it, felt it did not help, and he felt claustrophobic. * ILD: Consistent with idiopathic pulmonary fibrosis, with little overall change compared to his previous CT. Increased ground-glass opacities this admission suggested a possible acute component or possibly infection. Completed a course of azithromycin and high-dose steroids. On bronchodilator therapies. Decreased IV Solu-Medrol as there is been no evidence of benefit. * Atrial fibrillation. Chronic, on anticoagulation * Hemoptysis: Suspect component of bronchitis with increased risk of hemoptysis due to cough and being on Eliquis. Not a significant problem. * Hiatal hernia. Large, relatively asymptomatic however I do wonder about ongoing intermittent aspiration causing pneumonitis?. * Disposition-will be discharged tomorrow on hospice Subjective: Sitting up in chair. Conversing with family. Breathing easily currently. Objective: Vital Signs Temp Pulse Resp BP Pulse Ox 36.6 C 70 32 H 114/78 92 02/03/18 04:00 02/03/18 12:21 02/03/18 09:23 02/03/18 12:21 02/03/18 09:23 Laboratory Results 01/30/18 04:20 02/02/18 05:22 02/02/18 02/03/18 02/04/18 05:59 05:59 05:59 Intake Total 1095 950 Output Total 1625 1275 200 Balance -530 -325 -200 PT 16.3 SEC (12.0-15.0) H 01/25/18 11:00 INR 1.29 (0.83-1.16) H 01/25/18 11:00 - Time Spent With Patient Time Spent With Patient: 25 min of time spent with patient, over 1/2 involved with coordination of care or counseling Physical Exam - Physical Exam General Appearance: alert, no apparent distress EENT: PERRL/EOMI, normal ENT inspection Neck: non-tender, full range of motion, supple, normal inspection Respiratory: crackles, No respiratory distress Cardiac/Chest: normal peripheral pulses, regular rate, rhythm Peripheral Pulses: 2+: carotid (R), carotid (L), femoral (R), femoral (L), dorsalis-pedis (R), dorsalis-pedis (L) Abdomen: normal bowel sounds, non-tender, soft Male Genitalia: deferred Rectal: deferred Neuro/Psych: alert, normal mood/affect, oriented x 3 ICD10 Worksheet Patient Problems: Problems Problem Status Onset Chronic obstructive pulmonary disease with acute exacerbation Acute Atrial fibrillation Acute Congestive heart failure Acute Dizziness Acute Hypoxemia Acute Ischemic cardiomyopathy Acute Near syncope Acute Symptomatic bradycardia Acute
[2018-02-03] MEDS: [UNRECOGNIZED DRUG - OTHER] TP SCH ×2 (14:45→20:32)
[2018-02-03] MEDS ORDERED: LORazepam 0.5 MG TAB PO PRN (16:27)
--- NOTE | 2018-02-03 16:32 | HOSPPROG ---
Hospitalist Progress Note Assessment/Plan: Assessment: 77 yo M p/w acute on chronic hypoxic respiratory failure 2/2 ILD flare w/ possible acute diastolic CHF, transitioning to hospice Plan: # Acute on Chronic Hypoxic Respiratory Failure. Recent acutely worsening shortness of breath w/ minimal activity, severely desat'ing, required NRB and vapotherm, weaned to 15LPM+10LPM facemask (total 25LPM), 2/2 ILD + dCHF, most recent CXR unchanged (personally interpreted) -d/w Dr. Mccormack, we both agree that patient's condition is terminal, and the patient is ready to transition to hospice -home o2 needs (high requirements) successfully arranged by [facility] -trialing PRN roxanol/ativan today for SOB, on MS contin # Possible acute diastolic CHF exacerbation. 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 Acute, 2/2 above -PRN ativan # Chronic COPD. No significant wheezing on exam -given goals of care, stop IV steroids # CAD - no chest pain - cont home meds # Atrial fibrillation - currently rate controlled -cont eliquis, digoxin, diltiazem, metoprolol, as the patient feels like the eliquis will help prevent CVA in his final days, and the rate/rhythm Rx will help keep him from evolving into CHF # proph - eliquis # diet - cardiac # dispo - ongoing high o2 requirements, arranged for transition home w/ hospice 5/9 AM High level of medical complexity, high risk of worsening morbidity and mortality 2/2 issues outlined above. Subjective: patient feels more comfortable after shower, remains tachypneic Objective: Vital Signs Temp Pulse Resp BP Pulse Ox 36.6 C 70 32 H 114/78 92 02/03/18 04:00 02/03/18 12:21 02/03/18 09:23 02/03/18 12:21 02/03/18 09:23 Laboratory Results 01/30/18 04:20 02/02/18 05:22 02/02/18 02/03/18 02/04/18 05:59 05:59 05:59 Intake Total 1095 950 Output Total 1625 1275 400 Balance -530 -325 -400 PT 16.3 SEC (12.0-15.0) H 01/25/18 11:00 INR 1.29 (0.83-1.16) H 01/25/18 11:00 - Pending Discharge Pending Discharge Within 24 Hours: Yes Pending Discharge Date: 02/04/18 Pending Discharge Time: 11:00 - Physical Exam Constitutional: not in pain, chronically ill appearing, uncomfortable, No no apparent distress (mild resp distress), No unkempt Cardiovascular: tachycardia, No systolic murmur, No irregularly irregular, No edema Respiratory: inspiratory crackles, respiratory distress (visibly tachypneic), No reduced air movement, No expiratory wheeze, No bronchial breath sounds Gastrointestinal: normoactive bowel sounds, soft, non-tender abdomen, no palpable masses Neurologic: AAOx3 Psychiatric: interacting appropriately, not anxious, not encephalopathic, thought process linear, other (tearful), No agitated ICD10 Worksheet Patient Problems: Problems Problem Status Onset Symptomatic bradycardia Acute Dizziness Acute Near syncope Acute Atrial fibrillation Acute Ischemic cardiomyopathy Acute Congestive heart failure Acute Hypoxemia Acute Chronic obstructive pulmonary disease with acute exacerbation Acute
[2018-02-03] MEDS ORDERED: IPRATROPIUM/ALBUTEROL 3 ML DEYVIAL IH PRN (16:33)
[2018-02-03] MEDS: TRAVOPROST Z 0.004% 2.5 ML OPHT.BTL EACHEYE SCH (20:28)
[2018-02-04 07:40] VITALS: BP 124/71
[2018-02-04] MEDS: APIXABAN 5 MG TAB PO SCH (08:50)
[2018-02-04] MEDS: METOPROLOL TARTRATE 50 MG TAB PO SCH (08:51)
[2018-02-04] MEDS: morphINE SR 15 MG TAB PO SCH (08:51)
[2018-02-04] MEDS: FLUTICASONE/SALMETER 250/50MCG DISKUS IH SCH (08:51)
[2018-02-04] MEDS: ASPIRIN 81 MG CHEWABLE TAB PO SCH (08:51)
[2018-02-04] MEDS: [UNRECOGNIZED DRUG - OTHER] TP SCH (08:57)
[2018-02-04] MEDS: DIGOXIN 250 MCG TAB PO SCH (09:00)
[2018-02-04] MEDS: DILTIAZEM CD 120 MG CAP PO SCH (12:33)
--- NOTE | 2018-02-04 12:43 | PDIAF ---
- Diagnosis Diagnosis: Chronic respiratory failure, ILD Code Status: Do Not Resuscitate - Medication Management Discharge Medications: Medications to Continue on Transfer Travoprost Z 0.004% [Travatan Z 0.004% (*)] 1 drops EACHEYE HS 09/24/09 [Last Taken 11/15/17] Apixaban [Eliquis] 5 mg PO BID #60 tab 08/14/17 [Last Taken 01/24/18] Metoprolol Tartrate [Lopressor 50 mg (*)] 50 mg PO BID #60 tab 08/14/17 [Last Taken 11/16/17] Aspirin [Aspirin 81mg (*)] 81 mg PO DAILY tab.chew 12/10/17 [Last Taken ] Digoxin [Lanoxin 250 mcg (RX)] 250 mcg PO DAILY AT 10AM tab 12/10/17 [Last Taken Unknown] Diltiazem Cd [Cardizem ER 120 MG (*)] 120 mg PO DAILY@1200 cap 12/10/17 [Last Taken Unknown] Fluticasone/Salmeter 250/50Mcg [Advair 250/50 (*)] 1 puffs IH BID disk [Last Taken Unknown] Albuterol [Proventil Inhaler HFA (*)] 1 puffs IH BID 01/25/18 [Last Taken Unknown] predniSONE [Prednisone] 10 mg PO DAILY 01/25/18 [Last Taken 01/25/18] Compounded Wound Care Ointment 1 tawanda TP BID 01/26/18 [Last Taken Unknown] LORazepam [Ativan (*)] 0.5 - 1 mg PO Q4HRS PRN #20 tab 02/03/18 [Last Taken Unknown] morphINE SR [Ms Contin/Oramorph 15 mg (*)] 15 mg PO BID #10 tab 02/03/18 [Last Taken Unknown] morphINE [Roxanol 10 mg/0.5 ml oral soln (*)] 5 mg PO Q2HRS PRN #20 udsyr [Last Taken Unknown] Discharge Medications: Refer to the Discharge Home Medication list for PRN reason. - Orders Isolation Type: None Oxygen: 30 LPM by oxymask Diet Recommendation: no restrictions on diet Additional Instructions: Home hospice with [facility] - Follow Up Care Current Providers and Referrals: Chon Urbina MD [Primary Care Provider] - As per Instructions
--- NOTE | 2018-02-04 17:59 | GDS ---
[f rep st] DISCHARGE SUMMARY DISCHARGE DIAGNOSES: 1. Acute on chronic hypoxemic respiratory failure secondary to progressive interstitial lung disease and diastolic heart failure. 2. Acute diastolic heart failure. 3. Chronic obstructive pulmonary disease. 4. Depression. 5. Coronary artery disease. CONSULTANTS: Dr. Landon Vásquez, Pulmonology. HISTORY OF DETAILS: Please see the history and physical dated January 25, 2018. In brief, the patient is a 77-year-old male with history of chronic interstitial lung disease and associated hypoxemia req uiring 5 L of oxygen at baseline who presents to the emergency department with shortness of breath. He was quite hypoxic on arrival, requiring 15 L of oxygen by Oxymizer and was admitted to the [facility] for further management. HOSPITAL COURSE: The patient was admitted to the ICU. Consideration was given to acute diastolic he art failure. He was diuresed with Lasix. He was also treated with steroids and antibiotics. 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 His condition unfortunate ly worsened with development of hemoptysis. Despite over week of aggressive interventions, he continu ed to require a high amount of oxygen at 30 L/minute. Conversations were continued regarding goals o f care. The patient acknowledged that he has no significant quality of life due to profound shortnes s of breath and fatigue with any type of activity. He ultimately discussed with Pulmonology and the hospitalist team that his condition is terminal, and he wanted to transition to hospice care. DISPOSITION: Patient is discharged home with [facility]. DISCHARGE MEDICATIONS: Please see [facility] for complete updated outpatient medication list. New medications on discharge include: 1. Ativan 0.5 to 1 mg p.o. q.4 hours p.r.n., #20 no refills. 2. Roxanol 5 mg p.o. q.2 hours p.r.n. 3. MS Contin 15 mg p.o. twice daily. He will continue all other outpatient medications as previously prescribed. He did wish to stop his Lasix, which was discontinued at discharge. His Lipitor is also discontinued. He can continue to work with hospice regarding his other medications. /[id number]/MODL
--- NOTE | 2018-02-05 17:39 | ASDISCHSUM ---
Discharge Information Plan Status:Hospice-Home Medically Cleared to Leave: Discharge Date:02/04/2018 01:04 PM CM D/C Disposition:Hospice Home ADT D/C Disposition:Hospice Home Projected Discharge Date:02/03/2018 11:00 AM Transportation at D/C:ALS/BLS Discharge Delay Reason: Follow-Up Date:02/03/2018 11:00 AM Discharge Slot: Final Diagnosis:Resp Failure, Interstitial lung dis Placement Information Referral Type:*Home Health Care Services Referral ID:[id number] Provider Name: Address 1: Phone Number: Address 2: Fax Number: City: Selection Factors: State: Referral Type:*Hospice Referral ID:[id number] Provider Name:[facility] Address 1:[address] Address 2: City:[place] Selection Factors: State:[place] Patient Contact Information Contact Name:JUDYRENNER Relationship: Address:[address] City:[place] Alternate Phone: State/Zip Code:[place] [address] Email: Financial Information Financial Class:Medicare Advantage Plans Primary Plan Desc:[facility] [employer] Primary Plan Number:[id number] Secondary Plan Desc: Secondary Plan Number: Assessment Information [facility] CM Progress Note CM Note CM Note Notes: 01/26/2018 Case Management Note Met w/pt and Swapna [phone] after rounds this morning. Pt admitted for respiratory failure and interstitial lung disease. Pt has recent d/c from [facility] on 12/10. Pt is current with [facility] PT OT RN. Faxed updates to [facility]. Discussed with RN and requested PT OT nupur. Pt expressed frustration with [employer] oxygen supply. Contacted [employer] the [employer] at [phone] for assistance for family. 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 Case Management to follow. Date Signed: 01/26/2018 03:57 PM Electronically Signed By:Sandee Cabrera RN [facility] Progress Note CM Note CM Note Notes: Dr. Hernandez has ordered a Palliative Care consult for the family. chaplain Lemuel spoke with patient's to set up the consult for Friday. Patient himself can participate so it most likely will be held in the patient's room. Patient's will call back Friday with a time for the family members to gather. Lemuel states he will follow up with getting the meeting set up. CM to participate in the meeting. CM will follow. Date Signed: 01/30/2018 04:10 PM Electronically Signed By:Angle Roland LCSW [facility] CM Progress Note CM Note CM Note Notes: [employer] Quality Ass[employer] Specialist spoke to patient and family and they would like to consider Hospice care. Patient would like comfort measures at home. Met with family and they [facility] to come at 2:00 to talk with family. Patient is on 30 lits of O2, Ambulance can accommodate 25 lits. [facility] to determine if patient can get the O2 he will need at home. Family also given a list of Private Duty caregivers to contact for assist at home. Referral sent to [facility]. Date Signed: 02/02/2018 02:15 PM Electronically Signed By:Aisha Mcclure LCSW [facility] CM Progress Note CM Note CM Note Notes: 02/03/2018 Case Management Note Pt and family met w/[facility] phone technician and Kartik from Palliative. Please see Palliative note. Pt plans to return home under Hospice. [facility] is arranging for liquid oxygen and other medical equipment to be delivered between 8 - 12 at pt home tomorrow Sunday 02/04. [facility] is arranging transport with [facility] for approximately 1300 shrimp picker at [facility] on Sunday 02/04. [facility] can provide 30L of O2 for transport. [facility] RN requested that pt prescriptions for Ativan 0.5 mg - 1.0 mg every 4 hours prn, Roxynol and long acting morphine be filled here at [facility] prior to d/c so that pt arrives home with medications. Case Management will continue to follow. Date Signed: 02/03/2018 12:42 PM Electronically Signed By:Sandee Cabrera RN Intervention Information Intervention Type:*IM-Signed Date of Service:02/04/2018 10:17 AM Patient Type:Inpatient Staff Member:Tawnya Doyle Hours: Discipline: Severity: Comment:
== END 2018-02-04 13:04 | disposition hospice, home (50) | DRG 189 ==
LOC: EDUNIT# → F2W 13:10 → F2N 01-27 12:29 → F2W 02-02 17:19 → F3E 02-03 17:57
PROVIDERS: ADMIT Student in an Organized Health Care Education/Training Program; ATTEND Student in an Organized Health Care Education/Training Program
DX: J96.21 Acute and chronic respiratory failure with hypoxia (principal); I11.0 Hypertensive heart disease with heart failure; I50.31 Acute diastolic (congestive) heart failure; J44.1 Chronic obstructive pulmonary disease with (acute) exacerbation; J84.112 Idiopathic pulmonary fibrosis; F32.9 Major depressive disorder, single episode, unspecified; I25.10 Atherosclerotic heart disease of native coronary artery without angina pectoris; E78.00 Pure hypercholesterolemia, unspecified; H40.9 Unspecified glaucoma; K21.9 Gastro-esophageal reflux disease without esophagitis; Z85.820 Personal history of malignant melanoma of skin; Z95.1 Presence of aortocoronary bypass graft; Z96.651 Presence of right artificial knee joint
CPT/HCPCS: 96374; 97110-GP; 97162-GP; 97530-GP; G8978-GP-CK; G8979-GP-CI; J1940; J2930; P9041